=== PATIENT | female | born 1960 | race Caucasian/White ===

== ENCOUNTER 2016-09-17 12:45 | Inpatient (IN) | payer BC ==
[~2016-09-17] VITALS: Ht 157.5 cm; Wt 75.3 kg
[~2016-09-17 12:45] MED LIST: HYD10; SYN112
[2016-09-17] MEDS ORDERED: SODIUM CHLORIDE 0.9% 1000ML 1,000 ML IV STA ×2 (13:54→15:38)
[2016-09-17] MEDS ORDERED: ONDANSETRON INJ 2 MG/ML 2 ML VIAL IV STA (13:54)
[2016-09-17] MEDS: MoRPHine SULFATE 4 MG/ML 1 ML CARP\\VIAL IV PRN ×2 (14:04→18:01)
[2016-09-17 14:11] LABS: BASO % 0.2 %; BASO ABS # 0.02 K/uL (0-0.2); COMPLETE YES; EOS % 0.1 %; HEMATOCRIT 49.3 % (37-47); IG% 0.3 %; LYMPH % 7.7 %; LYMPH ABS # 0.89 K/uL (1.2-3.4); MEAN CELL VOLUME 93.5 fL (80-100); MEAN CORPUSCULAR HEMOGLOBIN 33.2 pg (25-34); MEAN CORPUSCULAR HGB CONC 35.5 g/dl (32-36); MEAN PLATELET VOLUME 11.4 fL (7.4-10.4); MONO % 6.8 %; NEUT % 84.9 %; PLATELET COUNT 215 K/uL (130-400); RED BLOOD COUNT 5.27 M/uL (4.2-5.4); WHITE BLOOD COUNT 11.62 K/uL (4.8-10.8)
[2016-09-17 14:23] LABS: BUN/CREATININE RATIO 20.9 (10-20); CALCIUM 8.9 mg/dl (8.5-10.1); CREATININE 1.3 mg/dl (0.60-1.20); POTASSIUM 3.1 mmol/L (3.5-5.1)
[2016-09-17] MEDS ORDERED: PRLSR20 PO (14:34)
[2016-09-17] MEDS ORDERED: HYDR20TA3 PO (14:34)
[2016-09-17] MEDS ORDERED: ERGO500037 PO (14:34)
[2016-09-17] MEDS ORDERED: HYDR25TA5 PO (14:34)
[2016-09-17] MEDS ORDERED: LEVO88TA PO (14:34)
[2016-09-17] MEDS ORDERED: HYDR20TA PO (14:34)
[2016-09-17] MEDS ORDERED: ISOS-11 PO (14:34)
[2016-09-17] MEDS ORDERED: ASPI81TA28 PO (14:34)
[2016-09-17] MEDS ORDERED: METO50TA16 PO (14:34)
[2016-09-17] MEDS ORDERED: GLIP5TAB11 PO (14:34)
[2016-09-17] MEDS ORDERED: HYDROCORTISONE SOD SUCCINATE 100 MG/2 ML VIAL IV STA (15:37)
--- NOTE | 2016-09-17 16:44 | EMERGENCY ROOM VISIT NOTE ---
History Report prepared by Isela: Kim Bliss Under the Supervision of: Rene FullerO. First contact with patient: 13:09 Chief Complaint: PAIN (GENERALIZED) Stated Complaint: PAIN ALL OVER BODY History of Present Illness The patient is a 56 year old female who presents to the Emergency Room with complaints of persistent nausea, vomiting and diarrhea since yesterday. She has had about 6-7 episodes of both vomiting and diarrhea. The patient has not been able to keep anything down and notes that water goes right through her. She also complains of generalized abdominal pain. She has not been on antibiotics recently. No recent travel outside of the country or known sick contacts. Source of History: patient Onset: yesterday Position: other (GI) Quality: other (n/v/d) Timing: other (persistent) Modifying Factors (Worsening): eating, drinking Associated Symptoms: + abdominal pain Review of Systems See HPI for pertinent positives & negatives. A total of 10 systems reviewed and were otherwise negative. Past Medical & Surgical Medical Problems: (1) Hypolipidemia (2) Type 2 diabetes mellitus Family History No pertinent family history stated. Social History Smoking Status: Current Every Day Smoker Marital Status: Occupation Status: employed Current/Historical Medications Scheduled Aspirin (Aspirin Ec), 81 MG PO DAILY Ergocalciferol (Vitamin D 09630 Unit), 50,000 UNIT PO MONTHLY Glipizide (Glucotrol), 5 MG PO UD Hydrochlorothiazide (Hydrochlorothiazide), 25 MG PO DAILY Hydrocortisone (Cortef), 20 MG PO QAM Hydrocortisone (Cortef), 10 MG PO QPM Isosorbide Mononitrate (Isosorbide Mononitrate ER), 60 MG PO DAILY Levothyroxine Sodium (Synthroid), 88 MCG PO DAILY Metoprolol Tartrate (Lopressor) (Lopressor), 50 MG PO BID Omeprazole (Prilosec), 20 MG PO DAILY Allergies Coded Allergies: Codeine (Verified Allergy, Unknown, 10/02/09) Physical Exam Vital Signs Date Time Temp Pulse Resp B/P Pulse Ox O2 Delivery O2 Flow Rate FiO2 09/17/16 16:38 90 20 151/93 96 Room Air 09/17/16 15:32 98 20 167/82 97 Room Air 09/17/16 14:05 84 22 178/76 96 Room Air 09/17/16 13:32 37.1 98 22 1/21/17 12:56 35.0 95 28 121/64 94 Room Air Physical Exam CONSTITUTIONAL/VITAL SIGNS: Reviewed / noted above. GENERAL: Non-toxic in appearance. INTEGUMENTARY: Warm, dry, and [place]. HEAD: Normocephalic. EYES: without scleral icterus or trauma. ENT/OROPHARYNX: clear and moist. LYMPHADENOPATHY/NECK: Is supple without lymphadenopathy or meningismus. RESPIRATORY: Lungs clear and equal. CARDIOVASCULAR: Regular rate and rhythm. GI/ABDOMEN: Soft and nontender. No organomegaly or pulsatile mass. No rebound or guarding. Normal bowel sounds. EXTREMITIES: Warm and well perfused. BACK: No CVA tenderness. NEUROLOGICAL: Intact without focal deficits. PSYCHIATRIC: normal affect. MUSCULOSKELETAL: Normally developed with good muscle tone. Medical Decision & Procedures Laboratory Results 09/17/16 13:25 Red Blood Count 5.27, Mean Corpuscular Volume 93.5, Mean Corpuscular Hemoglobin 33.2, Mean Corpuscular Hemoglobin Concent 35.5, Mean Platelet Volume 11.4, Neutrophils (%) (Auto) 84.9, Lymphocytes (%) (Auto) 7.7, Monocytes (%) (Auto) 6.8, Eosinophils (%) (Auto) 0.1, Basophils (%) (Auto) 0.2, Neutrophils # (Auto) 9.88, Lymphocytes # (Auto) 0.89, Monocytes # (Auto) 0.79, Eosinophils # (Auto) 0.01, Basophils # (Auto) 0.02 09/17/16 13:25 Test 09/17/16 13:25 09/17/16 13:54 09/17/16 17:10 White Blood Count 11.62 K/uL (4.8-10.8) Red Blood Count 5.27 M/uL (4.2-5.4) Hemoglobin 17.5 g/dL (12.0-16.0) Hematocrit 49.3 % (37-47) Mean Corpuscular Volume 93.5 fL (80-100) Mean Corpuscular Hemoglobin 33.2 pg (25-34) Mean Corpuscular Hemoglobin Concent 35.5 g/dl (32-36) Platelet Count 215 K/uL (130-400) Mean Platelet Volume 11.4 fL (7.4-10.4) Neutrophils (%) (Auto) 84.9 % Lymphocytes (%) (Auto) 7.7 % Monocytes (%) (Auto) 6.8 % Eosinophils (%) (Auto) 0.1 % Basophils (%) (Auto) 0.2 % Neutrophils # (Auto) 9.88 K/uL (1.4-6.5) Lymphocytes # (Auto) 0.89 K/uL (1.2-3.4) Monocytes # (Auto) 0.79 K/uL (0.11-0.59) Eosinophils # (Auto) 0.01 K/uL (0-0.5) Basophils # (Auto) 0.02 K/uL (0-0.2) RDW Standard Deviation 43.6 fL (36.4-46.3) RDW Coefficient of Variation 12.8 % (11.5-14.5) Immature Granulocyte % (Auto) 0.3 % Immature Granulocyte # (Auto) 0.03 K/uL (0.00-0.02) Anion Gap 14.0 mmol/L (3-11) Est Creatinine Clear Calc Drug Dose 46.1 ml/min Estimated GFR () 53.9 Estimated GFR (Non- 46.5 BUN/Creatinine Ratio 20.9 (10-20) Calcium Level 8.9 mg/dl (8.5-10.1) Total Bilirubin 1.6 mg/dl (0.2-1) Direct Bilirubin 0.4 mg/dl (0-0.2) Aspartate Amino Transf (AST/SGOT) 40 U/L (15-37) Alanine Aminotransferase (ALT/SGPT) 36 U/L (12-78) Alkaline Phosphatase 78 U/L (45-117) Total Protein 8.2 gm/dl (6.4-8.2) Albumin 4.1 gm/dl (3.4-5.0) Lipase 73 U/L (73-393) Creatine Kinase MB Ratio (0-3.0) Date/Time Source Procedure Growth Status 09/17/16 13:55 Stool C.difficile Toxin B Gene (PCR) - Final No C. difficile toxin B gene detected Complete Laboratory results as stated above per my review. Medications Administered Medications (Trade) Dose Ordered Sig/Kam Route Start Time Stop Time Status Last Admin Dose Admin Sodium Chloride (Nss 1000ml) 1,000 ml @ 999 mls/hr Q1H1M STAT IV 09/17/16 13:54 09/17/16 14:54 DC 09/17/16 14:04 999 MLS/HR Ondansetron HCl (Zofran Inj) 4 mg NOW STAT IV 09/17/16 13:54 09/17/16 13:55 DC 09/17/16 14:04 4 MG Morphine Sulfate (MoRPHine SULFATE INJ) 4 mg Q1H PRN IV 09/17/16 14:00 10/01/16 13:59 09/17/16 14:04 4 MG Hydrocortisone Sodium Succinate 100 mg 100 mg NOW STAT IV 09/17/16 15:37 09/17/16 15:38 DC 09/17/16 15:48 100 MG Sodium Chloride (Nss 1000ml) 1,000 ml @ 999 mls/hr Q1H1M STAT IV 09/17/16 15:38 09/17/16 16:38 DC 09/17/16 15:38 999 MLS/HR ED Course 1310: The patient was evaluated in room B4. A complete history and physical examination was performed. 1354: Ordered Zofran Inj 4 mg IV, NSS 1000 ml @ 999 mls/hr IV. 1400: Ordered Morphine Sulfate 4 mg IV. 1637: Ordered Solu-Cortef 100 mg IV, NSS 1000 ml @ 999 mls/hr IV. 1637: On reevaluation, the patient is still not feeling great. I discussed the results and findings with the patient. She verbalized agreement of the treatment plan. 1647: I spoke with Dr. Carrillo of the [facility] [place] [facility] Hospitalist Service. The patient will be evaluated for further management and care. Medical Decision Differential diagnosis: Etiologies such as gastroenteritis, food borne illness, infections, appendicitis , diverticulitis, inflammatory bowel disease, obstruction, GI bleed, biliary pathology, as well as others were entertained. This is a 56-year-old female who presents to the ED with a chief complaint of nausea, vomiting and diarrhea. The patient has had about 6-7 episodes of each since it started yesterday. She has some mild generalized abdominal pain. Her vital signs are normal. Abdominal exam did not reveal any focal tenderness. CBC is unremarkable. The BUN is 27 and creatinine is 1.3. Total bilirubin is 1.6. The patient was treated with IV fluids and IV Zofran as well as IV morphine for her discomfort. Because of the patient's chronic hydrocortisone use, she was given 100 mg IV hydrocortisone. She is given a second liter of normal saline IV. The patient feels not feeling well. She did have some dry heaves during her stay as well as some diarrhea that was watery. C. difficile was negative. BUN and creatinine are slightly elevated. The patient reports she has not been able to keep her medications down for the past 2 days. The patient states that she really does not feel much better. I spoke with the hospitalist, who will see the patient for further inpatient care. Consults Time Called: 1640 Consulting Physician: Dr. Carrillo of the [facility] [place] [facility] Hospitalist Service Returned Call: [phone] Carrillo of the [facility] [place] [facility] Hospitalist Service. The patient will be evaluated for further management and care. Impression Primary Impression: Vomiting and diarrhea Additional Impression: Panhypopituitarism Scribe Attestation The scribe's documentation has been prepared under my direction and personally reviewed by me in its entirety. I confirm that the note above accurately reflects all work, treatment, procedures, and medical decision making performed by me. Departure Information Dispostion Being Evaluated By Hospitalist Referrals RV. Melissa MD (PCP) Patient Instructions My [facility] Problem Qualifiers
--- NOTE | 2016-09-17 17:35 | DIAGNOSTIC IMAGING REPORT ---
CHEST ONE VIEW PORTABLE CLINICAL HISTORY: Cough. COMPARISON STUDY: Chest radiograph March 03, 2006 FINDINGS: This study is compromised by motion artifact. There is no pneumothorax or pleural effusion. No lobar consolidation is present. There is no evidence for pulmonary edema. Apparent hazy bibasilar opacities are likely artifactual. Cardiac size is normal. Mediastinal contours are normal. IMPRESSION: 1. Study compromised by motion artifact. 2. No acute findings identified. Electronically signed by: Darek Curry M.D. 09/17/2016 5:33 PM Dictated Date/Time: 09/17/2016 5:32 PM
[2016-09-17 17:47] LABS: URINE APPEARANCE CLEAR (CLEAR); URINE BILIRUBIN NEG (NEG); URINE COLOR YELLOW; URINE EPITHELIAL CELL AUTO >30 /lpf (0-5); URINE NITRITE NEG (NEG); URINE SPECIFIC GRAVITY 1.017 (1.000-1.030); UROBILINOGEN NEG (NEG)
[2016-09-17 17:49] LABS: CKMB/CK RATIO 0.6 (0-3.0); MAGNESIUM 2.1 mg/dl (1.8-2.4)
[2016-09-17 17:52] LABS: MANUAL MICROSCOPIC REQUIRED? NO; REVIEW REQ? YES
[2016-09-17 18:02] LABS: URINE MUCUS PRESENT (NONE PRSENT)
[2016-09-17 18:04] LABS: ZZUR CULT IF INDIC CLEAN CATCH YES
[2016-09-17] MEDS ORDERED: POTASSIUM CHLORIDE 10 MEQ / 100ML WTR IV ONE (18:41)
[2016-09-17] MEDS ORDERED: NSS+KCL 20 MEQ 1000ML ONE (18:42)
--- NOTE | 2016-09-17 19:39 | DIAGNOSTIC IMAGING REPORT ---
BILATERAL LOWER EXTREMITY ARTERIAL DOPPLER ULTRASOUND CLINICAL HISTORY: History of peripheral arterial disease with bilateral stents. Decreased left dorsalis pedis pulse. COMPARISON STUDY: No previous studies for comparison. TECHNIQUE: Grayscale and color and duplex Doppler sonography of the arterial systems of the lower extremities was performed. Ankle to brachial indices were obtained. FINDINGS: The right ankle to brachial index measured 0.72 when using posterior tibial artery and 0.66 when using the dorsalis pedis. The left ankle brachial index measured 0.75 when using posterior tibial artery and 0.67 using the dorsalis pedis. There was monophasic flow within the right common femoral artery which raises the possibility of inflow disease. There is moderate atherosclerotic plaque within each lower extremity. No elevated velocities were identified within the right lower extremity. There was monophasic flow throughout the right lower extremity. There was biphasic flow within the left common femoral and superficial femoral arteries with monophasic flow within the remainder of the left lower extremity. The vessels were patent. Waveforms are slightly dampened. There was a mildly elevated velocity within the proximal left superficial femoral artery of 185 cm/s. IMPRESSION: 1. Moderate atherosclerotic plaque within each lower extremity. 2. Diminished right ankle to brachial index of 0.72 and left ankle to brachial index of 0.75. 3. Mildly elevated velocity within the proximal left superficial femoral artery which raises the possibility of a stenosis. 4. Patent vessels within each lower extremity. However, waveforms within the distal vessels were monophasic and slightly dampened. Electronically signed by: Darek Curry M.D. 09/17/2016 7:37 PM Dictated Date/Time: 09/17/2016 7:30 PM
[2016-09-17] MEDS ORDERED: GLUCOSE 40% GEL 15 GM TUBE PO PRN (20:00)
[2016-09-17] MEDS ORDERED: MoRPHine SULFATE 2 MG/ML CARP IV PRN (20:00)
[2016-09-17] MEDS ORDERED: PROMETHAZINE HCL INJ 12.5 MG in SODIUM CHLORIDE 0.9% 50ML 50 ML IV PRN (20:00)
[2016-09-17] MEDS ORDERED: GLUCAGON FOR INJ 1 MG VIAL SQ PRN (20:00)
[2016-09-17] MEDS ORDERED: DEXTROSE 50% 50 ML SYR IV PRN (20:00)
[2016-09-17] MEDS ORDERED: NITROGLYCERIN 0.4 MG SL PER TAB CHARGE SL PRN (20:00)
[2016-09-17] MEDS ORDERED: METOPROLOL TARTRATE 1 MG/ML VIAL IV. PRN (20:00)
[2016-09-17] MEDS ORDERED: ONDANSETRON INJ 2 MG/ML 2 ML VIAL IV PRN (20:00)
[2016-09-17] MEDS ORDERED: DiphenhydrAMINE HCL 50 MG/ML VIAL IV PRN (20:00)
[2016-09-17] MEDS ORDERED: LORAZEPAM 2 MG/ML 1 ML VIAL IV PRN (20:00)
[2016-09-17] MEDS ORDERED: GLUCOSE 10 TABS/TUBE PO PRN (20:00)
[2016-09-17] MEDS ORDERED: MoRPHine SULFATE 4 MG/ML 1 ML CARP\\VIAL IV PRN (20:00)
--- NOTE | 2016-09-17 20:22 | DIAGNOSTIC IMAGING REPORT ---
CT OF THE ABDOMEN AND PELVIS WITHOUT CONTRAST CLINICAL HISTORY: Left lower quadrant pain, nausea, vomiting and diarrhea. COMPARISON STUDY: No previous studies for comparison. TECHNIQUE: Axial images of the abdomen and pelvis were obtained without IV contrast. Images were reviewed in the axial, sagittal, and coronal planes. FINDINGS: Evaluation of the abdomen and pelvis is suboptimal given the lack of IV and oral contrast. There is fatty infiltration of the liver. The gallbladder is mildly distended. There are suspected gallstones within the gallbladder. There is no pericholecystic infiltration. Unenhanced images of the spleen, adrenal glands, kidneys and pancreas are unremarkable. There is no hydronephrosis or hydroureter. The caliber and wall thickness of small and large bowel are normal on this unenhanced exam. The appendix is normal. There is no evidence for a bowel obstruction. There is no lymphadenopathy. There are bilateral common iliac artery stents. Patency cannot be assessed on this unenhanced study. Skeletal structures are unremarkable. There is no lymphadenopathy. IMPRESSION: 1. Possible cholelithiasis and mild gallbladder distention. No pericholecystic infiltration. 2. No bowel obstruction. 3. No definite acute process within the abdomen or pelvis although evaluation is compromised given the lack of IV and oral contrast. 4. Normal appendix. Electronically signed by: Darek Curry M.D. 09/17/2016 8:20 PM Dictated Date/Time: 09/17/2016 8:16 PM
[2016-09-17 20:30] LABS: CKMB/CK RATIO 0.6 (0-3.0)
[2016-09-17 22:25] VITALS: BP 142/69; PULSE 82; TEMP 36.8; O2SAT 95; Ht 157.5 cm; Wt 75.3 kg
[2016-09-17] MEDS: INSULIN ASPART 100 UNITS/ML 3 ML PEN SC SCH (23:00)
[2016-09-17] MEDS ORDERED: METOPROLOL TARTRATE 1 MG/ML VIAL IV PRN (23:00)
[2016-09-17] MEDS: NITROGLYCERIN OINT 2% 1GM PACKET EXT SCH (23:08)
[2016-09-17] MEDS: POTASSIUM CHLR 10 MEQ / WTR 10 MEQ in PREMIXED WATER 100 ML IV SCH (23:08)
--- NOTE | 2016-09-17 23:24 | History and Physical ---
History & Physical Date & Time of Service: Sep 17, 2016 at 23:03 Chief Complaint: Abnormal Ekg, Vomiting And Diarrhea Primary Care Physician: RV. Melissa MD History of Present Illness Source: patient, family The patient is a 56-year-old female who presents emergency department with complaint of nausea, vomiting and diarrhea over the past 2 days. She has a history of panhypopituitarism, and has not been able to keep any of her medications down. She complains of severe generalized myalgias, feels dehydrated, severely fatigued, left lower quadrant abdominal tightness. Past Medical/Surgical History Medical Problems: (1) Hypolipidemia Status: Chronic (2) Type 2 diabetes mellitus Status: Chronic Social History Smoking Status: Current Every Day Smoker Smokeless Tobacco Use: No Alcohol Use: none Drug Use: none Marital Status: Housing status: lives with family Occupational Status: employed Immunizations History of Influenza Vaccine: No History of Tetanus Vaccine?: No History of Pneumococcal: No History of Hepatitis B Vaccine: No Multi-Drug Resistant Organisms History of MDRO: No Allergies Coded Allergies: Codeine (Verified Allergy, Unknown, 10/02/09) Home Medications Scheduled Aspirin (Aspirin Ec), 81 MG PO DAILY Ergocalciferol (Vitamin D 08620 Unit), 50,000 UNIT PO MONTHLY Glipizide (Glucotrol), 5 MG PO UD Hydrochlorothiazide (Hydrochlorothiazide), 25 MG PO DAILY Hydrocortisone (Cortef), 20 MG PO QAM Hydrocortisone (Cortef), 10 MG PO QPM Isosorbide Mononitrate (Isosorbide Mononitrate ER), 60 MG PO DAILY Levothyroxine Sodium (Synthroid), 88 MCG PO DAILY Metoprolol Tartrate (Lopressor) (Lopressor), 50 MG PO BID Omeprazole (Prilosec), 20 MG PO DAILY Review of Systems The patient denies chest pain, palpitations, lower extremity swelling, vision change, hearing change, sore throat, fevers, chills, sweats, blood in urine or stool, dysuria, urinary frequency or urgency, rash, abnormal bruising or bleeding, imbalance, focal weakness, night sweats. The review of systems is otherwise negative other than for that already noted above, and at least 10 systems have been reviewed. Physical Exam Vital Signs Date Time Temp Pulse Resp B/P Pulse Ox O2 Delivery O2 Flow Rate FiO2 09/17/16 21:45 85 18 09/17/16 20:58 135/70 09/17/16 20:45 86 22 09/17/16 20:32 148/81 09/17/16 19:58 121/76 09/17/16 19:46 87 20 135/72 93 Room Air 09/17/16 19:45 86 29 93 09/17/16 19:44 135/72 09/17/16 17:45 96 37 09/17/16 16:45 100 97 09/17/16 16:38 90 20 151/93 96 Room Air 09/17/16 15:59 151/93 09/17/16 15:45 79 32 81 09/17/16 15:32 98 20 167/82 97 Room Air 09/17/16 15:31 167/82 09/17/16 14:45 85 24 96 09/17/16 14:05 84 22 178/76 96 Room Air 09/17/16 14:04 178/76 09/17/16 13:32 37.1 98 22 09/17/16 12:56 35.0 95 28 121/64 94 Room Air The patient is awake, alert and oriented 3, lying in bed, looks to be in pain with facial grimacing. HEENT--PERRL, mucous membranes and oropharynx dry. Neck--supple, no JVD or bruits, thyroid normal, trachea midline, no adenopathy. Heart--normal S1 and S2, no extra beats, no murmurs, rubs or gallops. Lungs--decreased breath sounds on the right, scattered wheezes on the left, no respiratory distress, no accessory muscle use. Abdomen--normal bowel sounds and soft, tender left lower quadrant, nondistended. Extremities--no cyanosis, clubbing or edema. Diminished DP pulse left greater than right. Dermatologic--skin appears dry, in particular in facial areas. Neurologic--cranial nerves II through XII grossly intact, motor exam is limited , and sensory examination is abnormal due to hypersensitivity causing pain with light touch. Rheumatologic--full range of motion but limited due to pain. Psychiatric--uncomfortable secondary to pain Diagnostics Laboratory Results Results Past 24 Hours Test 09/17/16 13:25 09/17/16 17:00 09/17/16 17:10 Range/Units White Blood Count 11.62 4.8-10.8 K/uL Red Blood Count 5.27 4.2-5.4 M/uL Hemoglobin 17.5 12.0-16.0 g/dL Hematocrit 49.3 37-47 % Mean Corpuscular Volume 93.5 80-100 fL Mean Corpuscular Hemoglobin 33.2 25-34 pg Mean Corpuscular Hemoglobin Concent 35.5 32-36 g/dl Platelet Count 215 130-400 K/uL Mean Platelet Volume 11.4 7.4-10.4 fL Neutrophils (%) (Auto) 84.9 % Lymphocytes (%) (Auto) 7.7 % Monocytes (%) (Auto) 6.8 % Eosinophils (%) (Auto) 0.1 % Basophils (%) (Auto) 0.2 % Neutrophils # (Auto) 9.88 1.4-6.5 K/uL Lymphocytes # (Auto) 0.89 1.2-3.4 K/uL Monocytes # (Auto) 0.79 0.11-0.59 K/uL Eosinophils # (Auto) 0.01 0-0.5 K/uL Basophils # (Auto) 0.02 0-0.2 K/uL RDW Standard Deviation 43.6 36.4-46.3 fL RDW Coefficient of Variation 12.8 11.5-14.5 % Immature Granulocyte % (Auto) 0.3 % Immature Granulocyte # (Auto) 0.03 0.00-0.02 K/uL Sodium Level 137 136-145 mmol/L Potassium Level 3.1 3.5-5.1 mmol/L Chloride Level 102 98-107 mmol/L Carbon Dioxide Level 21 21-32 mmol/L Anion Gap 14.0 3-11 mmol/L Blood Urea Nitrogen 27 7-18 mg/dl Creatinine 1.30 0.60-1.20 mg/dl Est Creatinine Clear Calc Drug Dose 46.1 ml/min Estimated GFR () 53.9 Estimated GFR (Non- 46.5 BUN/Creatinine Ratio 20.9 10-20 Random Glucose 89 70-99 mg/dl Osmolality 296 280-300 mOsm/kg Calcium Level 8.9 8.5-10.1 mg/dl Magnesium Level 2.1 1.8-2.4 mg/dl Total Bilirubin 1.6 0.2-1 mg/dl Direct Bilirubin 0.4 0-0.2 mg/dl Aspartate Amino Transf (AST/SGOT) 40 15-37 U/L Alanine Aminotransferase (ALT/SGPT) 36 12-78 U/L Alkaline Phosphatase 78 45-117 U/L Total Creatine Kinase 542 26-192 U/L Creatine Kinase MB 3.3 0.5-3.6 ng/ml Creatine Kinase MB Ratio 0.6 0-3.0 Troponin I < 0.015 0-0.045 ng/ml Total Protein 8.2 6.4-8.2 gm/dl Albumin 4.1 3.4-5.0 gm/dl Lipase 73 73-393 U/L Urine Color YELLOW Urine Appearance CLEAR CLEAR Urine pH 5.0 4.5-7.5 Urine Specific [place] 1.017 1.000-1.030 Urine Protein NEG NEG Urine Glucose (UA) NEG NEG Urine Ketones 3+ NEG Urine Occult Blood 2+ NEG Urine Nitrite NEG NEG Urine Bilirubin NEG NEG Urine Urobilinogen NEG NEG Urine Leukocyte Esterase SMALL NEG Urine WBC (Auto) 5-10 0-5 /hpf Urine RBC (Auto) 0-4 0-4 /hpf Urine Hyaline Casts (Auto) 10-30 0-5 /lpf Urine Epithelial Cells (Auto) >30 0-5 /lpf Urine Bacteria (Auto) 1+ NEG Urine Pathogenic Casts 0 /lpf Urine Mucus PRESENT NONE PRSENT Microbiology Results 09/17/16 C.difficile Toxin B Gene (PCR) - Final, Complete No C. difficile toxin B gene detected 09/17/16 Urine Culture, Received Pending Diagnostic Radiology Patient Name: JOAN BHAT Unit Number: [id number] Dictated: 09/17/161929 Transcribed: 09/17/161929 Printed Date/Time: [~ rep prt dt]/[~ rep prt tm] [~ rep ct labl] - [~ rep ct ivnm] [facility] [place] [address] Dictated: 09/17/161929 Transcribed: 09/17/161929 Printed Date/Time: [~ rep prt dt]/[~ rep prt tm] [~ rep ct labl] - [~ rep ct ivnm] BILATERAL LOWER EXTREMITY ARTERIAL DOPPLER ULTRASOUND CLINICAL HISTORY: History of peripheral arterial disease with bilateral stents. Decreased left dorsalis pedis pulse. COMPARISON STUDY: No previous studies for comparison. TECHNIQUE: Grayscale and color and duplex Doppler sonography of the arterial systems of the lower extremities was performed. Ankle to brachial indices were obtained. FINDINGS: The right ankle to brachial index measured 0.72 when using posterior tibial artery and 0.66 when using the dorsalis pedis. The left ankle brachial index measured 0.75 when using posterior tibial artery and 0.67 using the dorsalis pedis. There was monophasic flow within the right common femoral artery which raises the possibility of inflow disease. There is moderate atherosclerotic plaque within each lower extremity. No elevated velocities were identified within the right lower extremity. There was monophasic flow throughout the right lower extremity. There was biphasic flow within the left common femoral and superficial femoral arteries with monophasic flow within the remainder of the left lower extremity. The vessels were patent. Waveforms are slightly dampened. There was a mildly elevated velocity within the proximal left superficial femoral artery of 185 cm/s. IMPRESSION: 1. Moderate atherosclerotic plaque within each lower extremity. 2. Diminished right ankle to brachial index of 0.72 and left ankle to brachial index of 0.75. 3. Mildly elevated velocity within the proximal left superficial femoral artery which raises the possibility of a stenosis. 4. Patent vessels within each lower extremity. However, waveforms within the distal vessels were monophasic and slightly dampened. Electronically signed by: Darek Curry M.D. 09/17/2016 7:37 PM Dictated Date/Time: 09/17/2016 7:30 PM The status of this report is Signed. Draft = Not yet reviewed or approved by Radiologist. Signed = Reviewed and approved by Radiologist. <AttendingPhy></AttendingPhy> <FamilyPhy>RV. Melissa MD</ FamilyPhy> <PrimaryPhy>RV. Melissa MD</PrimaryPhy> <UnitNumber> [id number]</UnitNumber> <VisitNumber>[id number]</VisitNumber> <PatientName> JOAN BHAT Brenda</PatientName> <DateOfBirth>1960</DateOfBirth> < Location>[facility]</Location> <ServiceDate>01/21/17</ServiceDate> <MNE>ESINDI</MNE> <OrderingPhy>Sreedhar Carrillo M.D.</OrderingPhy> <OrderingPhyMNE>f rep ord dr alberto</OrderingPhyMNE> <DictatingPhyMNE>f rep dict dr alberto</DictatingPhyMNE> < CCListMNE>f rep ct mne</CCListMNE> <AdmittingPhyMNE>f pt admit dr alberto</ AdmittingPhyMNE> <AttendingPhyMNE>f pt attend dr alberto</AttendingPhyMNE> <ConsultingPhyMNE>f pt consult dr alberto</ConsultingPhyMNE> <FamilyPhyMNE>f pt fam dr alberto</FamilyPhyMNE> <OtherPhyMNE>f pt other dr alberto</OtherPhyMNE> < PrimaryPhyMNE>f pt prim care dr alberto</PrimaryPhyMNE> <ReferringPhyMNE>f pt referring dr alberto</ReferringPhyMNE> Patient Name: JOAN BHAT Unit Number: [id number] Dictated: 09/17/161731 Transcribed: 09/17/161731 JA Printed Date/Time: [~ rep prt dt]/[~ rep prt tm] [~ rep ct labl] - [~ rep ct ivnm] [facility] [place] [address] Dictated: 09/17/161731 Transcribed: 09/17/161731 Printed Date/Time: [~ rep prt dt]/[~ rep prt tm] [~ rep ct labl] - [~ rep ct ivnm] [~ rep ct add3]] CHEST ONE VIEW PORTABLE CLINICAL HISTORY: Cough. COMPARISON STUDY: Chest radiograph March 03, 2006 FINDINGS: This study is compromised by motion artifact. There is no pneumothorax or pleural effusion. No lobar consolidation is present. There is no evidence for pulmonary edema. Apparent hazy bibasilar opacities are likely artifactual. Cardiac size is normal. Mediastinal contours are normal. IMPRESSION: 1. Study compromised by motion artifact. 2. No acute findings identified. Electronically signed by: Darek Curry M.D. 09/17/2016 5:33 PM Dictated Date/Time: 09/17/2016 5:32 PM The status of this report is Signed. Draft = Not yet reviewed or approved by Radiologist. Signed = Reviewed and approved by Radiologist. <AttendingPhy></AttendingPhy> <FamilyPhy>RV. Melissa MD</ FamilyPhy> <PrimaryPhy>RV. Melissa MD</PrimaryPhy> <UnitNumber> [id number]</UnitNumber> <VisitNumber>[id number]</VisitNumber> <PatientName> JOAN BHAT</PatientName> <DateOfBirth>1960</DateOfBirth> < Location>[facility]</Location> <ServiceDate>09/17/16</ServiceDate> <MNE>ESINDI</MNE> <OrderingPhy>Sreedhar Carrillo M.D.</OrderingPhy> <OrderingPhyMNE>f rep ord dr alberto</OrderingPhyMNE> <DictatingPhyMNE>f rep dict dr alberto</DictatingPhyMNE> < CCListMNE>f rep ct mne</CCListMNE> <AdmittingPhyMNE>f pt admit dr alberto</ AdmittingPhyMNE> <AttendingPhyMNE>f pt attend dr alberto</AttendingPhyMNE> <ConsultingPhyMNE>f pt consult dr alberto</ConsultingPhyMNE> <FamilyPhyMNE>f pt fam dr alberto</FamilyPhyMNE> <OtherPhyMNE>f pt other dr alberto</OtherPhyMNE> < PrimaryPhyMNE>f pt prim care dr alberto</PrimaryPhyMNE> <ReferringPhyMNE>f pt referring dr alberto</ReferringPhyMNE> Patient Name: JOAN BHAT Unit Number: [id number] Dictated: 09/17/162015 Transcribed: 09/17/16 2016 JA Printed Date/Time: [~ rep prt dt]/[~ rep prt tm] [~ rep ct labl] - [~ rep ct ivnm] [facility] [place] [address] Dictated: 09/17/162015 Transcribed: 09/17/16 2016 JA Printed Date/Time: [~ rep prt dt]/[~ rep prt tm] [~ rep ct labl] - [~ rep ct ivnm] CT OF THE ABDOMEN AND PELVIS WITHOUT CONTRAST CLINICAL HISTORY: Left lower quadrant pain, nausea, vomiting and diarrhea. COMPARISON STUDY: No previous studies for comparison. TECHNIQUE: Axial images of the abdomen and pelvis were obtained without IV contrast. Images were reviewed in the axial, sagittal, and coronal planes. FINDINGS: Evaluation of the abdomen and pelvis is suboptimal given the lack of IV and oral contrast. There is fatty infiltration of the liver. The gallbladder is mildly distended. There are suspected gallstones within the gallbladder. There is no pericholecystic infiltration. Unenhanced images of the spleen, adrenal glands, kidneys and pancreas are unremarkable. There is no hydronephrosis or hydroureter. The caliber and wall thickness of small and large bowel are normal on this unenhanced exam. The appendix is normal. There is no evidence for a bowel obstruction. There is no lymphadenopathy. There are bilateral common iliac artery stents. Patency cannot be assessed on this unenhanced study. Skeletal structures are unremarkable. There is no lymphadenopathy. IMPRESSION: 1. Possible cholelithiasis and mild gallbladder distention. No pericholecystic infiltration. 2. No bowel obstruction. 3. No definite acute process within the abdomen or pelvis although evaluation is compromised given the lack of IV and oral contrast. 4. Normal appendix. Electronically signed by: Darek Curry M.D. 09/17/2016 8:20 PM Dictated Date/Time: 09/17/2016 8:16 PM The status of this report is Signed. Draft = Not yet reviewed or approved by Radiologist. Signed = Reviewed and approved by Radiologist. <AttendingPhy></AttendingPhy> <FamilyPhy>RV. Melissa MD</ FamilyPhy> <PrimaryPhy>RV. Melissa MD</PrimaryPhy> <UnitNumber> [id number]</UnitNumber> <VisitNumber>[id number]</VisitNumber> <PatientName> JAZMINBINJOAN</PatientName> <DateOfBirth>1960</DateOfBirth> < Location>[facility]</Location> <ServiceDate>09/17/16</ServiceDate> <MNE>ESINDI</MNE> <OrderingPhy>Sreedhar Carrillo M.D.</OrderingPhy> <OrderingPhyMNE>f rep ord dr alberto</OrderingPhyMNE> <DictatingPhyMNE>f rep dict dr alberto</DictatingPhyMNE> < CCListMNE>f rep ct regie</CCListMNE> <AdmittingPhyMNE>f pt admit dr alberto</ AdmittingPhyMNE> <AttendingPhyMNE>f pt attend dr alberto</AttendingPhyMNE> <ConsultingPhyMNE>f pt consult dr alberto</ConsultingPhyMNE> <FamilyPhyMNE>f pt fam dr alberto</FamilyPhyMNE> <OtherPhyMNE>f pt other dr alberto</OtherPhyMNE> < PrimaryPhyMNE>f pt prim care dr alberto</PrimaryPhyMNE> <ReferringPhyMNE>f pt referring dr alberto</ReferringPhyMNE> EKG EKG shows normal sinus rhythm, long QT, and ST depressions and T-wave inversions in leads V2 and V3, and III, with T-wave flattening in V4 through V6. Impression Assessment and Plan Coronary artery disease/history of 5 coronary artery stents, with the last in 2005/hypertension/ with changes of ischemia on EKG compared to EKG of 2006--the patient will be admitted to the telemetry unit, for serial cardiac enzymes, cardiac rhythm monitoring, and a 2-D echo cardial with Dopplers. We'll continue metoprolol tartrate 50 mg by mouth twice a day , hold Imdur ER 60 mg by mouth daily, start Nitropaste 1 inch to the anterior chest wall every 6 hours , hold HCTZ 25 mg by mouth daily, continue aspirin 81 mg by mouth daily. Panhypopituitarism--hold hydrocortisone 20 mg PO every morning and 10 mg PO every evening, and place on hydrocortisone 100 mg IV every 8 hours. Peripheral arterial disease with bilateral common iliac artery stents--ankle- brachial index diminished on the right side at 0.72 and on the left at 0.75, with a suggestion on the left of a proximal superficial femoral artery stenosis. She will need to get more definitive studies after her general medical condition improves, as she is not symptomatic at this time. Nausea, vomiting and diarrhea/abnormal liver enzymes--gallbladder was noted as being distended on CT. The patient will be kept nothing by mouth except meds, and will order a HIDA scan with gallbladder ejection fraction. Dehydration/hypokalemia/renal insufficiency--placed on normal saline with potassium chloride 20 mEq at 100 mils per hour, after receiving 4K riders at 10 mEq each. Level of Care Telemetry Advanced Directives Existing Advance Directive: No Existing Living Will: No Existing Power of Occupational Health Physiotherapist: No Resuscitation Status FULL RESUSCITATION VTE Prophylaxis VTE Risk Assessment Done? Y/N: Yes Risk Level: Moderate Given or contraindicated: SCD's
[2016-09-18] VITALS (9 sets, daily range): BP systolic 103–145; BP diastolic 65–78; PULSE 63–75; TEMP 36.5–37.1; O2SAT 93–97
[2016-09-18] MEDS: POTASSIUM CHLR 10 MEQ / WTR 10 MEQ in PREMIXED WATER 100 ML IV SCH ×3 (00:21→03:01)
[2016-09-18] MEDS: NSS + 20MEQ KCL 1000ML 1,000 ML IV SCH ×3 (03:52→19:37)
[2016-09-18 04:45] LABS: INR 1.1 (0.9-1.1); PROTHROMBIN TIME (PATIENT) 11.7 SECONDS (9.0-12.0)
[2016-09-18 05:09] LABS: ALKALINE PHOSPHATASE 50 U/L (45-117); ALT/SGPT 28 U/L (12-78); AST/SGOT 26 U/L (15-37); BLOOD UREA NITROGEN 16 mg/dl (7-18); BUN/CREATININE RATIO 21.7 (10-20); CARBON DIOXIDE 18 mmol/L (21-32); CHLORIDE 114 mmol/L (98-107); CKMB/CK RATIO 0.7 (0-3.0); GLUCOSE 100 mg/dl (70-99); MAGNESIUM 2.2 mg/dl (1.8-2.4); SODIUM 141 mmol/L (136-145)
[2016-09-18 05:10] LABS: CALCIUM 7.3 mg/dl (8.5-10.1); CREATININE 0.76 mg/dl (0.60-1.20); POTASSIUM 4.8 mmol/L (3.5-5.1)
[2016-09-18 05:24] LABS: BASO % 0.1 %; BASO ABS # 0.01 K/uL (0-0.2); COMPLETE YES; IG% 0.6 %; LYMPH % 8.7 %; LYMPH ABS # 0.69 K/uL (1.2-3.4); MEAN CELL VOLUME 94.1 fL (80-100); MEAN CORPUSCULAR HEMOGLOBIN 32.9 pg (25-34); MEAN PLATELET VOLUME 11.3 fL (7.4-10.4); MONO % 4.8 %; NEUT % 85.8 %; PLATELET COUNT 170 K/uL (130-400); RED BLOOD COUNT 4.25 M/uL (4.2-5.4); WHITE BLOOD COUNT 7.92 K/uL (4.8-10.8)
[2016-09-18] MEDS: NITROGLYCERIN OINT 2% 1GM PACKET EXT SCH ×4 (06:17→23:51)
[2016-09-18] MEDS: INSULIN ASPART 100 UNITS/ML 3 ML PEN SC SCH ×4 (07:00→20:39)
[2016-09-18] MEDS: LEVOTHYROXINE SODIUM INJ 44 MCG in SYRINGE 0 ML IV SCH (09:13)
[2016-09-18] MEDS: PANTOprazole INJ 40 MG in SYRINGE 0 ML IV SCH (10:47)
--- NOTE | 2016-09-18 12:28 | Hospitalist Progress Note ---
Hospitalist Progress Note Date of Service Sep 18, 2016. Subjective Pt evaluation today including: conversation w/ patient, physical exam, chart review, lab review, review of studies, review of inpatient medication list feeling better, no nausea, no vomiting. Objective Vital Signs Date Time Temp Pulse Resp B/P Pulse Ox O2 Delivery O2 Flow Rate FiO2 09/18/16 11:10 37.1 64 18 108/67 94 Room Air 09/18/16 08:00 96 Room Air 09/18/16 07:48 36.5 63 16 122/74 96 09/18/16 06:17 73 103/67 09/18/16 04:00 Room Air 09/18/16 04:00 36.6 71 18 104/65 97 Room Air 09/17/16 23:59 Room Air 09/17/16 22:25 36.8 82 18 142/69 95 Room Air 09/17/16 21:45 85 18 09/17/16 20:58 135/70 09/17/16 20:45 86 22 09/17/16 20:32 148/81 09/17/16 19:58 121/76 09/17/16 19:46 87 20 135/72 93 Room Air 09/17/16 19:45 86 29 93 09/17/16 19:44 135/72 09/17/16 17:45 96 37 09/17/16 16:45 100 97 09/17/16 16:38 90 20 151/93 96 Room Air 09/17/16 15:59 151/93 09/17/16 15:45 79 32 81 09/17/16 15:32 98 20 167/82 97 Room Air 09/17/16 15:31 167/82 09/17/16 14:45 85 24 96 09/17/16 14:05 84 22 178/76 96 Room Air 09/17/16 14:04 178/76 09/17/16 13:32 37.1 98 22 09/17/16 12:56 35.0 95 28 121/64 94 Room Air Physical Exam General Appearance: no apparent distress Eyes: normal inspection ENT: hearing grossly normal Neck: supple Respiratory/Chest: chest non-tender, lungs clear Cardiovascular: regular rate, rhythm, no edema Abdomen: normal bowel sounds, + tenderness Neurologic/Psychiatric: oriented x 3 Skin: normal color Laboratory Results Last 24 Hours Test 09/17/16 13:25 09/17/16 17:00 09/17/16 17:10 09/17/16 22:59 White Blood Count 11.62 K/uL Red Blood Count 5.27 M/uL Hemoglobin 17.5 g/dL Hematocrit 49.3 % Mean Corpuscular Volume 93.5 fL Mean Corpuscular Hemoglobin 33.2 pg Mean Corpuscular Hemoglobin Concent 35.5 g/dl Platelet Count 215 K/uL Mean Platelet Volume 11.4 fL Neutrophils (%) (Auto) 84.9 % Lymphocytes (%) (Auto) 7.7 % Monocytes (%) (Auto) 6.8 % Eosinophils (%) (Auto) 0.1 % Basophils (%) (Auto) 0.2 % Neutrophils # (Auto) 9.88 K/uL Lymphocytes # (Auto) 0.89 K/uL Monocytes # (Auto) 0.79 K/uL Eosinophils # (Auto) 0.01 K/uL Basophils # (Auto) 0.02 K/uL RDW Standard Deviation 43.6 fL RDW Coefficient of Variation 12.8 % Immature Granulocyte % (Auto) 0.3 % Immature Granulocyte # (Auto) 0.03 K/uL Sodium Level 137 mmol/L Potassium Level 3.1 mmol/L Chloride Level 102 mmol/L Carbon Dioxide Level 21 mmol/L Anion Gap 14.0 mmol/L Blood Urea Nitrogen 27 mg/dl Creatinine 1.30 mg/dl Est Creatinine Clear Calc Drug Dose 46.1 ml/min Estimated GFR () 53.9 Estimated GFR (Non- 46.5 BUN/Creatinine Ratio 20.9 Random Glucose 89 mg/dl Osmolality 296 mOsm/kg Calcium Level 8.9 mg/dl Magnesium Level 2.1 mg/dl Total Bilirubin 1.6 mg/dl Direct Bilirubin 0.4 mg/dl Aspartate Amino Transf (AST/SGOT) 40 U/L Alanine Aminotransferase (ALT/SGPT) 36 U/L Alkaline Phosphatase 78 U/L Total Creatine Kinase 542 U/L Creatine Kinase MB 3.3 ng/ml Creatine Kinase MB Ratio 0.6 Troponin I < 0.015 ng/ml Total Protein 8.2 gm/dl Albumin 4.1 gm/dl Lipase 73 U/L Urine Color YELLOW Urine Appearance CLEAR Urine pH 5.0 Urine Specific [place] 1.017 Urine Protein NEG Urine Glucose (UA) NEG Urine Ketones 3+ Urine Occult Blood 2+ Urine Nitrite NEG Urine Bilirubin NEG Urine Urobilinogen NEG Urine Leukocyte Esterase SMALL Urine WBC (Auto) 5-10 /hpf Urine RBC (Auto) 0-4 /hpf Urine Hyaline Casts (Auto) 10-30 /lpf Urine Epithelial Cells (Auto) >30 /lpf Urine Bacteria (Auto) 1+ Urine Pathogenic Casts /lpf Urine Mucus PRESENT Bedside Glucose 108 mg/dl Test 09/18/16 04:19 09/18/16 06:42 09/18/16 11:02 09/18/16 11:54 White Blood Count 7.92 K/uL Red Blood Count 4.25 M/uL Hemoglobin 14.0 g/dL Hematocrit 40.0 % Mean Corpuscular Volume 94.1 fL Mean Corpuscular Hemoglobin 32.9 pg Mean Corpuscular Hemoglobin Concent 35.0 g/dl Platelet Count 170 K/uL Mean Platelet Volume 11.3 fL Neutrophils (%) (Auto) 85.8 % Lymphocytes (%) (Auto) 8.7 % Monocytes (%) (Auto) 4.8 % Eosinophils (%) (Auto) 0.0 % Basophils (%) (Auto) 0.1 % Neutrophils # (Auto) 6.79 K/uL Lymphocytes # (Auto) 0.69 K/uL Monocytes # (Auto) 0.38 K/uL Eosinophils # (Auto) 0.00 K/uL Basophils # (Auto) 0.01 K/uL RDW Standard Deviation 44.0 fL RDW Coefficient of Variation 12.7 % Immature Granulocyte % (Auto) 0.6 % Immature Granulocyte # (Auto) 0.05 K/uL Prothrombin Time 11.7 SECONDS Prothromb Time International Ratio 1.1 Activated Partial Thromboplast Time 26.0 SECONDS Partial Thromboplastin Ratio 1.0 Sodium Level 141 mmol/L Potassium Level 4.8 mmol/L Chloride Level 114 mmol/L Carbon Dioxide Level 18 mmol/L Anion Gap 9.0 mmol/L Blood Urea Nitrogen 16 mg/dl Creatinine 0.76 mg/dl Est Creatinine Clear Calc Drug Dose 80.0 ml/min Estimated GFR () 103.1 Estimated GFR (Non- 88.9 BUN/Creatinine Ratio 21.7 Random Glucose 100 mg/dl Calcium Level 7.3 mg/dl Magnesium Level 2.2 mg/dl Total Bilirubin 0.5 mg/dl Direct Bilirubin 0.2 mg/dl Aspartate Amino Transf (AST/SGOT) 26 U/L Alanine Aminotransferase (ALT/SGPT) 28 U/L Alkaline Phosphatase 50 U/L Total Creatine Kinase 354 U/L Creatine Kinase MB 2.6 ng/ml Creatine Kinase MB Ratio 0.7 Troponin I < 0.015 ng/ml Total Protein 5.8 gm/dl Albumin 2.7 gm/dl Bedside Glucose 81 mg/dl 83 mg/dl Assessment and Plan patient is 56F year old F with PMH of CAD, HTN presented to ER due to nausea, vomiting, abdominal pain and diarrhea for 2 days, 1 Nause, vomiting and diarrhea: may related to gastroenteritis. gallbladder was noted as being distended on CT, possible cholelithiasis.f/u HIDA, consider GI consult. Advanced diet as tolerant. 2 CAD: CAD with 5 stents, troponin was negative. continue metoprolol 50mg bid, aspirin 81mg 3 Panhypopituitarism--patient is on hydrocortisone 20 mg PO every morning and 10 mg PO every evening, discuss with pharmacy will do ihydrocortisone 20 mg IV in the morning, 10mg IV in the evening during NPO. code full diet: advanced as tolerant DVT prophylaxis: heparin
[2016-09-18] MEDS: HEPARIN SOD 5000 UNIT/0.5 ML CARP SQ SCH ×2 (13:33→20:52)
--- NOTE | 2016-09-18 16:01 | CARDIOLOGY CONSULTATION ---
DATE OF CONSULTATION: 09/18/2016 CONSULTATION REQUESTED BY: Dr. Carrillo. REASON FOR CONSULTATION: Abnormal EKG. HISTORY OF PRESENT ILLNESS: Ms. Ortiz is a pleasant 56-year-old woman with a history of significant coronary artery disease status post multiple prior stents in the past, peripheral artery disease status post bilateral common iliac stenting, diabetes, hypertension, renal insufficiency and hypothyroidism who was admitted overnight in a setting of nausea, vomiting and diarrhea. Cardiology consulted today for abnormal EKG. The patient previously followed by cardiology at [facility]. 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 The patient states she had been in her usual state of health up until 2-1/2 days ago when acutely became nauseated and began throwing up. This was later associated with shaking chills, fevers and diarrhea. The patient stayed at home and continued to have symptoms until she presented to the Emergency Department last night. There she was initially afebrile and hemodynamically stable. She had an initial EKG which showed sinus rhythm with first-degree AV block, prolonged QT and T-wave inversions in V2 through V4. She also had some nonspecific changes in her anterolateral leads which were unchanged from prior EKGs. Her initial lab work was remarkable for some mild renal insufficiency, elevated white blood cell count and negative C. diff. She was admitted to telemetry. She was started on IV fluids and is positive 1.5 liters over since admission. She has had no events on telemetry. Denies any chest pain, palpitations, presyncope around her current presentation. At baseline, the patient states that she has been feeling well as of late. She denies any recent exertional chest pain, palpitations or shortness of breath. She does endorse some mild chest discomfort when she gets stressed out or anxious. Her last exercise stress test was reportedly done at [facility] [address] on 09/16/2014 and at that time there was no evidence of ischemia at 10 METs. She had preserved ejection fraction with an EF of 55-60%. The patient also denies any intermittent claudication recently. She states she can walk without any kind of limitations. Her most recent exercise ABIs were done in August 2014, at which time she had mild insufficiency on the right and left, 0.89 on the right and 0.94 on the left. PAST MEDICAL HISTORY: 1. Coronary artery disease status post bare-metal stents to distal circumflex 02/2006, status post angioplasty for in-stent restenosis of OM1 in July of 2006, status post Cypher drug-eluting stent to circ OM in-stent restenosis in October of 2006, status post Redmond drug-eluting stent to 80% in-stent restenosis in October of 2007. 2. Peripheral artery disease status post bilateral common ostial iliac stenting in March of 2006. 3. Diabetes. 4. Hypertension. 5. Chronic renal insufficiency. 6. GERD. 7. Hypothyroidism. 8. 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 SOCIAL HISTORY: Works at [employer], still smokes approximately 1 pack per day. Denies heavy alcohol or illicit drugs. FAMILY HISTORY: Mom had coronary artery disease in her 50s, dad had coronary artery disease in his 50s. HOME MEDICATIONS: Include: 1. Aspirin 81. 2. Vitamin D. 3. Glipizide 5. 4. Hydrochlorothiazide 25. 5. Hydrocortisone 20 in the a.m. and 10 in the p.m. 6. Isosorbide mononitrate 60. 7. Levothyroxine 88 mcg daily. 8. Metoprolol 50 mg p.o. b.i.d. 9. Omeprazole 20. REVIEW OF SYSTEMS: A 10-point review of systems was completed and otherwise negative unless stated in HPI. PHYSICAL EXAMINATION: VITAL SIGNS: Temperature 36.5, pulse 63, blood pressure 122/74, she is satting 96% on room air. GENERAL: The patient appears comfortable in no acute distress. She is alert and oriented x3. HEENT: Her sclerae are anicteric. Oropharynx is clear. Mucous membranes are moist. NECK: Supple with no lymphadenopathy. LUNGS: Clear to auscultation bilaterally. CARDIAC: She has distant heart sounds with a regular rate and rhythm with no appreciable murmurs, rubs or gallops. ABDOMEN: Soft, mildly tender in the right upper quadrant but no significant rebound or guarding. She has intact positive bowel sounds. EXTREMITIES: Warm. She has palpable 1+ PT pulses bilaterally, diminished DP pulses bilaterally. SKIN: Shows no rashes or lesions. NEUROLOGIC: Cranial nerves II-XII are grossly intact. Remainder of exam is nonfocal. PSYCHIATRIC: She is oriented x3. Mood and affect are appropriate. LABORATORY DATA: Sodium 141, potassium 4.8, BUN 16, creatinine of 0.8. Initial potassium 3.1. Initial creatinine was 1.3. INR 1.0. LFTs within normal limits. Albumin this morning is 2.7, hemoglobin 14. White blood cell count 7.9, down from 11.6 and platelets of 170. Troponins have been negative x3. CK elevated at 537. UA questionably positive, C. diff was negative. Urine culture pending. Lower extremity ultrasounds showed mild to moderate arterial insufficiency. JERI 0.72 on the right, 0.75 on the left. There were diminished monophasic waveforms, most notably in the right common femoral artery, suggestive of possible inflow disease. There was also increased velocity in the left common femoral artery with peak systolic velocity of 185. Overall, suggestive of diffuse mild disease. Chest x-ray was negative for any acute cardiopulmonary process. Abdominal CT showed cholelithiasis, but no acute intraabdominal process. IMPRESSION AND PLAN: 1. Viral illness. 2. Dehydration/acute kidney injury. 3. Abnormal EKG. 4. History of coronary artery disease status post multiple stents to circumflex system. 5. Peripheral artery disease without significant intermittent claudication. 6. Diabetes. 7. Hypertension. The patient here with viral illness and dehydration, symptoms improving, lab work improving after IV fluids overnight. The patient noted on presentation to have mildly abnormal EKG. Cardiac enzymes have been negative and no events on telemetry. Suspicion that this represents an acute coronary syndrome is low and would continue patient's home therapy. The patient denies significant exertional symptoms prior to current illness, but does endorse some mild chest discomfort with emotional stress. In the setting of EKG changes and this chest discomfort, it is reasonable to pursue stress test as an outpatient. Otherwise, in regards to patient's peripheral artery disease, the patient does have reduced ABIs from most recently recorded values. However, no evidence of critical limb ischemia and patient denies any claudication symptoms prior to her current illness. No indication for intervention at this time, can be followed as an outpatient. Again strongly recommended smoking cessation. We will continue to follow patient while in hospital. Please contact with any questions. Thank you for allowing us to participate in the care of this patient.
[2016-09-18] MEDS ORDERED: HYDROCORTISONE IV SCH (21:00)
[2016-09-19 04:04] VITALS: BP 151/85; PULSE 69; TEMP 36.8; O2SAT 94
[2016-09-19] MEDS: NSS + 20MEQ KCL 1000ML 1,000 ML IV SCH (06:11)
[2016-09-19] MEDS: HEPARIN SOD 5000 UNIT/0.5 ML CARP SQ SCH (06:13)
[2016-09-19] MEDS: NITROGLYCERIN OINT 2% 1GM PACKET EXT SCH ×2 (06:13→12:00)
[2016-09-19] MEDS: INSULIN ASPART 100 UNITS/ML 3 ML PEN SC SCH ×2 (07:00→12:25)
[2016-09-19 07:04] LABS: BASO % 0.2 %; BASO ABS # 0.01 K/uL (0-0.2); COMPLETE YES; EOS % 0.2 %; HEMATOCRIT 40.1 % (37-47); IG% 0.2 %; LYMPH % 35.5 %; LYMPH ABS # 1.91 K/uL (1.2-3.4); MEAN CELL VOLUME 96.9 fL (80-100); MEAN CORPUSCULAR HEMOGLOBIN 32.4 pg (25-34); MEAN CORPUSCULAR HGB CONC 33.4 g/dl (32-36); MEAN PLATELET VOLUME 11.5 fL (7.4-10.4); MONO % 8.7 %; NEUT % 55.2 %; PLATELET COUNT 171 K/uL (130-400); RED BLOOD COUNT 4.14 M/uL (4.2-5.4); WHITE BLOOD COUNT 5.38 K/uL (4.8-10.8)
[2016-09-19 07:17] LABS: PROTHROMBIN TIME (PATIENT) 10.7 SECONDS (9.0-12.0)
[2016-09-19 07:39] LABS: BUN/CREATININE RATIO 12.2 (10-20); CALCIUM 7.9 mg/dl (8.5-10.1); CREATININE 0.76 mg/dl (0.60-1.20); POTASSIUM 4.4 mmol/L (3.5-5.1)
[2016-09-19 07:46] VITALS: BP_SYST 161; BP_SYST 172; BP_DIAS 90; BP_DIAS 98; PULSE 68; TEMP 36.9; O2SAT 95
[2016-09-19] MEDS ORDERED: HYDROCORTISONE IV 20 MG in SYRINGE 0 ML IV SCH (09:00)
[2016-09-19] MEDS ORDERED: SINCALIDE INJ 1.5 MCG in SODIUM CHLORIDE 0.9% 100ML 100 ML IV SCH (10:15)
[2016-09-19] MEDS ORDERED: MoRPHine SULFATE 2 MG/ML CARP ONE (11:00)
[2016-09-19] MEDS: PANTOprazole INJ 40 MG in SYRINGE 0 ML IV SCH (11:55)
[2016-09-19] MEDS: LEVOTHYROXINE SODIUM INJ 44 MCG in SYRINGE 0 ML IV SCH (11:55)
--- NOTE | 2016-09-19 11:59 | DIAGNOSTIC IMAGING REPORT ---
NUCLEAR MEDICINE HEPATOBILIARY SCAN HISTORY: Abnormal LFTs. COMPARISON: Abdomen and pelvis CT 09/17/2016. TECHNIQUE: Immediately following the intravenous administration of 5.4 mCi Tc-99m Choletec, dynamic anterior abdominal imaging was performed. FINDINGS: Uniform hepatic tracer accumulation is shown. Prompt intrahepatic biliary excretion is seen. The common bile duct and small bowel are all visualized by 20 minutes. The gallbladder was not visualized during the first 60 minutes of imaging. Therefore, 2 mg of intravenous morphine was administered at the 60 minute time interval. Additional images demonstrated the gallbladder at the 70 minute nell. Ejection fraction was not performed since the gallbladder was not visualized during the first hour. IMPRESSION: Delayed visualization of the gallbladder as described above. This can be seen in the setting of chronic cholecystitis or normal delayed gallbladder filling. Electronically signed by: Omero Rosa M.D. 09/19/2016 11:57 AM Dictated Date/Time: 09/19/2016 11:54 AM
[2016-09-19 12:20] VITALS: BP 182/81; PULSE 60; TEMP 36.8; O2SAT 95
--- NOTE | 2016-09-19 14:14 | Discharge Instructions ---
Discharge Instructions Admission Reason for Admission: Nausea, vomiting, diarrhea. Discharge Discharge Diagnosis / Problem: Viral gastroenteritis, chronic cholecystitis. Discharge Goals Goal(s): Improve disease control Activity Recommendations Activity Limitations: resume your previous activity . Instructions / Follow-Up Instructions / Follow-Up Follow up with PCP in 5-7 days. Current Hospital Diet Patient's current hospital diet: Low Fat Diet, Diabetes Type 2 Diet Discharge Diet Recommended Diet: Diabetes Type 2 Diet, Low Fat Diet Pending Studies Studies pending at discharge: no Work Instructions Return To Work: 1 week Additional Instructions: Patient may return to work full duty (no restrictions) on Monday09-26-2016. She is not contagious nor a health risk to clients, family, or fellow employees. Medical Emergencies . Who to Call and When: Medical Emergencies: If at any time you feel your situation is an emergency, please call 911 immediately. . Non-Emergent Contact Non-Emergency issues call your: Primary Care Provider . . "Provider Documentation" section prepared by Adrian John. VTE Core Measure Inpt VTE Proph given/why not?: SCD's
[2016-09-19] MEDS ORDERED: NURSING VERBAL MED ORDER ONE (14:15)
[2016-09-19] MEDS ORDERED: HydrALAZINE HCL 20 MG/ML VIAL IV. ONE (14:15)
[2016-09-19 14:19] VITALS: BP 182/81; PULSE 60; TEMP 36.8; O2SAT 95
--- NOTE | 2016-09-19 14:30 | Discharge Summary ---
Discharge Summary Admission Date: Sep 17, 2016 at 21:09 Discharge Date: Sep 19, 2016 Discharge Disposition: Home Principal Diagnosis: Nausea, vomiting, diarrhea. Problems/Secondary Diagnoses: chronic cholecystitis, HTN, Type II DM, Hypopituitary. Immunizations: Have You Had Influenza Vaccine: No History of Tetanus Vaccine?: No History of Pneumococcal: No History of Hepatitis B Vaccine: No Procedures: None. Consultations: Cardiology, Dr. Obey Guajardo. Medication Reconciliation Continued Medications: Aspirin (Aspirin Ec) 81 Mg Tab 81 MG PO DAILY Ergocalciferol (Vitamin D 41896 Unit) 50,000 Unit Cap 72008 UNIT PO MONTHLY, CAP Glipizide (Glucotrol) 5 Mg Tab 5 MG PO UD, TAB Hydrochlorothiazide (Hydrochlorothiazide) 25 Mg Tab 25 MG PO DAILY Hydrocortisone (Cortef) 20 Mg Tab 20 MG PO QAM, TAB Hydrocortisone (Cortef) 20 Mg Tab 10 MG PO QPM, TAB Isosorbide Mononitrate (Isosorbide Mononitrate ER) 30 Mg Tabcr 60 MG PO DAILY Levothyroxine Sodium (Synthroid) 88 Mcg Tab 88 MCG PO DAILY, TAB Metoprolol Tartrate (Lopressor) (Lopressor) 50 Mg Tab 50 MG PO BID, TAB Omeprazole (Prilosec) 20 Mg Capcr 20 MG PO DAILY, CAP Discharge Exam A 10 system review was performed and all were negative. Positives were placed in the subjective section. GEN: Awake, alert, and oriented x 3. Not in acute distress HEENT: Tm's intact, no inflammation, EOMI, PERRLA, MMM Neck: Soft, supple Lungs: CTA b/l, no r/r/w Heart: REG, nrl S1S2 without murmurs, rubs or gallops Abdomen: Soft, NT, ND, + BS EXT: No C/C/E NEURO: CN's II-XII grossly intact, non-focal Skin: warm, dry, no rashes PSYCH: pleasant, cooperative, no signs of significant anxiety or depression. Hospital Course Patient was admitted to telemetry after having 2 days of nausea, vomiting, and diarrhea. She was mostly concerned that she was not able to adequately take her oral medications. She felt she was getting dehydrated and weak. There was some concern that she had an abnormal EKG and cardiology was consulted. She had 3 negative troponins. Her echocardiogram showed a normal EF at 55-60%. There was discussion about an outpatient exercise stress test, but at the time of discharge, the patient was not certain as to who she planned to follow with. She had seen cardiologists at [facility] in the past, but does not have a local manager cardiac. She plans to discuss this with her PCP. As part of her work up, she had a Hida scan that was consistent with chronic cholecystitis. The patient was tolerating a low fat/diabetic diet without symptoms and wished to be discharged to home. I advised her to seek surgical consultation as outpatient or discuss these findings with her PCP. As I asked her about post-prandial nausea, vomiting, right upper quadrant pain, she declined having these symptoms. Therefore I did not view the gallbladder finding an urgent priority. She had no further diarrhea, vomiting or nausea at the time of discharge. There were no changes to her usual home medications and no new medications were added. She is released to work full duty on 09-26-16. Total Time Spent: Greater than 30 minutes This includes examination of the patient, discharge planning, medication reconciliation, and communication with other providers. Discharge Instructions Please refer to the electronic Patient Visit Report (Discharge Instructions) for additional information. Follow-Up PCP in 5-7 days.
[2016-09-19 15:22] VITALS: BP 147/70; PULSE 87; TEMP 36.4; O2SAT 99
[2016-11-07] MEDS ORDERED: HYDR-5688 PO (10:05)
== END 2016-09-19 15:45 | disposition home or self-care (01) | DRG 866 ==
LOC: ENRESERVTM → ENRESERVDT → C.EDB 12:50 → C.2T 21:09
PROVIDERS: ADMIT Hospitalist; ATTEND Internal Medicine
DX: B34.9 Viral infection, unspecified (principal); E23.0 Hypopituitarism; N17.9 Acute kidney failure, unspecified; R19.7 Diarrhea, unspecified; R11.2 Nausea with vomiting, unspecified; E86.0 Dehydration; E87.6 Hypokalemia; R94.31 Abnormal electrocardiogram [ECG] [EKG]; K81.1 Chronic cholecystitis; E11.22 Type 2 diabetes mellitus with diabetic chronic kidney disease; I12.9 Hypertensive chronic kidney disease with stage 1 through stage 4 chronic kidney disease, or unspecified chronic kidney disease; N18.9 Chronic kidney disease, unspecified; K21.9 Gastro-esophageal reflux disease without esophagitis; E03.9 Hypothyroidism, unspecified; I25.10 Atherosclerotic heart disease of native coronary artery without angina pectoris; I73.9 Peripheral vascular disease, unspecified; F17.210 Nicotine dependence, cigarettes, uncomplicated; Z95.5 Presence of coronary angioplasty implant and graft; Z95.828 Presence of other vascular implants and grafts; Z79.52 Long term (current) use of systemic steroids; Z79.82 Long term (current) use of aspirin; Z79.84 Long term (current) use of oral hypoglycemic drugs; Z79.899 Other long term (current) drug therapy

== ENCOUNTER → 2016-10-06 | Outpatient (CLI) | payer BC ==
[~2016-10-06] MED LIST changes: +ASPI81TA28 PO; +ATOR10TA88 PO; +ERGO500037 PO; +GLIP5TAB11 PO; -HYD10; +HYDR-5688 PO; +HYDR20TA PO; +HYDR20TA3 PO; +HYDR25TA5 PO; +ISOS-11 PO; +LEVO88TA PO; +METO50TA16 PO; +PRLSR20 PO; -SYN112
[2016-10-06 13:49] LABS: URINE APPEARANCE CLEAR (CLEAR); URINE BILIRUBIN NEG (NEG); URINE COLOR YELLOW; URINE NITRITE POS (NEG); URINE SPECIFIC GRAVITY 1.013 (1.000-1.030); UROBILINOGEN NEG (NEG)
[2016-10-06 13:53] LABS: MANUAL MICROSCOPIC REQUIRED? NO; REVIEW REQ? NO
== END | disposition home or self-care (01) ==
LOC: C.LAB1850 11:52
PROVIDERS: ATTEND Internal Medicine
DX: R39.15 Urgency of urination (principal)

== ENCOUNTER → 2016-10-14 | Outpatient (CLI) | payer BC ==
[2016-10-14 10:02] LABS: URINE APPEARANCE CLEAR (CLEAR); URINE BILIRUBIN NEG (NEG); URINE COLOR YELLOW; URINE EPITHELIAL CELL AUTO >30 /lpf (0-5); URINE NITRITE NEG (NEG); URINE SPECIFIC GRAVITY 1.018 (1.000-1.030); UROBILINOGEN NEG (NEG); ZZUR CULT IF INDIC CLEAN CATCH YES
[2016-10-14 10:05] LABS: MANUAL MICROSCOPIC REQUIRED? NO; REVIEW REQ? NO
== END | disposition home or self-care (01) ==
LOC: C.LAB1850 07:21
PROVIDERS: ATTEND Internal Medicine
DX: R39.15 Urgency of urination (principal)

== ENCOUNTER → 2016-10-26 | Outpatient (CLI) | payer BC ==
[~2016-10-26] MED LIST changes: +PERFLUTREN LIPID MICROSPHERE (DEFINITY) IV ONE
--- NOTE | 2016-10-26 18:01 | EXERCISE STRESS ECHO ---
*NOTICE TO RECEIVING LIBERTARIAN AGENCY This information is strictly Confidential and protected under [place] law. [place] law prohibits you from making any further disclosure of this information unless further disclosure is expressly permitted by the written consent of the person to whom it pertains or is authorized by law. A general authorization for the release of medical or other information is not sufficient for this purpose. Hospital accepts no responsibility if the information is made available to any other person, INCLUDING THE PATIENT. Interpretation Summary * Name: JOAN BHAT Study Date: 10/26/2016 10:15 AM BP: 149/61 mmHg * Patient Location: [facility] HR: 68 * : 1960 (M/d/yyyy) Gender: Female Height: 62 in * Age: 56 yrs Ethnicity: CA Weight: 164 lb * Ordering Physician: Daniel Gilman * Referring Physician: Daniel Gilman * Performed By: Leesa Valdez RDCS * * Reason For Study: Chest pain, pre-op * BSA: 1.8 m2 * -- Conclusions -- * Left ventricular systolic function is normal. * Sub-maximal exercise echocardiogram test based on inability to acheive target heart rate. * Brantley treadmill score 4 (intermediate risk) * EKG abnormal at baseline and suggestive of ischemia with stress. * Echo images demonstrate no inducbile wall motion abnormalities and preserved LV function. * Normal BP response * No symptoms reported * CONCLUSION:Sub-maximal stress test without inducible ischmia and false positive EKG response. Procedure Details * ECHOEX, CPT #[id number] * ECHO DOPPLER, CPT #[id number] * ECHO COLOR FLOW, CPT #21903 * A contrast injection of Definity was performed to improve assessment of LV function. * Contrast was injected into an intravenous site in the right arm. * One vial of Definity ultrasound contrast was diluted in normal saline to a total volume of 10 ml. A total of '4' ml of solution was administered during imaging. * Lot # [id number] of Definity utilized for procedure. * Expiration date 1 OCT 15. * The attending nurse who injected the contrast agent was Petra Calhoun RN. Left Ventricular Findings with Stress * CONCLUSION:Sub-maximal stress test without inducible ischmia and false positive EKG response. Left Ventricle * The left ventricle is grossly normal size. * There is normal left ventricular wall thickness. * Ejection Fraction = >70 %. * Left ventricular systolic function is normal. * Mild septal hypokinesis in some views Right Ventricle * The right ventricle is grossly normal size. Atria * The left atrial size is normal. * Right atrial size is normal. Mitral Valve * The mitral valve is grossly normal. * There is trace mitral regurgitation. Aortic Valve * The aortic valve is tricuspid. The leaflet thickness if normal. There is no aortic stenosis, and no significant insufficiency. * Calcification noted on the left coronary cusp * No hemodynamically significant valvular aortic stenosis. * There is no significant aortic regurgitation. Great Vessels * The aortic root is normal size. * The aortic root and proximal ascending aorta are normal sized. Pericardium * There is no pericardial effusion. Stress Parameters * Sinus with diffuse T-wave inversions * Patient developed diffuse ST segment depression up to 1mm in severity whcih resolved rapidly in recovery * The stress portion of this study was personally supervised by the undersigned interpreting physician. * Rest heart rate was '68' BPM. * Rest blood pressure was '149/61' * Maximum heart rate achieved was 114 bpm. * Maximum heart rate was 68 % of maximum age-predicted heart rate. * Maximum blood pressure was '164/55' * Total exercise time was '9:14' * Maximum exercise MET level achieved was '10.40' METS * Maximum treadmill speed was '4.20' miles per hour. * Maximum treadmill elevation was '16.00'% grade. * Exercise was terminated due to 'patient fatigue' Left Ventricular Findings with Stress * Sub-maximal exercise echocardiogram test based on inability to acheive target heart rate. Brantley treadmill score 4 (intermediate risk) EKG abnormal at baseline and suggestive of ischemia with stress. Echo images demonstrate no inducbile wall motion abnormalities and preserved LV function. Normal BP response No symptoms reported Left Ventricular Diastolic Function * Indeterminate MMode 2D Measurements and Calculations IVSd 0.92 cm LVIDd 4.1 cm LVIDs 2.5 cm LVPWd 0.73 cm IVS/LVPW 1.3 FS 39.8 % EDV(Teich) 74.5 ml ESV(Teich) 21.7 ml EF(Teich) 70.8 % EDV(cubed) 69.2 ml ESV(cubed) 15.1 ml EF(cubed) 78.2 % LV mass(C)d 101.4 grams LV mass(C)dI 57.7 grams/m\S\2 SV(Teich) 52.8 ml SI(Teich) 30.0 ml/m\S\2 SV(cubed) 54.1 ml SI(cubed) 30.8 ml/m\S\2 Ao root diam 2.5 cm Ao root area 5.1 cm\S\2 LA dimension 2.9 cm asc Aorta Diam 2.4 cm LA/Ao 1.1 LVOT diam 2.0 cm LVOT area 3.0 cm\S\2 LVAd ap4 20.0 cm\S\2 LVLd ap4 6.2 cm EDV(MOD-sp4) 53.3 ml EDV(sp4-el) 54.9 ml LVAs ap4 10.0 cm\S\2 LVLs ap4 5.0 cm ESV(MOD-sp4) 17.5 ml ESV(sp4-el) 16.8 ml EF(MOD-sp4) 67.1 % EF(sp4-el) 69.4 % LVAd ap2 18.1 cm\S\2 LVLd ap2 5.9 cm EDV(MOD-sp2) 46.8 ml EDV(sp2-el) 47.3 ml LVAs ap2 8.5 cm\S\2 LVLs ap2 5.1 cm ESV(MOD-sp2) 11.9 ml ESV(sp2-el) 12.0 ml EF(MOD-sp2) 74.6 % EF(sp2-el) 74.6 % LVLd %diff -5.24 % EDV(MOD-bp) 51.5 ml LVLs %diff 0.82 % ESV(MOD-bp) 14.4 ml EF(MOD-bp) 72.0 % SV(MOD-sp4) 35.8 ml SI(MOD-sp4) 20.4 ml/m\S\2 SV(MOD-sp2) 34.9 ml SI(MOD-sp2) 19.9 ml/m\S\2 SV(MOD-bp) 37.1 ml SI(MOD-bp) 21.1 ml/m\S\2 SV(sp4-el) 38.1 ml SI(sp4-el) 21.7 ml/m\S\2 SV(sp2-el) 35.3 ml SI(sp2-el) 20.1 ml/m\S\2 Doppler Measurements and Calculations MV E max eric 69.1 cm/sec MV A max eric 76.0 cm/sec MV E/A 0.91 MV dec time 0.29 sec Ao V2 max 132.8 cm/sec Ao max PG 7.1 mmHg Ao max PG (full) 3.3 mmHg KEIRY(V,A) 2.2 cm\S\2 KEIRY(V,D) 2.2 cm\S\2 LV V1 max PG 3.8 mmHg LV V1 max 97.5 cm/sec PA V2 max 88.7 cm/sec PA max PG 3.1 mmHg PA acc slope 612.9 cm/sec\S\2 PA acc time 0.15 sec PA pr(Accel) 10.9 mmHg
== END | disposition home or self-care (01) ==
LOC: C.CPL 09:19
PROVIDERS: ATTEND Family Medicine
DX: I25.10 Atherosclerotic heart disease of native coronary artery without angina pectoris (principal); Z87.898 Personal history of other specified conditions

== ENCOUNTER → 2016-10-26 | Outpatient (CLI) | payer BC ==
[~2016-10-26] MED LIST changes: -PERFLUTREN LIPID MICROSPHERE (DEFINITY) IV ONE
[2016-10-26 09:51] LABS: URINE APPEARANCE CLOUDY (CLEAR); URINE COLOR DK YELLOW; URINE EPITHELIAL CELL AUTO >30 /lpf (0-5); URINE NITRITE NEG (NEG); URINE SPECIFIC GRAVITY 1.025 (1.000-1.030); UROBILINOGEN NEG (NEG); ZZUR CULT IF INDIC CLEAN CATCH YES
[2016-10-26 10:00] LABS: MANUAL MICROSCOPIC REQUIRED? NO; REVIEW REQ? NO
[2016-10-26 10:01] LABS: URINE BILIRUBIN NEG (NEG)
== END | disposition home or self-care (01) ==
LOC: C.LAB1850 08:49
PROVIDERS: ATTEND Internal Medicine
DX: R39.15 Urgency of urination (principal)

== ENCOUNTER → 2016-11-01 | Outpatient (CLI) | payer BC | END | disposition home or self-care (01) | LOC: C.LABSPEC 17:00 | PROVIDERS: ATTEND Urology | DX: R31.9 Hematuria, unspecified (principal) ==

== ENCOUNTER 2016-11-07 07:26 | Day surgery (SDC) | payer BC ==
[2016-10-05 10:33] VITALS: BMI 29.0
[~2016-11-07] VITALS: Ht 157.5 cm; Wt 71.8 kg
[~2016-11-07 07:26] MED LIST changes: +ACETAMINOPHEN 1000 MG/100 ML IV IV ONE; -ATOR10TA88 PO; +CEFAZOLIN 2000 MG/60 ML D5W 60 ML IV SCH; +HEPARIN SOD 5000 UNIT/0.5 ML CARP SQ SCH; -HYDR-5688 PO; +HYDROCORTISONE IV 100 MG in SYRINGE 0 ML IV SCH; +LACTATED RINGER'S 1000ML 1,000 ML IV SCH; +LACTATED RINGER'S 1000ML IV SCH
[2016-11-07] MEDS ORDERED: ROCURONIUM BROMIDE 10 MG/ML 5 ML VIAL ONE ×2 (07:58→10:53)
[2016-11-07] MEDS ORDERED: LIDOCAINE HCL 2% 2 ML VIAL (20MG/ML) ONE (07:58)
[2016-11-07] MEDS ORDERED: FENTANYL CITRATE INJ 50 MCG/1 ML 2 ML VIAL ONE (07:58)
[2016-11-07] MEDS ORDERED: PROPOFOL IV EMULSION 10 MG/ML 20 ML VIAL IV ONE ×2 (07:58→10:36)
[2016-11-07] MEDS ORDERED: MIDAZOLAM HCL 1 MG/ML 2ML VIAL ONE (07:58)
[2016-11-07] MEDS ORDERED: ONDANSETRON INJ 2 MG/ML 2 ML VIAL ONE (07:58)
[2016-11-07] MEDS ORDERED: DEXAMETHASONE SOD INJ 4 MG/ML VIAL ONE (07:58)
[2016-11-07] MEDS ORDERED: EpHEDrine SULFATE INJ 50 MG/ML AMP ONE (07:58)
[2016-11-07] MEDS ORDERED: SUCCINYLCHOLINE CHLORIDE 20 MG/ML 10 ML VIAL IV ONE (07:58)
[2016-11-07] MEDS ORDERED: GLYCOPYRROLATE INJ 0.2 MG/ML VIAL ONE ×2 (07:58→11:01)
[2016-11-07] MEDS ORDERED: NEOSTIGMINE METHYLSULFATE 5 MG/5 ML SYR ONE (07:58)
[2016-11-07] MEDS ORDERED: PHENYLEPHRINE HCL INJ 10 MG/ML VIAL ONE (07:58)
[2016-11-07 08:13] VITALS: BP 140/73; PULSE 58; TEMP 36.6; O2SAT 98; Ht 157.5 cm; Wt 71.8 kg
--- NOTE | 2016-11-07 10:04 | History and Physical ---
History & Physical Date Nov 07, 2016. Chief Complaint abdominal pain/nausea History of Present Illness The patient is a 56 year old female with complaints of right upper quadrant pain /nausea. w/u shows gallstones and abnormal hida. Past Medical/Surgical History Medical Problems: (1) Abnormal EKG (2) Hypolipidemia (3) Type 2 diabetes mellitus Additional History Endocrine Disorder: Yes Hypertension: Yes Heart Disease: Yes Allergies Coded Allergies: Codeine (Verified Allergy, Mild, DIZZY, 11/07/16) Home Medications Scheduled Aspirin (Aspirin Ec), 81 MG PO QAM Ergocalciferol (Vitamin D 49272 Unit), 50,000 UNIT PO MONTHLY Glipizide (Glucotrol), 5 MG PO QAM Hydrochlorothiazide (Hydrochlorothiazide), 25 MG PO QAM Hydrocortisone (Cortef), 20 MG PO QAM Hydrocortisone (Cortef), 10 MG PO QPM Isosorbide Mononitrate (Isosorbide Mononitrate ER), 60 MG PO QAM Levothyroxine Sodium (Synthroid), 88 MCG PO QAM Metoprolol Tartrate (Lopressor) (Lopressor), 50 MG PO BID Omeprazole (Prilosec), 20 MG PO QAM Physical Examination Skin: warm/dry Eyes: normal inspection Head: normocephalic Neck: supple, no adenopathy Respiratory/Chest: no respiratory distress Cardiovascular: no edema Abdomen / GI: normal bowel sounds, non tender Extremities: normal inspection Neurologic/Psych: alert, oriented x 3 Diagnosis symptomatic gallstones/biliary dyskinesia Plan of Treatment discussed risks : bleeding/infection/dvt/pe/mi/injury to an organ etc... answered questions. ok to proceed please see office H&P for more detailed history
[2016-11-07] MEDS ORDERED: HYDR-5688 PO (10:05)
[2016-11-07] MEDS ORDERED: BUPIVACAINE/EPINEPHRINE 0.5% MPF 1:200,000 30 ML VIAL ONE (10:13)
--- NOTE | 2016-11-07 10:30 | Discharge Instructions ---
Discharge Instructions Date of Service Nov 07, 2016. Admission Reason for Admission: Chronic Cholecystitis, Diabetes Discharge Discharge Diagnosis / Problem: chronic cholecystitis Discharge Goals Goal(s): Decrease discomfort Activity Recommendations Activity Limitations: as noted below Lifting Limitations: no more than 10 pounds Exercise/Sports Limitations: until after follow-up appointment May Resume Sexual Activity: after follow-up appointment Shower/Bathe: tomorrow . Instructions / Follow-Up Instructions / Follow-Up follow up with dr. nelson in 1-2 weeks. Current Hospital Diet Patient's current hospital diet: Discharge Diet Recommended Diet: Regular Diet Pending Studies Studies pending at discharge: no List of pending studies: pathology report Medical Emergencies . Who to Call and When: Medical Emergencies: If at any time you feel your situation is an emergency, please call 911 immediately. . Non-Emergent Contact Non-Emergency issues call your: Primary Care Provider, Surgeon Call Non-Emergent contact if: temperature is above 101, wound has increased drainage, wound has increased redness . "Provider Documentation" section prepared by Clyde Nelson. VTE Core Measure Inpt VTE Proph given/why not?: Unfractionated heparin SQ, SCD's
--- NOTE | 2016-11-07 10:31 | [facility] Operative Report ---
Operative Report Operative Date Nov 07, 2016. Pre-Operative Diagnosis chronic cholecystits Post-Operative Diagnosis same Procedure(s) Performed lap mariah Surgeon yan Findings normal anatomy other than chronic cholecystitis Complication(s) None Disposition Recovery Room / PACU I attest to the content of the Intraoperative Record and any orders documented therein. Any exceptions are noted below.
[2016-11-07] MEDS ORDERED: SODIUM CHLORIDE 0.9% 1000ML 1,000 ML IV SCH (11:26)
[2016-11-07] MEDS ORDERED: IBUPROFEN 600 MG TAB PO PRN (11:30)
[2016-11-07] MEDS ORDERED: KETOROLAC TROMETHAMINE 30 MG/ML VIAL IV. PRN (11:30)
[2016-11-07] MEDS ORDERED: HYDROCODONE/ACETAMOPHEN 5/325MG TAB PO PRN ×2 (11:30)
[2016-11-07] MEDS ORDERED: ONDANSETRON INJ 2 MG/ML 2 ML VIAL IV PRN (11:30)
--- NOTE | 2016-11-07 11:37 | Medical Student: [facility] ---
Immediate Operative Summary Operative Date Nov 07, 2016. Pre-Operative Diagnosis 1. chronic cholecystitis 2. biliary dyskinesia Post-Operative Diagnosis same as above Procedure(s) Performed laparoscopic cholecystectomy Surgeon Dr. Nelson [employer] Underwriter Surgeon(s) none Estimated Blood Loss 10cc Findings normal appearing gallbladder and rt. liver lobe Specimens gallbladder Anesthesia general Complication(s) None Disposition Recovery Room / PACU
[2016-11-07 12:10] VITALS: BP 131/66; PULSE 54; TEMP 36.4; O2SAT 96
[2016-11-07] MEDS ORDERED: KETOROLAC TROMETHAMINE 30 MG/ML VIAL ONE (12:33)
[2016-11-07 12:40] VITALS: BP 130/71; PULSE 66; O2SAT 99
--- NOTE | 2016-11-07 13:05 | Anesthesiology Progress Note ---
Anesthesia Post Op Note Date & Time Nov 07, 2016 at 13:05 Vital Signs Pain Intensity: 5 Vital Signs Past 12 Hours Date Time Temp Pulse Resp B/P Pulse Ox O2 Delivery O2 Flow Rate FiO2 11/07/16 12:40 66 20 130/71 99 Room Air 11/07/16 12:10 36.4 54 20 131/66 96 Nasal Cannula 2 11/07/16 12:05 52 18 150/68 98 Nasal Cannula 3 11/07/16 12:00 36.4 55 18 148/83 100 Nasal Cannula 3 11/07/16 11:50 55 18 145/83 100 Mask 10 11/07/16 11:40 60 20 149/78 100 Mask 10 11/07/16 11:30 68 22 143/78 99 Mask 10 11/07/16 11:27 36.2 86 22 154/85 98 Mask 10 11/07/16 08:13 36.6 58 18 140/73 98 Room Air Notes Mental Status: alert / awake / arousable, participated in evaluation Pt Amnestic to Procedure: Yes Nausea / Vomiting: adequately controlled Pain: adequately controlled Airway Patency, RR, SpO2: stable & adequate BP & HR: stable & adequate Hydration State: stable & adequate Anesthetic Complications: no major complications apparent
[2016-11-07 13:10] VITALS: BP 131/60; PULSE 66; O2SAT 94
--- NOTE | 2016-11-07 13:18 | OPERATIVE REPORT ---
DATE OF OPERATION: 11/07/2016 PREOPERATIVE DIAGNOSIS: Chronic cholecystitis. POSTOPERATIVE DIAGNOSIS: Same. PROCEDURE: Laparoscopic cholecystectomy. SURGEON: Dr. Nelson. ESTIMATED BLOOD LOSS: Approximately 25 mL. COMPLICATIONS: No immediate. ANESTHESIA: General. The patient tolerated the procedure well. OPERATIVE NOTE: After informed consent was obtained, the patient was taken to the operating suite, placed in supine position. After successful intubation, the abdomen was sterilely prepped and draped in usual fashion. A supraumbilical incision made with an 11 blade scalpel and carried down through the soft tissue using electrocautery. The anterior rectus fascia was opened using electrocautery and two #0 Vicryl stay sutures were placed. Blunt finger penetration was used to penetrate the peritoneum and a finger sweep was performed. A 12-mm Alisson trocar was placed and the abdomen was insufflated to 18 mmHg. Laparoscope was inserted and the abdomen examined 360 degrees. A subxiphoid 5-mm port and 2 right upper quadrant 5-mm ports were all placed under direct vision. The patient was placed in reverse Trendelenburg position slightly into the left. The gallbladder was identified, grasped, elevated superiorly and laterally. A [place] dissector was used to take down adhesions around the neck of the gallbladder. The cystic duct was identified, skeletonized, clipped twice proximally and once distally and transected. In similar fashion, cystic artery was skeletonized, clipped and divided as well. There was a small posterior branch that was clipped and cut as well. We then used electrocautery to remove the gallbladder from the gallbladder fossa. There was a small hole made in it, releasing a small amount of bile, which was immediately suctioned out. Once we removed the gallbladder, it was placed into an EndoCatch bag. We removed it from the camera port site. We thoroughly irrigated the right upper quadrant. Any small bleeding points in the gallbladder fossa were controlled using electrocautery. A final irrigation was performed. At the end of the procedure, there was adequate hemostasis and no evidence of a bile leak. We did do a quick look around the upper abdomen, which showed no other abnormality. We then removed all the trocars and desufflated the abdomen. The fascia of the camera port was closed using 0 Vicryl in a [id number] fashion. All the wounds were irrigated and closed using 4-0 Monocryl. Marcaine was injected around them for postoperative analgesia and skin glue used as a dressing. The patient was awakened, extubated, and transferred to recovery in stable condition. I attest to the content of the Intraoperative Record and any orders documented therein. Any exceptio ns are noted below.
[2016-11-07 14:10] VITALS: BP 149/74; PULSE 66; TEMP 36.3; O2SAT 94
== END 2016-11-07 14:10 | disposition home or self-care (01) ==
LOC: C.ACU 07:26
PROVIDERS: ATTEND Surgery
DX: K81.1 Chronic cholecystitis (principal); K82.8 Other specified diseases of gallbladder; R11.2 Nausea with vomiting, unspecified; E11.9 Type 2 diabetes mellitus without complications; I10 Essential (primary) hypertension

== ENCOUNTER → 2016-12-03 | Outpatient (CLI) | payer BC ==
[~2016-12-03] MED LIST changes: -ACETAMINOPHEN 1000 MG/100 ML IV IV ONE; +ATOR10TA82 PO; -CEFAZOLIN 2000 MG/60 ML D5W 60 ML IV SCH; -HEPARIN SOD 5000 UNIT/0.5 ML CARP SQ SCH; +HYDR-5688 PO; -HYDROCORTISONE IV 100 MG in SYRINGE 0 ML IV SCH; -LACTATED RINGER'S 1000ML 1,000 ML IV SCH; -LACTATED RINGER'S 1000ML IV SCH
[2016-12-03 08:52] LABS: BASO % 0.3 %; BASO ABS # 0.03 K/uL (0-0.2); COMPLETE YES; IG% 0.6 %; LYMPH % 27.7 %; LYMPH ABS # 3.01 K/uL (1.2-3.4); MEAN CELL VOLUME 97.6 fL (80-100); MEAN CORPUSCULAR HEMOGLOBIN 33.2 pg (25-34); MEAN PLATELET VOLUME 10.5 fL (7.4-10.4); MONO % 5.5 %; NEUT % 63.9 %; PLATELET COUNT 294 K/uL (130-400); RED BLOOD COUNT 4.61 M/uL (4.2-5.4); WHITE BLOOD COUNT 10.86 K/uL (4.8-10.8)
[2016-12-03 09:06] LABS: MANUAL MICROSCOPIC REQUIRED? NO; REVIEW REQ? NO; URINE APPEARANCE CLEAR (CLEAR); URINE BILIRUBIN NEG (NEG); URINE COLOR DK YELLOW; URINE EPITHELIAL CELL AUTO >30 /lpf (0-5); URINE NITRITE NEG (NEG); URINE SPECIFIC GRAVITY 1.021 (1.000-1.030); UROBILINOGEN NEG (NEG)
[2016-12-03 09:13] LABS: ALT/SGPT 21 U/L (12-78); BLOOD UREA NITROGEN 7 mg/dl (7-18); BUN/CREATININE RATIO 6.1 (10-20); CALCIUM 8.5 mg/dl (8.5-10.1); CARBON DIOXIDE 31 mmol/L (21-32); CHLORIDE 107 mmol/L (98-107); CHOLESTEROL 154 mg/dl (0-200); GLUCOSE 51 mg/dl (70-99); POTASSIUM 3.8 mmol/L (3.5-5.1); SODIUM 143 mmol/L (136-145); TRIGLYCERIDES 81 mg/dl (0-150); VERY LOW DENSITY LIPOPROT CALC 16 mg/dl
[2016-12-03 09:19] LABS: URINE PROTIEN/CREAT RATIO 0.1 (0-0.2); URINE TOTAL PROTEIN 16.2 mg/dl (0-11.9)
[2016-12-03 09:22] LABS: ALB/GLOB RATIO 0.9 (0.9-2); ALKALINE PHOSPHATASE 87 U/L (45-117); AST/SGOT 12 U/L (15-37); CHOLESTEROL/HDL RATIO 3.5; HDL CHOLESTEROL 44 mg/dl; LDL CHOLESTEROL CALCULATED 94 mg/dl; THYROID STIMULATING HORMONE 0.016 uIu/ml (0.300-4.500)
[2016-12-03 09:28] LABS: ESTIMATED AVERAGE GLUCOSE 126 mg/dl; HA1C FLAG Normal (Normal)
== END | disposition home or self-care (01) ==
LOC: C.LAB 08:07
PROVIDERS: ATTEND Internal Medicine Nephrology
DX: I12.9 Hypertensive chronic kidney disease with stage 1 through stage 4 chronic kidney disease, or unspecified chronic kidney disease (principal); N18.3 Chronic kidney disease, stage 3 (moderate); E03.8 Other specified hypothyroidism; E11.22 Type 2 diabetes mellitus with diabetic chronic kidney disease; Z72.0 Tobacco use; Z87.442 Personal history of urinary calculi

== ENCOUNTER → 2017-01-16 | Outpatient (CLI) | payer BC | END | disposition home or self-care (01) | LOC: C.MAMM 08:04 | PROVIDERS: ATTEND Internal Medicine Endocrinology, Diabetes & Metabolism | DX: E55.9 Vitamin D deficiency, unspecified (principal); E23.0 Hypopituitarism ==

== ENCOUNTER 2017-04-08 12:24 | Emergency (ER) | payer OTHER, BC ==
[~2017-04-08] VITALS: Ht 154.9 cm; Wt 75.4 kg
[~2017-04-08 12:24] MED LIST changes: -ATOR10TA82 PO
[2017-04-08 12:27] VITALS: TEMP 36.6; Ht 154.9 cm; Wt 75.4 kg
[2017-04-08] MEDS ORDERED: ATOR10TA88 PO (13:30)
[2017-04-08 13:39] VITALS: BP 135/72; PULSE 63; O2SAT 98
[2017-04-08 14:19] LABS: HEPATITIS B AB NEG
--- NOTE | 2017-04-08 17:03 | EMERGENCY ROOM VISIT NOTE ---
ED Visit Note First contact with patient: 12:39 Chief complaint: Needle stick left index finger HPI: This 56-year-old white female presents to the ED for evaluation of a needle stick in the left index finger. 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 He found a small piece of plastic and picked it up. It was actually a diabetic lancet with the needle exposed. She sustained a stick in the tip of her left index finger. She states there was a alcohol type burn at the time. The wound has already been cleansed. Bleeding is controlled. They deny numbness, tingling, or loss of motion. Patient is also a diabetic and is familiar with the sensation of pricking her finger. Identity of the academic physician of the lancet is not known. Right-hand dominant. She believes her tetanus is up- to-date. Pain is 1/10. She was sent here by her manager pipeline. She states she does not want any treatment. She is willing to have blood work obtained. Supplemental sheet was reviewed and signed. Past medical history: Significant for diabetes, hypothyroidism, elevated cholesterol, hypertension, GERD Previous surgeries: Benign Current Medications: Reviewed and filed in patient's chart Allergies: Codeine Family History: Noncontributory Social History: Patient is employed. No tobacco use, no EtOH use. ROS: HEENT: No dizziness, visual problems, hearing loss, or tinnitus. There is no difficulty swallowing and no oral lesions are present. PULMONARY: No cough, shortness of breath, sputum production or hemoptysis. CARDIOVASCULAR: No chest pain, palpitations, shortness of breath or peripheral edema. GASTROINTESTINAL: No diarrhea, constipation, nausea, vomiting, or abdominal pain. GENITOURINARY: No dysuria, frequency, urgency or nocturia. NEUROLOGIC: No weakness, muscle tenderness, epilepsy or history of neurological problems. MUSCULOSKELETAL: No history of joint tenderness/swelling. No history of arthritis or arthralgias. SKIN: No rashes or lesions. PSYCHIATRIC: No history of depression or mental illness. ENDOCRINE: No history of abnormal hair growth. Positive history of diabetes and hypothyroidism Physical Exam: Vitals: Afebrile. Reviewed and filed in patient's chart Skin: Warm and dry with good turgor. No rashes. No ecchymosis or erythema. The patient is not diaphoretic. No abrasions. There is a solitary puncture nell present at the tip of the left index finger. Bleeding is controlled. No edema. Musculoskeletal: Patient has full active range of motion of the left index finger. Normal strength. Neurologic: Gross sensation is intact across the left index finger. Capillary refill is equal to the other fingers. Impression: Needle stick left index finger tip Plan: Option of HIV testing and hepatitis B testing was discussed with the patient. They elected to proceed. I did perform pretest counseling as well as explanation of the purpose of the test, use of the test, limitations of the test , and meaning of the results. Patient was given information on prevention of exposure and transmission as well as hospital confidentiality. Patient elected to avoid antivirals at this time. They will follow-up with worker's comp/employee health at [facility]. Wound care instructions were provided. Problem List Medical Problems: (1) Hypolipidemia Status: Chronic (2) Type 2 diabetes mellitus Status: Chronic Current/Historical Medications Scheduled Aspirin (Aspirin Ec), 81 MG PO QAM Atorvastatin (Lipitor), Unknown Dose PO DAILY Ergocalciferol (Vitamin D 56019 Unit), 50,000 UNIT PO EVERY 10 DAYS Glipizide (Glucotrol), 5 MG PO QAM Hydrochlorothiazide (Hydrochlorothiazide), 25 MG PO QAM Hydrocortisone (Cortef), 20 MG PO QAM Hydrocortisone (Cortef), 10 MG PO AFTERNOON Isosorbide Mononitrate (Isosorbide Mononitrate ER), 60 MG PO QAM Levothyroxine Sodium (Synthroid), 88 MCG PO QAM Metoprolol Tartrate (Lopressor) (Lopressor), 50 MG PO BID Omeprazole (Prilosec), 20 MG PO QAM Allergies Coded Allergies: Codeine (Verified Allergy, Mild, DIZZY, 04/08/17) Vital Signs Date Time Temp Pulse Resp B/P (MAP) Pulse Ox O2 Delivery O2 Flow Rate FiO2 04/08/17 13:39 63 18 135/72 98 04/08/17 12:27 36.6 71 18 119/70 97 Room Air Laboratory Results Test 04/08/17 13:19 Hepatitis B Surface Antibody NEG Hepatitis C Antibody NEG (NEG) HIV (1&2) Ab and P24 Ag, 4th Gener NEG (NEG) Departure Information Impression Primary Impression: Needlestick injury of finger of left hand Dispostion Home / Self-Care Condition GOOD Forms WORK / SCHOOL INSTRUCTIONS, HOME CARE DOCUMENTATION FORM, TYLENOL USE, IMPORTANT VISIT INFORMATION Patient Instructions My [facility] Additional Instructions Keep the finger clean with soap and water and cover with antibiotic ointment and a Band-Aid Follow-up with worker's comp for your results Tylenol as needed for any discomfort Return to the ED for any acute changes
== END 2017-04-08 13:39 | disposition home or self-care (01) ==
LOC: C.EDB 12:24 → C.EDD 13:39
DX: S60.945A Unspecified superficial injury of left ring finger, initial encounter (principal); W46.0XXA Contact with hypodermic needle, initial encounter; E78.6 Lipoprotein deficiency; E11.9 Type 2 diabetes mellitus without complications; Z79.82 Long term (current) use of aspirin

== ENCOUNTER → 2017-05-24 | Outpatient (CLI) | payer BC ==
[~2017-05-24] MED LIST changes: +ATOR10TA88 PO; -HYDR-5688 PO
--- NOTE | 2017-05-24 13:39 | DIAGNOSTIC IMAGING REPORT ---
CHEST 2 VIEWS ROUTINE HISTORY: 56 years-old Female J06.9 Upper respiratory infection, [id number] productive cough with acute upper respiratory infection. Acute shortness of breath. COMPARISON: Chest radiograph 09/17/2016 TECHNIQUE: Frontal and lateral views of the chest FINDINGS: Cardiac silhouette is within normal limits. Coronary arterial stent graft is noted projecting over the left heart border. No pneumothorax, pleural effusion, focal airspace consolidation or overt pulmonary edema. The bones appear grossly intact. Cholecystectomy clips are noted. IMPRESSION: No acute cardiopulmonary process. The above report was generated using voice recognition software. It may contain grammatical, syntax or spelling errors. Electronically signed by: Amrik Colin M.D. 05/24/2017 1:37 PM Dictated Date/Time: 05/24/2017 1:36 PM
[2017-05-24 14:39] LABS: HEMATOCRIT 44.2 % (37-47); MEAN CELL VOLUME 95.1 fL (80-100); MEAN CORPUSCULAR HEMOGLOBIN 32.7 pg (25-34); MEAN CORPUSCULAR HGB CONC 34.4 g/dl (32-36); PLATELET COUNT 325 K/uL (130-400); RED BLOOD COUNT 4.65 M/uL (4.2-5.4)
[2017-05-24 14:56] LABS: ALT/SGPT 16 U/L (12-78); BLOOD UREA NITROGEN 8 mg/dl (7-18); BUN/CREATININE RATIO 8.2 (10-20); CALCIUM 9.2 mg/dl (8.5-10.1); CARBON DIOXIDE 27 mmol/L (21-32); CHLORIDE 101 mmol/L (98-107); CREATININE 0.95 mg/dl (0.60-1.20); GLUCOSE 89 mg/dl (70-99); POTASSIUM 3.6 mmol/L (3.5-5.1); SODIUM 137 mmol/L (136-145)
[2017-05-24 14:59] LABS: ALB/GLOB RATIO 0.9 (0.9-2); ALKALINE PHOSPHATASE 85 U/L (45-117); AST/SGOT 15 U/L (15-37)
[2017-05-24 15:09] LABS: URINE APPEARANCE CLEAR (CLEAR); URINE BILIRUBIN NEG (NEG); URINE COLOR YELLOW; URINE EPITHELIAL CELL AUTO >30 /lpf (0-5); URINE NITRITE NEG (NEG); URINE PH 8.5 (4.5-7.5); URINE SPECIFIC GRAVITY 1.012 (1.000-1.030); UROBILINOGEN POS (NEG)
[2017-05-24 15:12] LABS: HEPATITIS B AB NEG
[2017-05-24 15:16] LABS: MANUAL MICROSCOPIC REQUIRED? NO; REVIEW REQ? NO
[2017-05-24 15:41] LABS: ESTIMATED AVERAGE GLUCOSE 123 mg/dl; HA1C FLAG Normal (Normal)
== END | disposition home or self-care (01) ==
LOC: C.RAD1850 13:03
PROVIDERS: ATTEND Internal Medicine Nephrology
DX: J06.9 Acute upper respiratory infection, unspecified (principal); I12.9 Hypertensive chronic kidney disease with stage 1 through stage 4 chronic kidney disease, or unspecified chronic kidney disease; N18.3 Chronic kidney disease, stage 3 (moderate); E55.9 Vitamin D deficiency, unspecified; R31.9 Hematuria, unspecified; Z11.59 Encounter for screening for other viral diseases; E11.22 Type 2 diabetes mellitus with diabetic chronic kidney disease

== ENCOUNTER → 2017-11-04 | Outpatient (CLI) | payer OTHER ==
[~2017-11-04] MED LIST changes: +ATOR10TA82 PO; -ATOR10TA88 PO
[2017-11-04 08:19] LABS: BASO % 0.4 %; BASO ABS # 0.04 K/uL (0-0.2); EOS % 1.1 %; EOS ABS # 0.12 K/uL (0-0.5); HEMATOCRIT 47.9 % (37-47); HEMOGLOBIN 16.4 g/dL (12.0-16.0); IG# 0.04 K/uL (0.00-0.02); LYMPH % 28.9 %; LYMPH ABS # 3.06 K/uL (1.2-3.4); MEAN CORPUSCULAR HEMOGLOBIN 32.5 pg (25-34); MEAN CORPUSCULAR HGB CONC 34.2 g/dl (32-36); MONO % 5.1 %; MONO ABS # 0.54 K/uL (0.11-0.59); NEUT % 64.1 %; PLATELET COUNT 239 K/uL (130-400); RED CELL DISTRIBUTION WIDTH CV 12.9 % (11.5-14.5); RED CELL DISTRIBUTION WIDTH SD 44.7 fL (36.4-46.3)
[2017-11-04 08:41] LABS: ALBUMIN 3.5 gm/dl (3.4-5.0); BLOOD UREA NITROGEN 23 mg/dl (7-18); CALCIUM 8.9 mg/dl (8.5-10.1); CARBON DIOXIDE 28 mmol/L (21-32); CHOLESTEROL 187 mg/dl (0-200); CREATININE 0.94 mg/dl (0.60-1.20); GLUCOSE 73 mg/dl (70-99); POTASSIUM 3.5 mmol/L (3.5-5.1); SODIUM 140 mmol/L (136-145)
[2017-11-04 08:51] LABS: LDL CHOLESTEROL CALCULATED 125 mg/dl; PHOSPHORUS 3.5 mg/dl (2.5-4.9)
[2017-11-04 09:45] LABS: T3 FREE 3.08 pg/ml (2.30-4.20)
[2017-11-04 09:46] LABS: HEMOGLOBIN A1C 5.7 % (4.5-5.6)
== END | disposition home or self-care (01) ==
LOC: C.LAB 07:28
PROVIDERS: ATTEND Internal Medicine Nephrology
DX: E11.22 Type 2 diabetes mellitus with diabetic chronic kidney disease (principal); I12.9 Hypertensive chronic kidney disease with stage 1 through stage 4 chronic kidney disease, or unspecified chronic kidney disease; N18.3 Chronic kidney disease, stage 3 (moderate); R31.9 Hematuria, unspecified; E55.9 Vitamin D deficiency, unspecified; E03.8 Other specified hypothyroidism; D58.2 Other hemoglobinopathies

== ENCOUNTER 2018-04-14 07:57 | Emergency (ER) | payer OTHER ==
[2018-04-14 08:04] VITALS: TEMP 36.9
--- NOTE | 2018-04-14 08:47 | DIAGNOSTIC IMAGING REPORT ---
ADDENDUM After further review and discussion with physician's assistant broker Marcos Duque there is a nondisplaced radial styloid fracture, which is intra-articular. Electronically signed by: Jerod Chávez M.D. 04/14/2018 9:15 AM Dictated Date/Time: 04/14/2018 9:14 AM ORIGINAL REPORT R WRIST W/NAVICULAR MIN 3 VIEWS CLINICAL HISTORY: 57 years-old Female presenting with R wrist pain. TECHNIQUE: Frontal, bilateral oblique, lateral, and scaphoid views of the right wrist were obtained. COMPARISON: None. FINDINGS: The scaphoid is radiographically normal. No acute fracture or malalignment. No advanced degenerative change. No radiographic soft tissue abnormality. IMPRESSION: No acute osseous injury. Electronically signed by: Jerod Chávez M.D. 04/14/2018 8:45 AM Dictated Date/Time: 04/14/2018 8:44 AM
--- NOTE | 2018-04-14 08:48 | DIAGNOSTIC IMAGING REPORT ---
R ANKLE MIN 3 VIEWS ROUTINE CLINICAL HISTORY: 57 years-old Female presenting with RT ANKLE PAIN. TECHNIQUE: Frontal, mortise, and lateral views of the right ankle were obtained. COMPARISON: None. FINDINGS: Displaced fracture fragment along the lateral aspect of the lateral malleolus. This is below the level of the syndesmosis and may not communicate with the ankle joint. Extensive soft tissue swelling was prominently over the lateral malleolus. Ankle mortise remains intact. No medial or posterior malleolus fracture. Ankle joint effusion suspected. Mild degenerative changes at the ankle mortise. IMPRESSION: Suspected extra-articular fracture of the lateral malleolus. Electronically signed by: Jerod Chávez M.D. 04/14/2018 8:47 AM Dictated Date/Time: 04/14/2018 8:45 AM
[2018-04-14 09:21] VITALS: BP 126/67; PULSE 55; O2SAT 97
[2018-04-14] MEDS ORDERED: HYDR-5688 PO (09:25)
--- NOTE | 2018-04-14 16:56 | EMERGENCY ROOM VISIT NOTE ---
History First contact with patient: 08:02 Chief Complaint: ANKLE PAIN Stated Complaint: PAIN IN R ANKLE & R WRIST - FELL History of Present Illness The patient is a 57 year old white female who presents to the Emergency Room with complaints of right wrist and right ankle pain. Patient slipped on some steps yesterday and fell, landing on her right side. She thinks she heard a snap. She did not come to the ER until today. She has been unable to ambulate at home. Her accompanies her today. Pain in the wrist is over the radial border. Pain in the ankle is over the lateral malleolus. She denies any knee pain or elbow pain. No prior history of fracture in either site. There was no loss of consciousness. She denies striking her head. No other treatment. No numbness or tingling. She states she is supposed to go to a today. Review of Systems REVIEW OF SYSTEM: HEENT: No dizziness, visual problems, hearing loss, or tinnitus. There is no difficulty swallowing and no oral lesions are present. LYMPH: No adenopathy. PULMONARY: No cough, shortness of breath, sputum production or hemoptysis. CARDIOVASCULAR: No chest pain, palpitations, shortness of breath or peripheral edema. GASTROINTESTINAL: No diarrhea, constipation, nausea, vomiting, or abdominal pain. GENITOURINARY: No dysuria, frequency, urgency or nocturia. NEUROLOGIC: No weakness, muscle tenderness, epilepsy or history of neurological problems. MUSCULOSKELETAL: No history of joint tenderness/swelling. Positive history of arthritis and arthralgias. SKIN: No rashes or lesions. PSYCHIATRIC: No history of depression or mental illness. ENDOCRINE: No history of thyroid disorders, or abnormal hair growth. Positive history of diabetes. Past Medical/Surgical History Medical Problems: (1) Abnormal EKG (2) Hypolipidemia (3) Type 2 diabetes mellitus Family History Noncontributory. Social History Smoking Status: Current Every Day Smoker Smokeless Tobacco Use: No Alcohol Use: none Drug Use: none Marital Status: Housing Status: lives with family Occupation Status: employed Current/Historical Medications Scheduled Aspirin (Aspirin Ec), 81 MG PO QAM Atorvastatin (Lipitor), Unknown Dose PO DAILY Ergocalciferol (Vitamin D 09887 Unit), 50,000 UNIT PO EVERY 10 DAYS Glipizide (Glucotrol), 5 MG PO QAM Hydrochlorothiazide (Hydrochlorothiazide), 25 MG PO QAM Hydrocortisone (Cortef), 20 MG PO QAM Hydrocortisone (Cortef), 10 MG PO AFTERNOON Isosorbide Mononitrate (Isosorbide Mononitrate ER), 60 MG PO QAM Levothyroxine Sodium (Synthroid), 88 MCG PO QAM Metoprolol Tartrate (Lopressor) (Lopressor), 50 MG PO BID Omeprazole (Prilosec), 20 MG PO QAM Scheduled PRN Hydrocodone/Acetaminophen 5MG/325MG (Emden 5MG/325MG), 1-2 TABLET PO Q6 PRN for Pain Physical Exam Vital Signs Date Time Temp Pulse Resp B/P (MAP) Pulse Ox O2 Delivery O2 Flow Rate FiO2 04/14/18 09:21 55 18 126/67 97 Room Air 04/14/18 08:04 36.9 73 18 135/88 96 Room Air Physical Exam General: Well-developed, well-nourished, middle-aged white female, in obvious discomfort. No acute distress. Sitting in a wheelchair. Alert and oriented. Skin: Warm and dry with good turgor. No rashes or lesions. Mild ecchymosis present over the right lateral malleolus. No discoloration at the wrist. No erythema. Visible edema at the right wrist and lateral right ankle. The patient is not diaphoretic. No abrasions. Musculoskeletal: Right arm evaluation reveals full motion of the shoulder and elbow. She has limited flexion and extension at the wrist secondary to radial pain. She has focal discomfort with palpation over the distal radius. No pain with palpation over the distal ulna. No pain with palpation over the metacarpals or digits. Motor function of the fingers is intact and unremarkable. Right ankle evaluation reveals edema laterally as stated. She has focal discomfort with palpation over the medial and lateral malleoli no pain with palpation over the midfoot or forefoot. Intact motor function of the toes. Limited range of motion of the ankle secondary to lateral pain. Achilles tendon is palpated through its entirety and found to be intact and without defect. Normal [place] test. Drawer and tilt testing were not attempted. No pain with palpation over the proximal tibia or fibula, or the knee. Full flexion and extension of the knee. Neurologic: Gross sensation is intact across the right wrist and hand as well as right ankle and foot, by soft touch. Peripheral pulses are 2+. Medical Decision & Procedures ER Provider Diagnostic Interpretation: Radiographic imaging obtained today of the right wrist and right ankle shows a radial styloid fracture with intra-articular extension. Nondisplaced. Ankle films show an extra-articular fracture of the lateral malleolus. Mild arthritic changes. Films were reviewed by me and read by radiology. ED Course Patient and her were educated regarding today's findings. Conservative care measures were discussed. Radiographic imaging was obtained. She was placed in a Ortho-Glass short arm splint as well as a high cam boot. Weight- bear as tolerated. Prescription was provided for a platform walker. She will be unable to work. Note was provided. Follow-up with her orthopedist at [facility] for reevaluation this week. Ice and elevate frequently to reduce pain and swelling. Tylenol and Motrin every 6 hours as needed for mild discomfort. Prescription was provided for Emden 5 mg to be used every 6 hours for more severe pain. Driving precautions were given. Keep the splint dry. Return to the ED for any acute worsening of symptoms. Medical Decision Possibility of fracture, strain, sprain, and tendon rupture were considered. [place] Drug Monitoring Program Search Results: patient reviewed within database Medication Reconcilliation Current Medication List: was personally reviewed by me Blood Pressure Screening Patient's blood pressure: Normal blood pressure Impression Primary Impression: Distal radius fracture, right Additional Impression: Fracture of distal end of right fibula Departure Information Dispostion Home / Self-Care Condition GOOD Prescriptions Hydrocodone/Acetaminophen 5MG/325MG (Emden 5MG/325MG) Tab 1-2 TABLET PO Q6 Y for Pain, #15 TAB For Initial Treatment Prov: Marcos Duque,P.A. 04/14/18 Referrals Cheng Constantino MD Forms HOME CARE DOCUMENTATION FORM, SPECIAL NARCOTICS INSTRUCTIONS, MOTRIN USE, TYLENOL USE, IMPORTANT VISIT INFORMATION Patient Instructions My [employer] Additional Instructions Keep the splint on at all times and keep it dry Ice and elevate your wrist and ankle frequently to reduce pain and swelling Call [facility] on Monday for follow-up this week Tylenol and Motrin every 6 hours as needed for mild pain Substitute Emden 1-2 tablets every 6 hours as needed for severe pain No driving Use a walker or wheelchair for ambulation Return to the ER for any acute changes Problem Qualifiers Primary Impression: Distal radius fracture, right Encounter type: initial encounter Fracture type: closed Fracture morphology : other intra-articular Qualified Codes: S52.571A - Other intraarticular fracture of lower end of right radius, initial encounter for closed fracture Additional Impression: Fracture of distal end of right fibula Encounter type: initial encounter Fracture type: closed Fracture morphology : other fracture Qualified Codes: S82.831A - Other fracture of upper and lower end of right fibula, initial encounter for closed fracture
== END 2018-04-14 09:48 | disposition home or self-care (01) ==
LOC: C.EDB 07:59
DX: S52.514A Nondisplaced fracture of right radial styloid process, initial encounter for closed fracture (principal); S82.61XA Displaced fracture of lateral malleolus of right fibula, initial encounter for closed fracture; W10.9XXA Fall (on) (from) unspecified stairs and steps, initial encounter; E11.9 Type 2 diabetes mellitus without complications; F17.200 Nicotine dependence, unspecified, uncomplicated; Z79.82 Long term (current) use of aspirin; Z79.899 Other long term (current) drug therapy

== ENCOUNTER 2019-11-04 00:53 | Inpatient (IN) ==
[~2019-11-04 00:53] MED LIST changes: -ASPI81TA28 PO; -ATOR10TA82 PO; -ERGO500037 PO; -GLIP5TAB11 PO; -HYDR20TA PO; -HYDR20TA3 PO; -HYDR25TA5 PO; -ISOS-11 PO; -LEVO88TA PO; -METO50TA16 PO; -PRLSR20 PO; +RAPID SEQUENCE INDUCTION BAG ONE
[2019-11-04] MEDS ORDERED: PROPOFOL IV EMULSION 10 MG/ML 100 ML VIAL IV ONE (01:01)
[2019-11-04] MEDS ORDERED: PROPOFOL IV EMULSION 10 MG/ML 20 ML VIAL IV ONE (01:01)
[2019-11-04] MEDS ORDERED: propofoL 1,000 MG/100 ML VIAL IV ONE (01:01)
[2019-11-04] MEDS ORDERED: ALBUT/IPRATROP 3MG/0.5MG NEB 3 ML VIAL NEB ONE (01:03)
[2019-11-04] MEDS ORDERED: MIDAZOLAM HCL 5 MG/ML 1 ML VIAL IV STA (01:08)
[2019-11-04] MEDS ORDERED: fentaNYL citrate 100 MCG/2 ML VIAL IV STA (01:08)
[2019-11-04 01:25] LABS: Basophils # (auto) 0.04 K/uL (0-0.2); Basophils % (auto) 0.4 %; Eosinophils # (auto) 0.06 K/uL (0-0.5); Eosinophils % (auto) 0.6 %; Hematocrit (blood only) 47.6 % (37-47); Hemoglobin 16.5 g/dL (12.0-16.0); Immature Granulocytes # (auto) 0.15 K/uL (0.00-0.02); Immature Granulocytes % (auto) 1.6 %; Lymphocytes # (auto) 2.26 K/uL (1.2-3.4); Lymphocytes % (auto) 23.8 %; Mean Corpuscular Hemoglobin 31.9 pg (25-34); Mean Corpuscular Hgb Conc 34.7 g/dL (32-36); Mean Corpuscular Volume 92.1 fL (80-100); Mean Platelet Volume 11.1 fL (7.4-10.4); Monocytes # (auto) 0.49 K/uL (0.11-0.59); Monocytes % (auto) 5.2 %; Neutrophils # (auto) 6.49 K/uL (1.4-6.5); Neutrophils % (auto) 68.4 %; Platelet Count 156 K/uL (130-400); RDW Coefficient of Variation 12.2 % (11.5-14.5); RDW Standard Deviation 41.3 fL (36.4-46.3); Red Blood Count 5.17 M/uL (4.2-5.4); White Blood Count 9.49 K/uL (4.8-10.8)
[2019-11-04 01:33] LABS: Base Excess VBG -8.2 mEq/L; Oxygen Saturation VBG 88.6 %; pH VBG 7.28 (7.36-7.41)
[2019-11-04 01:36] LABS: INR 1.1 (0.9-1.1); Partial Thromboplastin Time 29.1 Seconds (21.0-31.0); Prothrombin Time 11.5 Seconds (9.0-12.0)
[2019-11-04 01:54] LABS: Alanine Aminotransferase 40 U/L (12-78); Albumin Level 3.2 gm/dl (3.4-5.0); Alkaline Phosphatase 85 U/L (45-117); Bilirubin,Total 0.9 mg/dl (0.2-1); Blood Urea Nitrogen 16 mg/dl (7-18); Calcium 8.3 mg/dl (8.5-10.1); Carbon Dioxide 17 mmol/L (21-32); Chloride 96 mmol/L (98-107); Est GFR (African American) 59.9; Est GFR (Non-African American) 51.7; Glucose 169 mg/dl (70-99); Lipase 185 U/L (73-393); Sodium 130 mmol/L (136-145); Total Protein 7.4 gm/dl (6.4-8.2)
--- NOTE | 2019-11-04 01:58 | Emergency Department Note ---
ED Visit Note Endotracheal intubation was performed under direct supervision by Dr. Law. Procedure: Endotracheal Intubation Indication: Cardiac arrest The patient was being bagged by respiratory with BVM. Suction, airway equipment, RSI drugs, respiratory equipment, and appropriate personnel were prepared prior to the initiation of the procedure. A time out was taken. Induction was performed per Dr. Law. After observing the clinical benefit of the medications, the airway was easily visualized utilizing a glide scope. A 7.5 size ETT tube was placed atraumatically to 24 cm using standard technique. The cuff inflated without signs of malfunction. There were bilateral breath sounds, positive colormetric change, no gastric sounds, a good capnography waveform, and post procedure pulse oximetry was 100%. Post intubation sedation and paralysis was administered per Dr. Law. There were no complications.
[2019-11-04 02:06] LABS: Troponin I 0.295 ng/ml (0-0.045)
[2019-11-04] MEDS ORDERED: NITROGLYCERIN/D5W 100MCG/ML 20ML SYR ONE (02:16)
[2019-11-04] MEDS ORDERED: fentaNYL citrate 100 MCG/2 ML VIAL ONE (02:16)
[2019-11-04] MEDS ORDERED: HEPARIN (PORCINE) 1000 UNIT/ML 10 ML (CATH LAB USE ONLY) ONE (02:16)
[2019-11-04] MEDS ORDERED: NiCARDipine HCL INJ 2.5 MG/ML 10 ML AMP ONE (02:16)
[2019-11-04] MEDS ORDERED: MIDAZOLAM HCL 1 MG/ML 2ML VIAL ONE (02:16)
[2019-11-04 02:36] LABS: Influenza B virus by PCR Neg for Influ B (Neg)
--- NOTE | 2019-11-04 02:39 | History & Physical Report ---
Date of Service November 04, 2019 Assessment & Plan (1) Cardiac arrest: Ms. Ortiz is a 59 year old woman with a past medical history of Coronary Artery disease status post five stents and angioplasty with a history of MN in 2005 who presents today with cardiac arrest after a brief febrile illness at home. Cardiac Arrest Patient had witnessed cardiac arrest and collapse in front of after several days of flu like illness fevers Bystander CPR for approximately 20 minutes before BLS EMT's arrived Delivered two shocks with AED and obtained ROSC Patient brought in by ambulance with GCS 3 not breathing for herself, patient intubated and ventilated ECG initially showing no ST changes, then with evidence of acute inferior ischemia with some lateral ST elevations as well Taken to labeling strategist where she is currently, ICU Dr. 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 She has had flu like illness for past several days with cough, fever, chills she got up from bed with earlier this evening collapsed and hit her head on bedside dresser. immediately started to do CPR, neighbors helped as well, within 20 minutes EMT arrived she was found to have shockable rhythm and received two shocks in field and ROSC was achieved. ACLS first responders arrived and she was not breathing so they ventilated her via bag mask and brought her to emergency department. At [facility] [place] emergency department she was found to have a GCS of 3 and normal appearing ECG, plan was to initiate a code arctic, ECG then developed ST elevations in inferior leads and some in lateral leads and patient was taken to the labeling strategist where she is currently. After catheterization patient will be transferred to ICU for further evaluation and management. Allergies Allergy/AdvReac Type Severity Reaction Status Date / Time fenofibrate Allergy Unknown Verified 11/04/19 01:34 Home Medications Home Medications Medication Instructions Recorded Confirmed Type aspirin 81 mg tablet 81 mg PO DAILY tab 03/26/19 11/04/19 History blood sugar diagnostic #10 ea 03/26/19 08/16/19 History hydrocortisone 5 mg tablet 5 mg PO BID tab 03/26/19 11/04/19 History lancets 33 gauge #100 ea 03/26/19 08/16/19 History omeprazole 20 mg capsule,delayed 20 mg PO DAILY #90 cap 03/26/19 11/04/19 History release hydrocortisone 10 mg tablet 10 mg PO QAM tab 05/15/19 11/04/19 History glipizide 5 mg tablet 5 mg PO DAILY #90 tab 05/17/19 11/04/19 Rx hydrochlorothiazide 25 mg tablet 25 mg PO DAILY #90 tab 05/17/19 11/04/19 Rx isosorbide mononitrate 30 mg 60 mg PO DAILY #180 tab 05/17/19 11/04/19 Rx tablet,extended release 24 hr atorvastatin 40 mg tablet 40 mg PO QPM #90 tab 06/05/19 11/04/19 Rx ergocalciferol (vitamin D2) 1,250 50,000 units PO .COMPLEX #10 cap 06/18/19 11/04/19 Rx mcg (50,000 unit) capsule [place] Thyroid 90 mg tablet 90 mg PO DAILY #90 tab NS 07/29/19 11/04/19 Rx Accu-Chek Fastclix Lancet Drum #102 ea NS 08/19/19 Rx Accu-Chek Guide #100 ea NS 08/19/19 Rx metoprolol tartrate 50 mg tablet 50 mg PO BID #180 tab 09/03/19 11/04/19 Rx Past Med/Surg History Medical History Myocardial infarction Surgical History H/O heart artery stent S/P cardiac cath S/P cholecystectomy S/P tooth extraction S/P tubal ligation Family History Mother Cardiac disorder Congestive heart failure Father Kidney disease Diabetes Social History Preferred Language: Indian Beliefs That Will Affect Care: None marital status: Current Living Situation: Spouse Feels Safe at Home: Yes Smoking Status: Current every day smoker Tobacco Type: cigarettes ; Second Hand Exposure: Yes ; Hx Alcohol Use: No Hx Substance Use: No Review of Systems Review of Systems: Unobtainable due to reduced consciousness Physical Exam Physical Exam: 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 Results & Data Vital Signs (Past 12 Hours) Vital Signs Temp Pulse Pulse Resp BP Pulse Ox 11/04/19 02:20 89 93 11/04/19 02:15 98 H 98 11/04/19 02:11 91 H 152/81 H 100 11/04/19 02:10 88 100 11/04/19 02:04 98 H 147/102 H 100 11/04/19 02:00 89 98 11/04/19 01:53 90 18 100 11/04/19 01:50 88 118/105 H 11/04/19 01:46 34.4 C L 11/04/19 01:40 92 H 120/75 99 11/04/19 01:37 89 11/04/19 01:20 90 108/76 99 11/04/19 01:11 89 115/78 97 11/04/19 01:10 34.4 C L 92 H 98 11/04/19 01:01 94 H 99 11/04/19 01:00 97 H 18 136/95 98 11/04/19 00:59 94 H 98 11/04/19 00:57 90 133/87 98 11/04/19 00:56 86 18 99 Supervising Physician Co-Signing Physician Notes Patient seen and examined, chart reviewed, case discussed with Dr. Feldman and I agree with his assessment and plan as documented above. Resident Activity Tracking Resident Involvement: Resident Care Provided Care Provided: Adult Hospital Medicine
[2019-11-04 02:40] LABS: Aspartate Aminotransferase 74 U/L (15-37); Bilirubin Direct 0.2 mg/dl (0-0.2); Magnesium 2.3 mg/dl (1.8-2.4); Potassium 3.2 mmol/L (3.5-5.1)
[2019-11-04] MEDS ORDERED: POTASSIUM CHLORIDE 10 MEQ / 100ML WTR IV ONE (02:46)
--- NOTE | 2019-11-04 03:35 | Pre Anesthesia Assessment ---
Date of Service November 04, 2019 Pre Sedation Assessment Vital Signs Temp Pulse Pulse Resp BP Pulse Ox 11/04/19 02:28 34.7 C L 11/04/19 02:20 89 93 11/04/19 02:15 98 H 98 11/04/19 02:11 91 H 152/81 H 100 11/04/19 02:10 88 100 11/04/19 02:04 98 H 147/102 H 100 11/04/19 02:00 89 98 11/04/19 01:53 90 18 100 11/04/19 01:50 88 118/105 H 11/04/19 01:46 34.4 C L 11/04/19 01:40 92 H 120/75 99 11/04/19 01:37 89 11/04/19 01:20 90 108/76 99 11/04/19 01:11 89 115/78 97 11/04/19 01:10 34.4 C L 92 H 98 11/04/19 01:01 94 H 99 11/04/19 01:00 97 H 18 136/95 98 11/04/19 00:59 94 H 98 11/04/19 00:57 90 133/87 98 11/04/19 00:56 86 18 99 Cardiovascular RRR, no murmur, no edema Respiratory Additional Comments: Intubated and sedated. On ventilator Pre-Sedation Airway Assessment Smoking Status: Unknown if ever smoked Notes The planned sedation has been discussed with the patient. Informed Consent was obtained. I have identified the patient, determined the appropriateness of sedation and have assessed the patient immediately prior to the procedure. All medicine(s) and interventions are by my order.
--- NOTE | 2019-11-04 03:39 | Cardiac Catheterization ---
Cardiac Cath Procedure Full Procedure Date November 04, 2019 Pre-Procedure Diagnosis Pre-Procedure Diagnosis: STEMI and Arrhythmia (cardiac arrest s/p CPR and defib with ROSC.) AUC Score AUC Score: 09 Post-Procedure Diagnosis Post-Procedure Diagnosis: Mild CAD (patent prior stent. Diffuse mild non- occlusive CAD and small distal vessels.) Procedure(s) Performed Procedure(s) Performed: Coronary Angiography, Left Heart Cath, LV Angiography, Ultrasound Guided Vascular Access and Procedure (Cooling catheter insertion for therapeutic hypothermia (venous).) Internet Marketing Director Victor Manuel Bland MD Estimated Blood Loss Estimated Blood Loss: <15 ml Medication(s) Medication(s): Fentanyl, Lidocaine 1% and Versed Medication(s): On propofol Summary of Findings Left Main: large, no disease LAD: medium, transapical. Proximal mild luminal irregularities. Mid diffuse mild, distal diffuse mild disease. Small caliber and subtotal near apex. D1- and D2 small caliber with diffuse mild disease. LCx: medium to large caliber, nondominant. Proximal AV groove mild diffuse < 30%. Becomes PLB distally. Long stent with ISRS <20%. after stent multiple small branches with diffuse disease. Ramus: medium caliber with diffuse mild disease. RCA: large caliber and dominant. Diffuse mild disease and tapers distally to PDA and PLB. PDA and PLB diffuse mild disease and small caliber vessels. No acute thrombotic culprit lesion. Relatively small caliber vessels with diffuse mild disease. No appropriate targets for PCI Cooling infusion catheter: distal tip within IVC below right atrium. Hemodynamics Rest Ao:: 174/79 mm Hg, mean 116 mm Hg Final Ao: 174/64 mm Hg, mean 75 mm Hg LV: EF 55% apical hypokinesis Recommendations Recommendations: Cardiac Therapy w/o CABG/PCI and Management Recommendatons (therapeutic hypothermia for cardiac arrest) Specimens Specimens: None Radiation Exposure (mGy) 612 Contrast (mls) 60 ml Procedural Complication(s) None Disposition ICU I attest to the content of the Intraoperative Record and any orders documented therein. Any exceptions are noted below. [facility] Data: Investigation Clerk Cardiac Status Clinical evaluation leading to the procedure s/p cardiac arrest. Inferior ST elevations on ED EKG CAD Presenation: STEMI (inferior ST elevations s/p cardiac arrest) Diagnostic Physicians Name: Victor Manuel Bland MD Status: Emergency Closure Device Percutaneous Entry Location: Femoral Closure Device: None-Manual Hold Recommendations: Cardiac Therapy w/o CABG/PCI and Management Recommendatons (therapeutic hypothermia for cardiac arrest) PCI Indication: Rescue PCI for STEMI First Noted: Subsequent EKG Reason For Delay in PCI:: Cardiac Arrest &/or
[2019-11-04] MEDS ORDERED: ARTIFICIAL TEARS OP OINT 3.5 GM TUBE OP PRN (04:12)
[2019-11-04] MEDS ORDERED: STAT IV Infusion **Titration per Protocol STA (04:12)
[2019-11-04] MEDS ORDERED: MEPERIDINE HCL 25 MG/ML CARP/VIAL IV PRN (04:12)
[2019-11-04] MEDS ORDERED: HYDROmorphone INJ 1 MG/ML SYRINGE IV PRN (04:12)
[2019-11-04] MEDS ORDERED: ICU PROTOCOL FOR HYPERGLYCEMIA PRN ×3 (04:23→09:40)
--- NOTE | 2019-11-04 04:33 | Critical Care Consultation ---
Date of Consultation November 04, 2019 Assessment & Plan (1) Admitted to intensive care unit: Reason Critically Ill: 59-year-old female presenting after cardiac arrest with return of spontaneous circulation in the field with defibrillation x2 status post PTCI without need for intervention requiring hemodynamic monitoring with goal TTM in the postarrest patient. NEURO - * CAM ICU: Unable to assess secondary to level of sedation. * CT head unremarkable. * A.m. EEG ordered. * Neuro checks per protocol. * Sedation with propofol and fentanyl. CARDIAC/VASCULAR - * Cardiac arrest with ROSC status post defibrillation x2 in the field: * Presumed V. tach/V. fib arrest as indication of shock with AED. AED unavailable for interrogation. * Patient noted to have ST segment elevations in the inferior leads in the emergency department. Underwent PTCI without JEAN. * Loaded with heparin in the catheterization lab. * No need for intervention at this time. * Continue with home ASCVD medications. * A.m. echocardiogram ordered. * Serial EKGs. * Therapeutic hypothermia in place at this time. * Cooling catheter placed in the RIGHT femoral vein by interventional cardiology. * Monitor on telemetry. RESPIRATORY - * Respiratory failure secondary to cardiac arrest: * Requiring endotracheal intubation for airway protection. * Minimize settings. * No infiltrative changes noted on chest x-ray. * Serial ABGs. GI/NUTRITION - * N.p.o. except oral medications. * Prophylaxis: Famotidine RENAL/LYTES - * No significant electrolyte derangements. * Continue to trend. Replace appropriately. * IVF: Normosol at 100 mL/h. - * Hernadez in place - Strict I&Os. ENDO - * DM 2 * BSGs per unit protocol. ISS --> gtt per unit policy. * Hypothyroidism and adrenal insufficiency secondary to Adrián syndrome * Currently on hydrocortisone daily. * Will check random cortisol prior to stress dosing, however would not be pro ne to do so as patient is not presenting as an adrenal crisis at this time. We will continue with her p.o. doses of hydrocortisone at this time. HEME - * Stable H&H. ID - * Influenza A positive * 5-day course of Tamiflu despite patient being outside the 48-hour treatment window. Would do so in the setting of acuity of illness. * Do not feel antibiotics are necessary at this time. * Elevated lactate likely stress-induced in the setting of arrest. Will trend. LINES/IV ACCESS - * PIVs x2 * ET tube * RIGHT femoral cooling catheter * RIGHT femoral arterial sheath * Hernadez catheter DVT PROPHYLAXIS - * Heparin * SCDs I have personally spent 80 minutes of critical care time in the direct management of this patient. This is a life/limb threatening event. This includes time spent evaluating patient, direct bedside care, chart review, placing orders, interpretation of diagnostic studies, discussion with consultants, patient, and family members, as well as other required patient management activities. This time is exclusive of all separately billable procedures, and teaching time and separate from and in addition to any other critical care service time. Thank you for allowing us to participate in the care of this patient. Please refer to my attending physician's documentation for any further recommendations. (2) Cardiac arrest: (3) ST elevation (STEMI) myocardial infarction: (4) Diabetes type 2, controlled: (5) CAD (coronary artery disease): (6) Diabetic nephropathy associated with type 2 diabetes mellitus: (7) Dyslipidemia: (8) Hypertension: (9) Pituitary hypothyroidism: (10) Secondary adrenal insufficiency: (11) Adrián syndrome: (12) Respiratory failure: (13) Influenza: History of Present Illness Attending Physician: Victor Manuel Bland MD History of Present Illness Patient is a 59-year-old male with a significant past medical history of cor onary artery disease status post stenting x7, hypertension, hyperlipidemia, diabetes, hypothyroidism adrenal insufficiency secondary to Adrián syndrome, and peripheral arterial disease. Patient was a [employer] called in the emergency department. Per patient's , she had not been feeling well since . She has had complaints of body aches and subjective fevers. She had mainly been complaining of pain in her bilateral legs. Her reports that he is sick with similar symptoms. He feels as though they have the "flu". He states that she has not complained of any chest pain, short of breath, been coughing, had nausea or vomiting, or prior episodes of syncope. He states that after they had laid down for bed, he was woken by her falling into the bedside dresser. He attempted to awaken her, but was unsuccessful doing so. He contacted 911 and proceeded with CPR. He reports that he performed CPR until his neighbor, an EMT, took over compressions. Upon EMS arrival with BLS surface, an AED was attached. The patient received cardioversion x2 with return of spontaneous circulation. Patient was subsequently brought to the emergency department where he was established. Initial EKG demonstrated normal sinus rhythm with slight lateral ST depression. During assessment to place cooling catheter, the patient was noted to have ST segment elevations on the monitor. Repeat EKG demonstrated acute EKG changes consistent with ST segment elevations in the inferior leads. Heart alert was called and the patient was taken emergently to the catheterization suite where she underwent PTCI without need for intervention. Cooling catheter was placed and arterial sheath was left in place. Patient was subsequently brought to the ICU for further evaluation and TTM management. Allergies Allergy/AdvReac Type Severity Reaction Status Date / Time fenofibrate Allergy Unknown Verified 11/04/19 01:34 Home Medications Home Medications Medication Instructions Recorded Confirmed Type aspirin 81 mg tablet 81 mg PO DAILY tab 03/26/19 11/04/19 History blood sugar diagnostic #10 ea 03/26/19 08/16/19 History hydrocortisone 5 mg tablet 5 mg PO BID tab 03/26/19 11/04/19 History lancets 33 gauge #100 ea 03/26/19 08/16/19 History omeprazole 20 mg capsule,delayed 20 mg PO DAILY #90 cap 03/26/19 11/04/19 History release hydrocortisone 10 mg tablet 10 mg PO QAM tab 05/15/19 11/04/19 History glipizide 5 mg tablet 5 mg PO DAILY #90 tab 05/17/19 11/04/19 Rx hydrochlorothiazide 25 mg tablet 25 mg PO DAILY #90 tab 05/17/19 11/04/19 Rx isosorbide mononitrate 30 mg 60 mg PO DAILY #180 tab 05/17/19 11/04/19 Rx tablet,extended release 24 hr atorvastatin 40 mg tablet 40 mg PO QPM #90 tab 06/05/19 11/04/19 Rx ergocalciferol (vitamin D2) 1,250 50,000 units PO .COMPLEX #10 cap 06/18/19 11/04/19 Rx mcg (50,000 unit) capsule [place] Thyroid 90 mg tablet 90 mg PO DAILY #90 tab NS 07/29/19 11/04/19 Rx Accu-Chek Fastclix Lancet Drum #102 ea NS 08/19/19 Rx Accu-Chek Guide #100 ea NS 08/19/19 Rx metoprolol tartrate 50 mg tablet 50 mg PO BID #180 tab 09/03/19 11/04/19 Rx Patient History Medical History Myocardial infarction Surgical History H/O heart artery stent S/P cardiac cath S/P cholecystectomy S/P tooth extraction S/P tubal ligation Family History Mother Cardiac disorder Congestive heart failure Father Kidney disease Diabetes Social History Preferred Language: Hebrew Beliefs That Will Affect Care: None marital status: Current Living Situation: Spouse Feels Safe at Home: Yes Smoking Status: Current every day smoker Tobacco Type: cigarettes ; Second Hand Exposure: Yes ; Hx Alcohol Use: No Hx Substance Use: No Review of Systems Review of Systems: Unobtainable due to endotracheal tube and Unobtainable due to reduced consciousness Physical Exam Physical Exam: VITAL SIGNS - Vital signs and nursing notes were reviewed. GENERAL - 59-year-old female appearing her stated age who is in no acute distress. Intubated and sedated. SKIN - Without rashes. HEAD - NC/AT. EYES - PERRL. EARS - No deformities of external structures noted on gross examination bilaterally. NOSE - Midline and without cyanosis. No epistaxis or purulent drainage noted. MOUTH/OROPHARYNX - Without perioral cyanosis. ET Tube in place. NECK - Supple to palpation. No lymphadenopathy noted. No nuchal rigidity. LUNGS - Chest wall symmetric without accessory muscle use, intercostals retractions, or central cyanosis. Normal vesicular breath sounds CTA B/L. No wheezes, rales, or rhonchi appreciated. CARDIAC - RRR with S1/S2. No murmur, rubs, or gallops appreciated. ABDOMEN - Abdominal contour flat without pulsations or visible masses. BS nor moactive all four quadrants. No tenderness, palpable masses, hepatosplenomegaly, or ascites noted. EXTREMITIES - No clubbing or peripheral cyanosis. No pretibial edema present. +3/5 radial and dorsalis pedis pulses palpated throughout. NEUROLOGIC/PSYCH - No focal neurological deficits. Unable to fully asses secondary to current state of sedation with intubation. Results & Data ([facility]) Vital Signs (Past 12 Hours) Vital Signs Temp Pulse Pulse Resp BP Pulse Ox 11/04/19 03:45 85 25 H 100 11/04/19 02:28 34.7 C L 11/04/19 02:20 89 93 11/04/19 02:15 98 H 98 11/04/19 02:11 91 H 152/81 H 100 11/04/19 02:10 88 100 11/04/19 02:04 98 H 147/102 H 100 11/04/19 02:00 89 98 11/04/19 01:53 90 18 100 11/04/19 01:50 88 118/105 H 11/04/19 01:46 34.4 C L 11/04/19 01:40 92 H 120/75 99 11/04/19 01:37 89 11/04/19 01:20 90 108/76 99 11/04/19 01:11 89 115/78 97 11/04/19 01:10 34.4 C L 92 H 98 11/04/19 01:01 94 H 99 11/04/19 01:00 97 H 18 136/95 98 11/04/19 00:59 94 H 98 11/04/19 00:57 90 133/87 98 11/04/19 00:56 86 18 99 Coding Level of Care Code Critical Care 1st 30-74 mins Diagnoses Admitted to intensive care unit Z78.[address] elevation (STEMI) myocardial infarction I21.19 Involved coronary artery: other inferior wall coronary artery Diabetes type 2, controlled E11.9 CAD (coronary artery disease) I25.10 Diabetic nephropathy associated with type 2 diabetes mellitus E11.21 Dyslipidemia E78.5 Hypertension I10 Pituitary hypothyroidism E03.8 Secondary adrenal insufficiency E27.49 Adrián syndrome E23.0 Respiratory failure J96.90 Influenza J11.1 Time Spent (min) 80 (1) ST elevation (STEMI) myocardial infarction Involved coronary artery: other inferior wall coronary artery Qualified Code(s): I21.19 - ST elevation (STEMI) myocardial infarction involving other coronary artery of inferior wall
[2019-11-04 04:48] LABS: Basophils # (auto) 0.03 K/uL (0-0.2); Basophils % (auto) 0.2 %; Eosinophils # (auto) 0.02 K/uL (0-0.5); Eosinophils % (auto) 0.1 %; Hematocrit (blood only) 45.5 % (37-47); Hemoglobin 15.9 g/dL (12.0-16.0); Immature Granulocytes # (auto) 0.06 K/uL (0.00-0.02); Immature Granulocytes % (auto) 0.4 %; Lymphocytes # (auto) 2.06 K/uL (1.2-3.4); Lymphocytes % (auto) 13.5 %; Mean Corpuscular Hemoglobin 32.3 pg (25-34); Mean Corpuscular Volume 92.5 fL (80-100); Mean Platelet Volume 11.1 fL (7.4-10.4); Monocytes # (auto) 0.89 K/uL (0.11-0.59); Monocytes % (auto) 5.8 %; Neutrophils # (auto) 12.18 K/uL (1.4-6.5); Platelet Count 162 K/uL (130-400); RDW Coefficient of Variation 12.3 % (11.5-14.5); RDW Standard Deviation 41.5 fL (36.4-46.3); Red Blood Count 4.92 M/uL (4.2-5.4); White Blood Count 15.24 K/uL (4.8-10.8)
[2019-11-04] MEDS: fentaNYL DRIP 1,250 MCG/250 ML BAG IV SCH ×2 (04:53→23:04)
[2019-11-04] MEDS: propofoL 1,000 MG/100 ML VIAL IV SCH ×3 (04:53→17:04)
[2019-11-04] MEDS: NORMOSOL-R 1,000 ML IV SCH ×2 (04:53→14:36)
[2019-11-04 04:55] LABS: Mean Corpuscular Hgb Conc 34.9 g/dL (32-36)
[2019-11-04 05:05] LABS: BUN Creatinine Ratio 18.8 (10-20); Blood Urea Nitrogen 19 mg/dl (7-18); Calcium 7.8 mg/dl (8.5-10.1); Carbon Dioxide 19 mmol/L (21-32); Chloride 98 mmol/L (98-107); Creatinine Clr Calc Pharmacy 53.1 ml/min; Est GFR (African American) 71.6; Est GFR (Non-African American) 61.7; Glucose 215 mg/dl (70-99); Magnesium 2.2 mg/dl (1.8-2.4); Sodium 130 mmol/L (136-145)
[2019-11-04 05:08] LABS: Appearance Urine Clear (Clear); Bacteria Urine Automated Negative (Negative); Bilirubin Urine Negative (Negative); Blood Urine 1+ (Negative); Color Urine Dark Yellow; Epithelial Cell Urine Auto >30 /lpf (0-5); Glucose Urine UA Negative (Negative); Ketones Urine 1+ (Negative); Leukocyte Esterase Urine Negative (Negative); Nitrite Urine Negative (Negative); Protein Urine 1+ (Negative); Urobilinogen Urine Negative (Negative)
[2019-11-04 05:08] LABS: INR 1.1 (0.9-1.1); Partial Thromboplastin Time 26.8 Seconds (21.0-31.0); Prothrombin Time 11.5 Seconds (9.0-12.0)
[2019-11-04 05:18] LABS: Creatine Kinase MB 15.1 ng/ml (0.5-3.6); Phosphorus 3.5 mg/dl (2.5-4.9)
[2019-11-04 05:27] LABS: Specific Gravity Urine > 1.030 (1.000-1.030)
[2019-11-04 05:37] LABS: Granular Casts Urine 20-30 /lpf (0)
--- NOTE | 2019-11-04 05:45 | CT Scan Report ---
CT head/brain wo con CT DOSE: 912.99 mGy.cm HISTORY: Trauma. Mental status change. cardiac arrest, head injury TECHNIQUE: Multiaxial CT images of the head were performed without the use of intravenous contrast. A dose lowering technique was utilized adhering to the principles of ALARA. Comparison: None. Findings: The paranasal sinuses and mastoid air cells are clear. The calvarium and skull base are int act. The ventricles and sulci are within normal limits. There is no mass, hematoma, midline shift, or acute infarct. Impression: No acute intracranial abnormality. ACT 112: Negative or not required by law. The above report was generated using voice recognition software. It may contain grammatical, syntax or spelling errors. Electronically signed by: Toribio Barnhart M.D. 11/04/2019 5:44 AM
[2019-11-04] MEDS ORDERED: CALCIUM GLUCONATE 10% 1,000 MG in SODIUM CHLORIDE 0.9% 50 ML IV STA ×2 (05:46→14:27)
[2019-11-04] MEDS: FAMOTIDINE 20 MG in SYRINGE 3 ML IV SCH ×2 (05:55→17:05)
[2019-11-04] MEDS: HYDROCORTISONE SOD 50 MG in SYRINGE 0 ML IV SCH ×4 (05:57→21:13)
[2019-11-04 06:24] LABS: iSTAT Art Bld Gas pCO2 Correct 35 mmHg (35-46); iSTAT Art Bld Gas pH Corrected 7.314 (7.35-7.45); iSTAT Arterial Blood Gas HCO3 19 meg/L (19-24); iSTAT Arterial Blood Gas pCO2 43 mmHg (35-46); iSTAT Arterial Blood Gas pH 7.25 (7.35-7.45); iSTAT Arterial Blood Gas pO2 101 mmHg (80-95); iSTAT Arterial Blood Gas pO2 C 75; iSTAT Carbon Dioxide 20 mmol/L (24-31); iSTAT FiO2 30 %; iSTAT Hematocrit 45 % (37-47); iSTAT Hemoglobin 15.3 g/dl (12.0-16.0); iSTAT Potassium 2.5 mmol/L (3.3-5.0); iSTAT Site Art Line; iSTAT Sodium 132 mmol/L (135-144)
--- NOTE | 2019-11-04 06:26 | Emergency Department Note ---
Entered by Rachana Estrada acting as a scribe for Dion Law MD ED Provider Note Name: JOAN BHAT Age: 59 Arrives Via: Ambulance Informant: EMS, CC: Cardiac Arrest/CPR HPI: [id number] arrives for evaluation of cardiac arrest/CPR. Patient's states that she has not been feeling well for the past several days and sick with a URI with cough, SOB, fever, and body aches. The also currently has influenza. He explains that the patient got into bed tonight and got up to go to the bathroom when she collapsed to the floor striking her head off a dresser. Her immediately began CPR and their neighbor showed up shortly afterwards who continued CPR until EMS arrived. EMS shocked the patient twice and she regained a pulse but never regained consciousness. Of note, she has not had any cardiac interventions since 2007 and denies that she had any recent new medications/medication changes. 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 Past medical records reveal that she had an KS in 2005 and was stented twice following this. Later that year in 2006 and in 2007 she received further heart artery stents. HPI is limited and per EMS as the patient is unconscious. ROS: Unable to obtain due to patient being intubated and unconscious. ROS is limited as the patient is conscious. Past Medical History:KS, CAD, HTN, DM2, GERD, PAD, Raynaud's disease, Pituitary hypothyroidism, Past Surgical History:Cardiac cathwith stents Family History:CHF, Cardiac Disorder (mother), Kidney Disease (father) Social History:Current everyday smoker, no drug or ETOH use Home Medications:See Below Allergies:Fenofibrate Vitals: * BP: 152/81 * Pulse: 89 * Resp: 18 * Temp: 34.7 C * O2 Sat: 93 on Mechanical Vent * FiO2 Ratio: 45 Physical Exam: GENERAL: Unresponsive, GCS 3. HEAD: Contusion over forehead/nose EYES: No scleral icterus, mildly reactive mid pupils. ENT: Mucous membranes moist, no nasal congestion. NECK: Trachea is midline, no masses, no swelling. RESPIRATORY: Equal chest rise with ventilation, diffuse crackles and wheezing CARDIOVASCULAR: regular rate/rhythm, no murmur appreciated GASTROINTESTINAL: Abdomen soft. Non-Distended. Bowel sounds appreciated. No masses appreciated. EXTREMITIES: Pulses all four, no movement, not mottled NEUROLOGIC: Unresponsive, GCS 3. SKIN: No rash, no jaundice. ED Course: Prior Medical Record, Triage/Nursing Notes, Medications, Allergies reviewed by Me Vital Signs: reviewed and remarkable for HTN Labs:Reviewed and remarkable for +flu a, + trop Interventions: saline lock, succinylcholine IV, etomidate IV, duoneb, propofol gtt Imaging:X ray results are stated below per my interpretation: Chest: 1 view: ET Tube midline, no pneumothorax, no infiltrate, no effusion, normal cardiac border. EKG #1:Per My Interpretation: Indication Cardiac Arrest: NSR 92 bpm, qtc 479. No Ectopy. No Ischemia. Compared to EKG 09/19/16, no significant changes. EKG #2: Per My Interpretation: Indication Monitor Change: NSR 91 bpm, qtc 509. No Ectopy. Acute ST elevations primarily inferior leads though also somewhat elevated ant/lateral without significant other depressions. 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 The monitor shows a rate of 90 with a normal sinus rhythm and developed large ST elevations on monitor. Reassessments/Times: 0055: Past medical records reviewed. The patient was evaluated in room B01. A complete history and physical exam was performed. 0106: Paged data center operator. 0112: Discussed the patient's case with Dr. Bland and he requests that she be medically managed prior to label paster. 0151: After futher discussion with Dr Bland now that EKG has changed he requests Well Drill Operator Activation 0241: The patient has been admitted and transferred to the Well Drill Operator. Blood pressure:Elevated - Further management by ICU physician Disposition:Admitted as Inpatient, Transferred to Well Drill Operator Prescriptions:None. Differentials:Etiologies such as metabolic, infection, hypo/hyperglycemia, electrolyte abnormalities, cardiac sources, intracerebral event, toxicologic, neurologic, as well as others were entertained. Medical Decision Makin yr old female with KS, CAD, HTN, DM2, GERD, PAD, Raynaud's disease, Pituitary hypothyroidism, and previous stenting x 7 in [id number] and continues to smoke arrives after cardiac arrest and ROSC with electrocardioversion x 2. She has been ill with flu like illness for several days ( notes this after he arrives, though pt already intubated). She was intubated on arrival due to GCS 3 post code and cooling protocol initiated. She was intubated by Dee Chicas PA-C under my direct supervision with first attempt pass successful and normal vitals throughout. Initially EKG OK and patient cooling continued and she was sent to CT for eval of head/neck due to hitting face on dressor during cardiac arrest earlier. CT head/cspine negative. CXR OK. Labs with + trop and Monitor concerning thus repeat EKG done. Repeat EKG with developing diffuse ST elevations. Reviewed with Interventional Cards who advises activate label paster at this time. She was vitals stable and taken to label paster. Suspect this is respiratory arrest as stress from viral illness leading to cardiac arrest. Unclear what the shockable rhythm was for EMS. EKG does look something like Myopericarditis picture but with recent arrest, shockable rhythm, EKG changes, elevated trop clearly cath seems best option forward. Seems unlikely PE after discussion with and other findings would not lead me to think this is Dissection at this time. Was not given asa/plavix/brilinta due to current intubation. Due to her lung exam and husbands statements she was placed in flu precautions prior to Flu A being positive. Tamiflu not given due to critical status, being intubated and need to go to label paster. Very much appreciate the help from the ICU staff throughout with management and getting better access. Impression: Cardiopulmonary arrest, inferior STEMI, flu like symptoms Critical Care Time: I have personally spent 90 minutes of critical care time in the direct management of this patient. Post cardiac arrest who developed STEMI while in department and transferred to chemistry laboratory technician, involvement of Cath Team, ICU Team and hospitalists. This was a life/limb threatening event. This 90 minutes is in excess of all separately billable procedures. Impression & Plan Cardiopulmonary arrest, ST elevation (STEMI) myocardial infarction, Flu-like symptoms Past Med/Surg History Medical History Myocardial infarction Surgical History H/O heart artery stent S/P cardiac cath S/P cholecystectomy S/P tooth extraction S/P tubal ligation Family History Mother Cardiac disorder Congestive heart failure Father Kidney disease Diabetes Social History Preferred Language: Citizen Of [place] Beliefs That Will Affect Care: None marital status: Current Living Situation: Spouse Feels Safe at Home: Yes Smoking Status: Current every day smoker Tobacco Type: cigarettes ; Second Hand Exposure: Yes ; Hx Alcohol Use: No Hx Substance Use: No Results & Data Vital Signs Vital Signs - 24 hr 11/04/19 00:56 11/04/19 00:57 11/04/19 00:59 Temperature Temperature Source Rectal Temperature - Monitor Source 1 Pulse Rate 86 90 94 H Pulse Rate [Right Finger] Pulse Rate from SpO2 Sensor 90 94 H Respiratory Rate 18 Respiratory Effort / Characteristics Respiratory Depth Blood Pressure 133/87 Blood Pressure Mean 107 Pulse Oximetry 99 98 98 Oxygen Delivery Method Fraction of Inspired Oxygen 45 Sepsis Recent Fever Within 48 Hours Sepsis Action Taken by Nursing Arterial BP Systolic Arterial BP Diastolic Arterial BP Mean Arterial Pulse Rate End-Tidal CO2 20 11/04/19 01:00 11/04/19 01:01 11/04/19 01:10 Temperature 34.4 C L Temperature Source Rectal Temperature - Monitor Source 1 Pulse Rate 97 H 94 H 92 H Pulse Rate [Right Finger] Pulse Rate from SpO2 Sensor 97 H 94 H 91 H Respiratory Rate 18 Respiratory Effort / Characteristics Respiratory Depth Normal Blood Pressure 136/95 Blood Pressure Mean 111 Pulse Oximetry 98 99 98 Oxygen Delivery Method Mechanical Vent Fraction of Inspired Oxygen Sepsis Recent Fever Within 48 Hours No Sepsis Action Taken by Nursing No Action Required Arterial BP Systolic Arterial BP Diastolic Arterial BP Mean Arterial Pulse Rate End-Tidal CO2 19 11/04/19 01:11 11/04/19 01:20 11/04/19 01:37 Temperature Temperature Source Rectal Temperature - Monitor Source 1 Pulse Rate 89 90 89 Pulse Rate [Right Finger] Pulse Rate from SpO2 Sensor 89 90 Respiratory Rate Respiratory Effort / Characteristics Respiratory Depth Blood Pressure 115/78 108/76 Blood Pressure Mean 90 92 Pulse Oximetry 97 99 Oxygen Delivery Method Fraction of Inspired Oxygen Sepsis Recent Fever Within 48 Hours Sepsis Action Taken by Nursing Arterial BP Systolic Arterial BP Diastolic Arterial BP Mean Arterial Pulse Rate End-Tidal CO2 22 24 11/04/19 01:40 11/04/19 01:46 11/04/19 01:50 Temperature 34.4 C L Temperature Source Core Rectal Temperature - Monitor Source 1 34.6 C L Pulse Rate 92 H 88 Pulse Rate [Right Finger] Pulse Rate from SpO2 Sensor Respiratory Rate Respiratory Effort / Characteristics Respiratory Depth Blood Pressure 120/75 118/105 H Blood Pressure Mean 94 111 Pulse Oximetry 99 Oxygen Delivery Method Mechanical Vent Fraction of Inspired Oxygen 45 Sepsis Recent Fever Within 48 Hours Sepsis Action Taken by Nursing Arterial BP Systolic 59 Arterial BP Diastolic 59 Arterial BP Mean 59 Arterial Pulse Rate 0 L End-Tidal CO2 25 23 11/04/19 01:53 11/04/19 02:00 11/04/19 02:04 Temperature Temperature Source Rectal Temperature - Monitor Source 1 34.7 C L 34.7 C L Pulse Rate 89 98 H Pulse Rate [Right Finger] 90 Pulse Rate from SpO2 Sensor 87 98 H Respiratory Rate 18 Respiratory Effort / Characteristics Spontaneous Respiratory Depth Blood Pressure 147/102 H Blood Pressure Mean 117 Pulse Oximetry 100 98 100 Oxygen Delivery Method Mechanical Vent Fraction of Inspired Oxygen 45 Sepsis Recent Fever Within 48 Hours Sepsis Action Taken by Nursing Arterial BP Systolic Arterial BP Diastolic Arterial BP Mean Arterial Pulse Rate End-Tidal CO2 25 22 11/04/19 02:10 11/04/19 02:11 11/04/19 02:13 Temperature Temperature Source Rectal Temperature - Monitor Source 1 34.7 C L 34.7 C L Pulse Rate 88 91 H Pulse Rate [Right Finger] Pulse Rate from SpO2 Sensor 88 92 H Respiratory Rate Respiratory Effort / Characteristics Respiratory Depth Blood Pressure 152/81 H Blood Pressure Mean 92 Pulse Oximetry 100 100 Oxygen Delivery Method Mechanical Vent Fraction of Inspired Oxygen Sepsis Recent Fever Within 48 Hours Sepsis Action Taken by Nursing Arterial BP Systolic Arterial BP Diastolic Arterial BP Mean Arterial Pulse Rate End-Tidal CO2 24 25 11/04/19 02:15 11/04/19 02:20 11/04/19 02:28 Temperature 34.7 C L Temperature Source Core Rectal Temperature - Monitor Source 1 34.7 C L 34.7 C L Pulse Rate 98 H 89 Pulse Rate [Right Finger] Pulse Rate from SpO2 Sensor 100 H 90 Respiratory Rate Respiratory Effort / Characteristics Respiratory Depth Blood Pressure Blood Pressure Mean Pulse Oximetry 98 93 Oxygen Delivery Method Mechanical Vent Mechanical Vent Fraction of Inspired Oxygen 45 Sepsis Recent Fever Within 48 Hours Sepsis Action Taken by Nursing Arterial BP Systolic Arterial BP Diastolic Arterial BP Mean Arterial Pulse Rate End-Tidal CO2 22 26 Laboratory Data Result diagrams: 11/04/19 04:36 11/04/19 04:36 Lab Results 11/04/19 11/04/19 11/04/19 Range/Units 01:12 01:12 01:12 WBC 9.49 (4.8-10.8) K/uL RBC 5.17 (4.2-5.4) M/uL Hgb 16.5 H (12.0-16.0) g/dL Hct 47.6 H (37-47) % MCV 92.1 (80-100) fL MCH 31.9 (25-34) pg MCHC 34.7 (32-36) g/dL RDW Std Deviation 41.3 (36.4-46.3) fL RDW Coeff of [place] 12.2 (11.5-14.5) % Plt Count 156 (130-400) K/uL MPV 11.1 H (7.4-10.4) fL Immature Gran % (Auto) 1.6 % Neut % (Auto) 68.4 % Lymph % (Auto) 23.8 % [place] % (Auto) 5.2 % Eos % (Auto) 0.6 % Baso % (Auto) 0.4 % Immature Gran # (Auto) 0.15 H (0.00-0.02) K/uL Neut # (Auto) 6.49 (1.4-6.5) K/uL Lymph # (Auto) 2.26 (1.2-3.4) K/uL [place] # (Auto) 0.49 (0.11-0.59) K/uL Eos # (Auto) 0.06 (0-0.5) K/uL Baso # (Auto) 0.04 (0-0.2) K/uL PT 11.5 (9.0-12.0) Seconds INR 1.1 (0.9-1.1) APTT 29.1 (21.0-31.0) Seconds PTT Ratio 1.0 VBG pH (7.36-7.41) VBG pCO2 (38-50) mmHg VBG pO2 mmHg VBG HCO3 mmol/L VBG O2 Saturation % VBG Base Excess mEq/L Barometric Pressure mm/Hg Sodium 130 L (136-145) mmol/L Potassium 3.2 L (3.5-5.1) mmol/L Chloride 96 L (98-107) mmol/L Carbon Dioxide 17 L (21-32) mmol/L Anion Gap 17.0 H (3-11) BUN 16 (7-18) mg/dl Creatinine 1.17 (0.6-1.2) mg/dl Est Cr Clr Drug Dosing Not Reportable Est GFR ( Amer) 59.9 Est GFR (Non-Af Amer) 51.7 BUN/Creatinine Ratio 14.0 (10-20) Glucose 169 H (70-99) mg/dl Lactate (0.4-2.0) mmol/L Calcium 8.3 L (8.5-10.1) mg/dl Magnesium 2.3 (1.8-2.4) mg/dl Total Bilirubin 0.9 (0.2-1) mg/dl Direct Bilirubin 0.2 (0-0.2) mg/dl AST 74 H (15-37) U/L ALT 40 (12-78) U/L Alkaline Phosphatase 85 (45-117) U/L Troponin I 0.295 H* (0-0.045) ng/ml Total Protein 7.4 (6.4-8.2) gm/dl Albumin 3.2 L (3.4-5.0) gm/dl Lipase 185 (73-393) U/L Influenza Type A (PCR) (Neg) Influenza Type B (PCR) (Neg) 11/04/19 11/04/19 11/04/19 Range/Units 01:12 01:48 01:55 WBC (4.8-10.8) K/uL RBC (4.2-5.4) M/uL Hgb (12.0-16.0) g/dL Hct (37-47) % MCV (80-100) fL MCH (25-34) pg MCHC (32-36) g/dL RDW Std Deviation (36.4-46.3) fL RDW Coeff of Clayton (11.5-14.5) % Plt Count (130-400) K/uL MPV (7.4-10.4) fL Immature Gran % (Auto) % Neut % (Auto) % Lymph % (Auto) % [place] % (Auto) % Eos % (Auto) % Baso % (Auto) % Immature Gran # (Auto) (0.00-0.02) K/uL Neut # (Auto) (1.4-6.5) K/uL Lymph # (Auto) (1.2-3.4) K/uL [place] # (Auto) (0.11-0.59) K/uL Eos # (Auto) (0-0.5) K/uL Baso # (Auto) (0-0.2) K/uL PT (9.0-12.0) Seconds INR (0.9-1.1) APTT (21.0-31.0) Seconds PTT Ratio VBG pH 7.28 L (7.36-7.41) VBG pCO2 38 (38-50) mmHg VBG pO2 59 mmHg VBG HCO3 18 mmol/L VBG O2 Saturation 88.6 % VBG Base Excess -8.2 mEq/L Barometric Pressure 739.8 mm/Hg Sodium (136-145) mmol/L Potassium (3.5-5.1) mmol/L Chloride (98-107) mmol/L Carbon Dioxide (21-32) mmol/L Anion Gap (3-11) BUN (7-18) mg/dl Creatinine (0.6-1.2) mg/dl Est Cr Clr Drug Dosing Est GFR ( Amer) Est GFR (Non-Af Amer) BUN/Creatinine Ratio (10-20) Glucose (70-99) mg/dl Lactate 4.7 H* (0.4-2.0) mmol/L Calcium (8.5-10.1) mg/dl Magnesium (1.8-2.4) mg/dl Total Bilirubin (0.2-1) mg/dl Direct Bilirubin (0-0.2) mg/dl AST (15-37) U/L ALT (12-78) U/L Alkaline Phosphatase (45-117) U/L Troponin I (0-0.045) ng/ml Total Protein (6.4-8.2) gm/dl Albumin (3.4-5.0) gm/dl Lipase (73-393) U/L Influenza Type A (PCR) Pos for Influ A A* (Neg) Influenza Type B (PCR) Neg for Influ B (Neg) Administered Medications Propofol (Diprivan) 1,000 mg in 100 mls @ 2.094 mls/hr IV .Q24H [facility]; Protocol Stop: 11/07/19 04:14 Last Admin: 11/04/19 04:53 Dose: 20 mcg/kg/min, 8.4 mls/hr Documented by: [id number] Cosigned by: [id number] Fentanyl Citrate (Fentanyl Drip) 1,250 mcg in 250 mls @ 5 mls/hr IV .Q24H [facility]; Protocol Stop: 11/18/19 04:14 Last Admin: 11/04/19 04:53 Dose: 25 mcg/hr, 5 mls/hr Documented by: [id number] Cosigned by: [id number] Parenteral Electrolytes (Normosol-R) 1,000 mls @ 100 mls/hr IV .Q10H [facility] Stop: 12/04/19 04:29 Last Admin: 11/04/19 04:53 Dose: 100 mls/hr Documented by: [id number] Famotidine 20 mg/ Syringe 5 mls @ 2.5 mls/min IV Q12H [facility] Stop: 12/04/19 05:59 Last Admin: 11/04/19 05:55 Dose: 2.5 mls/min Documented by: [id number] Hydrocortisone Sodium (Succinate 50 mg/ Syringe) 1 mls @ 4 mls/min IV Q6H [facility] Stop: 12/04/19 04:33 Last Admin: 11/04/19 05:57 Dose: Not Given Documented by: [id number] Discontinued Medications Albuterol (Duoneb) 12 ml NEB ONE ONE Stop: 11/04/19 01:04 Last Admin: 11/04/19 01:53 Dose: 12 ml Documented by: [id number] Fentanyl Citrate (Fentanyl Citrate) 50 mcg IV NOW [facility] Stop: 11/04/19 01:09 Last Admin: 11/04/19 01:15 Dose: 50 mcg Documented by: [id number] Fentanyl Citrate (Fentanyl Citrate) Confirm Administered Dose 100 mcg .ROUTE .STK-MED ONE Stop: 11/04/19 02:17 Last Admin: 11/04/19 04:49 Dose: Not Given Documented by: [id number] Heparin Sodium (Porcine) (Heparin Iv Bolus (Well Drill Operator Use Only)) Confirm Administered Dose 10,000 units .ROUTE .STK-MED ONE Stop: 11/04/19 02:17 Last Admin: 11/04/19 04:49 Dose: Not Given Documented by: [id number] Heparin Sodium/Sodium Chloride (Heparin/Nss 1000 Unit/500ml Flush Bag) Confirm Administered Dose 3,000 units IV .STK-MED ONE Stop: 11/04/19 02:17 Last Admin: 11/04/19 04:49 Dose: Not Given Documented by: [id number] Propofol (Diprivan) 1,000 mg in 100 mls @ 2.094 mls/hr IV .Q24H ONE; Protocol Stop: 11/04/19 01:02 Last Admin: 11/04/19 04:51 Dose: Not Given Documented by: [id number] Calcium Gluconate 1,000 mg/ (Sodium Chloride) 60 mls @ 240 mls/hr IV NOW STA Stop: 11/04/19 06:00 Last Admin: 11/04/19 05:54 Dose: 240 mls/hr Documented by: [id number] Midazolam HCl (Versed) 5 mg IV NOW STA Stop: 11/04/19 01:09 Last Admin: 11/04/19 01:16 Dose: 5 mg Documented by: [id number] Midazolam HCl (Versed) Confirm Administered Dose 2 mg .ROUTE .STK-MED ONE Stop: 11/04/19 02:17 Last Admin: 11/04/19 04:50 Dose: Not Given Documented by: [id number] Miscellaneous () Confirm Administered Dose 1 ea .ROUTE .STK-MED ONE Stop: 11/04/19 00:47 Last Admin: 11/04/19 02:14 Dose: 1 ea Documented by: [id number] Nicardipine HCl (Cardene) Confirm Administered Dose 25 mg .ROUTE .STK-MED ONE Stop: 11/04/19 02:17 Last Admin: 11/04/19 04:49 Dose: Not Given Documented by: [id number] Nitroglycerin/Dextrose (Nitroglycerin/D5w 100 Mcg/Ml 20ml Syringe) Confirm Administered Dose 2,000 mcg .ROUTE .STK-MED ONE Stop: 11/04/19 02:17 Last Admin: 11/04/19 04:49 Dose: Not Given Documented by: [id number] Potassium Chloride (K Oziel / Wtr) Confirm Administered Dose 10 meq IV .STK-MED ONE Stop: 11/04/19 02:47 Last Admin: 11/04/19 04:50 Dose: Not Given Documented by: [id number] Propofol (Diprivan) Confirm Administered Dose 200 mg IV .STK-MED ONE Stop: 11/04/19 01:02 Last Admin: 11/04/19 01:45 Dose: Not Given Documented by: [id number] Propofol (Diprivan) Confirm Administered Dose 1,000 mg IV .STK-MED ONE Stop: 11/04/19 01:02 Last Admin: 11/04/19 01:05 Dose: 1,000 mg Documented by: [id number] Cosigned by: [id number] Discharge Plan Visit Data *Final* Discharge Date/Time: 11/04/19 02:29 Chief Complaint: Cardiac Arrest/CPR Stated Complaint: POST CARDIAC ARREST ED Provider: Dion Law Discharge Problem: Cardiopulmonary arrest, ST elevation (STEMI) myocardial infarction, Flu-like symptoms Patient Disposition: Admitted As Inpatient Discharge Instructions Interventions: ED Discharge Assessment Last Done: 11/04/19 02:28 Discharge Problem: ST elevation (STEMI) myocardial infarction Qualifiers: Involved coronary artery: other inferior wall coronary artery Qualified Code(s): I21.19 - ST elevation (STEMI) myocardial infarction involving other coronary artery of inferior wall The scribe's documentation has been prepared under my direction and personally reviewed by me in its entirety. I confirm that the note above accurately reflects all work, treatment, procedures, and medical decision making performed by me.
--- NOTE | 2019-11-04 06:29 | XRay Report ---
XR chest 1V portable CLINICAL HISTORY: post intubation tube position COMPARISON STUDY: 09/17/2016 FINDINGS: Endotracheal tube in position 3 cm above the alonso. The lungs are considered clear. Diaphr agms are smooth. Cardiac arterial stent is in position IMPRESSION: Endotracheal tube 3 cm above the alonso. The lungs are clear. A cardiac stent is in posi tion. ACT 112: Negative or not required by law. The above report was generated using voice recognition software. It may contain grammatical, syntax or spelling errors. Electronically signed by: Toribio Barnhart M.D. 11/04/2019 6:28 AM
--- NOTE | 2019-11-04 06:32 | CT Scan Report ---
CT OF THE CERVICAL SPINE CLINICAL HISTORY: Neck pain status post trauma COMPARISON STUDY: No previous studies for comparison. CT DOSE: TECHNIQUE: CT scan of the cervical spine was performed from the skull base to the thoracic inlet. Mary Ellen ges are reviewed in the axial, sagittal, and coronal planes. IV contrast was not administered for thi s examination. A dose lowering technique was utilized adhering to the principles of ALARA. FINDINGS: The visualized portions of the lung apices reveal no evidence of pneumothorax. The prevertebral soft tissues are normal. No acute fractures or subluxations are visualized. Mild lo wer cervical endplate deformities are likely old. There are multilevel degenerative changes The patient is intubated. IMPRESSION: No evidence of acute fracture or traumatic subluxation. ACT 112: Negative or not required by law. Electronically signed by: Prakash Haider M.D. 11/04/2019 6:31 AM
[2019-11-04 06:44] LABS: Potassium 2.7 mmol/L (3.5-5.1)
[2019-11-04] MEDS: POTASSIUM CHLORIDE / WTR 20 MEQ/100 ML PLCT IV SCH ×4 (06:57→13:12)
--- NOTE | 2019-11-04 07:00 | XRay Report ---
XR chest 1V portable CLINICAL HISTORY: f/u dyspnea COMPARISON STUDY: 11/04/2019 FINDINGS: Endotracheal tube 2.5 cm above the alonso. Lungs remain clear. Cardiac stent is again noted . There is a nasogastric tube within the stomach. IMPRESSION: 1. Nasogastric tube within the stomach. 2. Endotracheal tube 2.5 cm above the alonso. 3. Lungs remain clear. ACT 112: Negative or not required by law. The above report was generated using voice recognition software. It may contain grammatical, syntax or spelling errors. Electronically signed by: Toribio Barnhart M.D. 11/04/2019 6:59 AM
[2019-11-04] MEDS: ALBUT/IPRATROP 3MG/0.5MG NEB 3 ML VIAL INH SCH ×3 (07:28→19:23)
[2019-11-04] MEDS ORDERED: POTASSIUM CHLORIDE 20 MEQ/15 ML UDC PO STA (07:51)
[2019-11-04] MEDS ORDERED: SUCCINYLCHOLINE CHLORIDE 20 MG/ML 10 ML VIAL IV ONE (08:40)
[2019-11-04] MEDS ORDERED: ETOMIDATE 2 MG/ML 20 ML VIAL IV ONE (08:40)
[2019-11-04] MEDS ORDERED: MIDAZOLAM HCL 5 MG/ML VIAL IV ONE (08:40)
[2019-11-04] MEDS ORDERED: ISOSORBIDE MONO EXTENDED REL 60 MG TABCR PO SCH (09:00)
[2019-11-04] MEDS ORDERED: OSELTAMIVIR PHOSPHATE SUSP 30 MG/5 ML UDP PO SCH (09:00)
[2019-11-04] MEDS ORDERED: METOPROLOL TARTRATE 50 MG TAB PO SCH ×2 (09:00)
[2019-11-04] MEDS ORDERED: HYDROCORTISONE 10 MG TAB PO SCH ×4 (09:00)
[2019-11-04] MEDS ORDERED: hydroCHLOROthiazide 25 MG TAB PO SCH (09:00)
[2019-11-04] MEDS ORDERED: OSELTAMIVIR PHOSPHATE 75 MG CAP PO SCH ×2 (09:00→21:00)
[2019-11-04] MEDS ORDERED: ASPIRIN 81 MG ECTAB PO SCH (09:00)
[2019-11-04 09:58] LABS: INR 1.1 (0.9-1.1); Prothrombin Time 11.4 Seconds (9.0-12.0)
--- NOTE | 2019-11-04 10:20 | Hospitalist Progress Note ---
Date of Service November 04, 2019 Assessment & Plan (1) Cardiac arrest: Ms. Ortiz is a 59 yo F admitted 11/03 after suffering a cardiac arrest at home with ROSC after AED shock x2. Cardiac Arrest - witnessed cardiac arrest at home by spouse - bystander CPR ~ 20 minutes; BLS EMS arrived and ROSC after AED shock x 2 ( AED unavailable for interrogation, rhythm presumably V-fib or pulseless V-tach) - GCS score of 3 on arrival, patient was intubated and placed on ventilator for airway protection - Patient was taken to the lab tech upon arrival, which showed no evidence of acute thrombosis or occlusive disease, PCI not employed; loaded with heparin - currently in ICU on hypothermia protocol; patient reached core temp at 5am; rewarming will start 5am on 11/04 - etiology thought to be ischemia; EKG on admission with out ST segment changes, subsequent EKG showing acute inferior ischemia and lateral ST elevations - troponin on arrival 0.29, up to 1.20; continue to trend - TTE ordered, read pending Respiratory Failure - secondary to cardiac arrest - currently on ventilator: SBT following hypothermia protocol completion Diminished Consciousness - GCS score of 3 on admission - likely secondary to reduced cerebral perfusion in setting of cardiac arrest - patient currently sedated on mechanical vent - Head CT normal on admission - EEG today Influenza A - positive testing on admission - currently on day 1 of 5 of tamiflu - CXR on admission showing no infiltrate - WBC elevated to 15; continue to trend 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 sepsis (influenza infection) Hypothyroidism - continue home dose [place] Thyroid DMII - A1C <6 (per H&P note) - home regimen is glipizide; holding home orals while in hospital - pharmacy managing insulin HTN - BP currently at goal at 124/65 - continue metoprolol 12.5 bid - holding home HCTZ HLD - continue atorvastatin 40mg daily - continue daily baby ASA GERD - currently on famotidine for stress ulcer ppx Code Status: Full code DVT ppx: 5,000 units, SQ, BID FEN/GI: NPO on Hypothermia protocol Dispo: ICU (2) Diabetes type 2, controlled: (3) Acid reflux disease: (4) CAD (coronary artery disease): (5) Diabetic nephropathy associated with type 2 diabetes mellitus: (6) Dyslipidemia: (7) Elevated hemoglobin: (8) Hypertension: (9) PAD (peripheral artery disease): (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 Marrero and agree with the findings and care plan. Subjective Patient in ICU. Mechanically Ventilated and Sedated. No family present at bedside. Review of Systems Review of Systems: Unobtainable due to endotracheal tube Physical Exam Constitutional: WD/WN, vitals as above + mechanically ventilated ENMT: external ear and nose normal, oropharynx normal + abrasion on nasal bridge Neck: normal visual inspection and trachea midline Respiratory: normal respiratory effort Auscultation: + rhonchi (diffuse) Cardiovascular: RRR, no murmur, no edema Heart Sounds: normal S1 and normal S2 Gastrointestinal (Abdomen): normal bowel sounds, soft, nontender, no hepatosplenomegaly Skin: no rashes, warm and dry Genitourinary: + Hernadez catheter in place draining yellow urine without visible blood clots Results & Data ([facility]) Vital Signs (Past 12 Hours) Vital Signs Temp Temp Temp Pulse Pulse Resp BP 11/04/19 09:00 32.1 C L 32.5 C L 62 20 11/04/19 08:00 32.1 C L 32.5 C L 62 18 11/04/19 07:15 60 18 11/04/19 07:00 32.1 C L 32.5 C L 60 18 11/04/19 06:00 32.1 C L 32.5 C L 64 19 11/04/19 05:58 67 18 11/04/19 05:30 64 11/04/19 05:00 32.5 C L 32.3 C L 64 24 11/04/19 04:30 64 11/04/19 04:00 32.3 C L 32.4 C L 73 24 11/04/19 03:47 34.2 C L 82 22 11/04/19 03:45 85 25 H 11/04/19 02:28 34.7 C L 11/04/19 02:20 89 11/04/19 02:15 98 H 11/04/19 02:11 91 H 152/81 H 11/04/19 02:10 88 11/04/19 02:04 98 H 147/102 H 11/04/19 02:00 89 11/04/19 01:53 90 18 11/04/19 01:50 88 118/105 H 11/04/19 01:46 34.4 C L 11/04/19 01:40 92 H 120/75 11/04/19 01:37 89 11/04/19 01:20 90 108/76 11/04/19 01:11 89 115/78 11/04/19 01:10 34.4 C L 92 H 11/04/19 01:01 94 H 11/04/19 01:00 97 H 18 136/95 11/04/19 00:59 94 H 11/04/19 00:57 90 133/87 11/04/19 00:56 86 18 BP BP BP Pulse Ox 11/04/19 09:00 124/65 124/64 98 11/04/19 08:00 114/73 124/61 99 11/04/19 07:15 100 11/04/19 07:00 116/64 124/60 99 11/04/19 06:00 127/74 161/77 H 99 11/04/19 05:58 99 11/04/19 05:30 11/04/19 05:00 182/96 H 162/79 H 99 11/04/19 04:30 11/04/19 04:00 197/91 H 96 11/04/19 03:47 170/110 H 100 11/04/19 03:45 100 11/04/19 02:28 11/04/19 02:20 93 11/04/19 02:15 98 11/04/19 02:11 100 11/04/19 02:10 100 11/04/19 02:04 100 11/04/19 02:00 98 11/04/19 01:53 100 11/04/19 01:50 11/04/19 01:46 11/04/19 01:40 99 11/04/19 01:37 11/04/19 01:20 99 11/04/19 01:11 97 11/04/19 01:10 98 11/04/19 01:01 99 11/04/19 01:00 98 11/04/19 00:59 98 11/04/19 00:57 98 11/04/19 00:56 99 Resident Activity Tracking Resident Involvement: Resident Care Provided Care Provided: Adult [facility] Medicine
[2019-11-04 10:30] LABS: Albumin Globulin Ratio 0.8 (0.9-2); Albumin Level 2.8 gm/dl (3.4-5.0); BUN Creatinine Ratio 25.7 (10-20); Est GFR (African American) 113.1; Est GFR (Non-African American) 97.6; Globulin 3.5 gm/dl (2.5-4.0); Phosphorus 3.1 mg/dl (2.5-4.9); Potassium 3.4 mmol/L (3.5-5.1); Total Protein 6.3 gm/dl (6.4-8.2)
[2019-11-04] MEDS: HEPARIN SOD 5,000 UNIT/0.5 ML VIAL SQ SCH ×2 (10:41→21:11)
[2019-11-04] MEDS: ASPIRIN 81 MG CHEW PO SCH (10:41)
[2019-11-04 10:43] LABS: iSTAT Arterial Blood Gas pCO2 46 mmHg (35-46); iSTAT Arterial Blood Gas pH 7.29 (7.35-7.45); iSTAT Hematocrit 48 % (37-47); iSTAT Hemoglobin 16.3 g/dl (12.0-16.0); iSTAT Potassium 3.1 mmol/L (3.3-5.0); iSTAT Sodium 131 mmol/L (135-144)
[2019-11-04 10:44] LABS: iSTAT Arterial Blood Gas HCO3 22 meg/L (19-24); iSTAT Arterial Blood Gas pO2 248 mmHg (80-95); iSTAT Carbon Dioxide 24 mmol/L (24-31); iSTAT Sample Type Arterial
[2019-11-04] MEDS: METOPROLOL TARTRATE 25 MG TAB PO SCH ×2 (10:53→21:12)
--- NOTE | 2019-11-04 10:55 | Cardiology Consultation ---
Date of Consultation November 04, 2019 Assessment & Plan (1) Cardiac arrest: He presented with a witnessed cardiac arrest which is consistent with sudden cardiac , whether is a primary arrhythmia or an arrhythmia related to an ischemic event is not clear. She did not have an occluded vessel but that does not mean it was not an ischemic event, she does have some wall motion abnormalities on her echo including an apical dyskinetic region which is new but that could be related to the event itself (such as a Takatsubo process) or an apical infarction with reperfusion before the catheterization. Over time we may be able to differentiate this to a certain extent, it may be important to determine whether she needs an ICD or treatment for coronary disease. Our future therapy will depend a lot on how she recovers mentally. (2) CAD (coronary artery disease): She has known and longstanding coronary artery disease but no culprit vessel found on admission here. She will need ongoing risk factor modification. History of Present Illness Reason for Consultation: Cardiac arrest Attending Physician: Katharine Martinez MD History of Present Illness This is a 59-year-old woman who follows with Dr. Guajardo in our office and has a history of coronary artery disease including multiple prior interventions and stenting. Her most recent stent I believe was in the circumflex system in 2007. She also has peripheral arterial disease and has had iliac stenting. She has diabetes mellitus, dyslipidemia, a long smoking history and hypertension. She presents now with a witnessed cardiac arrest where she collapsed in front of her and had several days of a flulike illness. CPR was initiated and apparently it was about 20 minutes before EMT arrived and delivered 2 shocks with an AED. She brought in by ambulance intubated, there is suggestion of inferior ischemia therefore she was taken emergently to the [facility] on November 04, 2019. She was found to have mild coronary artery disease and diffuse nonocclusive disease in small distal vessels, no culprit lesion identified. She did have a stress echo done on October 26, 2016 where she had normal left ventricular systolic function. At the time my evaluation she was sedated and cooled, intubated and not responsive. History is therefore from the chart. Allergies Allergy/AdvReac Type Severity Reaction Status Date / Time fenofibrate Allergy Unknown Verified 11/04/19 01:34 Home Medications Home Medications Medication Instructions Recorded Confirmed Type aspirin 81 mg tablet 81 mg PO DAILY tab 03/26/19 11/04/19 History blood sugar diagnostic #10 ea 03/26/19 08/16/19 History hydrocortisone 5 mg tablet 5 mg PO BID tab 03/26/19 11/04/19 History lancets 33 gauge #100 ea 03/26/19 08/16/19 History omeprazole 20 mg capsule,delayed 20 mg PO DAILY #90 cap 03/26/19 11/04/19 History release hydrocortisone 10 mg tablet 10 mg PO QAM tab 05/15/19 11/04/19 History glipizide 5 mg tablet 5 mg PO DAILY #90 tab 05/17/19 11/04/19 Rx hydrochlorothiazide 25 mg tablet 25 mg PO DAILY #90 tab 05/17/19 11/04/19 Rx isosorbide mononitrate 30 mg 60 mg PO DAILY #180 tab 05/17/19 11/04/19 Rx tablet,extended release 24 hr atorvastatin 40 mg tablet 40 mg PO QPM #90 tab 06/05/19 11/04/19 Rx ergocalciferol (vitamin D2) 1,250 50,000 units PO .COMPLEX #10 cap 06/18/19 11/04/19 Rx mcg (50,000 unit) capsule [place] Thyroid 90 mg tablet 90 mg PO DAILY #90 tab NS 07/29/19 11/04/19 Rx Accu-Chek Fastclix Lancet Drum #102 ea NS 08/19/19 Rx Accu-Chek Guide #100 ea NS 08/19/19 Rx metoprolol tartrate 50 mg tablet 50 mg PO BID #180 tab 09/03/19 11/04/19 Rx Patient History Medical History (Updated 11/05/19 @ 09:02 by Stef Mcgee MD) Hypotension (arterial) Myocardial infarction Surgical History H/O heart artery stent S/P cardiac cath S/P cholecystectomy S/P tooth extraction S/P tubal ligation Family History Mother Cardiac disorder Congestive heart failure Father Kidney disease Diabetes Social History Preferred Language: Setsw[place] Beliefs That Will Affect Care: None marital status: Current Living Situation: Spouse Feels Safe at Home: Yes Smoking Status: Current every day smoker Tobacco Type: cigarettes ; Second Hand Exposure: Yes ; Hx Alcohol Use: No Hx Substance Use: No Review of Systems Review of Systems: Unobtainable due to cognitive status and Unobtainable due to endotracheal tube Physical Exam Physical Exam: Constitutional: She is intubated and unresponsive. HEENT: Very little testing possible Neck: No jugular venous distention, carotid pulses are normal and equal bilaterally without bruits. Pulmonary: Clear to auscultation bilaterally. Cardiac: Regular rhythm with no murmur, gallop or rub. Abdomen: Soft, nontender with normal bowel sounds. Extremities: No edema. Distal pulses intact. Neurologic: Very little testing possible. Skin: No rash, ecchymoses or petechiae. Results & Data ([facility]) Vital Signs (Past 12 Hours) Vital Signs Temp Temp Temp Pulse Pulse Resp BP 11/04/19 09:00 32.1 C L 32.5 C L 62 20 11/04/19 08:00 32.1 C L 32.5 C L 62 18 11/04/19 07:15 60 18 11/04/19 07:00 32.1 C L 32.5 C L 60 18 11/04/19 06:00 32.1 C L 32.5 C L 64 19 11/04/19 05:58 67 18 11/04/19 05:30 64 11/04/19 05:00 32.5 C L 32.3 C L 64 24 11/04/19 04:30 64 11/04/19 04:00 32.3 C L 32.4 C L 73 24 11/04/19 03:47 34.2 C L 82 22 11/04/19 03:45 85 25 H 11/04/19 02:28 34.7 C L 11/04/19 02:20 89 11/04/19 02:15 98 H 11/04/19 02:11 91 H 152/81 H 11/04/19 02:10 88 11/04/19 02:04 98 H 147/102 H 11/04/19 02:00 89 11/04/19 01:53 90 18 11/04/19 01:50 88 118/105 H 11/04/19 01:46 34.4 C L 11/04/19 01:40 92 H 120/75 03/09/20 01:37 89 11/04/19 01:20 90 108/76 11/04/19 01:11 89 115/78 11/04/19 01:10 34.4 C L 92 H 11/04/19 01:01 94 H 11/04/19 01:00 97 H 18 136/95 11/04/19 00:59 94 H 11/04/19 00:57 90 133/87 11/04/19 00:56 86 18 BP BP BP Pulse Ox 11/04/19 09:00 124/65 124/64 98 11/04/19 08:00 114/73 124/61 99 11/04/19 07:15 100 11/04/19 07:00 116/64 124/60 99 11/04/19 06:00 127/74 161/77 H 99 11/04/19 05:58 99 11/04/19 05:30 11/04/19 05:00 182/96 H 162/79 H 99 11/04/19 04:30 11/04/19 04:00 197/91 H 96 11/04/19 03:47 170/110 H 100 11/04/19 03:45 100 11/04/19 02:28 11/04/19 02:20 93 11/04/19 02:15 98 11/04/19 02:11 100 11/04/19 02:10 100 11/04/19 02:04 100 11/04/19 02:00 98 11/04/19 01:53 100 11/04/19 01:50 11/04/19 01:46 11/04/19 01:40 99 11/04/19 01:37 11/04/19 01:20 99 11/04/19 01:11 97 11/04/19 01:10 98 11/04/19 01:01 99 11/04/19 01:00 98 11/04/19 00:59 98 11/04/19 00:57 98 11/04/19 00:56 99 Diagnostic Findings Review of electrocardiograms: Her initial electrocardiogram on arrival shows some diffuse ST-T abnormalities but no ST elevation, shortly thereafter she developed inferior and anterior ST elevation Postarrest echocardiogram: Overall preserved left ventricular function, apical dyskinesis suggestive of a localized Takatsubo process or apical infarction Telemetry: Sinus rhythm, no significant arrhythmia since admission PG Care Time/CCT Total # of Minutes Spent Total Time Spent with Patient: Total time spent is greater than 50% in coordination of care (as documented) at patient's floor/unit and/or counseling patient: Coding Level of Care Code 05076 Initial Inpt Care Lvl 3 Diagnoses Cardiac arrest I46.9 CAD (coronary artery disease) I25.10
--- NOTE | 2019-11-04 11:13 | XCELERA ---
[id number] [id number]
[2019-11-04] MEDS: ARMOUR THYROID 30 MG TAB PO SCH (12:06)
[2019-11-04] MEDS: INSULIN ASPART 100 UNITS/ML 3 ML PEN SC SCH ×2 (13:03→18:15)
[2019-11-04 13:41] LABS: BUN Creatinine Ratio 25.5 (10-20); Calcium 7.8 mg/dl (8.5-10.1); Creatinine Clr Calc Pharmacy 78.8 ml/min; Est GFR (African American) 112.5; Est GFR (Non-African American) 97.1; Magnesium 2.2 mg/dl (1.8-2.4); Potassium 5.7 mmol/L (3.5-5.1)
[2019-11-04 13:47] LABS: Phosphorus 3.1 mg/dl (2.5-4.9); Troponin I 1.35 ng/ml (0-0.045)
[2019-11-04] MEDS ORDERED: Nursing to Pharmacy Communication ONE (14:22)
[2019-11-04] MEDS ORDERED: INSULIN HUMAN REGULAR PER UNIT 10 UNITS in SYRINGE 9.9 ML IV STA (14:28)
[2019-11-04] MEDS ORDERED: DEXTROSE 50% 50 ML SYRINGE IV ONE ×2 (14:30→20:55)
[2019-11-04] MEDS ORDERED: LABETALOL HCL IV 5 MG/ML 20ML IV ONE (14:38)
--- NOTE | 2019-11-04 15:19 | Electrocardiogram Report ---
Test Reason : Blood Pressure : / mmHG Vent. Rate : 092 BPM Atrial Rate : 092 BPM P-R Int : 204 ms QRS Dur : 084 ms QT Int : 388 ms P-R-T Axes : 075 034 076 degrees QTc Int : 479 ms Normal sinus rhythm Nonspecific ST and T wave abnormality Abnormal ECG When compared with ECG of 19-SEP-2016 06:38, Premature ventricular complexes are no longer Present Vent. rate has increased BY [address] now depressed in Anterior leads QT has lengthened Confirmed by Js Tatum ([id number]) on 11/04/2019 3:19:14 PM Referred By: REFERRED SELF Confirmed By:Js Tatum
--- NOTE | 2019-11-04 15:20 | Electrocardiogram Report ---
Test Reason : Blood Pressure : / mmHG Vent. Rate : 091 BPM Atrial Rate : 091 BPM P-R Int : 200 ms QRS Dur : 086 ms QT Int : 414 ms P-R-T Axes : 064 060 080 degrees QTc Int : 509 ms Age and gender specific ECG analysis Normal sinus rhythm ST elevation consider inferior injury or acute infarct Prolonged QT ACUTE MT / STEMI Abnormal ECG When compared with ECG of 04-NOV-2019 00:58, (unconfirmed) ST elevation now present in Inferior leads ST elevation has replaced ST depression in Anterior leads T wave amplitude has increased in Anterior leads Confirmed by Js Tatum ([id number]) on 11/04/2019 3:19:56 PM Referred By: REFERRED SELF Confirmed By:Js Tatum
--- NOTE | 2019-11-04 15:21 | Electrocardiogram Report ---
Test Reason : Blood Pressure : / mmHG Vent. Rate : 081 BPM Atrial Rate : 081 BPM P-R Int : 218 ms QRS Dur : 090 ms QT Int : 370 ms P-R-T Axes : 074 067 082 degrees QTc Int : 429 ms Age and gender specific ECG analysis Sinus rhythm with 1st degree A-V block ST elevation consider inferior injury or acute infarct ACUTE OR / STEMI Abnormal ECG When compared with ECG of 04-NOV-2019 01:43, (unconfirmed) No significant change Confirmed by Js Tatum ([id number]) on 11/04/2019 3:21:25 PM Referred By: REFERRED SELF Confirmed By:Js Tatum
--- NOTE | 2019-11-04 15:26 | Electroencephalogram ---
EEG Procedure Note Date of Service November 04, 2019 Start / End Times Start Time: 9:46am End Time: 10:06am Referring Physician hospitalist/ICU team History 59 yo woman post cardiac arrest Home Medication List Home Medications Medication Instructions Recorded Confirmed Type aspirin 81 mg tablet 81 mg PO DAILY tab 03/26/19 11/04/19 History blood sugar diagnostic #10 ea 03/26/19 08/16/19 History hydrocortisone 5 mg tablet 5 mg PO BID tab 03/26/19 11/04/19 History lancets 33 gauge #100 ea 03/26/19 08/16/19 History omeprazole 20 mg capsule,delayed 20 mg PO DAILY #90 cap 03/26/19 11/04/19 History release hydrocortisone 10 mg tablet 10 mg PO QAM tab 05/15/19 11/04/19 History glipizide 5 mg tablet 5 mg PO DAILY #90 tab 05/17/19 11/04/19 Rx hydrochlorothiazide 25 mg tablet 25 mg PO DAILY #90 tab 05/17/19 11/04/19 Rx isosorbide mononitrate 30 mg 60 mg PO DAILY #180 tab 05/17/19 11/04/19 Rx tablet,extended release 24 hr atorvastatin 40 mg tablet 40 mg PO QPM #90 tab 06/05/19 11/04/19 Rx ergocalciferol (vitamin D2) 1,250 50,000 units PO .COMPLEX #10 cap 06/18/19 11/04/19 Rx mcg (50,000 unit) capsule [place] Thyroid 90 mg tablet 90 mg PO DAILY #90 tab NS 07/29/19 11/04/19 Rx Accu-Chek Fastclix Lancet Drum #102 ea 08/19/19 Rx Accu-Chek Guide #100 ea 08/19/19 Rx metoprolol tartrate 50 mg tablet 50 mg PO BID #180 tab 09/03/19 11/04/19 Rx Inpatient Medication List Albuterol (Duoneb) 3 ml INH Q6R RADHA Stop: 12/04/19 06:59 Last Admin: 11/04/19 07:28 Dose: 3 ml Documented by: [id number] Aspirin (Aspirin Chew) 81 mg PO DAILY RADHA Stop: 12/05/19 08:59 Last Admin: 11/04/19 10:41 Dose: 81 mg Documented by: [id number] Heparin Sodium (Porcine) (Heparin Sodium (Porcine)) 5,000 units SQ Q12 [facility] Stop: 12/04/19 08:59 Last Admin: 11/04/19 10:41 Dose: 5,000 units Documented by: [id number] Cosigned by: [id number] Propofol (Diprivan) 1,000 mg in 100 mls @ 10.47 mls/hr IV .[id number] [facility]; Protocol Stop: 11/07/19 04:14 Last Titration: 11/04/19 15:02 Dose: 25 mcg/kg/min, 10.5 mls/hr Documented by: [id number] Titration: 11/04/19 14:36 Dose: 30 mcg/kg/min, 12.6 mls/hr Documented by: [id number] Admin: 11/04/19 08:28 Dose: 35 mcg/kg/min, 14.7 mls/hr Documented by: [id number] Cosigned by: [id number] Titration: 11/04/19 08:28 Dose: 35 mcg/kg/min, 14.7 mls/hr Documented by: [id number] Cosigned by: [id number] Titration: 11/04/19 06:55 Dose: 35 mcg/kg/min, 14.7 mls/hr Documented by: [id number] Cosigned by: [id number] Titration: 11/04/19 05:15 Dose: 30 mcg/kg/min, 12.6 mls/hr Documented by: [id number] Titration: 11/04/19 05:00 Dose: 25 mcg/kg/min, 10.5 mls/hr Documented by: [id number] Admin: 11/04/19 04:53 Dose: 20 mcg/kg/min, 8.4 mls/hr Documented by: [id number] Cosigned by: [id number] Fentanyl Citrate (Fentanyl Drip) 1,250 mcg in 250 mls @ 15 mls/hr IV .[id number] S ; Protocol Stop: 11/18/19 04:14 Last Titration: 11/04/19 06:55 Dose: 75 mcg/hr, 15 mls/hr Documented by: [id number] Cosigned by: [id number] Titration: 11/04/19 06:27 Dose: 50 mcg/hr, 10 mls/hr Documented by: [id number] Admin: 11/04/19 04:53 Dose: 25 mcg/hr, 5 mls/hr Documented by: [id number] Cosigned by: [id number] Parenteral Electrolytes (Normosol-R) 1,000 mls @ 100 mls/hr IV .Q10H RADHA Stop: 12/04/19 04:29 Last Admin: 11/04/19 14:36 Dose: 100 mls/hr Documented by: [id number] Infusion: 11/04/19 14:36 Dose: 100 mls/hr Documented by: [id number] Admin: 11/04/19 04:53 Dose: 100 mls/hr Documented by: [id number] Famotidine 20 mg/ Syringe 5 mls @ 2.5 mls/min IV Q12H RADHA Stop: 12/04/19 05:59 Last Admin: 11/04/19 05:55 Dose: 2.5 mls/min Documented by: [id number] Hydrocortisone Sodium (Succinate 50 mg/ Syringe) 1 mls @ 0.038 mls/min IV Q6H RADHA Stop: 12/04/19 04:33 Last Admin: 11/04/19 10:40 Dose: 0.038 mls/min Documented by: [id number] Admin: 11/04/19 05:57 Dose: Not Given Documented by: [id number] Insulin Aspart (Novolog Flexpen) 0 units SC Q6 [facility]HA Stop: 12/04/19 11:59 Last Admin: 11/04/19 13:03 Dose: Not Given Documented by: [id number] Cosigned by: [id number] Metoprolol Tartrate (Lopressor) 12.5 mg PO BID RADHA Stop: 12/04/19 08:59 Last Admin: 11/04/19 10:53 Dose: Not Given Documented by: [id number] Thyroid ([place] Thyroid) 90 mg PO DAILY RAD[facility] Stop: 12/04/19 08:59 Last Admin: 11/04/19 12:06 Dose: 90 mg Documented by: [id number] Discontinued Medications Albuterol (Duoneb) 12 ml NEB ONE ONE Stop: 11/04/19 01:04 Last Admin: 11/04/19 01:53 Dose: 12 ml Documented by: [id number] Aspirin (Ecotrin Ectab) 81 mg PO DAILY RADHA Stop: 12/04/19 08:59 Last Admin: 11/04/19 09:47 Dose: Not Given Documented by: [id number] Dextrose (Dextrose 50%) 50 ml IV NOW ONE Stop: 11/04/19 14:31 Last Admin: 11/04/19 14:43 Dose: 50 ml Documented by: [id number] Fentanyl Citrate (Fentanyl Citrate) 50 mcg IV NOW STA Stop: 11/04/19 01:09 Last Admin: 11/04/19 01:15 Dose: 50 mcg Documented by: [id number] Fentanyl Citrate (Fentanyl Citrate) Confirm Administered Dose 100 mcg .ROUTE .STK-MED ONE Stop: 11/04/19 02:17 Last Admin: 11/04/19 04:49 Dose: Not Given Documented by: [id number] Heparin Sodium (Porcine) (Heparin Iv Bolus (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 [employer]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 Use Only)) Confirm Administered Dose 10,000 units .ROUTE .STK-MED ONE Stop: 11/04/19 02:17 Last Admin: 11/04/19 04:49 Dose: Not Given Documented by: [id number] Heparin Sodium/Sodium Chloride (Heparin/Nss 1000 Unit/500ml Flush Bag) Confirm Administered Dose 3,000 units IV .STK-MED ONE Stop: 11/04/19 02:17 Last Admin: 11/04/19 04:49 Dose: Not Given Documented by: [id number] Propofol (Diprivan) 1,000 mg in 100 mls @ 2.094 mls/hr IV .Q24H ONE; Protocol Stop: 11/04/19 01:02 Last Admin: 11/04/19 04:51 Dose: Not Given Documented by: [id number] Calcium Gluconate 1,000 mg/ (Sodium Chloride) 60 mls @ 240 mls/hr IV NOW STA Stop: 11/04/19 06:00 Last Infusion: 11/04/19 06:27 Dose: 0 mls/hr Documented by: [id number] Admin: 11/04/19 05:54 Dose: 240 mls/hr Documented by: [id number] Potassium Chloride (K Oziel / Wtr) 20 meq in 100 mls @ 50 mls/hr IV Q2H RADHA Stop: 11/04/19 14:32 Last Infusion: 11/04/19 14:32 Dose: 0 mls/hr Documented by: [id number] Infusion: 11/04/19 13:51 Dose: 0 mls/hr Documented by: [id number] Admin: 11/04/19 13:12 Dose: 50 mls/hr Documented by: [id number] Infusion: 11/04/19 12:41 Dose: 50 mls/hr Documented by: [id number] Admin: 11/04/19 10:41 Dose: 50 mls/hr Documented by: [id number] Infusion: 11/04/19 10:29 Dose: 50 mls/hr Documented by: [id number] Admin: 11/04/19 08:29 Dose: 50 mls/hr Documented by: [id number] Infusion: 11/04/19 08:29 Dose: 50 mls/hr Documented by: [id number] Admin: 11/04/19 06:57 Dose: 50 mls/hr Documented by: [id number] Calcium Gluconate 1,000 mg/ (Sodium Chloride) 60 mls @ 240 mls/hr IV NOW STA Stop: 11/04/19 14:41 Last Infusion: 11/04/19 15:03 Dose: 0 mls/hr Documented by: [id number] Admin: 11/04/19 14:36 Dose: 240 mls/hr Documented by: [id number] Insulin Human Regular 10 units (/ Syringe) 10 mls @ 30 mls/min IV NOW STA Stop: 11/04/19 14:29 Last Admin: 11/04/19 14:43 Dose: 30 mls/min Documented by: [id number] Cosigned by: [id number] Midazolam HCl (Versed) 5 mg IV NOW STA Stop: 11/04/19 01:09 Last Admin: 11/04/19 01:16 Dose: 5 mg Documented by: [id number] Midazolam HCl (Versed) Confirm Administered Dose 2 mg .ROUTE .STK-MED ONE Stop: 11/04/19 02:17 Last Admin: 11/04/19 04:50 Dose: Not Given Documented by: [id number] Miscellaneous () Confirm Administered Dose 1 ea .ROUTE .STK-MED ONE Stop: 11/04/19 00:47 Last Admin: 11/04/19 02:14 Dose: 1 ea Documented by: [id number] Nicardipine HCl (Cardene) Confirm Administered Dose 25 mg .ROUTE .STK-MED ONE Stop: 11/04/19 02:17 Last Admin: 11/04/19 04:49 Dose: Not Given Documented by: [id number] Nitroglycerin/Dextrose (Nitroglycerin/D5w 100 Mcg/Ml 20ml Syringe) Confirm Administered Dose 2,000 mcg .ROUTE .STK-MED ONE Stop: 11/04/19 02:17 Last Admin: 11/04/19 04:49 Dose: Not Given Documented by: [id number] Oseltamivir Phosphate (Tamiflu) 30 mg PO BID RADHA; Protocol Stop: 11/09/19 08:59 Last Admin: 11/04/19 10:41 Dose: 30 mg Documented by: [id number] Potassium Chloride (K [place]iel / Wtr) Confirm Administered Dose 10 meq IV .STK-MED ONE Stop: 11/04/19 02:47 Last Admin: 11/04/19 04:50 Dose: Not Given Documented by: [id number] Potassium Chloride (Amarilis Ciel Elix) 40 meq PO NOW STA Stop: 11/04/19 07:52 Last Admin: 11/04/19 08:28 Dose: 40 meq Documented by: [id number] Propofol (Diprivan) Confirm Administered Dose 200 mg IV .STK-MED ONE Stop: 11/04/19 01:02 Last Admin: 11/04/19 01:45 Dose: Not Given Documented by: [id number] Propofol (Diprivan) Confirm Administered Dose 1,000 mg IV .STK-MED ONE Stop: 11/04/19 01:02 Last Admin: 11/04/19 01:05 Dose: 1,000 mg Documented by: [id number] Cosigned by: [id number] Description This is a 21 electrode EEG with a single channel dedicated to limited EKG. The electrodes were placed in accordance with the International 10-20 system. History: 59 yo woman post cardiac arrest in the setting of URI Rx: propofol, fentanyl, versed (last dose about 4 hours prior to EEG) Start/Stop: 9:46am/10:06am Attending reading: Jenny Khan EEG Description: EEG background: Background was low voltage with predominantly delta/theta slowing observed which occasionally reached 9-10 Hz alpha toward the later half of the recording. No well formed posterior dominant rhythm was observed. The EEG is continuous. There is variability present, within the constraints of the testing, no reactivity noted. Activation and reactivity: Photic stimulation performed without any abnormalities noted. No photic driving observed. Hyperventilation was not performed as patient was intubated. Sleep: No sleep was recorded during this EEG. Epileptiform discharges: No epileptiform discharges were observed. Rhythmic and periodic patterns: None Seizures: None Impression: This was an abnormal EEG given the presence of diffuse generalized slowing which could be a medication side effect, toxic-metabolic encephalopathy or related to a global cerebral injury. No seizures or epileptiform discharges were seen. Would recommend repeating EEG once patient is off of sedation. [facility] EEG Procedure Codes Indication for Procedure (1) Cardiac arrest: (2) Adrián syndrome: (3) Respiratory failure: Neurology Neurology: [id number] EEG include record awake & sleepy
--- NOTE | 2019-11-04 15:29 | Electrocardiogram Report ---
Test Reason : Blood Pressure : / mmHG Vent. Rate : 061 BPM Atrial Rate : 061 BPM P-R Int : 218 ms QRS Dur : 092 ms QT Int : 526 ms P-R-T Axes : 073 061 067 degrees QTc Int : 529 ms Sinus rhythm with 1st degree A-V block T wave abnormality, consider lateral ischemia Prolonged QT Abnormal ECG When compared with ECG of 04-NOV-2019 04:04, (unconfirmed) ST no longer elevated in Inferior leads Non-specific change in ST segment in Lateral leads QT has lengthened Confirmed by Js Tatum ([id number]) on 11/04/2019 3:29:37 PM Referred By: REFERRED SELF Confirmed By:Js Tatum
[2019-11-04 16:55] LABS: BUN Creatinine Ratio 23.8 (10-20); Blood Urea Nitrogen 16 mg/dl (7-18); Calcium 8.5 mg/dl (8.5-10.1); Carbon Dioxide 20 mmol/L (21-32); Chloride 105 mmol/L (98-107); Creatinine Clr Calc Pharmacy 78.8 ml/min; Est GFR (African American) 112.5; Est GFR (Non-African American) 97.1; Glucose 193 mg/dl (70-99); Magnesium 2.3 mg/dl (1.8-2.4); Sodium 132 mmol/L (136-145)
[2019-11-04 17:06] LABS: Phosphorus 2.5 mg/dl (2.5-4.9); Potassium 4.8 mmol/L (3.5-5.1); Thyroid Stimulating Hormone < 0.005 uIu/ml (0.300-4.500)
[2019-11-04 17:25] LABS: T4 Free Thyroxine 0.88 ng/dl (0.8-1.6)
[2019-11-04 20:16] LABS: iSTAT Art Bld Gas pCO2 Correct 41 mmHg (35-46); iSTAT Art Bld Gas pH Corrected 7.294 (7.35-7.45); iSTAT Arterial Blood Gas HCO3 21 meg/L (19-24); iSTAT Arterial Blood Gas pCO2 51 mmHg (35-46); iSTAT Arterial Blood Gas pH 7.23 (7.35-7.45); iSTAT Arterial Blood Gas pO2 92 mmHg (80-95); iSTAT Arterial Blood Gas pO2 C 67; iSTAT Carbon Dioxide 23 mmol/L (24-31); iSTAT FiO2 30 %; iSTAT Hematocrit 43 % (37-47); iSTAT Hemoglobin 14.6 g/dl (12.0-16.0); iSTAT Potassium 5.5 mmol/L (3.3-5.0); iSTAT Site Art Line; iSTAT Sodium 133 mmol/L (135-144)
[2019-11-04 20:54] LABS: BUN Creatinine Ratio 24.1 (10-20); Calcium 8.4 mg/dl (8.5-10.1); Creatinine Clr Calc Pharmacy 78.8 ml/min; Est GFR (African American) 112.5; Est GFR (Non-African American) 97.1; Potassium 5.4 mmol/L (3.5-5.1)
[2019-11-04 21:00] LABS: Magnesium 2.4 mg/dl (1.8-2.4); Troponin I 1.9 ng/ml (0-0.045)
[2019-11-04] MEDS ORDERED: INSULIN HUMAN REGULAR PER UNIT 10 UNITS in SYRINGE 9.9 ML IV ONE (21:00)
[2019-11-04] MEDS: ATORVASTATIN 40 MG TAB PO SCH (21:12)
[2019-11-04] MEDS ORDERED: CALCIUM GLUCONATE 10% 1,000 MG in SODIUM CHLORIDE 0.9% 50 ML IV ONE (21:15)
[2019-11-04] MEDS: OSELTAMIVIR PHOSPHATE SUSP 75 MG/12.5 ML UDP PO SCH (21:16)
[2019-11-05] MEDS: INSULIN ASPART 100 UNITS/ML 3 ML PEN SC SCH ×4 (00:27→18:09)
[2019-11-05] MEDS: NORMOSOL-R 1,000 ML IV SCH (00:28)
[2019-11-05 00:40] LABS: BUN Creatinine Ratio 21.6 (10-20); Calcium 8.7 mg/dl (8.5-10.1); Creatinine Clr Calc Pharmacy 82.5 ml/min; Est GFR (African American) 114.2; Est GFR (Non-African American) 98.6; Magnesium 2.2 mg/dl (1.8-2.4); Phosphorus 2.8 mg/dl (2.5-4.9); Potassium 4.6 mmol/L (3.5-5.1)
[2019-11-05] MEDS: ALBUT/IPRATROP 3MG/0.5MG NEB 3 ML VIAL INH SCH ×4 (01:05→19:18)
[2019-11-05] MEDS: propofoL 1,000 MG/100 ML VIAL IV SCH ×2 (02:03→20:06)
[2019-11-05] MEDS ORDERED: STAT IV Infusion **Titration per Protocol STA (04:10)
[2019-11-05] MEDS ORDERED: NOREPINEPHRINE BIT INJ 8 MG in DEXTROSE 5% 500 ML IV SCH (04:15)
[2019-11-05 04:24] LABS: Hematocrit (blood only) 44.8 % (37-47); Hemoglobin 15.3 g/dL (12.0-16.0); Immature Granulocytes # (auto) 0.01 K/uL (0.00-0.02); Immature Granulocytes % (auto) 0.1 %; Lymphocytes # (auto) 0.58 K/uL (1.2-3.4); Mean Corpuscular Hemoglobin 31.5 pg (25-34); Mean Corpuscular Hgb Conc 34.2 g/dL (32-36); Mean Corpuscular Volume 92.4 fL (80-100); Mean Platelet Volume 11.6 fL (7.4-10.4); Monocytes # (auto) 0.24 K/uL (0.11-0.59); Monocytes % (auto) 2.9 %; Neutrophils # (auto) 7.41 K/uL (1.4-6.5); Platelet Count 106 K/uL (130-400); RDW Coefficient of Variation 12.3 % (11.5-14.5); RDW Standard Deviation 41.4 fL (36.4-46.3); Red Blood Count 4.85 M/uL (4.2-5.4); White Blood Count 8.24 K/uL (4.8-10.8)
[2019-11-05] MEDS: HYDROCORTISONE SOD 50 MG in SYRINGE 0 ML IV SCH ×4 (04:25→21:31)
[2019-11-05 04:32] LABS: Allen Test Pos (Pos); Base Excess ABG -7.9 mEq/L (-9-1.8); HCO3 ABG 19 mmol/L (19-24); Oxygen Saturation ABG 94.5 % (90-95); PCO2 ABG 42 mmHg (35-46); PO2 ABG 74 mmHg (80-95); pH ABG 7.27 (7.35-7.45)
[2019-11-05 04:50] LABS: BUN Creatinine Ratio 22.4 (10-20); Calcium 8.7 mg/dl (8.5-10.1); Creatinine Clr Calc Pharmacy 85.1 ml/min; Est GFR (African American) 115.4; Est GFR (Non-African American) 99.6; Magnesium 2.3 mg/dl (1.8-2.4); Potassium 5.4 mmol/L (3.5-5.1); Troponin I 2.74 ng/ml (0-0.045)
[2019-11-05] MEDS ORDERED: CALCIUM GLUCONATE 10% 1,000 MG in SODIUM CHLORIDE 0.9% 50 ML IV STA (05:50)
[2019-11-05] MEDS ORDERED: DEXTROSE 50% 50 ML SYRINGE IV ONE (05:50)
[2019-11-05] MEDS ORDERED: INSULIN HUMAN REGULAR PER UNIT 10 UNITS in SYRINGE 9.9 ML IV ONE (06:00)
[2019-11-05] MEDS: FAMOTIDINE 20 MG in SYRINGE 3 ML IV SCH ×2 (06:03→18:09)
--- NOTE | 2019-11-05 07:10 | XRay Report ---
SINGLE VIEW CHEST CLINICAL HISTORY: Respiratory failure. FINDINGS: 2 AP, portable, upright chest radiographs are compared to study dated 11/04/2019. The examina tion is degraded by portable technique and patient rotation. Endotracheal and enteric tubes are unc hanged in position. The cardiomediastinal silhouette is unremarkable. A coronary artery stent is note d. Airspace opacities are noted at the left lung base. No large pleural effusion is identified. No pn eumothorax is seen. The skeletal structures are osteopenic. The bony thorax is grossly intact. IMPRESSION: 1. Stable lines and tubes. 2. Airspace opacities are noted at the left lung base. This could represent atelectasis versus infect ious/inflammatory pneumonitis. Clinical correlation will be required. ACT 112: Negative or not required by law. Electronically signed by: Tommie Olson M.D. 11/05/2019 7:09 AM
[2019-11-05] MEDS: ARMOUR THYROID 30 MG TAB PO SCH (08:38)
[2019-11-05] MEDS: HEPARIN SOD 5,000 UNIT/0.5 ML VIAL SQ SCH ×2 (08:39→21:30)
[2019-11-05] MEDS: METOPROLOL TARTRATE 25 MG TAB PO SCH ×2 (08:40→21:30)
[2019-11-05] MEDS: OSELTAMIVIR PHOSPHATE SUSP 75 MG/12.5 ML UDP PO SCH ×2 (08:50→21:30)
[2019-11-05] MEDS: ASPIRIN 81 MG CHEW PO SCH (08:52)
--- NOTE | 2019-11-05 09:07 | Critical Care Progress Note ---
Date of Service November 05, 2019 Assessment & Plan (1) Admitted to intensive care unit: Continue to wean sedation per protocol. We are at the rewarming stage of hypothermia protocol for her cardiac arrest. Continue to monitor electrolytes and rhythm abnormalities closely. Continuing Tamiflu for influenza. No obvious other sites of infection, thus no need for antibiotics at this time. Continue hydrocortisone 50 mg every 6 given her history of Adrián syndrome. 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 Holding antihypertensive medications in light of the relative hypotension related to the sedation. We will hopefully plan to extubate in the next 24 hours. Continue aspirin. Heparin twice daily for DVT prophylaxis. We will start tube feeds and stop IV fluids. Start bowel regimen given that she is on fentanyl. CRITICAL CARE TIME - I have personally spent 30 minutes of critical care time in the direct management of this patient. This is a life/limb threatening event. This includes time spent evaluating patient, direct bedside care, chart review, placing orders, interpretation of diagnostic studies, discussion with consultants, patient, and family members, as well as other required patient management activities. This time is exclusive of all separately billable procedures, and teaching time and separate from and in addition to any other critical care service time. (2) Cardiopulmonary arrest: (3) ST elevation (STEMI) myocardial infarction: (4) Flu-like symptoms: (5) Diabetes type 2, controlled: (6) Hypotension (arterial): Subjective Patient continues to be intubated and sedated. Requiring low-dose of norepinephrine. Sedated with propofol and fentanyl. Unable to give any review of systems given her medical condition. No overnight issues per nursing. Good urine output overnight. Physical Exam Physical Exam: VITAL SIGNS - Vital signs and nursing notes were reviewed. GENERAL - 59-year-old female appearing her stated age who is in no acute distress. Intubated and sedated. SKIN - Without rashes. HEAD - NC/AT. EYES - PERRL. EARS - No deformities of external structures noted on gross examination b ilaterally. NOSE - Midline and without cyanosis. No epistaxis or purulent drainage noted. MOUTH/OROPHARYNX - Without perioral cyanosis. ET Tube in place. NECK - Supple to palpation. No lymphadenopathy noted. No nuchal rigidity. LUNGS - Chest wall symmetric without accessory muscle use, intercostals retractions, or central cyanosis. Normal vesicular breath sounds CTA B/L. No wheezes, rales, or rhonchi appreciated. CARDIAC - RRR with S1/S2. No murmur, rubs, or gallops appreciated. ABDOMEN - Abdominal contour flat without pulsations or visible masses. BS normoactive all four quadrants. No tenderness, palpable masses, hepatosplenomegaly, or ascites noted. EXTREMITIES - No clubbing or peripheral cyanosis. No pretibial edema present. +3/5 radial and dorsalis pedis pulses palpated throughout. NEUROLOGIC/PSYCH - No focal neurological deficits. Unable to fully asses secondary to current state of sedation with intubation. Results & Data ([facility]) Vital Signs (Past 12 Hours) Vital Signs Temp Temp Pulse Resp BP BP Pulse Ox 11/05/19 07:48 47 L 11/05/19 07:36 45 L 20 100 11/05/19 06:00 90.5 F L 90.5 F L 42 L 20 115/68 125/83 100 11/05/19 05:45 42 L 20 100 11/05/19 05:08 89.8 F L 90.0 F L 39 L 20 130/62 136/66 100 11/05/19 04:00 89.6 F L 90.0 F L 38 L 20 88/49 L 100 11/05/19 03:35 40 L 20 97 11/05/19 03:00 89.8 F L 90.0 F L 39 L 20 90/49 L 100 11/05/19 02:00 89.8 F L 90.0 F L 39 L 20 92/49 L 100 11/05/19 01:21 89.8 F L 90.0 F L 39 L 20 95/50 L 100 11/05/19 00:00 89.8 F L 89.8 F L 40 L 20 98/51 L 100 11/04/19 23:40 41 L 20 100 11/04/19 23:00 89.8 F L 89.8 F L 43 L 20 94/54 L 105/51 L 100 11/04/19 22:00 89.8 F L 89.8 F L 41 L 20 90/51 L 102/48 L 100 I personally reviewed her labs, chest imaging and prior notes Coding Level of Care Code Critical Care 1st 30-74 mins Diagnoses Admitted to intensive care unit Z78.[address] elevation (STEMI) myocardial infarction I21.19 Involved coronary artery: other inferior wall coronary artery Flu-like symptoms R68.89 Diabetes type 2, controlled E11.9 Hypotension (arterial) I95.9 Time Spent (min) 30 (1) ST elevation (STEMI) myocardial infarction Involved coronary artery: other inferior wall coronary artery Qualified Code(s): I21.19 - ST elevation (STEMI) myocardial infarction involving other coronary artery of inferior wall
[2019-11-05] MEDS ORDERED: IMPACT LIQD 1.0 CAL 1,000 ML BAG OG PRN (09:15)
--- NOTE | 2019-11-05 09:47 | Cardiology Progress Note ---
Date of Service November 05, 2019 Assessment & Plan (1) Cardiac arrest: She presented with a witnessed cardiac arrest which is consistent with sudden cardiac , whether it was a primary arrhythmia or an arrhythmia related to an ischemic event is not clear. She did not have a clearly newly occluded vessel but that does not mean it was not an ischemic event, she does have some wall motion abnormalities on her echo including an apical dyskinetic region which is new but that could be related to the event itself (such as a Takatsubo process) or an apical infarction with reperfusion before the catheterization. Over time we may be able to differentiate this to a certain extent, it may be important to determine whether she needs an ICD or treatment for coronary disease. Our future therapy will depend a lot on how she recovers mentally. (2) CAD (coronary artery disease): She has known and longstanding coronary artery disease but no culprit vessel found on admission here. She will need ongoing risk factor modification. (3) Coma of unknown cause: She remains unresponsive, at this point I do not think we can say for sure what the cause is. It may be profound anoxic encephalopathy from her CPR or it could be due to cooling and sedation. Will probably know later today whether there is early recovery of neurologic function, if not he may take some time to know what sort of mental recovery she has. This will be important to determine our subsequent treatment. Admission and Anticipated Discharge Date Admission Date: November 04, 2019 Subjective She remains intubated and essentially unresponsive, she is being warmed now from the cooling protocol Physical Exam Physical Exam: Constitutional: She is intubated and unresponsive. HEENT: Very little testing possible Neck: No jugular venous distention, carotid pulses are normal and equal bilaterally without bruits. Pulmonary: Clear to auscultation bilaterally. Cardiac: Regular rhythm with no murmur, gallop or rub. Abdomen: Soft, nontender with normal bowel sounds. Extremities: No edema. Distal pulses intact. Neurologic: Very little testing possible. Skin: No rash, ecchymoses or petechiae. Results & Data ([facility]) Vital Signs (Past 12 Hours) Vital Signs Temp Temp Pulse Resp BP BP Pulse Ox 11/05/19 07:48 47 L 11/05/19 07:36 45 L 20 100 11/05/19 06:00 32.5 C L 32.5 C L 42 L 20 115/68 125/83 100 11/05/19 05:45 42 L 20 100 11/05/19 05:08 32.1 C L 32.2 C L 39 L 20 130/62 136/66 100 11/05/19 04:00 32 C L 32.2 C L 38 L 20 88/49 L 100 11/05/19 03:35 40 L 20 97 11/05/19 03:00 32.1 C L 32.2 C L 39 L 20 90/49 L 100 11/05/19 02:00 32.1 C L 32.2 C L 39 L 20 92/49 L 100 11/05/19 01:21 32.1 C L 32.2 C L 39 L 20 95/50 L 100 11/05/19 00:00 32.1 C L 32.1 C L 40 L 20 98/51 L 100 11/04/19 23:40 41 L 20 100 11/04/19 23:00 32.1 C L 32.1 C L 43 L 20 94/54 L 105/51 L 100 11/04/19 22:00 32.1 C L 32.1 C L 41 L 20 90/51 L 102/48 L 100 Laboratory Results Cardiac Enzymes 11/04/19 11/04/19 11/04/19 Range/Units 09:24 12:54 20:18 AST 65 H (15-37) U/L Troponin I 1.350 H* 1.900 H* (0-0.045) ng/ml 11/05/19 Range/Units 04:12 AST (15-37) U/L Troponin I 2.740 H* (0-0.045) ng/ml Coagulation 11/04/19 Range/Units 09:24 PT 11.4 (9.0-12.0) Seconds CBC 11/05/19 Range/Units 04:12 WBC 8.24 (4.8-10.8) K/uL RBC 4.85 (4.2-5.4) M/uL Hgb 15.3 (12.0-16.0) g/dL Hct 44.8 (37-47) % Plt Count 106 L (130-400) K/uL Neut # (Auto) 7.41 H (1.4-6.5) K/uL Lymph # (Auto) 0.58 L (1.2-3.4) K/uL [place] # (Auto) 0.24 (0.11-0.59) K/uL Eos # (Auto) 0.00 (0-0.5) K/uL Baso # (Auto) 0.00 (0-0.2) K/uL Comprehensive Metabolic Panel 11/04/19 11/04/19 11/04/19 Range/Units 09:24 12:54 13:56 Sodium 132 L 131 L (136-145) mmol/L Potassium 3.4 L D 5.7 H D 5.9 H (3.5-5.1) mmol/L Chloride 100 103 (98-107) mmol/L Carbon Dioxide 20 L 21 (21-32) mmol/L BUN 17 17 (7-18) mg/dl Creatinine 0.67 D 0.68 (0.6-1.2) mg/dl Glucose 185 H 119 H (70-99) mg/dl Calcium 8.0 L 7.8 L (8.5-10.1) mg/dl AST 65 H (15-37) U/L ALT 35 (12-78) U/L Alkaline Phosphatase 76 (45-117) U/L Total Protein 6.3 L (6.4-8.2) gm/dl Albumin 2.8 L (3.4-5.0) gm/dl 11/04/19 11/04/19 11/05/19 Range/Units 16:26 20:18 00:12 Sodium 132 L 134 L 136 (136-145) mmol/L Potassium 4.8 D 5.4 H 4.6 (3.5-5.1) mmol/L Chloride 105 106 108 H (98-107) mmol/L Carbon Dioxide 20 L 20 L 21 (21-32) mmol/L BUN 16 16 14 (7-18) mg/dl Creatinine 0.68 0.68 0.65 (0.6-1.2) mg/dl Glucose 193 H 117 H 173 H (70-99) mg/dl Calcium 8.5 8.4 L 8.7 (8.5-10.1) mg/dl AST (15-37) U/L ALT (12-78) U/L Alkaline Phosphatase (45-117) U/L Total Protein (6.4-8.2) gm/dl Albumin (3.4-5.0) gm/dl 11/05/19 Range/Units 04:12 Sodium 137 (136-145) mmol/L Potassium 5.4 H D (3.5-5.1) mmol/L Chloride 109 H (98-107) mmol/L Carbon Dioxide 21 (21-32) mmol/L BUN 14 (7-18) mg/dl Creatinine 0.63 (0.6-1.2) mg/dl Glucose 110 H (70-99) mg/dl Calcium 8.7 (8.5-10.1) mg/dl AST (15-37) U/L ALT (12-78) U/L Alkaline Phosphatase (45-117) U/L Total Protein (6.4-8.2) gm/dl Albumin (3.4-5.0) gm/dl Intake and Output 11/04/19 11/05/19 11/05/19 22:59 06:59 14:59 Intake Total 316.49 / 2829.930 1096.328 / 2829.930 199.813 / 199.813 Output Total 970 / 1840 505 / 1840 Balance -653.51 / 989.930 591.328 / 989.930 199.813 / 199.813 Intake: IV 316.49 / 2829.930 1096.328 / 2829.930 199.813 / 199.813 Calcium Gluconate 10% 1,000 mg 120 / 120 60 / 60 In Nss 50 ml @ 240 mls/hr IV NOW STA Rx#:[id number] Levophed Inj 8 mg In D5w 500 ml 9.774 / 9.774 10.453 / 10.453 @ 0.02 MCG/KG/MIN 4.854 mls/hr IV .Q24H RADHA Rx#:[id number] Normosol-R 1,000 ml @ 100 mls/ 986.667 / 1958.334 hr IV .Q10H RADHA Rx#:[id number] fentaNYL DRIP 1,250 mcg In 250 169.5 / 210.167 40.667 / 210.167 84 / 84 ml @ 50 MCG/HR 10 mls/hr IV . Q24H RADHA Rx#:[id number] DIPRIVAN 1,000 mg In 100 ml @ 26.99 / 199.155 59.22 / 199.155 45.36 / 45.36 20 MCG/KG/MIN 8.376 mls/hr IV . [id number] RADHA Rx#:[id number] Output: Urine 670 / 1390 355 / 1390 Gastric Drainage 300 / 450 150 / 450 Oral 300 / 450 150 / 450 Other: Weight 67.1 kg Diagnostic Findings Telemetry: Sinus bradycardia with first-degree AV block, no significant arrhythmia Electrocardiograms reviewed, these show metabolic changes consistent with hypothermia including sinus bradycardia with first-degree AV block and QT prolongation. PG Care Time/CCT Total # of Minutes Spent Total Time Spent with Patient: Total time spent is greater than 50% in coordination of care (as documented) at patient's floor/unit and/or counseling patient: Coding Level of Care Code 62783 Subseq Hosp Care Lvl 3 Diagnoses Cardiac arrest I46.9 CAD (coronary artery disease) I25.10 Coma of unknown cause R40.20
[2019-11-05] MEDS: SENNA 8.8 MG/5 ML UDP PO SCH (10:20)
[2019-11-05 12:13] LABS: BUN Creatinine Ratio 13.9 (10-20); Calcium 8.7 mg/dl (8.5-10.1); Creatinine Clr Calc Pharmacy 60.9 ml/min; Est GFR (African American) 76.1; Est GFR (Non-African American) 65.7
--- NOTE | 2019-11-05 12:29 | Hospitalist Progress Note ---
Date of Service November 05, 2019 Assessment & Plan (1) Cardiac arrest: Ms. Ortiz is a 59 yo F admitted 11/04/19 after suffering a cardiac arrest at home with ROSC after AED shock x2. Cardiac Arrest - witnessed cardiac arrest at home by spouse - bystander CPR ~ 20 minutes; BLS EMS arrived and ROSC after AED shock x 2 (AED unavailable for interrogation, rhythm presumably V-fib or pulseless V-tach) - GCS score of 3 on arrival, patient was intubated and placed on ventilator for airway protection - Patient was taken to the senior cytogenetics laboratory director upon arrival, which showed no evidence of acute thrombosis or occlusive disease, PCI not employed; loaded with heparin - currently in ICU, completed hypothermia protocol; currently being rewarmed, plan for SBT today - etiology thought to be ischemia vs arrhythmia; EKG on admission with out ST segment changes, subsequent EKG showing acute inferior ischemia and lateral ST elevations - troponin on arrival 0.29, up to 2.7, continue to trend - no arrhythmias while on monitor - TTE ordered, showing low L ventricular systolic function with apical dyskinesis, EF 50-55% - cardiology following Respiratory Failure - thought to be secondary to cardiac arrest vs. cause of cardiac arrest - currently on ventilator: SBT following hypothermia protocol completion - SBT today Diminished Consciousness - GCS score of 3 on admission - likely secondary to reduced cerebral perfusion in setting of cardiac arrest - patient currently sedated on mechanical vent - Head CT normal on admission - EEG showing brain wave slowing, although will need to be repeated after sedation is weaned Influenza A - positive testing on admission - currently on day 2 of 5 of tamiflu - CXR on admission showing no infiltrate; repeat study today showing opacity in left base; continue to monitor and clinically correlate - WBC elevated to 15; normalized today 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 sepsis (influenza infection) Hypothyroidism - continue home dose [place] Thyroid DMII - A1C <6 (per H&P note) - home regimen is glipizide; holding home orals while in hospital - pharmacy managing insulin HTN - BP currently at goal at 125/83 - continue metoprolol 12.5 bid - holding home HCTZ HLD - continue atorvastatin 40mg daily - continue daily baby ASA GERD - currently on famotidine for stress ulcer ppx Code Status: Full code DVT ppx: 5,000 units, SQ, BID FEN/GI: NPO on Hypothermia protocol Dispo: ICU (2) Diabetes type 2, controlled: (3) Acid reflux disease: (4) CAD (coronary artery disease): (5) Diabetic nephropathy associated with type 2 diabetes mellitus: (6) Dyslipidemia: (7) Elevated hemoglobin: (8) Hypertension: (9) PAD (peripheral artery disease): (10) Pituitary hypothyroidism: (11) Raynaud's disease: (12) Secondary adrenal insufficiency: (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 Marrero and agree with the findings and care plan. Subjective Patient in ICU on rewarming protocol. Sedated on ventilator. No family present in room. Review of Systems Review of Systems: Unobtainable due to endotracheal tube Physical Exam Constitutional: WD/WN, vitals as above + mechanically ventilated ENMT: external ear and nose normal, oropharynx normal Neck: normal visual inspection and trachea midline Respiratory: normal respiratory effort Auscultation: + rhonchi (diffuse) Cardiovascular: RRR, no murmur, no edema Heart Sounds: normal S1 and normal S2 Gastrointestinal (Abdomen): normal bowel sounds, soft, nontender, no hepatosplenomegaly Skin: no rashes, warm and dry Genitourinary: +werner catheter in place draining pale yellow colored urine without visible blood clots Results & Data ([facility]) Vital Signs (Past 12 Hours) Vital Signs Temp Temp Pulse Resp BP BP Pulse Ox 11/05/19 07:48 47 L 11/05/19 07:36 45 L 20 100 11/05/19 06:00 32.5 C L 32.5 C L 42 L 20 115/68 125/83 100 11/05/19 05:45 42 L 20 100 11/05/19 05:08 32.1 C L 32.2 C L 39 L 20 130/62 136/66 100 11/05/19 04:00 32 C L 32.2 C L 38 L 20 88/49 L 100 11/05/19 03:35 40 L 20 97 11/05/19 03:00 32.1 C L 32.2 C L 39 L 20 90/49 L 100 11/05/19 02:00 32.1 C L 32.2 C L 39 L 20 92/49 L 100 11/05/19 01:21 32.1 C L 32.2 C L 39 L 20 95/50 L 100 Resident Activity Tracking Resident Involvement: Resident Care Provided Care Provided: Adult [facility]
--- NOTE | 2019-11-05 14:28 | Electrocardiogram Report ---
Test Reason : Blood Pressure : / mmHG Vent. Rate : 049 BPM Atrial Rate : 049 BPM P-R Int : 210 ms QRS Dur : 090 ms QT Int : 608 ms P-R-T Axes : 077 064 071 degrees QTc Int : 549 ms Age and gender specific ECG analysis Sinus bradycardia with 1st degree A-V block Low voltage QRS ST elevation consider inferolateral injury or acute infarct Prolonged QT ACUTE [place] / STEMI Abnormal ECG When compared with ECG of 04-NOV-2019 07:01, (unconfirmed) ST elevation now present in Inferior leads ST elevation now present in Lateral leads Confirmed by Js Tatum ([id number]) on 11/05/2019 2:27:46 PM Referred By: REFERRED SELF Confirmed By:Js Tatum
--- NOTE | 2019-11-05 14:47 | Electrocardiogram Report ---
Test Reason : Blood Pressure : / mmHG Vent. Rate : 045 BPM Atrial Rate : 045 BPM P-R Int : 258 ms QRS Dur : 088 ms QT Int : 634 ms P-R-T Axes : 067 059 069 degrees QTc Int : 548 ms Sinus bradycardia with 1st degree A-V block Low voltage QRS Nonspecific ST abnormality Prolonged QT Abnormal ECG When compared with ECG of 04-NOV-2019 12:06, (unconfirmed) ST less elevated in Inferior leads ST no longer elevated in Lateral leads Confirmed by Js Tatum ([id number]) on 11/05/2019 2:47:30 PM Referred By: REFERRED SELF Confirmed By:Js Tatum
--- NOTE | 2019-11-05 14:50 | Electrocardiogram Report ---
Test Reason : Blood Pressure : / mmHG Vent. Rate : 042 BPM Atrial Rate : 042 BPM P-R Int : 280 ms QRS Dur : 090 ms QT Int : 680 ms P-R-T Axes : 079 058 074 degrees QTc Int : 567 ms Age and gender specific ECG analysis Marked sinus bradycardia with 1st degree A-V block Low voltage QRS Inferolateral injury pattern Prolonged QT Abnormal ECG When compared with ECG of 04-NOV-2019 15:51, (unconfirmed) No significant change Confirmed by Js Tatum ([id number]) on 11/05/2019 2:50:13 PM Referred By: REFERRED SELF Confirmed By:Js Tatum
--- NOTE | 2019-11-05 14:58 | Electrocardiogram Report ---
Test Reason : Blood Pressure : / mmHG Vent. Rate : 040 BPM Atrial Rate : 040 BPM P-R Int : 408 ms QRS Dur : 088 ms QT Int : 710 ms P-R-T Axes : 074 050 064 degrees QTc Int : 578 ms Marked sinus bradycardia with 1st degree A-V block Low voltage QRS Cannot rule out Anterior infarct (cited on or before 04-NOV-2019) Prolonged QT Abnormal ECG When compared with ECG of 04-NOV-2019 20:04, (unconfirmed) No significant change Confirmed by Js Tatum ([id number]) on 11/05/2019 2:57:34 PM Referred By: REFERRED SELF Confirmed By:Js Tatum
--- NOTE | 2019-11-05 15:24 | Electrocardiogram Report ---
Test Reason : Blood Pressure : / mmHG Vent. Rate : 046 BPM Atrial Rate : 046 BPM P-R Int : 390 ms QRS Dur : 078 ms QT Int : 618 ms P-R-T Axes : 072 024 018 degrees QTc Int : 540 ms Poor data quality, interpretation may be adversely affected Sinus bradycardia with 1st degree A-V block Low voltage QRS Nonspecific T wave abnormality Prolonged QT Abnormal ECG When compared with ECG of 05-NOV-2019 00:21, (unconfirmed) Minimal criteria for Anterior infarct are no longer Present Nonspecific T wave abnormality, worse in Anterior leads Confirmed by Js Tatum ([id number]) on 11/05/2019 3:23:24 PM Referred By: REFERRED SELF Confirmed By:Js Tatum
[2019-11-05] MEDS ORDERED: SODIUM CHLORIDE 0.9% 1000ML 1,000 ML IV SCH (15:45)
[2019-11-05] MEDS: ACETAMINOPHEN 500 MG TAB PO PRN (16:17)
[2019-11-05] MEDS: fentaNYL DRIP 1,250 MCG/250 ML BAG IV SCH (20:06)
[2019-11-05] MEDS: cefTRIAXone SODIUM 1,000 MG in DEXTROSE 5% 50 ML IV SCH (20:20)
[2019-11-05] MEDS ORDERED: SODIUM CHLORIDE 0.9% 1000ML 250 ML IV ONE ×2 (20:40→22:21)
[2019-11-05] MEDS: ATORVASTATIN 40 MG TAB PO SCH (21:30)
[2019-11-06] MEDS: INSULIN ASPART 100 UNITS/ML 3 ML PEN SC SCH ×5 (00:27→22:48)
[2019-11-06] MEDS: ALBUT/IPRATROP 3MG/0.5MG NEB 3 ML VIAL INH SCH ×4 (00:55→19:23)
[2019-11-06] MEDS: HYDROCORTISONE SOD 50 MG in SYRINGE 0 ML IV SCH (03:53)
[2019-11-06 04:58] LABS: Albumin Level 2.6 gm/dl (3.4-5.0); BUN Creatinine Ratio 12.6 (10-20); Bilirubin Direct 0.1 mg/dl (0-0.2); Creatinine Clr Calc Pharmacy 65.7 ml/min; Est GFR (African American) 83.4; Est GFR (Non-African American) 71.9; Magnesium 1.7 mg/dl (1.8-2.4); Potassium 4.1 mmol/L (3.5-5.1)
[2019-11-06 05:05] LABS: Hematocrit (blood only) 38.1 % (37-47); Hemoglobin 12.8 g/dL (12.0-16.0); Mean Corpuscular Hemoglobin 30.7 pg (25-34); Mean Corpuscular Hgb Conc 33.6 g/dL (32-36); Mean Corpuscular Volume 91.4 fL (80-100); Mean Platelet Volume 12.2 fL (7.4-10.4); Platelet Count 124 K/uL (130-400); RDW Coefficient of Variation 12.7 % (11.5-14.5); RDW Standard Deviation 42.3 fL (36.4-46.3); Red Blood Count 4.17 M/uL (4.2-5.4); White Blood Count 23.67 K/uL (4.8-10.8)
[2019-11-06 05:07] LABS: Basophils # (auto) 0.02 K/uL (0-0.2); Basophils % (auto) 0.1 %; Bilirubin,Total 0.3 mg/dl (0.2-1); Echinocytes 1+; Immature Granulocytes # (auto) 0.11 K/uL (0.00-0.02); Immature Granulocytes % (auto) 0.5 %; Lymphocytes # (auto) 0.96 K/uL (1.2-3.4); Lymphocytes % (auto) 4.1 %; Monocytes # (auto) 0.62 K/uL (0.11-0.59); Monocytes % (auto) 2.6 %; Neutrophils # (auto) 21.96 K/uL (1.4-6.5); Neutrophils % (auto) 92.7 %; Phosphorus 2.5 mg/dl (2.5-4.9); Platelet Estimate Decreased (Normal); Total Protein 5.7 gm/dl (6.4-8.2); Toxic Vacuolation 1+; Troponin I 7.54 ng/ml (0-0.045)
[2019-11-06] MEDS ORDERED: MAGNESIUM SULFATE / D5W 1 GM/100 ML BAG IV ONE (05:09)
[2019-11-06] MEDS: FAMOTIDINE 20 MG in SYRINGE 3 ML IV SCH (05:48)
--- NOTE | 2019-11-06 07:18 | XRay Report ---
SINGLE VIEW CHEST CLINICAL HISTORY: Respiratory failure. FINDINGS: An AP, portable, upright chest radiograph is compared to study dated 11/05/2019. The examina tion is degraded by portable technique and patient rotation. Endotracheal and enteric tubes have been removed. The cardiomediastinal silhouette is unremarkable. A coronary artery stent is noted. There i s improved aeration at the lung bases. No airspace consolidation or large pleural effusion is identif ied. No pneumothorax is seen. The bony thorax is grossly intact. IMPRESSION: 1. Endotracheal and enteric tubes have been removed. 2. There is improved aeration at the lung bases. No airspace consolidation or pleural effusion is fiona ntified. ACT 112: Negative or not required by law. Electronically signed by: Tommie Olson M.D. 11/06/2019 7:17 AM
[2019-11-06] MEDS ORDERED: HEPARIN SODIUM/DEXTROSE 25,000 UNITS/500 ML BAG IV SCH ×2 (07:45→08:00)
[2019-11-06] MEDS ORDERED: Heparin IV Standard *NO* Bolus IV SCH (07:52)
[2019-11-06 08:14] LABS: INR 1.1 (0.9-1.1); Partial Thromboplastin Ratio 1.1; Partial Thromboplastin Time 30.2 Seconds (21.0-31.0); Prothrombin Time 11.1 Seconds (9.0-12.0)
--- NOTE | 2019-11-06 08:29 | Critical Care Progress Note ---
Date of Service November 06, 2019 Assessment & Plan (1) Admitted to intensive care unit: Patient successfully extubated yesterday. She is doing well on room air. Her troponin and white count are trending upwards. We are starting a heparin drip. She does have intermittent chest pain. EKGs reviewed with T wave inversions diffusely which are unchanged from yesterday. We will touch base with cardiology. If the plan is for no further intervention, then we will do a bedside swallow and likely start her on a diet. We have started ceftriaxone given the presence of gram-negative rods in her urine. She does have some mild urinary symptoms as well and the elevated white count. We have ordered for a lactate as well to evaluate for any ischemia. Overall, she does appear very stable. We will switch her back to her home dose of hydrocortisone and thyroid supplementation. Discontinue norepinephrine, propofol and fentanyl drips. Restart metoprolol. Continue aspirin. Continue Tamiflu for 5 days. (2) Cardiopulmonary arrest: (3) ST elevation (STEMI) myocardial infarction: (4) Flu-like symptoms: (5) Diabetes type 2, controlled: (6) Hypotension (arterial): Subjective Patient seen and evaluated. She is more awake and alert today. She notes that she wants to urinate. Bladder scan showed minimal urine. Hernadez removed overnight. She did receive 2 L fluid boluses overnight for decreased urine output. She is afebrile today. Saturating 97% on room air. Hemodynamically stable. Notes that she has chest pain intermittently that is sharp. No nausea. Physical Exam Physical Exam: VITAL SIGNS - Vital signs and nursing notes were reviewed. GENERAL -no apparent distress. Laying in bed. SKIN - Without rashes. HEAD - NC/AT. EYES - PERRL. EARS - No deformities of external structures noted on gross examination bilaterally. NOSE - Midline and without cyanosis. No epistaxis or purulent drainage noted. MOUTH/OROPHARYNX -no lesions NECK - Supple to palpation. No lymphadenopathy noted. No nuchal rigidity. LUNGS -clear to auscultation bilaterally CARDIAC - RRR with S1/S2. No murmur, rubs, or gallops appreciated. ABDOMEN - Abdominal contour flat without pulsations or visible masses. BS normoactive all four quadrants. No tenderness, palpable masses, hepatosplenomegaly, or ascites noted. EXTREMITIES - No clubbing or peripheral cyanosis. No pretibial edema present. +3/5 radial and dorsalis pedis pulses palpated throughout. NEUROLOGIC/PSYCH - No focal neurological deficits. Results & Data ([facility]) Vital Signs (Past 12 Hours) Vital Signs Temp Pulse Pulse Resp BP Pulse Ox 11/06/19 07:09 81 18 97 11/06/19 06:59 75 32 H 123/75 96 11/06/19 05:59 72 26 H 122/72 95 11/06/19 05:01 79 31 H 111/69 95 11/06/19 04:01 97.3 F L 79 28 H 119/60 94 11/06/19 03:00 79 23 119/65 96 11/06/19 02:00 85 23 132/68 95 11/06/19 01:00 70 26 H 141/80 H 100 11/06/19 00:59 73 22 96 11/06/19 00:43 98.2 F 11/06/19 00:00 74 22 123/83 96 11/05/19 23:00 74 23 157/82 H 97 11/05/19 22:00 83 26 H 169/71 H 97 11/05/19 21:00 85 24 176/104 H 98 Coding Level of Care Code 60208 Subseq Hosp Care Lvl 3 Diagnoses Admitted to intensive care unit Z78.[address] elevation (STEMI) myocardial infarction I21.19 Involved coronary artery: other inferior wall coronary artery Flu-like symptoms R68.89 Diabetes type 2, controlled E11.9 Hypotension (arterial) I95.9 (1) ST elevation (STEMI) myocardial infarction Involved coronary artery: other inferior wall coronary artery Qualified Code(s): I21.19 - ST elevation (STEMI) myocardial infarction involving other coronary artery of inferior wall
[2019-11-06] MEDS: ARMOUR THYROID 30 MG TAB PO SCH (09:07)
[2019-11-06] MEDS: HYDROCORTISONE 10 MG TAB PO SCH ×3 (09:09→20:43)
[2019-11-06] MEDS: ASPIRIN 81 MG CHEW PO SCH (09:09)
[2019-11-06] MEDS: ACETAMINOPHEN 500 MG TAB PO PRN ×2 (09:11→17:55)
[2019-11-06] MEDS: METOPROLOL TARTRATE 50 MG TAB PO SCH ×2 (09:13→20:45)
[2019-11-06] MEDS: OSELTAMIVIR PHOSPHATE SUSP 75 MG/12.5 ML UDP PO SCH (09:15)
--- NOTE | 2019-11-06 09:17 | Cardiology Progress Note ---
Date of Service November 06, 2019 Assessment & Plan (1) Cardiac arrest: She presented with a witnessed cardiac arrest which is consistent with sudden cardiac , whether it was a primary arrhythmia or an arrhythmia related to an ischemic event is not clear. She did not have a clearly newly occluded vessel but that does not mean it was not an ischemic event, she did have some wall motion abnormalities on her echo including an apical dyskinetic region which is new but that could be related to the event itself (such as a Takatsubo process) or an apical infarction with reperfusion before the catheterization. Over time we may be able to differentiate this to a certain extent, it may be important to determine whether she needs an ICD or treatment for coronary disease. Our future therapy will depend a lot on how she recovers mentally, she is showing signs of progression along those lines. (2) CAD (coronary artery disease): She has known and longstanding coronary artery disease but no culprit vessel found on admission catheterization here. She will need ongoing risk factor modification. Her troponin has now increased, I suspect that is a delayed reaction related to her cooling and then warming. Her electrocardiogram shows diffuse T wave inversion and QT prolongation which could be due to her anoxic encephalopathy or diffuse myocardial injury from her event, she does not have ST elevation so I do not suspect an acute vessel occlusion. I would not consider reevaluation. (3) Coma of unknown cause: She was unresponsive but now with warming she is responsive, mentally she is not quite back to baseline but she is conversational I am hopeful that she will have significant improvement as it is still early after her event. Admission and Anticipated Discharge Date Admission Date: November 04, 2019 Subjective She is awake, she responds slowly but does respond to questions. She is oriented to location, she thought it was year 1999 but she did know that Mila was president. Hopefully she will regain further intellectual function but she is coming along surprisingly well. She tells me that she hurts all over, she is complaining of chest discomfort but cannot describe it. Physical Exam Physical Exam: Constitutional: Awake, cooperative and in no distress. HEENT: Unremarkable Neck: No jugular venous distention, carotid pulses are normal and equal bilaterally without bruits. Pulmonary: Clear to auscultation bilaterally. Cardiac: Regular rhythm with no murmur, gallop or rub. Abdomen: Soft, nontender with normal bowel sounds. Extremities: No edema. Distal pulses intact. Neurologic: No focal findings. Gait not tested. Oriented times about 2 as noted in HPI Skin: No rash, ecchymoses or petechiae. Results & Data ([facility]) Vital Signs (Past 12 Hours) Vital Signs Temp Pulse Pulse Resp BP Pulse Ox 11/06/19 07:09 81 18 97 11/06/19 06:59 75 32 H 123/75 96 11/06/19 05:59 72 26 H 122/72 95 11/06/19 05:01 79 31 H 111/69 95 11/06/19 04:01 36.3 C L 79 28 H 119/60 94 11/06/19 03:00 79 23 119/65 96 11/06/19 02:00 85 23 132/68 95 11/06/19 01:00 70 26 H 141/80 H 100 11/06/19 00:59 73 22 96 11/06/19 00:43 36.8 C 11/06/19 00:00 74 22 123/83 96 11/05/19 23:00 74 23 157/82 H 97 11/05/19 22:00 83 26 H 169/71 H 97 PG Care Time/CCT Total # of Minutes Spent Total Time Spent with Patient: Total time spent is greater than 50% in coordination of care (as documented) at patient's floor/unit and/or counseling patient: Coding Level of Care Code 89424 Subseq Hosp Care Lvl 2 Diagnoses Cardiac arrest I46.9 CAD (coronary artery disease) I25.10 Coma of unknown cause R40.20
[2019-11-06] MEDS ORDERED: FUROSEMIDE 40 MG in SYRINGE 0 ML IV ONE (10:00)
[2019-11-06] MEDS: SENNA 8.8 MG/5 ML UDP PO SCH (10:08)
[2019-11-06] MEDS: SENNA 8.6 MG TAB PO SCH (10:28)
[2019-11-06 10:41] LABS: Amphetamines+Metham, Urine Neg (Neg); Barbiturates, Urine Neg (Neg); Benzodiazepine, Urine Pos (Neg); Cocaine, Urine Neg (Neg); MDMA (Ecstacy), Urine Neg (Neg); Methadone, Urine Neg (Neg); Opiate, Urine Neg (Neg); Phencyclidine, Urine Neg (Neg)
--- NOTE | 2019-11-06 11:51 | XRay Report ---
XR facial bones min 3V routine CLINICAL HISTORY: Fall and hit face 2-3 days ago facial pain COMPARISON STUDY: No previous studies for comparison. FINDINGS: The study is somewhat limited from a positioning standpoint. The examination was performed portably in the ICU. No facial fractures are visualized in the provided images. IMPRESSION: No fractures identified on this somewhat limited conventional radiographic study.. ACT 112: Negative or not required by law. Electronically signed by: Prakash Haider M.D. 11/06/2019 11:50 AM
--- NOTE | 2019-11-06 13:27 | Hospitalist Progress Note ---
Date of Service November 06, 2019 Assessment & Plan (1) Cardiac arrest: Ms. Ortiz is a 59 yo F admitted 11/04/19 after suffering a cardiac arrest at home with ROSC after AED shock x2. In the past 24 hours patient has completed re-warming protocol, extubated and weaned off pressors. Cardiac Arrest - witnessed cardiac arrest at home by spouse - bystander CPR ~ 20 minutes; BLS EMS arrived and ROSC after AED shock x 2 (AED unavailable for interrogation, rhythm presumably V-fib or pulseless V-tach) - GCS score of 3 on arrival, patient was intubated and placed on ventilator for airway protection - Patient was taken to the carpenter/labor upon arrival, which showed no evidence of acute thrombosis or occlusive disease, PCI not employed; loaded with heparin - currently on heparin drip - etiology thought to be ischemia vs arrhythmia; EKG on admission with out ST segment changes, subsequent EKG showing acute inferior ischemia and lateral ST elevations - troponin on arrival 0.29, up to 7.5; continue to trend. up-trending Trop possibly from influenza myocarditis. follow. - no arrhythmias while on monitor - TTE ordered, showing low L ventricular systolic function with apical dyskinesis, EF 50-55% - cardiology following Elevated Troponin - troponin on arrival 0.29, up to 7.5; continue to trend - initially thought to be secondary to ischemia, however cath showed no evidence of acute thrombosis or occlusive disease, PCI not employed - patient tested positive for influenza A on admission, persistent rise in trop possibly secondary to viral myocarditis - continue heparin drip Cardiomyopathy - TTE ordered, showing low L ventricular systolic function with apical dyskinesis, EF 50-55% - without comparison study, it is unknown as to whether patient suffered an arrhythmia due to underlying cardiomyopathy vs. myocardial stunning in response to CPR - will repeat ECHO to assess ventricular function prior to discharge Respiratory Failure - thought to be secondary to cardiac arrest vs. cause of cardiac arrest - patient has been successfully extubated, satting 96% on room air Diminished Consciousness - GCS score of 3 on admission - likely secondary to reduced cerebral perfusion in setting of cardiac arrest - Head CT normal on admission - EEG showing brain wave slowing, although obtained while under sedation; repeat study pending Influenza A - positive testing on admission - currently on day 3 of 5 of tamiflu - CXR on admission showing no infiltrate; repeat study today showing opacity in left base; continue to monitor and clinically correlate - WBC elevated to 15; normalized to 8 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 sepsis (influenza infection) Hypothyroidism - continue home dose [place] Thyroid DMII - A1C <6 (per H&P note) - home regimen is glipizide; holding home orals while in hospital - pharmacy managing insulin HTN - BP currently at goal at 124/64 - continue metoprolol 12.5 bid - holding home HCTZ HLD - continue atorvastatin 40mg daily - continue daily baby ASA GERD - currently on famotidine for stress ulcer ppx Code Status: Full code DVT ppx: 5,000 units, SQ, BID FEN/GI: Full liquid, heart healthy, DM diet Dispo: ICU (2) Diabetes type 2, controlled: (3) Acid reflux disease: (4) CAD (coronary artery disease): (5) Diabetic nephropathy associated with type 2 diabetes mellitus: (6) Dyslipidemia: (7) Elevated hemoglobin: (8) Hypertension: (9) PAD (peripheral artery disease): (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 Marrero and agree with the findings and care plan. Subjective Patient in ICU, no family present at beside. Reports she "aches all over." Review of Systems Constitutional: + body aches and + weakness Physical Exam Constitutional: WD/WN, vitals as above Eyes: + anicteric sclerae ENMT: external ear and nose normal, oropharynx normal Neck: normal visual inspection and trachea midline Respiratory: normal respiratory effort Auscultation: + rhonchi (diffuse) Cardiovascular: RRR, no murmur, no edema Heart Sounds: normal S1 and normal S2 Gastrointestinal (Abdomen): normal bowel sounds, soft, nontender, no hepatosplenomegaly Skin: no rashes, warm and dry Neurologic: CN's II-XI intact bilaterally, moves all extremities and + confused; no focal motor deficits Motor/Sensory: no pronator drift Psychiatric: Orientation: alert, oriented to person and oriented to place Results & Data ([facility]) Vital Signs (Past 12 Hours) Vital Signs Temp Pulse Pulse Resp BP Pulse Ox 11/06/19 07:09 81 18 97 11/06/19 07:00 84 11/06/19 06:59 75 32 H 123/75 96 11/06/19 05:59 72 26 H 122/72 95 11/06/19 05:01 79 31 H 111/69 95 11/06/19 04:01 36.3 C L 79 28 H 119/60 94 11/06/19 03:00 79 23 119/65 96 11/06/19 02:00 85 23 132/68 95 Resident Activity Tracking Resident Involvement: Resident Care Provided Care Provided: Adult Hospital Medicine
[2019-11-06 15:22] LABS: Partial Thromboplastin Ratio 2.7
[2019-11-06 15:30] LABS: Partial Thromboplastin Time 76.5 Seconds (21.0-31.0)
--- NOTE | 2019-11-06 16:00 | Electrocardiogram Report ---
Test Reason : Blood Pressure : / mmHG Vent. Rate : 087 BPM Atrial Rate : 088 BPM P-R Int : 192 ms QRS Dur : 064 ms QT Int : 422 ms P-R-T Axes : 068 035 054 degrees QTc Int : 507 ms Poor data quality, interpretation may be adversely affected Sinus rhythm Low voltage QRS T wave abnormality, consider anterior ischemia Abnormal ECG When compared with ECG of 05-NOV-2019 07:09, Non-specific change in ST segment in Anterolateral leads Nonspecific T wave abnormality, worse in Lateral leads Confirmed by Js Tatum ([id number]) on 11/06/2019 3:59:59 PM Referred By: REFERRED SELF Confirmed By:Js Tatum
--- NOTE | 2019-11-06 16:02 | Electrocardiogram Report ---
Test Reason : Blood Pressure : / mmHG Vent. Rate : 067 BPM Atrial Rate : 067 BPM P-R Int : 248 ms QRS Dur : 076 ms QT Int : 476 ms P-R-T Axes : 075 037 069 degrees QTc Int : 502 ms Sinus rhythm with 1st degree A-V block with Fusion complexes Low voltage QRS Nonspecific T wave abnormality Prolonged QT Abnormal ECG When compared with ECG of 05-NOV-2019 10:59, (unconfirmed) No significant change Confirmed by Js Tatum ([id number]) on 11/06/2019 4:01:55 PM Referred By: REFERRED SELF Confirmed By:Js Tatum
--- NOTE | 2019-11-06 16:36 | Electrocardiogram Report ---
Test Reason : Blood Pressure : / mmHG Vent. Rate : 087 BPM Atrial Rate : 087 BPM P-R Int : 206 ms QRS Dur : 076 ms QT Int : 448 ms P-R-T Axes : 066 040 -66 degrees QTc Int : 539 ms Normal sinus rhythm Low voltage QRS T wave abnormality, consider inferior ischemia T wave abnormality, consider anterolateral ischemia Prolonged QT Abnormal ECG When compared with ECG of 05-NOV-2019 15:01, (unconfirmed) Fusion complexes are no longer Present CT interval has decreased T wave inversion now evident in Inferior leads T wave inversion now evident in Lateral leads Confirmed by Js Tatum ([id number]) on 11/06/2019 4:36:04 PM Referred By: REFERRED SELF Confirmed By:Js Tatum
[2019-11-06] MEDS: cefTRIAXone SODIUM 1,000 MG in DEXTROSE 5% 50 ML IV SCH (20:28)
[2019-11-06] MEDS: OSELTAMIVIR PHOSPHATE 75 MG CAP PO SCH (20:43)
[2019-11-06] MEDS: FAMOTIDINE 20 MG TAB PO SCH (20:44)
[2019-11-06] MEDS: ATORVASTATIN 40 MG TAB PO SCH (20:45)
[2019-11-06] MEDS ORDERED: Nursing to Pharmacy Communication ONE (21:57)
[2019-11-07] MEDS: ACETAMINOPHEN 500 MG TAB PO PRN (00:39)
[2019-11-07] MEDS: ALBUT/IPRATROP 3MG/0.5MG NEB 3 ML VIAL INH SCH ×4 (00:46→19:15)
[2019-11-07] MEDS ORDERED: OXYCODONE HCL IR 5 MG TAB (IMMEDIATE RELEASE) PO STA (01:54)
--- NOTE | 2019-11-07 07:11 | XRay Report ---
XR chest 1V portable CLINICAL HISTORY: Respiratory failure. Follow-up examination. COMPARISON STUDY: 11/06/2019 FINDINGS: The cardiac and mediastinal contours remain stable. There is no failure. There is no focal pulmonary consolidation. There are no significant pleural effusions. A tubular density projected over the left heart border, likely represents either a coronary artery calcification or coronary artery s tent[ IMPRESSION: No active disease in the chest. ACT 112: Negative or not required by law. Electronically signed by: Prakash Haider M.D. 11/07/2019 7:10 AM
[2019-11-07] MEDS: INSULIN ASPART 100 UNITS/ML 3 ML PEN SC SCH ×4 (08:16→21:07)
[2019-11-07] MEDS: FAMOTIDINE 20 MG TAB PO SCH ×2 (08:25→20:54)
[2019-11-07] MEDS: HYDROCORTISONE 10 MG TAB PO SCH ×3 (08:25→20:56)
[2019-11-07] MEDS: METOPROLOL TARTRATE 50 MG TAB PO SCH ×2 (08:25→20:54)
[2019-11-07] MEDS: OSELTAMIVIR PHOSPHATE 75 MG CAP PO SCH ×2 (08:25→20:55)
[2019-11-07] MEDS: ARMOUR THYROID 30 MG TAB PO SCH (08:26)
[2019-11-07] MEDS: SENNA 8.6 MG TAB PO SCH (08:26)
[2019-11-07] MEDS: ASPIRIN 81 MG CHEW PO SCH (08:28)
--- NOTE | 2019-11-07 09:49 | Hospitalist Progress Note ---
Date of Service November 07, 2019 Assessment & Plan (1) Cardiac arrest: Ms. Ortiz is a 59 yo F admitted 11/04/19 after suffering a cardiac arrest at home with ROSC after AED shock x2. Cardiac Arrest - witnessed cardiac arrest at home by spouse - bystander CPR ~ 20 minutes; BLS EMS arrived and ROSC after AED shock x 2 (AED unavailable for interrogation, rhythm presumably V-fib or pulseless V-tach) - GCS score of 3 on arrival, patient was intubated and placed on ventilator for airway protection - Patient was taken to the lab rn upon arrival, which showed no evidence of acute thrombosis or occlusive disease, PCI not employed; loaded with heparin, drip has been d/c - no arrhythmias while on monitor - TTE ordered, showing low L ventricular systolic function with apical dyskinesis, EF 50-55% - etiology unclear at this time. Elevated Troponin - troponin on arrival 0.29, peaked at 7.5; has downtrended - initially thought to be secondary to ischemia, however cath showed no evidence of acute thrombosis or occlusive disease, PCI not employed - heparin drip d/c Chest Wall Pain - New chest pain likely secondary to chest wall trauma from recent CPR - EKGs x2 stable - trops trending down - Tylenol/oxycodone for pain control Cardiomyopathy - TTE ordered, showing low L ventricular systolic function with apical dyskinesis, EF 50-55% - without comparison study, it is unknown as to whether patient suffered an arrhythmia due to underlying cardiomyopathy vs. myocardial stunning in response to CPR - will repeat ECHO to assess ventricular function prior to discharge Acute Respiratory Failure - thought to be secondary to cardiac arrest vs. cause of cardiac arrest - patient has been successfully extubated, satting 96% on room air Diminished Consciousness - resolved - GCS score of 3 on admission - likely secondary to reduced cerebral perfusion in setting of cardiac arrest - Head CT normal on admission - EEG showing brain wave slowing, although obtained while under sedation - patient AAO x3 on exam today Influenza A - positive testing on admission - currently on day 4 of 5 of tamiflu - CXR on admission showing no infiltrate; repeat study today showing no focal consolidation; continue to monitor and clinically correlate - WBC elevated to 23 from 8; patient is on stress dose steroids - patient afebrile, not tachycardic or tachypneic 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 sepsis (influenza infection) Hypothyroidism - continue home dose Vadito Thyroid DMII - A1C <6 (per H&P note) - home regimen is glipizide; holding home orals while in hospital - pharmacy managing insulin HTN - BP currently at goal at 104/82 - continue metoprolol 12.5 bid - holding home HCTZ HLD - continue atorvastatin 40mg daily - continue daily baby ASA GERD - currently on famotidine for stress ulcer ppx Code Status: Full code DVT ppx: 5,000 units, SQ, BID FEN/GI: Full liquid, heart healthy, DM diet Dispo: PCU ; PT/OT ordered (2) Diabetes type 2, controlled: (3) Acid reflux disease: (4) CAD (coronary artery disease): (5) Diabetic nephropathy associated with type 2 diabetes mellitus: (6) Dyslipidemia: (7) Elevated hemoglobin: (8) Hypertension: (9) PAD (peripheral artery disease): (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 Marrero and agree with the findings and care plan. Subjective Patient reports continued chest pain. Two EKGs were obtained overnight, both of which were stable. Not yet ambulating. Currently on full liquid diet Review of Systems Constitutional: + body aches and + weakness Physical Exam Constitutional: WD/WN, vitals as above Eyes: + anicteric sclerae ENMT: external ear and nose normal, oropharynx normal Neck: normal visual inspection and trachea midline Respiratory: normal respiratory effort Auscultation: + rhonchi (diffuse) Cardiovascular: RRR, no murmur, no edema Heart Sounds: normal S1 and normal S2 + chest pain reproducible on exam Gastrointestinal (Abdomen): normal bowel sounds, soft, nontender, no hepatosplenomegaly Skin: no rashes, warm and dry Neurologic: CN's II-XI intact bilaterally, moves all extremities and + confused; no focal motor deficits Motor/Sensory: no pronator drift Psychiatric: Orientation: alert, oriented to person and oriented to place Results & Data ([facility]) Vital Signs (Past 12 Hours) Vital Signs Temp Pulse Pulse Resp BP Pulse Ox 11/07/19 08:23 36.7 C 67 23 137/68 100 11/07/19 07:36 59 L 18 99 11/07/19 04:00 70 18 125/64 100 11/07/19 00:47 67 22 97 11/06/19 23:46 36.5 C 66 20 131/67 96 Resident Activity Tracking Resident Involvement: Resident Care Provided Care Provided: Adult Hospital Medicine
[2019-11-07] MEDS ORDERED: KETOROLAC TROMETHAMINE 15 MG/ML VIAL IV PRN (10:33)
[2019-11-07] MEDS ORDERED: PHARMACY GLYCEMIC MGMT CONSULT PRN (10:46)
--- NOTE | 2019-11-07 11:27 | Pharmacy Report ---
Glycemic Control Consultation - Date of Service November 07, 2019 - Scope Scope: Glycemic Pharmacist consulted for glycemic control and to write orders per [facility] inpatient glycemic control protocol. - Objective Weight: 67.6 kg Accuchecks BSG (last 24hrs): 11/06/19 11/06/19 11/06/19 11:45 19:03 22:45 POC Glucose 167 H 110 H 94 11/07/19 07:28 POC Glucose 89 - Recent Pertinent Medications Outpatient Anti-diabetic Regimen: * Glipizide 5 mg daily * A1c = 5.5% 08/30/2019 The patient is currently receiving: * Correctional Insulin: Novolog Correction per scale ACHS Goal Range: Low 110 mg/dL - High 180 mg/dL Correction Factor: 35 mg/dL/unit * Prandial insulin: Per carb ratio of 1 unit per 12 grams CHO consumed Risk Factors for Insulin Resistance: * Steroids: Hydrocortisone 15 mg QAM, 5 MG PM * Infection: Ceftriaxone, Tamiflu * Diet: T2DM * - Assessment & Plan Assessment & Plan: ASSESSMENT: * 59 yo female admitted to hospital following cardiac arrest. Patient is flu positive on tamiflu, urine culture growing gram negative bacilli currently being treated with ceftriaxone * Patient transferred out of SICU on 11/05 * BSGs ranged from 94-167 yesterday with 0 units of insulin * Diet ordered, fasting this AM 89, will continue novolog but loosen carb parameter, holding basal * Will re-eval need for carb ratio as patient's diet improves PLAN FOR INPATIENT GLYCEMIC CONTROL: * Holding outpatient oral diabetes medications * Bolus insulin * NovoLog per scale ACHS or Q6hrs while NPO * Goal Range: Low 110 mg/dL - High 140 mg/dL * Correction Factor: 35 mg/dL/unit * Nutritional / Prandial insulin per carb ratio of 1 unit per 15 grams CHO consumed * Please note that the plan above was derived based on current level of insulin resistance and hospital stress. These recommendations are appropriate for inpatient admission only. Plan of care upon discharge will need to be reassessed to avoid potential outpatient hypo/hyperglycemia. Thank you.
--- NOTE | 2019-11-07 11:52 | XRay Report ---
XR ribs BI min 3V HISTORY: 59 years-old Female post cpr, chest pain, eval broken ribs acute atypical chest pain. Repor nathan broken ribs with recent CPR COMPARISON: Chest radiograph of same day at 6:54 AM TECHNIQUE: 2 views of the bilateral ribs for a total 4 images. FINDINGS: Unchanged appearance of the cardiac silhouette with coronary artery stent grafts. No pneumothorax, pl eural effusion, airspace consolidation or overt pulmonary identified. Cholecystectomy clips of the ab dominal right upper quadrant. Likely acute nondisplaced fractures involve the lateral aspects of the right eighth and ninth ribs. N o acute left-sided rib fracture identified. IMPRESSION: 1. Likely acute nondisplaced fractures of the lateral aspects of the right eighth and ninth ribs. 2. No acute left-sided rib fracture identified. ACT 112: Negative or not required by law. The above report was generated using voice recognition software. It may contain grammatical, syntax o r spelling errors. Electronically signed by: Amrik Colin M.D. 11/07/2019 11:51 AM
[2019-11-07] MEDS: ENOXAPARIN INJ 40 MG/0.4 ML SYR SQ SCH (12:25)
--- NOTE | 2019-11-07 15:00 | Cardiology Progress Note ---
Date of Service November 07, 2019 Assessment & Plan (1) Cardiac arrest: She presented with a witnessed cardiac arrest which is consistent with sudden cardiac , whether it was a primary arrhythmia or an arrhythmia related to an ischemic event is not clear. She did not have a clearly newly occluded vessel but that does not mean it was not an ischemic event, she did have some wall motion abnormalities on her echo including an apical dyskinetic region which is new but that could be related to the event itself (such as a Takatsubo process) or an apical infarction with reperfusion before the catheterization. Over time we may be able to differentiate this to a certain extent, it may be important to determine whether she needs an ICD or treatment for coronary disease. I am going to repeat the echocardiogram tomorrow to see if there is or change in her left ventricular function. Our future therapy will depend a lot on how she recovers mentally, she is showing signs of progression along those lines. (2) CAD (coronary artery disease): She has known and longstanding coronary artery disease but no culprit vessel found on admission catheterization here. She will need ongoing risk factor modification. Her troponin had increased after cooling and rewarming, I suspect that is a delayed reaction related to her cooling and then warming. Her electrocardiogram still shows diffuse T wave inversion and QT prolongation which could be due to her anoxic encephalopathy or diffuse myocardial injury from her event, she does not have ST elevation so I do not suspect an acute vessel occlusion. I would not consider reevaluation. (3) Coma of unknown cause: She was unresponsive but now with warming she is responsive, mentally she is not quite back to baseline but she is conversational I am hopeful that she will have significant improvement as it is still early after her event. She continues to improve which is a very good sign. Admission and Anticipated Discharge Date Admission Date: November 04, 2019 Subjective She remains conversational, she seems improved compared to yesterday but does not respond normally. Overall however she is clearly improved. She is having some chest discomfort but not ischemic pain. Physical Exam Physical Exam: Constitutional: Awake, cooperative and in no distress. HEENT: Unremarkable Neck: No jugular venous distention, carotid pulses are normal and equal bilaterally without bruits. Pulmonary: Clear to auscultation bilaterally. Cardiac: Regular rhythm with no murmur, gallop or rub. Abdomen: Soft, nontender with normal bowel sounds. Extremities: No edema. Distal pulses intact. Neurologic: No focal findings. Gait not tested. Skin: No rash, ecchymoses or petechiae. Results & Data ([facility]) Vital Signs (Past 12 Hours) Vital Signs Temp Temp Temp Pulse Pulse Pulse Resp 11/07/19 13:15 55 L 18 11/07/19 11:53 36.7 C 58 L 20 11/07/19 10:00 34.5 C L 34.6 C L 48 L 20 11/07/19 08:23 36.7 C 67 23 11/07/19 07:36 59 L 18 11/07/19 04:00 70 18 BP BP BP Pulse Ox 11/07/19 13:15 98 11/07/19 11:53 167/81 H 100 11/07/19 10:00 85/55 L 104/52 L 99 11/07/19 08:23 137/68 100 11/07/19 07:36 99 11/07/19 04:00 125/64 100 Laboratory Results Cardiac Enzymes 11/06/19 11/06/19 Range/Units 14:49 21:38 Troponin I 5.930 H* 6.210 H* (0-0.045) ng/ml Coagulation 11/06/19 Range/Units 14:49 APTT 76.5 H* (21.0-31.0) Seconds Intake and Output 11/06/19 11/07/19 11/07/19 22:59 06:59 14:59 Intake Total 246.55 / 596.55 250 / 596.55 Output Total 400 / 1241 150 / 1241 230 / 230 Balance -153.45 / -644.45 100 / -644.45 -230 / -230 Intake: IV 246.55 / 346.55 HEPARIN SODIUM/DEXTROSE 25,000 186.55 / 186.55 units In 500 ml @ 1,050 UNITS/ HR 21 mls/hr IV .[id number] [facility] Rx #:[id number] Rocephin 1,000 mg In D5w 50 ml 60 / 60 @ 100 mls/hr IV Q24H [facility] Rx#: [id number] Oral 0 / 250 250 / 250 Output: Urine 400 / 1240 150 / 1240 230 / 230 Other: Other Intake Source NPO sips Weight 67.6 kg 67.6 kg Patient Weight 11/08/19 06:59 Weight 67.6 kg Diagnostic Findings Her electrocardiogram from earlier this morning shows sinus rhythm at 71 bpm with diffuse T wave inversion and QT prolongation. PG Care Time/CCT Total # of Minutes Spent Total Time Spent with Patient: Total time spent is greater than 50% in coordination of care (as documented) at patient's floor/unit and/or counseling patient: Coding Level of Care Code 70944 Subseq Hosp Care Lvl 2 Diagnoses Cardiac arrest I46.9 CAD (coronary artery disease) I25.10 Coma of unknown cause R40.20
--- NOTE | 2019-11-07 16:07 | Electrocardiogram Report ---
Test Reason : Blood Pressure : / mmHG Vent. Rate : 075 BPM Atrial Rate : 075 BPM P-R Int : 210 ms QRS Dur : 076 ms QT Int : 518 ms P-R-T Axes : 060 040 -82 degrees QTc Int : 578 ms Sinus rhythm with 1st degree A-V block Low voltage QRS T wave abnormality, consider inferior ischemia T wave abnormality, consider anterolateral ischemia Prolonged QT Abnormal ECG When compared with ECG of 06-NOV-2019 07:53, No significant change was found Confirmed by Ramiro Khan ([id number]) on 11/07/2019 4:07:28 PM Referred By: REFERRED SELF Confirmed By:Ramiro Khan
--- NOTE | 2019-11-07 16:58 | Electrocardiogram Report ---
Test Reason : Blood Pressure : / mmHG Vent. Rate : 071 BPM Atrial Rate : 071 BPM P-R Int : 206 ms QRS Dur : 076 ms QT Int : 504 ms P-R-T Axes : 061 035 253 degrees QTc Int : 547 ms Normal sinus rhythm T wave abnormality, consider inferior ischemia T wave abnormality, consider anterolateral ischemia Prolonged QT Abnormal ECG When compared with ECG of 06-NOV-2019 18:00, (unconfirmed) No significant change was found Confirmed by Js Tatum ([id number]) on 11/07/2019 4:57:52 PM Referred By: REFERRED SELF Confirmed By:Js Tatum
[2019-11-07] MEDS: cefTRIAXone SODIUM 1,000 MG in DEXTROSE 5% 50 ML IV SCH (20:53)
[2019-11-07] MEDS: ATORVASTATIN 40 MG TAB PO SCH (20:55)
[2019-11-08] MEDS: ALBUT/IPRATROP 3MG/0.5MG NEB 3 ML VIAL INH SCH ×2 (00:51→07:19)
[2019-11-08 01:59] LABS: 7-Aminoclonaz, Confirm NEGATIVE ng/mL (<25); Hydro-Alp Ur, GC/MS NEGATIVE ng/mL (<25); Hydroxyethylflurazepam, Conf NEGATIVE ng/mL (<50); Hydroxymidazolam Ur, GC/MS 2001 ng/mL (<50); Hydroxytriazolam NEGATIVE ng/mL (<50); Lorazepam, Ur GC/MS NEGATIVE ng/mL (<50); Nordiazepam, Confirm NEGATIVE ng/mL (<50); Oxazepam Ur, GC/MS NEGATIVE ng/mL (<50); Temazepam, Confirm NEGATIVE ng/mL (<50)
--- NOTE | 2019-11-08 07:08 | XRay Report ---
XR chest 1V portable HISTORY: 59 years-old Female f/u follow-up study in a patient with recent respiratory failure and sh ortness of breath COMPARISON: Chest radiograph 11/07/2019 TECHNIQUE: Portable AP view of the chest FINDINGS: Cardiac silhouette is upper limits of normal in size. Coronary artery stent. No pneumothorax, large p leural effusion or overt pulmonary edema. Minimal left lung base densities suggest atelectasis. Degen erative changes of the shoulders and spine. IMPRESSION: No acute process. ACT 112: Negative or not required by law. The above report was generated using voice recognition software. It may contain grammatical, syntax o r spelling errors. Electronically signed by: Amrik Colin M.D. 11/08/2019 7:06 AM
[2019-11-08] MEDS ORDERED: ALBUT/IPRATROP 3MG/0.5MG NEB 3 ML VIAL NEB PRN (08:37)
[2019-11-08] MEDS: INSULIN ASPART 100 UNITS/ML 3 ML PEN SC SCH ×3 (09:04→17:41)
[2019-11-08] MEDS: OSELTAMIVIR PHOSPHATE 75 MG CAP PO SCH ×2 (09:05→22:44)
[2019-11-08] MEDS: SENNA 8.6 MG TAB PO SCH (09:05)
[2019-11-08] MEDS: FAMOTIDINE 20 MG TAB PO SCH ×2 (09:05→22:44)
[2019-11-08] MEDS: ASPIRIN 81 MG CHEW PO SCH (09:05)
[2019-11-08] MEDS: ARMOUR THYROID 30 MG TAB PO SCH (09:05)
[2019-11-08] MEDS: METOPROLOL TARTRATE 50 MG TAB PO SCH ×2 (09:06→22:49)
[2019-11-08] MEDS: HYDROCORTISONE 10 MG TAB PO SCH ×3 (10:03→22:46)
[2019-11-08] MEDS: ACETAMINOPHEN 500 MG TAB PO SCH ×3 (10:35→22:43)
--- NOTE | 2019-11-08 11:31 | XCELERA ---
[id number] \\[email or web address]\[email or web address]\[id number]
[2019-11-08] MEDS: ENOXAPARIN INJ 40 MG/0.4 ML SYR SQ SCH (12:00)
--- NOTE | 2019-11-08 12:56 | Pharmacy Report ---
Pharmacy Glycemic Sign Off Nt - Date of Service November 08, 2019 - Assessment & Plan ASSESSMENT: * Pharmacy was consulted by Dr Marrero on 11/07/2019 for glycemic control and to write orders per [facility] inpatient glycemic control protocol * Patient has not required any insulin throughout hospital stay with BSGs at goal * BSGs ranging 78- 101 mg/dl * Regimen has only required minor adjustments over the past 48hrs to achieve this level of control * Do not anticipate further changes in patient status that would quickly deteriorate glycemic control * Please see recommendations for outpatient antidiabetic regimen below. PLAN FOR INPATIENT GLYCEMIC CONTROL: No changes needed to current regimen. * Continue NovoLog per scale ACHS/Q6hrs while NPO * Goal range = 110- 140 mg/dl * CF = 35 mg/dl/unit * CR = currently not needed, would recommend restarting BSGs trend up above goal range * A1c added to discharge instructions to be communicated to PCP. * Pharmacy is signing off of glycemic consult and will no longer be making adjustments to inpatient regimen. Please feel free to re-consult if needed. Thank you. DISCHARGE RECOMMENDATIONS: * A1c 5.5 % on 08/30/2019, at goal, patient can likely resume outpatient regimen if not experiencing frequent hypoglycemic episodes.
[2019-11-08] MEDS: DICLOFENAC SOD 1% GEL 100 GM TUBE EXT SCH ×2 (13:06→22:47)
--- NOTE | 2019-11-08 13:24 | Cardiology Progress Note ---
Date of Service November 08, 2019 Assessment & Plan (1) Cardiac arrest: She presented with a witnessed cardiac arrest which is consistent with sudden cardiac , whether it was a primary arrhythmia or an arrhythmia related to an ischemic event is not clear. She did not have a clearly newly occluded vessel but that does not mean it was not an ischemic event, she did have some wall motion abnormalities on her echo including an apical dyskinetic region which was new but that could be related to the event itself (such as a Takatsubo process) or an apical infarction with reperfusion before the catheterization. That abnormality has improved and nearly resolved at this time with normalization of her left ventricular function. This may make it more likely that it was a primary cardiac arrest rather than the result of an ischemic event. . I would lean toward an ICD for secondary prevention, although we will need to evaluate her functional status going forward. If she is well enough to go home over the weekend I would suggest consideration to a LifeVest, although I do not know how well that would be tolerated. (2) CAD (coronary artery disease): She has known and longstanding coronary artery disease but no culprit vessel found on admission catheterization here. She will need ongoing risk factor modification. Her troponin had increased after cooling and rewarming, I suspect that is a delayed reaction related to her cooling and then warming. Her electrocardiogram still shows diffuse T wave inversion and QT prolongation which could be due to her anoxic encephalopathy, her left ventricular function normalizing would argue against this being ischemia as a cause of her T wave abnormalities. (3) Coma of unknown cause: She was unresponsive but following rewarming from the cooling protocol she is responsive, mentally she is not quite back to baseline but she is conversational I am hopeful that she will have significant improvement as it is still early after her event. She continues to improve which is a very good sign. Admission and Anticipated Discharge Date Admission Date: November 04, 2019 Subjective She is having difficulty with diarrhea, no evident cardiovascular complaints Physical Exam Physical Exam: Constitutional: Awake, cooperative and in no distress. HEENT: Unremarkable Neck: No jugular venous distention, carotid pulses are normal and equal bilaterally without bruits. Pulmonary: Clear to auscultation bilaterally. Cardiac: Regular rhythm with no murmur, gallop or rub. Abdomen: Soft, nontender with normal bowel sounds. Extremities: No edema. Distal pulses intact. Neurologic: No focal findings. Gait not tested. Skin: No rash, ecchymoses or petechiae. Results & Data ([facility]) Vital Signs (Past 12 Hours) Vital Signs Temp Pulse Pulse Pulse Resp BP BP 11/08/19 11:47 72 11/08/19 08:00 55 L 11/08/19 07:49 36.8 C 56 L 18 162/75 H 11/08/19 07:21 52 L 16 11/08/19 05:13 36.9 C 56 L 19 162/77 H 11/08/19 01:53 52 L Pulse Ox 11/08/19 11:47 11/08/19 08:00 11/08/19 07:49 95 11/08/19 07:21 97 11/08/19 05:13 99 11/08/19 01:53 Laboratory Results Intake and Output 11/07/19 11/08/19 11/08/19 22:59 06:59 14:59 Intake Total 180 / 280 100 / 280 Output Total 300 / 530 Balance -120 / -250 100 / -250 Intake: IV 60 / 60 Rocephin 1,000 mg In D5w 50 ml 60 / 60 @ 100 mls/hr IV Q24H [facility] Rx#: [id number] Oral 120 / 220 100 / 220 Output: Urine 300 / 530 Other: Other Intake Source SIPS sips Weight 65.9 kg Diagnostic Findings Telemetry: Sinus rhythm and sinus bradycardia, no significant arrhythmia Echocardiogram: Done as a limited study today, improvement in left ventricular function, essentially normal with improvement in her apical wall motion abnormality. PG Care Time/CCT Total # of Minutes Spent Total Time Spent with Patient: Total time spent is greater than 50% in coordination of care (as documented) at patient's floor/unit and/or counseling patient: Coding Level of Care Code 37695 Subseq Hosp Care Lvl 2 Diagnoses Cardiac arrest I46.9 CAD (coronary artery disease) I25.10 Coma of unknown cause R40.20
--- NOTE | 2019-11-08 15:23 | Hospitalist Progress Note ---
Date of Service November 08, 2019 Assessment & Plan (1) Cardiac arrest: Ms. Ortiz is a 59 yo F admitted 11/04/19 after suffering a cardiac arrest at home with ROSC after AED shock x2. Cardiac Arrest - witnessed cardiac arrest at home by spouse - bystander CPR ~ 20 minutes; BLS EMS arrived and ROSC after AED shock x 2 (AED unavailable for interrogation, rhythm presumably V-fib or pulseless V-tach) - GCS score of 3 on arrival, patient was intubated and placed on ventilator for airway protection - Patient was taken to the medical lab tech instructor upon arrival, which showed no evidence of acute thrombosis or occlusive disease, PCI not employed; loaded with heparin, drip has been d/c - no arrhythmias while on monitor - TTE ordered on admission, showing low L ventricular systolic function with apical dyskinesis, EF 50-55%; repeat study 11/07 showing recovered LV systolic function with significant improvement in apical wall motion abnormality, EF 60- 65%. - etiology of arrest unclear at this time. - to have life vest arranged on discharge Elevated Troponin - troponin on arrival 0.29, peaked at 7.5; has downtrended - initially thought to be secondary to ischemia, however cath showed no evidence of acute thrombosis or occlusive disease, PCI not employed - heparin drip d/c Chest Wall Pain - New chest pain likely secondary to chest wall trauma from recent CPR - EKGs x2 stable - trops trending down - scheduled tylenol and diclofenac gel for pain Cardiomyopathy - TTE ordered, showing low L ventricular systolic function with apical dyskinesis, EF 50-55% - repeat study 11/07 showing recovered LV systolic function with significant improvement in apical wall motion abnormality, EF 60-65%. - without pre-admission comparison study, it is unknown as to whether patient suffered an arrhythmia due to underlying cardiomyopathy vs. myocardial stunning in response to CPR Acute Respiratory Failure - thought to be secondary to cardiac arrest vs. cause of cardiac arrest - patient has been successfully extubated, satting 96% on room air Diminished Consciousness - GCS score of 3 on admission - likely secondary to reduced cerebral perfusion in setting of cardiac arrest - Head CT normal on admission - EEG showing brain wave slowing, although obtained while under sedation - waxing and waning quality suggestive of delirium; encourage frequent reorientation Influenza A - positive testing on admission - currently on day 5 of 5 of tamiflu - CXR on admission showing no infiltrate; repeat study today showing no focal consolidation; continue to monitor and clinically correlate - WBC elevated to 23 from 8; patient is on stress dose steroids - patient afebrile, not tachycardic or tachypneic 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 - continue routine hydrocortisone dosing Hypothyroidism - continue home dose [place] Thyroid DMII - A1C <6 (per H&P note) - home regimen is glipizide; holding home orals while in hospital - pharmacy managing insulin HTN - BP currently at goal at 135/62 - continue metoprolol 12.5 bid - holding home HCTZ HLD - continue atorvastatin 40mg daily - continue daily baby ASA GERD - currently on famotidine for stress ulcer ppx Code Status: Full code DVT ppx: 5,000 units, SQ, BID FEN/GI: Full liquid, heart healthy, DM diet Dispo: Med/Surg; PTOT recommending acute rehab; desires to take her home tomorrow, 11/08 with home health (2) Diabetes type 2, controlled: (3) Acid reflux disease: (4) CAD (coronary artery disease): (5) Diabetic nephropathy associated with type 2 diabetes mellitus: (6) Dyslipidemia: (7) Elevated hemoglobin: (8) Hypertension: (9) PAD (peripheral artery disease): (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 Marrero and agree with the findings and care plan. Subjective Patient reports being confused. No acute events overnight. Using in room toilet. Eating some. present at bedside. Review of Systems Constitutional: + body aches and + weakness Cardiovascular: Additional Comments: Chest wall pain Physical Exam Constitutional: WD/WN, vitals as above Eyes: + anicteric sclerae ENMT: external ear and nose normal, oropharynx normal Neck: normal visual inspection and trachea midline Respiratory: normal respiratory effort Auscultation: + rhonchi (diffuse) Cardiovascular: RRR, no murmur, no edema Heart Sounds: normal S1 and normal S2 Gastrointestinal (Abdomen): normal bowel sounds, soft, nontender, no hepatosplenomegaly Skin: no rashes, warm and dry Neurologic: CN's II-XI intact bilaterally, moves all extremities and + confused; no focal motor deficits Motor/Sensory: no pronator drift Psychiatric: Orientation: alert and oriented to person Results & Data ([facility]) Vital Signs (Past 12 Hours) Vital Signs Temp Pulse Pulse Resp BP BP Pulse Ox 11/08/19 15:10 36.5 C 50 L 16 135/62 98 11/08/19 11:47 72 11/08/19 08:00 55 L 11/08/19 07:49 36.8 C 56 L 18 162/75 H 95 11/08/19 07:21 52 L 16 97 11/08/19 05:13 36.9 C 56 L 19 162/77 H 99 Resident Activity Tracking Resident Involvement: Resident Care Provided Care Provided: Adult Hospital Medicine
[2019-11-08] MEDS: ATORVASTATIN 40 MG TAB PO SCH (22:45)
[2019-11-09] MEDS: INSULIN ASPART 100 UNITS/ML 3 ML PEN SC SCH ×5 (00:43→20:32)
[2019-11-09] MEDS: ACETAMINOPHEN 500 MG TAB PO SCH ×3 (06:20→21:39)
--- NOTE | 2019-11-09 07:49 | XRay Report ---
XR chest 1V portable CLINICAL HISTORY: f/u dyspnea COMPARISON STUDY: 11/08/2019 FINDINGS: The bones soft tissues and hemidiaphragms are normal. The cardiomediastinal silhouette is n ormal. The lungs are clear. The pulmonary vasculature is normal. IMPRESSION: Negative chest. No change from the prior study. ACT 112: Negative or not required by law. The above report was generated using voice recognition software. It may contain grammatical, syntax or spelling errors. Electronically signed by: Toribio Barnhart M.D. 11/09/2019 7:47 AM
[2019-11-09] MEDS: FAMOTIDINE 20 MG TAB PO SCH ×2 (09:25→21:39)
[2019-11-09] MEDS: OSELTAMIVIR PHOSPHATE 75 MG CAP PO SCH (09:25)
[2019-11-09] MEDS: HYDROCORTISONE 10 MG TAB PO SCH ×3 (09:26→21:37)
[2019-11-09] MEDS: ARMOUR THYROID 30 MG TAB PO SCH (09:26)
[2019-11-09] MEDS: ASPIRIN 81 MG CHEW PO SCH (09:26)
[2019-11-09] MEDS: SENNA 8.6 MG TAB PO SCH (09:27)
[2019-11-09] MEDS: METOPROLOL TARTRATE 50 MG TAB PO SCH ×2 (09:28→21:39)
[2019-11-09] MEDS: DICLOFENAC SOD 1% GEL 100 GM TUBE EXT SCH ×3 (09:28→21:39)
[2019-11-09] MEDS: ENOXAPARIN INJ 40 MG/0.4 ML SYR SQ SCH (12:50)
--- NOTE | 2019-11-09 13:11 | Hospitalist Progress Note ---
Date of Service November 09, 2019 Assessment & Plan (1) Cardiac arrest: Ms. Ortiz is a 59 yo F admitted 11/04/19 after suffering a cardiac arrest at home with ROSC after AED shock x2. Cardiac Arrest: - witnessed cardiac arrest at home by spouse; with then CPR ~ 20 minutes; BLS EMS arrived and ROSC after AED shock x 2 - Patient was taken to the lab technologist upon arrival, which showed no evidence of acute thrombosis or occlusive disease, PCI not employed - no arrhythmias while on monitor - TTE 11/03: demonstrated low L ventricular systolic function with apical dyskinesis, EF 50-55%; repeat echio 11/07: demonstrated improved apical LV function, EF 60-65% - Cardiology consulted: recommended re-evaluation of ICD placement after determination of improved functional status, until then recommended LifeVest defibrillator Elevated Troponin: - troponin on arrival 0.29, peaked at 7.5; has downtrended Chest Wall Pain secondary to rib fracture: - New chest pain likely 2/2 chest wall trauma from recent CPR - EKGs x2 stable - scheduled tylenol and diclofenac gel for pain Cardiomyopathy - TTE ordered, showing low L ventricular systolic function with apical dyskinesis, EF 50-55% - repeat study 11/07 showing recovered LV systolic function with significant improvement in apical wall motion abnormality, EF 60-65%. - without pre-admission comparison study, it is unknown as to whether patient suffered an arrhythmia due to underlying cardiomyopathy vs. myocardial stunning in response to CPR Acute Respiratory Failure - ?2/2 cardiac arrest vs. 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 - continue routine hydrocortisone dosing Hypothyroidism - continue home regimen DMII - A1c <6 - holding home orals while in hospital - glycemic control consulted HTN - BP currently at goal at 135/62 - continue metoprolol 12.5 bid - holding home HCTZ HLD - continue home atorvastatin GERD - currently on famotidine for stress ulcer ppx Diet: heart healthy, DM diet DVT ppx: 5,000 units SQ, BID Code Status: Full code Admission and Anticipated Discharge Date Admission Date: November 04, 2019 Supervising Physician Co-Signing Physician Notes Resident Physician Supervision Note: I independently interviewed and examined the patient and verified the michael history and physical, reviewed labs and image studies, discussed the case with the resident Dr. Barragan and agree with the findings and care plan. Subjective Patient feels considerably better, than previous days; has not had continued chest pain or discomfort over night. In discussions, with her he feels like her memory of recent events since coming out of the ICU have considerably improved and she is not having as much difficulty with remembering recent conversations. He has noticed that she is closer to her normal self than she had been even yesterday. Review of Systems Review of Systems: All systems reviewed & are unremarkable except as noted in Subjective Physical Exam Constitutional: WD/WN, vitals as above Eyes: PERRL, conjunctivae normal, anicteric sclerae Respiratory: normal respiratory effort, lungs clear to auscultation Cardiovascular: Rate/Rhythm: regular rhythm and + bradycardic Heart Sounds: no gallop, no murmur and no cardiac rub Vessels: no JVD Extremities: no pedal edema Gastrointestinal (Abdomen): normal bowel sounds, soft, nontender, no hepatosplenomegaly Psychiatric: Orientation: alert, oriented x 3 and cooperative Eye Contact: good eye contact Results & Data ([facility]) Vital Signs (Past 12 Hours) Vital Signs Temp Pulse Pulse Resp BP Pulse Ox 11/09/19 08:00 36.6 C 60 49 L 18 147/76 H 97 Laboratory Results 11/09/19 11/09/19 11/08/19 Range/Units 11:31 07:53 20:31 POC Glucose 93 82 99 (70-99) mg/dl 11/08/19 Range/Units 16:48 POC Glucose 88 (70-99) mg/dl Medications Administered Current Inpatient Medications Acetaminophen (Tylenol) 500 mg PO Q8 [facility] Stop: 12/08/19 09:59 Last Admin: 11/09/19 06:20 Dose: Not Given Documented by: Albuterol (Duoneb) 3 ml NEB Q4R PRN PRN Reason: Wheezing Stop: 12/08/19 10:59 Aspirin (Aspirin Chew) 81 mg PO DAILY RADHA Stop: 12/05/19 08:59 Last Admin: 11/09/19 09:26 Dose: 81 mg Documented by: Atorvastatin Calcium (Lipitor) 40 mg PO QPM [facility] Stop: 12/04/19 20:59 Last Admin: 11/08/19 22:45 Dose: 40 mg Documented by: Diclofenac Sodium (Voltaren 1% Top) 2 gm EXT TID RADHA Stop: 12/08/19 13:59 Last Admin: 11/09/19 09:28 Dose: Not Given Documented by: Enoxaparin Sodium (Lovenox) 40 mg SQ Q24H [facility] Stop: 12/07/19 10:44 Last Admin: 11/08/19 12:00 Dose: 40 mg Documented by: Famotidine (Pepcid) 20 mg PO BID [facility] Stop: 12/06/19 20:59 Last Admin: 11/09/19 09:25 Dose: 20 mg Documented by: Hydrochlorothiazide (Hctz) 25 mg PO DAILY [facility] Stop: 12/04/19 08:59 Hydrocortisone (Cortef) 5 mg PO BID [facility] Stop: 12/06/19 08:59 Last Admin: 11/09/19 09:26 Dose: 5 mg Documented by: Hydrocortisone (Cortef) 10 mg PO QAM [facility] Stop: 12/06/19 08:59 Last Admin: 11/09/19 09:26 Dose: 10 mg Documented by: Insulin Aspart (Novolog Flexpen) 0 units SC ACHS [facility] Stop: 12/06/19 21:59 Last Admin: 11/09/19 12:24 Dose: Not Given Documented by: Isosorbide Mononitrate (Imdur Extended Rel) 60 mg PO DAILY [facility] Stop: 12/04/19 08:59 Ketorolac Tromethamine (Toradol) 15 mg IV Q6H PRN PRN Reason: Pain Stop: 11/12/19 10:32 Last Admin: 11/07/19 11:10 Dose: 15 mg Documented by: Metoprolol Tartrate (Lopressor) 50 mg PO BID [facility] Stop: 12/06/19 08:59 Last Admin: 11/09/19 09:28 Dose: Not Given Documented by: Multi-Ingredient Cream (Lacri-Lube) 1 appln OP Q2H PRN PRN Reason: eye protection Stop: 12/04/19 04:11 Oseltamivir Phosphate (Tamiflu) 75 mg PO BID [facility] Stop: 11/09/19 20:59 Last Admin: 11/09/19 09:25 Dose: 75 mg Documented by: Sennosides (Senokot) 8.6 mg PO QAM [facility] Stop: 12/06/19 10:59 Last Admin: 11/09/19 09:27 Dose: 8.6 mg Documented by: Thyroid ([place] Thyroid) 90 mg PO DAILY [facility] Stop: 12/04/19 08:59 Last Admin: 11/09/19 09:26 Dose: 90 mg Documented by: Resident Activity Tracking Resident Involvement: Resident Care Provided Care Provided: Adult Hospital Medicine
--- NOTE | 2019-11-09 15:29 | Cardiology Progress Note ---
Date of Service November 09, 2019 Assessment & Plan (1) Cardiac arrest: Plan as previously outlined by Dr. Tatum. Form completed for [employer], will use standard initial settings. Follow-up with Dr. Tatum to evaluate for potential ICD. (2) CAD (coronary artery disease): Continue risk factor modification. (3) Coma of unknown cause: Neurologic function rapidly improving, however would recommend full margot ropsychological evaluation to ascertain whether any subtle deficits from her cardiac arrest remained (such as persistent short-term memory loss). Admission and Anticipated Discharge Date Admission Date: November 04, 2019 Subjective Uneventful night. Patient very anxious to return home. She denies any chest pain or dyspnea. She still has difficulties with short-term memory, but her states that she is markedly improving each day. No focal neurologic symptoms. Physical Exam Physical Exam: No distress. Skin: no ecchymoses or generalized lesions. HEENT: Eschar of healing abrasion upper nasal bridge, otherwise unremarkable. Neck: no JVD or carotid bruits. Lungs clear. Cardiac: regular rhythm and no murmur or gallop. Abdomen benign. Extremities: no edema, pulses brisk. Neurologic: Answers simple questions appropriately, still suspect some short- term memory loss, grossly nonfocal. Results & Data ([facility]) Vital Signs (Past 12 Hours) Vital Signs Temp Pulse Pulse Resp BP Pulse Ox 11/09/19 08:00 97.9 F 60 49 L 18 147/76 H 97 Diagnostic Findings Follow-up echocardiogram 11/08/2019 showed normalization of LV systolic function and near resolution of the previously noted apical wall motion abnormality. PG Care Time/CCT Total # of Minutes Spent Total Time Spent with Patient: Total time spent is greater than 50% in coordination of care (as documented) at patient's floor/unit and/or counseling patient: Coding Level of Care Code 85028 Subseq Hosp Care Lvl 3 Diagnoses Cardiac arrest I46.9 CAD (coronary artery disease) I25.10 Coma of unknown cause R40.20
[2019-11-09] MEDS: ATORVASTATIN 40 MG TAB PO SCH (21:38)
[2019-11-10] MEDS: ACETAMINOPHEN 500 MG TAB PO SCH ×2 (05:47→14:25)
--- NOTE | 2019-11-10 07:30 | XRay Report ---
XR chest 1V portable CLINICAL HISTORY: Shortness of breath. Follow-up examination. COMPARISON STUDY: 11/09/2019 FINDINGS: The cardiac and mediastinal contours are normal. There is no evidence of focal pulmonary co nsolidation. There is no evidence of failure. No pleural effusions are visualized.[A tubular density projects over the left cardiac shadow, possibly representing a coronary artery stent IMPRESSION: No active disease in the chest. ACT 112: Negative or not required by law. Electronically signed by: Prakash Haider M.D. 11/10/2019 7:28 AM
[2019-11-10] MEDS: INSULIN ASPART 100 UNITS/ML 3 ML PEN SC SCH ×2 (09:11→12:59)
[2019-11-10] MEDS: HYDROCORTISONE 10 MG TAB PO SCH ×2 (09:13→09:15)
[2019-11-10] MEDS: FAMOTIDINE 20 MG TAB PO SCH (09:13)
[2019-11-10] MEDS: ARMOUR THYROID 30 MG TAB PO SCH (09:15)
[2019-11-10] MEDS: DICLOFENAC SOD 1% GEL 100 GM TUBE EXT SCH ×2 (09:16→14:25)
[2019-11-10] MEDS: METOPROLOL TARTRATE 50 MG TAB PO SCH (09:16)
[2019-11-10] MEDS: ASPIRIN 81 MG CHEW PO SCH (09:23)
[2019-11-10] MEDS: SENNA 8.6 MG TAB PO SCH (09:24)
[2019-11-10] MEDS ORDERED: lisinopriL 5 MG TAB PO ONE (12:00)
[2019-11-10] MEDS: ENOXAPARIN INJ 40 MG/0.4 ML SYR SQ SCH (12:52)
--- NOTE | 2019-11-10 13:16 | Discharge Summary ---
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 She has had flu like illness for past several days with cough, fever, chills she got up from bed with earlier this evening collapsed and hit her head on bedside dresser. immediately started to do CPR, neighbors helped as well, within 20 minutes EMT arrived she was found to have shockable rhythm and received two shocks in field and ROSC was achieved. ACLS first responders arrived and she was not breathing so they ventilated her via bag mask and brought her to emergency department. At [facility] emergency department she was found to have a GCS of 3 and normal appearing ECG, plan was to initiate a code arctic, ECG then developed ST elevations in inferior leads and some in lateral leads and patient was taken to the catheterization laboratory technician where she is currently. After catheterization patient will be transferred to ICU for further evaluation and management. Principal Diagnosis Cardiac Arrest Discharge Exam Constitutional WD/WN, vitals as above Eyes PERRL, conjunctivae normal, anicteric sclerae Respiratory normal respiratory effort, lungs clear to auscultation Cardiovascular Rate/Rhythm: regular rhythm and + bradycardic Heart Sounds: no gallop, no murmur and no cardiac rub Vessels: no JVD Extremities: no pedal edema Gastrointestinal (Abdomen) normal bowel sounds, soft, nontender, no hepatosplenomegaly Psychiatric Orientation: alert, oriented x 3 and cooperative Eye Contact: good eye contact Discharge Data Allergies Allergy/AdvReac Type Severity Reaction Status Date / Time fenofibrate Allergy Unknown Verified 11/04/19 01:34 Consultations 11/04/19 03:30 ED Decision to Admit Stat 11/04/19 04:23 Consult Cardiology Routine 11/04/19 04:34 Consult Case Management - Discharge Planning Routine Consult Panel Maker Routine Consult Panel Maker Routine Procedures Performed Operation Date: 11/04/19 02:20 Actual Procedures p Cath, Left with Cors and Vent - Victor Manuel Bland MD s Cineradiography w/Routine Exam - Victor Manuel Bland MD s Central Venous Placement - Victor Manuel Bland MD s Ultrasound Vascular Access - Victor Manuel Bland MD Ordered Studies 11/04/19 01:01 CT cervical spine wo con Urgent CT head/brain wo con Urgent 11/04/19 02:18 CL Cath Imgs for PACS use only Stat Hospital Course (1) Cardiac arrest: Ms. Ortiz is a 59 yo F admitted 11/04/19 after suffering a cardiac arrest at home with ROSC after AED shock x2. Cardiac Arrest: - witnessed cardiac arrest at home by spouse; with then CPR ~ 20 minutes; BLS EMS arrived and ROSC after AED shock x 2 - Patient was taken to the catheterization laboratory technician upon arrival, which showed no evidence of acute thrombosis or occlusive disease, PCI not employed; no arrhythmias while on monitor throughout stay - TTE 11/03: demonstrated low L ventricular systolic function with apical dyskinesis, EF 50-55%; repeat echio 11/07: demonstrated improved apical LV function, EF 60-65% - Cardiology consulted: recommended re-evaluation of ICD placement after determination of improved functional status, until then recommended LifeVest defibrillator; in addition to recommended Neuropsych evaluation as period of time down pre-disposes patient to future memory/cognitive difficulties Chest Wall Pain: - New chest pain likely 2/2 chest wall trauma/rib fracture from recent CPR - EKGs x2 stable - scheduled tylenol and diclofenac gel for pain Cardiomyopathy: - TTE ordered, showing low L ventricular systolic function with apical dyskinesis, EF 50-55% - repeat study 11/07 showing recovered LV systolic function with significant improvement in apical wall motion abnormality, EF 60-65%. - without pre-admission comparison study, it is unknown as to whether patient suffered an arrhythmia due to underlying cardiomyopathy vs. myocardial stunning in response to CPR Acute Respiratory Failure: - ?2/2 cardiac arrest vs. 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 - continue routine hydrocortisone dosing Hypothyroidism: - continue home regimen DMII: - A1c <6 - resume home oral regimen HTN: - numerous elevated BPs while in-patient - continue lisinopril 5mg daily - hold metoprolol 12.5 bid, secondary to bradycardia - holding home HCTZ HLD: - continue home atorvastatin Total Time Total Time Spent Total Time Spent (In Minutes): 30 Discharge Plan Discharge Items Patient Disposition: Home - Self-Care Reason For Visit: CARDIAC ARREST Discharge Diagnosis: Cardiac Arrest Activity: Per Instructions section Non-emergency contact: Primary Care Provider and Food Service Aide Call non-emergency contact if: you have any medication questions and your symptoms worsen Follow-up/Referrals: PCP,NO [Physician] - Diet: Regular Addtl Attending Provider Instructions: You were admitted following having a flu-like illness for several days with cough, fever, and chills; subsequently, when you got up from bed the night you were brought to the hospital you collapsed and hit your head on the bedside dresser. Your heart was stopped for about 20 minutes with your , and your neighbor doing CPR, before the emergency medical services reached your and were able to restart your heart. For this you were admitted to the hospital, for evaluation of the cause of your heart to stop. For this you had a heart catheterization that did not demonstrate a new blockage in the vessels of your heart; an initial echo demonstrated that your heart was not moving well, but this improved after a couple days and this demonstrated that the motion of your heart was returning back to normal. As you are now being discharged, you are being fit for a LifeVest that will continue to monitor your heart and if needed return your heart back to its normal rhythm. You should continue to wear this, until you are seen by the catalytic converter operator helper to further have discussions on long-term protection of your heart from having another sudden stop. Pending Studies at Discharge: No Stand-Alone Forms: My [employer], Smoking Cessation Medications and DC Order Prescriptions: New lisinopril 5 mg tablet 5 mg PO DAILY 30 Days Qty: 30 RF: 0 Continued ergocalciferol (vitamin D2) 50,000 unit capsule 50,000 units PO .COMPLEX Qty: 10 RF: 3 thyroid (pork) [[place] Thyroid] 90 mg tablet 90 mg PO DAILY Qty: 90 RF: 1 (DME) lancets [Accu-Chek Fastclix Lancet Drum] misc See Rx Instructions .ROUTE .MEDSUPPLY Qty: 102 RF: 3 (DME) Accu-Chek Guide strip See Rx Instructions .ROUTE .MEDSUPPLY Qty: 100 RF: 3 glipizide 5 mg tablet 5 mg PO DAILY Qty: 90 RF: 3 isosorbide mononitrate 30 mg tablet extended release 24 hr 60 mg PO DAILY Qty: 180 RF: 3 aspirin 81 mg tablet 81 mg PO DAILY RF: 0 hydrocortisone 5 mg tablet 5 mg PO BID RF: 0 omeprazole 20 mg capsule,delayed release(DR/EC) 20 mg PO DAILY Qty: 90 RF: 0 (DME) lancets [OneTouch Delica Lancets] 33 gauge misc See Dose Instructions .ROUTE .MEDSUPPLY Qty: 100 RF: 0 (DME) OneTouch Ultra Blue Test Strip strip See Dose Instructions .ROUTE .MEDSUPPLY Qty: 10 RF: 0 hydrocortisone 10 mg tablet 10 mg PO QAM RF: 0 atorvastatin 40 mg tablet 40 mg PO QPM Qty: 90 RF: 3 Discontinued metoprolol tartrate 50 mg tablet 50 mg PO BID Qty: 180 RF: 1 hydrochlorothiazide 25 mg tablet 25 mg PO DAILY Qty: 90 RF: 3 Discharge Orders: Discharge Order (Routine); Ordered 11/10/19 Ordered By: Ovi Barragan Admission Data Admit Date/Time: 11/04/19 04:33 Attending Provider: Katharine Martinez Admit Provider: Rupesh Feldman Primary Care Provider: Adam Mcmahon V. Other Providers: Gerson Byrd ; Rosa,[facility] ; Yun Moon Kip M. ; Ramiro Khan ; Christopher Luque ; Victor Manuel Bland ; Js Tatum ; Reginald Coronel Jr ; Patricio Grijalva ; Varsha Ivan ; Claire Stovall ; Je Guajardo ; Je Martel ; Anderson Valenzuela ; Jose Miguel Spann ; Shira Hood ; Natasha Leos ; Davian Cortes Other Interventions: Discharge Summary Assessment (RN) Last Done: 11/10/19 14:44 DC Date/Time DO NOT enter until pt leaves facility: 11/10/19 15:25 Supervising Physician Co-Signing Physician Notes Resident Physician Supervision Note: I independently interviewed and examined the patient and verified the michael history and physical, reviewed labs and image studies, discussed the case with the resident Dr. Barragan and agree with the findings and care plan. Resident Activity Tracking Resident Involvement: Resident Care Provided Care Provided: Adult Hospital Medicine
== END 2019-11-10 15:25 | disposition home health service (06) | DRG 286 ==
LOC: ED 00:53 → CC 02:29 → 1E 02:41 → SUATTDRO 02:41 → 2E 11-06 16:22 → 2N 11-08 12:34

== ENCOUNTER 2019-12-05 08:34 | Observation (INO) ==
[2019-12-05] MEDS ORDERED: CEFAZOLIN 250 MG/ML 1 GM VIAL ONE (10:00)
[2019-12-05] MEDS ORDERED: fentaNYL citrate 100 MCG/2 ML VIAL ONE (10:00)
[2019-12-05] MEDS ORDERED: MIDAZOLAM HCL 5 MG/ML 1 ML VIAL ONE (10:00)
[2019-12-05] MEDS ORDERED: LIDOCAINE HCL 1% 20 ML VIAL ONE (10:07)
[2019-12-05] MEDS ORDERED: BACITRACIN OINT 0.9 GM PKT ONE (10:07)
[2019-12-05] MEDS ORDERED: BACITRACIN INJ 50,000 UNIT VIAL ONE (10:07)
--- NOTE | 2019-12-05 10:37 | History & Physical Bridge Note ---
Date of Service December 05, 2019 History & Physical Bridge Note I have examined the patient, reviewed the History & Physical and in the interval since the performance of the History & Physical I have noted the following changes of clinical significance: no changes noted. I reviewed the indications, procedure, risks and alternatives of ICD implantation with her and she understands and agrees to proceed. Consent obtained. I also reviewed conscious sedation with her and she agrees. Consent obtained.
--- NOTE | 2019-12-05 10:38 | Pre Anesthesia Assessment ---
Date of Service December 05, 2019 Pre Sedation Assessment Vital Signs Temp Pulse Resp BP Pulse Ox 12/05/19 08:40 36.6 C 58 L 18 178/80 H 98 Cardiovascular RRR, no murmur, no edema Respiratory normal respiratory effort, lungs clear to auscultation Pre-Sedation Airway Assessment Smoking Status: Current every day smoker Hx Sleep Apnea: No Hx Difficult Intubation: No Short, Thick Neck: No Thyromental Distance: > or= 3.5 Finger Breadths Oral Cavity: + WNL Mallampati Class: II ASA: ASA2 NPO Status Date of Last Intake of Fluids: 12/04/19 Date of Last Intake of Solid Food: 12/04/19 Procedure Planning Contraindications for Sedation: none Current Medications Reviewed: Yes Notes The planned sedation has been discussed with the patient. Informed Consent was obtained. I have identified the patient, determined the appropriateness of sedation and have assessed the patient immediately prior to the procedure. All medicine(s) and interventions are by my order.
--- NOTE | 2019-12-05 12:05 | Electrophysiology Report ---
Date of Service December 05, 2019 Electrophysiology Procedure Electrophysiology Procedure Report Preoperative diagnosis: Resuscitated sudden cardiac Postoperative diagnosis: Same Procedure: Single-chamber ICD implantation Surgeon: Js Tatum MD Estimated blood loss: 20 cc Complications: None Disposition: Cardiology recovery Procedure details: After obtaining informed consent for the procedure, the patient was brought to the laboratory and prepped and draped in the standard sterile manner. The left prepectoral region was anesthetized with 1% lidocaine local anesthetic and left axillary venipuncture was performed by percutaneous technique and a guidewire placed through the left subclavian vein into the superior vena cava. The area was further infiltrated with 1% lidocaine local anesthetic and a 7 cm incision was made parallel to the left clavicle and 2 cm below it and carried down to the anterior pectoralis fascia. An ICD pocket was formed by blunt dissection anterior to the pectoralis fascia and a bacitracin- soaked sponge (50,000 units in 50 cc normal saline solution) was placed in the pocket. A 10.5 [place] Medtronic lead introducer was placed over the guidewire into the left subclavian vein, the dilator and guidewire were removed and a bipolar dual coil active fixation steroid tipped ventricular ICD lead was advanced through the introducer into the superior vena cava. A guidewire was placed through the introducer and the introducer was stripped from the lead and guidewire. Using a curved stylette the ventricular lead was advanced through the right ventricular outflow tract into the pulmonary artery and then using a straight stylette was positioned in the right ventricular apex. The screw was extended fixing the lead in position. Pacing and sensing thresholds were evaluated in bipolar configuration and are recorded on the implant data sheet. Once the lead was in position it was attached to the anterior pectoralis fascia using 2 sutures of 2-0 silk around the lead collar. The bacitracin-soaked sponge was removed from the pocket, hemostasis was obtained, the ICD was attached to the lead and placed in the pocket with the lead coiled beneath it. The incision was closed with a running double subcutaneous closure of 3-0 Vicryl absorbable suture, followed by running subcuticular skin closure of 4-0 Vicryl absorbable suture. Bacitracin ointment was placed on the incision and a pressure dressing applied. [facility] Electrophysiology codes ICD Procedure 1: ICD: 24363 Insert single or dual ICD system PG Moderate Sedation Codes Moderate Sedation Codes Procedure 1: Sedation/Anesthesia: 74935 Mod Sedation by the same physician;Init15 Min Child Age 5 & Up Procedure 2: Sedation/Anesthesia: 62745 Mod Sedation by the same physician; Ea [id number] Minutes
--- NOTE | 2019-12-05 12:53 | Post Anesthesia Assessment ---
Date of Service December 05, 2019 Post Sedation Assessment Vital Signs Temp Pulse Resp BP Pulse Ox 12/05/19 12:40 36.4 C L 58 L 20 142/77 H 96 12/05/19 12:19 36.6 C 54 L 18 162/82 H 98 12/05/19 12:05 36.6 C 58 L 18 178/80 H 98 12/05/19 08:40 36.6 C 58 L 18 178/80 H 98 Recovery Score Activity: Moves 4 extremities Respiration: Deep Breath/Cough Circulation: +/-20% PreAnes Value Consciousness: Fully Awake Oxygen Saturation: > 92% On Room Air Post Anesthesia Score: 10 Discharge Sedation Level of Care: Fast Track Phase II Post Sedation Plan On clinical assessment, the patient appears to have tolerated the sedation without complications. Patient is recovering as anticipated. Patient will continue to be monitored by nursing and may be discharged when sedation discharge criteria are met per below protocol. Upon Completions of procedure up to 15 minutes continue every 5 minute vital signs and the P.A.R. score; then discharge to a Phase I or Fast Track to Phase II per the following guidelines: * Discharge Patient to appropriate Phase II area if PAR is 8 or greater or return to pre- procedure baseline. The post - procedure orders will be as directed. * If PAR score is less than 8 or not return to pre-procedure baseline then patient will follow Phase I monitoring till PAR is reached for Phase II. The Phase I may be done in procedure room or may call to secure a Phase I area. * If naloxone or flumazenil are used for reversal, hold in Phase I for continued monitoring from when last reversal dose was given for a minimum of 60 minutes or longer pending the nurse and/or physician discretion of patient condition before discharge to Phase II. Please call the Sedation Physician to re-evaluate and complete post-note for discharge to Phase II area. Do NOT discharge from procedure sedation or Phase 1 until post- sedation evaluation note is complete by procedure /sedation MD Sedation Discharge Instructions to be given to the patient at discharge to home.
[2019-12-05] MEDS: HYDROCORTISONE 10 MG TAB PO SCH (20:48)
[2019-12-05] MEDS: ACETAMINOPHEN 325 MG TAB PO PRN (20:55)
[2019-12-05] MEDS ORDERED: ATORVASTATIN 40 MG TAB PO SCH (21:00)
[2019-12-05] MEDS: KETOROLAC TROMETHAMINE 10 MG TABLET PO PRN (21:59)
[2019-12-06] MEDS: ACETAMINOPHEN 325 MG TAB PO PRN (04:06)
[2019-12-06] MEDS ORDERED: LEVOTHYROXINE SODIUM 88 MCG TABLET PO SCH (06:30)
--- NOTE | 2019-12-06 07:55 | XRay Report ---
XR chest 2V PA/lateral CLINICAL HISTORY: Pacemaker placement. Evaluate for pneumothorax. COMPARISON STUDY: 11/10/2019 FINDINGS: The cardiac and mediastinal contours are normal. There is a left subclavian pacer/defibrill ator. There is no failure. There is no focal pulmonary consolidation. There is no pneumothorax. No pl eural effusions are visualized. Incidental note is made of a coronary artery stent.[ IMPRESSION: 1. No evidence of pneumothorax status post placement of a left subclavian pacer/defibrillator 2. No active disease in the chest ACT 112: Negative or not required by law. Electronically signed by: Prakash Haider M.D. 12/06/2019 7:53 AM
[2019-12-06] MEDS ORDERED: ERGOCALCIFEROL 50,000 UNITS CAP PO SCH (09:00)
[2019-12-06] MEDS ORDERED: HYDROCORTISONE 10 MG TAB PO SCH (09:00)
[2019-12-06] MEDS ORDERED: ISOSORBIDE MONO EXTENDED REL 60 MG TABCR PO SCH (09:00)
[2019-12-06] MEDS ORDERED: PANTOprazole 40 MG TAB PO SCH (09:00)
[2019-12-06] MEDS ORDERED: ASPIRIN 81 MG ECTAB PO SCH (09:00)
[2019-12-06] MEDS ORDERED: lisinopriL 5 MG TAB PO SCH (09:00)
[2019-12-06] MEDS: HYDROCORTISONE 10 MG TAB PO SCH (09:02)
[2019-12-06] MEDS: KETOROLAC TROMETHAMINE 10 MG TABLET PO PRN (09:06)
--- NOTE | 2019-12-06 09:31 | Cardiology Progress Note ---
Date of Service December 06, 2019 Assessment & Plan (1) Status post implantation of automatic cardioverter/defibrillator (AICD): She is doing well postop day #1, the site looks good, the ICD is working well and the chest x-ray looks good. She is stable for discharge. Admission and Anticipated Discharge Date Admission Date: December 05, 2019 Subjective She is feeling well today, she has no significant incisional discomfort, no chest discomfort no shortness of breath. Physical Exam Physical Exam: The incision is clean and dry, there is no swelling at the site, no erythema and minimal ecchymosis as expected. No drainage on the dressing. Results & Data ([facility]) Vital Signs (Past 12 Hours) Vital Signs Temp Pulse Resp BP Pulse Ox 12/06/19 08:27 36.5 C 56 L 18 153/83 H 94 12/06/19 05:06 162/79 H 12/06/19 04:10 176/80 H 12/06/19 03:49 36.7 C 50 L 16 185/85 H 96 12/06/19 01:25 15 155/81 H 95 12/05/19 23:25 164/93 H 12/05/19 23:13 36.3 C L 60 16 177/78 H 95 Laboratory Results Intake and Output 12/05/19 12/06/19 12/06/19 22:59 06:59 14:59 Intake Total 200 / 450 Balance 200 / 450 Intake: Oral 200 / 450 Other: # Unmeasured Voids 2 Weight 64.1 kg Diagnostic Findings Postop electrocardiogram: Sinus bradycardia, appropriate ICD inhibition Telemetry: Sinus rhythm, appropriate ICD inhibition Chest x-ray: Good lead position, no pneumothorax ICD evaluation: Excellent pacing and sensing characteristics PG Care Time/CCT Total # of Minutes Spent Total Time Spent with Patient: Total time spent is greater than 50% in coordination of care (as documented) at patient's floor/unit and/or counseling patient: Coding Level of Care Code 41041 Post Operative Follow-Up Diagnoses Status post implantation of automatic cardioverter/defibrillator (AICD) Z95.810 CPT Codes Implantable Defib Single Lead Programming - 13925 ([id number])
--- NOTE | 2019-12-06 15:25 | Electrocardiogram Report ---
Test Reason : Blood Pressure : / mmHG Vent. Rate : 056 BPM Atrial Rate : 056 BPM P-R Int : 216 ms QRS Dur : 076 ms QT Int : 418 ms P-R-T Axes : 062 002 -20 degrees QTc Int : 403 ms Poor data quality, interpretation may be adversely affected Sinus bradycardia with 1st degree A-V block Low voltage QRS Abnormal ECG When compared with ECG of 07-NOV-2019 02:05, T wave inversion less evident in Inferior leads QT has shortened Confirmed by Js Tatum ([id number]) on 12/06/2019 3:24:55 PM Referred By: Js Tatum Confirmed By:Js Tatum
--- NOTE | 2019-12-10 07:56 | Discharge Summary ---
Date of Service December 06, 2019 Admission HPI Per Admitting Provider This is a 59-year-old woman who follows with Dr. Guajardo in our office and has a history of coronary artery disease including multiple prior interventions and stenting. Her most recent stent I believe was in the circumflex system in 2007. She also has peripheral arterial disease and has had iliac stenting. She has diabetes mellitus, dyslipidemia, a long smoking history and hypertension. She presented with a with a witnessed cardiac arrest where she collapsed in front of her and had several days of a flulike illness. CPR was initiated and apparently it was about 20 minutes before EMT arrived and delive red 2 shocks with an AED. She brought in by ambulance intubated, there is suggestion of inferior ischemia therefore she was [facility] emergently [facility]. She was found to have mild coronary artery disease and diffuse nonocclusive disease in small distal vessels, no culprit lesion identified. She did have a stress echo done on October 26, 2016 where she had normal left ventricular systolic function. Her initial echocardiogram done following her cardiac arrest on November 04, 2019 showed low normal overall left ventricular function but with an area of apical dyskinesis possibly consistent with Takatsubo cardiomyopathy. A repeat echocardiogram done November 08, 2019 showed normal left ventricular function with ejection fraction of 60 to 65% and significant improvement in her apical wall motion abnormality. This appeared most consistent with a primary cardiac event rather than an acute ischemic event and she was discharged with a LifeVest on November 10, 2019. She had significantly improved her mental status prior to discharge and that has continued. She arrives in the office still having difficulty with her memory and not recalling several weeks of the events surrounding her cardiac arrest but overall doing better and becoming more active. She is wearing the LifeVest and she notes that she gets a sensation she calls a "zap" in her back, which is probably a vibration due to poor electrode contact. She has not had LifeVest shocks. She has had no lightheadedness or dizziness, no presyncope or syncope. She does not have exertional chest discomfort or exertional shortness of breath. Admission Exam Per Admitting Provider Constitutional: Awake, cooperative and in no distress. HEENT: Unremarkable Neck: No jugular venous distention, carotid pulses are normal and equal bilaterally without bruits. Pulmonary: Clear to auscultation bilaterally. Cardiac: Regular rhythm with no murmur, gallop or rub. Abdomen: Soft, nontender with normal bowel sounds. Extremities: No edema. Distal pulses intact. Neurologic: No focal findings. Gait not tested. Skin: No rash, ecchymoses or petechiae. Principal Diagnosis Resuscitated sudden cardiac Discharge Exam [facility] Mallampati Class: II Respiratory normal respiratory effort, lungs clear to auscultation Cardiovascular RRR, no murmur, no edema Discharge Data Allergies Allergy/AdvReac Type Severity Reaction Status Date / Time fenofibrate Allergy Unknown Verified 11/04/19 01:34 [id number]-Cob-Tgs Reductase Allergy Verified 12/05/19 08:46 Inhibitor Procedures Performed Operation Date: 12/05/19 10:00 Actual Procedures p ICD Insertion Single or Dual - Js Tatum MD Ordered Studies 12/05/19 06:39 CL Cath Imgs for PACS use only Routine Hospital Course (1) Status post implantation of automatic cardioverter/defibrillator (AICD): She is doing well postop day #1, the site looks good, the ICD is working well and the chest x-ray looks good. She is stable for discharge. Total Time Total Time Spent Total Time Spent (In Minutes): 20 Total Time Includes: Examination of the Patient, Discharge Planning and Medication Reconciliation Discharge Plan Discharge Items Patient Disposition: Home - Self-Care Reason For Visit: Cardiac Arrest and Coronary Artery Disease Discharge Diagnosis: Post ICD implantation Activity: Per Instructions section Bathing: Keep incision dry Non-emergency contact: Primary Care Provider Call non-emergency contact if: you have any medication questions Follow-up/Referrals: Js Tatum MD [Physician] - 12/09/19 10:30 am Adam Mcmahon MD [Primary Care Provider] - Diet: Heart Healthy Addtl Attending Provider Instructions: ACTIVITY RECOMMENDATIONS: * Do not raise affected arm over head for 2 weeks. SPECIAL CARE INSTRUCTIONS: * If bleeding occurs, apply direct pressure to area for 5 minutes. * Call your doctor if you have severe pain, fever, drainage or bleeding at site. * Keep dressing on and dry for 48 hours then remove. * Keep any scheduled doctor's appointment. * Implant Card - hand held device with website information given. SKIN IRRITATION: * You may experience some redness and/or swelling in the area where radiation was administered. If any skin irritation occurs, please contact your family physician. FOLLOW UP VISIT: Keep any scheduled doctor appointments. Pending Studies at Discharge: No Stand-Alone Forms: My [facility], Smoking Cessation Medications and DC Order Prescriptions: Continued ergocalciferol (vitamin D2) 50,000 unit capsule 50,000 units PO .COMPLEX Qty: 10 RF: 3 (DME) lancets [Accu-Chek Fastclix Lancet Drum] misc See Rx Instructions .ROUTE .MEDSUPPLY Qty: 102 RF: 3 (DME) Accu-Chek Guide strip See Rx Instructions .ROUTE .MEDSUPPLY Qty: 100 RF: 3 omeprazole 20 mg capsule,delayed release(DR/EC) 20 mg PO DAILY Qty: 90 RF: 3 isosorbide mononitrate 30 mg tablet extended release 24 hr 60 mg PO DAILY Qty: 180 RF: 3 aspirin 81 mg tablet 81 mg PO DAILY RF: 0 hydrocortisone 5 mg tablet 5 mg PO BID RF: 0 (DME) lancets [OneTouch Delica Lancets] 33 gauge misc See Dose Instructions .ROUTE .MEDSUPPLY Qty: 100 RF: 0 (DME) OneTouch Ultra Blue Test Strip strip See Dose Instructions .ROUTE .MEDSUPPLY Qty: 10 RF: 0 hydrocortisone 10 mg tablet 10 mg PO QAM RF: 0 atorvastatin 40 mg tablet 40 mg PO QPM Qty: 90 RF: 3 lisinopril 5 mg tablet 5 mg PO DAILY 30 Days Qty: 90 RF: 3 levothyroxine 88 mcg tablet 88 mcg PO DAILY Qty: 90 RF: 3 Discharge Orders: Discharge Order (Routine); Ordered 12/06/19 Ordered By: Js Tatum Admission Data Admit Date/Time: 12/05/19 11:26 Attending Provider: Js Tatum Admit Provider: Js Tatum Primary Care Provider: Adam Mcmahon V. Other Interventions: Discharge Summary Assessment (RN) Last Done: 12/06/19 10:48 DC Date/Time DO NOT enter until pt leaves facility: 12/06/19 11:25 Coding Level of Care Code 29510 OBS Care - Discharge Diagnoses Status post implantation of automatic cardioverter/defibrillator (AICD) Z95.810
== END 2019-12-06 11:25 | disposition home or self-care (01) ==
LOC: 2S 08:34 → EP 08:34
PROC: EPB.ICD (2019-12-05 10:00)

== ENCOUNTER 2021-12-05 10:21 | Observation (INO) ==
[2021-12-05] MEDS ORDERED: SODIUM CHLORIDE 0.9% 1000ML 1,000 ML IV STA (10:56)
[2021-12-05] MEDS ORDERED: MoRPHine SULFATE 4 MG/ML 1 ML CARP\\VIAL IV STA (10:56)
[2021-12-05] MEDS ORDERED: ONDANSETRON INJ 2 MG/ML 2 ML VIAL IV STA (10:56)
--- NOTE | 2021-12-05 11:49 | XRay Report ---
SINGLE VIEW CHEST CLINICAL HISTORY: Sepsis. FINDINGS: An AP, portable, upright chest radiograph is compared to study dated 12/06/2019. A single le ad cardiac AICD is unchanged in position and largely obscures the left mid chest. A coronary artery s tent is noted. The cardiomediastinal silhouette is unremarkable. The lungs and pleural spaces are krysten ar. No pneumothorax is seen. The skeletal structures are osteopenic. The bony thorax is grossly intac t. IMPRESSION: No active disease in the chest. ACT 112: Negative or not required by law. Electronically signed by: Tommie Olson M.D. 12/05/2021 11:48 AM
[2021-12-05 11:52] LABS: Appearance Urine Clear (Clear); Bacteria Urine Automated Negative (Negative); Bilirubin Urine Negative (Negative); Blood Urine 3+ (Negative); Color Urine Yellow; Epithelial Cell Urine Auto >30 /lpf (0-5); Glucose Urine UA Negative (Negative); Ketones Urine Negative (Negative); Leukocyte Esterase Urine 1+ (Negative); Nitrite Urine Negative (Negative); Protein Urine Trace (Negative); Specific Gravity Urine 1.031 (1.000-1.030); Urobilinogen Urine Negative (Negative)
[2021-12-05 11:58] LABS: Basophils # (auto) 0.01 K/uL (0-0.2); Basophils % (auto) 0.1 %; Eosinophils # (auto) 0.01 K/uL (0-0.5); Eosinophils % (auto) 0.1 %; Hematocrit (blood only) 43.9 % (37-47); Hemoglobin 15.6 g/dL (12.0-16.0); Immature Granulocytes # (auto) 0.03 K/uL (0.00-0.02); Immature Granulocytes % (auto) 0.3 %; Lymphocytes # (auto) 0.56 K/uL (1.2-3.4); Lymphocytes % (auto) 5.9 %; Mean Corpuscular Hemoglobin 33.2 pg (25-34); Mean Corpuscular Hgb Conc 35.5 g/dL (32-36); Mean Corpuscular Volume 93.4 fL (80-100); Mean Platelet Volume 11.7 fL (7.4-10.4); Monocytes % (auto) 3.2 %; Neutrophils # (auto) 8.58 K/uL (1.4-6.5); Neutrophils % (auto) 90.4 %; Platelet Count 196 K/uL (130-400); RDW Coefficient of Variation 12.7 % (11.5-14.5); White Blood Count 9.49 K/uL (4.8-10.8)
[2021-12-05 12:02] LABS: INR 1.1 (0.9-1.1); Partial Thromboplastin Ratio 1.1; Partial Thromboplastin Time 29.8 Seconds (21.0-31.0)
[2021-12-05 12:03] LABS: Alanine Aminotransferase 71 U/L (7-52); Albumin Globulin Ratio 1.1 (0.9-2); Albumin Level 4.3 gm/dl (3.4-5.0); Alkaline Phosphatase 94 U/L (34-104); Anion Gap 12 (3-11); Aspartate Aminotransferase 106 U/L (13-39); BUN Creatinine Ratio 18.3 (10-20); Bilirubin,Total 1.1 mg/dl (0.2-1.0); Blood Urea Nitrogen 34 mg/dl (6-23); Calcium 9.1 mg/dl (8.5-10.1); Carbon Dioxide 24 mmol/L (21-32); Chloride 98 mmol/L (98-107); Creatinine Clr Calc Pharmacy 29.7 ml/min; Est GFR (African American) 33.7 ml/min; Est GFR (Non-African American) 29.1 ml/min; Globulin 3.9 gm/dl (2.5-4.0); Glucose 89 mg/dl (70-99(Fasting)); Lipase 22 U/L (11-82); Magnesium 2.4 mg/dl (1.7-2.4); Potassium 3.5 mmol/L (3.5-5.1); Sodium 134 mmol/L (136-145); Total Protein 8.2 gm/dl (6.0-8.3)
[2021-12-05 12:22] LABS: Troponin I < 0.03 ng/ml (0-0.04)
--- NOTE | 2021-12-05 12:52 | CT Scan Report ---
CT SCAN OF THE ABDOMEN AND PELVIS WITHOUT IV CONTRAST CLINICAL HISTORY: Generalized abdominal pain. COMPARISON STUDY: Abdominal CT dated 09/17/2016. TECHNIQUE: CT scan of the abdomen and pelvis is performed from the lung bases to the proximal femora. Images are reviewed in the axial, sagittal, and coronal planes. IV contrast was not administered for this examination due to poor renal function. Note that the examination is suboptimal without oral an d IV contrast. A dose lowering technique was utilized adhering to the principles of ALARA. CT DOSE: 354.15 mGy.cm FINDINGS: Lung bases: The heart is top normal in size and without pericardial effusion. The pacemaker lead is n oted. A left coronary artery stent is in place. The lung bases are clear. There is a small hiatal her hayes. Liver: The unenhanced liver is enlarged, measuring over 18 cm in length. The liver demonstrates diffu sely diminished attenuation consistent with hepatic steatosis. There is no intrahepatic biliary ducta l dilatation. Gallbladder: Surgically absent noting clips in the gallbladder fossa. Spleen: Normal in size and attenuation. Pancreas: Unremarkable. Adrenal glands: Unremarkable. Kidneys: The unenhanced kidneys are normal in size and without hydronephrosis. There are no renal demetri culi identified. There is no evidence of contour deforming renal mass lesion. Urothelial thickening i s noted in involving the left ureter and the left renal pelvis. There is associated left-sided perine phric and periureteric stranding infiltration. Abdominal vasculature: The abdominal aorta is normal in course and caliber noting advanced atheroscle rotic calcification. There are bilateral iliac artery stents.. Bowel: There is no bowel obstruction. The appendix is well-visualized and normal. Peritoneum: There is no intraperitoneal free air or abdominal ascites. Lymphadenopathy: None. Pelvic viscera: The bladder, uterus, and adnexa are normal as visualized. Skeletal structures: The skeletal structures are osteopenic. There is a chronic superior endplate com pression deformity of L4. Mild lumbosacral spondylosis is observed. No lytic or blastic lesions are s een. There are healed bilateral rib fractures. IMPRESSION: 1. There is urothelial thickening of the left renal pelvis and ureter with surrounding perinephric an d periureteric infiltration. This could represent the sequelae of a recently passed kidney stone or c ould also be seen with urinary tract infection/pyelonephritis. Correlate with clinical findings and u rinalysis. 2. No renal calculi are identified and there is no hydronephrosis. 3. Hepatomegaly and hepatic steatosis. 4. Additional findings as above. ACT 112: Negative or not required by law. Electronically signed by: Tommie Olson M.D. 12/05/2021 12:50 PM
[2021-12-05] MEDS ORDERED: PIPERACILLIN/TAZOBACTAM 4.5 GM in DEXTROSE 5% 100 ML IV STA (13:18)
[2021-12-05] MEDS ORDERED: PIPERACILL/TAZOBAC CONSULT ACTIVE PRN ×2 (13:18→17:45)
--- NOTE | 2021-12-05 14:34 | History & Physical Report ---
Date of Service December 05, 2021 Assessment & Plan (1) Acute pyelonephritis: Plan: Presents with left CVA tenderness, sweats and chills at home, in the setting of recent UTI diagnosed as an outpatient. Has ongoing urinary symptoms. With procalcitonin 65, lactate negative UA here is somewhat contaminated but she is also been on Bactrim x2 days so culture may end up being negative No leukocytosis or fever here so far, no tachycardia. Blood pressures are stable to low normal Suspect she may have bacteremia given significantly elevated procalcitonin With acute kidney injury as well as elevated LFTs-multisystem organ dysfunction -Admit to medical floor with telemetry -Continue IV Zosyn -Follow blood cultures -Follow urine culture -Asked HIM to obtain urine culture results from [facility] urgent care in [place] -Give stress dose steroids with IV hydrocortisone -Tylenol as needed for fevers or pain -IV Dilaudid as needed for pain -Follow CBC, BMP, LFTs, procalcitonin in the morning (2) CATA (acute kidney injury): Plan: Creatinine elevated on arrival at 1.86, BUN elevated at 34. Baseline creatinine 1.1 She has been having sweats and chills at home and poor p.o. intake Urinalysis without casts, does have WBCs and RBCs, and trace protein but seems consistent with infection only Suspect prerenal etiology in the setting of poor p.o. intake and continuing to take diuretics and lisinopril Also was taking Bactrim which can cause acute kidney injury CT abdomen/pelvis without evidence of obstruction in the tract Received 1 L of normal saline bolus in the ER -Continue LR at 80 mL's per hour x2 L -Follow BMP in the morning -Hold home HCTZ/triamterene and lisinopril -Discontinued Bactrim (3) Elevated LFTs: Plan: Total bilirubin mildly elevated, AST elevated at 106, ALT elevated at 71, coags and platelets are normal She does have hepatomegaly and fatty liver on CT abdomen/pelvis This may be consistent with sepsis induced liver injury but not shock liver as synthetic function of liver is normal She is status post cholecystectomy -Follow LFTs and if worsen, consider right upper quadrant ultrasound -Follow CBC, LFTs, INR in the morning -Hold statin (4) Secondary adrenal insufficiency: Plan: 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 hydrocortisone -Start hydrocortisone 50 mg IV every 8 hours -Follow blood pressures, BMP (5) Hypertension: Plan: Blood pressure is low normal Holding home lisinopril and HCTZ/triamterene as above -Giving stress dose steroids -Okay to give Toprol-XL 25 mg daily with hold parameters (6) Status post implantation of automatic cardioverter/defibrillator (AICD): Plan: Placed for history of cardiac arrest in [address] Campbell of cardiology (7) Diabetes type 2, controlled: Plan: Has a history of such but resolved in the last 2 years, most recent hemoglobin A1c 6 months ago was normal at 5.7% No need for Accu-Cheks or insulin unless glucose rising on daily labs due to stress to steroids (8) Acid reflux disease: Plan: No acute issues Continue PPI (9) CAD (coronary artery disease): Plan: With a history of 5 stents in the heart in the past Holding atorvastatin for elevated LFTs as above -Continue aspirin, metoprolol with hold parameters, and isosorbide No acute issues ECG is abnormal but stable from previous, troponin here is negative (10) Dyslipidemia: Plan: Holding statin for elevated LFTs as above (11) PAD (peripheral artery disease): Plan: With a history of iliac stent Continue aspirin, holding statin (12) Pituitary hypothyroidism: Plan: Continue home levothyroxine 88 mcg daily Check free T3 and free T4 in the morning With central hypothyroidism, 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 She does have ICD in place and is okay with keeping that turned on but does not want CPR or intubation History of Present Illness Chief Complaint: Low back pain, chills Primary Care Provider: Adam Mcmahon MD This patient is a 61-year-old female with a history of CAD with multiple PCI's, Takotsubo cardiomyopathy, cardiac arrest now s/p ICD, hypertension, PAD status post iliac stenting, peripheral edema, resolved HFrEF, DM2, current smoker, hypopituitarism and adrenal insufficiency on chronic steroids, who presents to the ER with worsening lower back pain in the setting of UTI along with chills and a general sensation of feeling terrible. She started with a low back pain 5 days ago and was seen at urgent care 2 days ago and diagnosed with a UTI based on urinalysis. She was prescribed Bactrim and is taking it for the last 2 days but continues to feel terrible all over along with chills and sweats. She presented to the ER where she was noted to have normal vital signs and was afebrile, did not have a leukocytosis, but did have an acute kidney injury with a creatinine of 1.86, elevated LFTs, and evidence of left-sided pyelonephritis on CT abdomen/pelvis. Her procalcitonin was significantly elevated at 65. Her urinalysis showed possible infection versus contamination with epithelial cells. Her Covid test was negative. Chest x-ray was negative. She will be admitted for acute pyelonephritis and concern for early sepsis, with acute kidney injury and elevated LFTs as well as suspected bacteremia given significantly elevated procalcitonin. In the ER, she was given IV morphine, IV Zosyn, 1 L of normal saline, and Zofran. Allergies Allergy/AdvReac Type Severity Reaction Status Date / Time fenofibrate Allergy Unknown Verified 12/05/21 13:41 Qdjqonh-IOT-FpA Reductase Allergy Verified 12/05/21 13:41 Inhibitor [Vzjwdkm-Tax-Pme Reductase Inhibitor] Home Medications Medication Instructions Recorded Confirmed Type blood sugar diagnostic (OneTouch #10 ea 03/26/19 05/17/21 History Ultra Blue Test Strip) lancets 33 gauge (OneTouch Delica #100 ea 03/26/19 05/17/21 History Lancets) Accu-Chek Fastclix Lancet Drum #102 ea NS 08/19/19 05/17/21 Rx (lancets) Accu-Chek Guide test strips (blood #100 ea NS 08/19/19 05/17/21 Rx sugar diagnostic) hydrocortisone 10 mg tablet 10 mg PO QAM #90 tab 10/18/21 12/05/21 Rx hydrocortisone 5 mg tablet 5 mg PO BID #180 tab 10/18/21 12/05/21 Rx aspirin 81 mg tablet 81 mg PO DAILY 12/05/21 12/05/21 History atorvastatin 40 mg tablet 40 mg PO HS 12/05/21 12/05/21 History isosorbide mononitrate 30 mg 60 mg PO QAM 12/05/21 12/05/21 History tablet,extended release 24 hr levothyroxine 88 mcg tablet 88 mcg PO DAILYBB 12/05/21 12/05/21 History lisinopril 5 mg tablet 5 mg PO QAM 12/05/21 12/05/21 History metoprolol succinate 25 mg 25 mg PO QAM 12/05/21 12/05/21 History tablet,extended release 24 hr omeprazole 20 mg capsule,delayed 20 mg PO Q2D 12/05/21 12/05/21 History release sulfamethoxazole 800 1 tab PO BID 12/05/21 12/05/21 History mg-trimethoprim 160 mg tablet (Bactrim DS) triamterene 37.5 1 cap PO Q2D 12/05/21 12/05/21 History mg-hydrochlorothiazide 25 mg capsule Past Med/Surg History Medical History Acid reflux disease CAD (coronary artery disease) Cardiac arrest (10/2019) Coma of unknown cause Diabetes type 2, controlled Dyslipidemia Fatty liver Growth hormone deficiency Hx-sudden cardiac arrest 10/2019 Hypertension Hypervolemia Hypotension (arterial) Influenza (10/2019) Myocardial infarction PAD (peripheral artery disease) Pituitary hypothyroidism Raynaud's disease Respiratory failure Secondary adrenal insufficiency Adrián syndrome Takotsubo cardiomyopathy Tobacco use Vitamin D deficiency Surgical History H/O heart artery stent S/P cardiac cath S/P cholecystectomy S/P tooth extraction S/P tubal ligation Status post implantation of automatic cardioverter/defibrillator (AICD) (10/2019) Family History Mother Cardiac disorder Congestive heart failure Myocardial infarction Ovarian cancer Father Kidney disease Diabetes Myocardial infarction Grandfather (Paternal) No problems noted. 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 [employer] How many Children do You have: 1 How many Children do You have Comment: 1 boy Other Information That Helps Us Care for You: No Feels Safe at Home: Yes Safety Concerns: Feels Safe At This Time Childhood Exposure to Second-Hand Smoke: Yes during the past year weight has: remained stable Dental Care, Regularly: No Physical Activity Frequency: Daily Seatbelt Use: always Sunscreen Use: No Assistive Devices: Glasses Review of Systems Review of Systems: All systems reviewed & are unremarkable except as noted in HPI & below Denies headache or lightheadedness, no chest pains currently, no shortness of breath No abdominal pain No diarrhea or constipation Still having urinary symptoms such as frequency and urgency No gross hematuria Physical Exam Constitutional: WD/WN, vitals as above Eyes: PERRL, conjunctivae normal, anicteric sclerae ENMT: external ear and nose normal, oropharynx normal Neck: trachea midline, no thyromegaly Respiratory: normal respiratory effort, lungs clear to auscultation Cardiovascular: RRR, no murmur, no edema Chest (Breasts): Chest: normal inspection of chest Gastrointestinal (Abdomen): Inspection/Auscultation: abdomen normal to inspection and normal bowel sounds; abdomen not distended Percussion/Palpation: + abdomen tender (Exquisite positive left CVA tenderness) and abdomen soft; no guarding Musculoskeletal: Extremities: extremities normal to inspection; no cyanosis and no clubbing Skin: no rashes, warm and dry Neurologic: moves all extremities and awake; no focal motor deficits Psychiatric: A+Ox3, euthymic affect Lymphatic: no lymphedema Results & Data Results & Data ([facility]) Vital Signs (Past 12 Hours) Vital Signs Temp Pulse Resp BP Pulse Ox 12/05/21 10:25 36.3 C L 71 16 125/71 96 Laboratory Results 12/05/21 12/05/21 12/05/21 Range/Units 14:34 11:26 11:26 WBC (4.8-10.8) K/uL RBC (4.2-5.4) M/uL Hgb (12.0-16.0) g/dL Hct (37-47) % MCV (80-100) fL MCH (25-34) pg MCHC (32-36) g/dL RDW Std Deviation (36.4-46.3) fL RDW Coeff of [place] (11.5-14.5) % Plt Count (130-400) K/uL MPV (7.4-10.4) fL Immature Gran % (Auto) % Neut % (Auto) % Lymph % (Auto) % [place] % (Auto) % Eos % (Auto) % Baso % (Auto) % Neut # (Auto) (1.4-6.5) K/uL Lymph # (Auto) (1.2-3.4) K/uL [place] # (Auto) (0.11-0.59) K/uL Eos # (Auto) (0-0.5) K/uL Baso # (Auto) (0-0.2) K/uL Immature Gran # (Auto) (0.00-0.02) K/uL PT (9.0-12.0) Seconds INR (0.9-1.1) APTT (21.0-31.0) Seconds PTT Ratio Sodium (136-145) mmol/L Potassium (3.5-5.1) mmol/L Chloride (98-107) mmol/L Carbon Dioxide (21-32) mmol/L Anion Gap (3-11) BUN (6-23) mg/dl Creatinine (0.6-1.2) mg/dl Est Cr Clr Drug Dosing ml/min Est GFR ( Amer) ml/min Est GFR (Non-Af Amer) ml/min BUN/Creatinine Ratio (10-20) Glucose (70-99(Fasting)) mg/dl Lactate (0.4-2.0) mmol/L Calcium (8.5-10.1) mg/dl Magnesium (1.7-2.4) mg/dl Total Bilirubin (0.2-1.0) mg/dl AST (13-39) U/L ALT (7-52) U/L Alkaline Phosphatase (34-104) U/L Troponin I (0-0.04) ng/ml Total Protein (6.0-8.3) gm/dl Albumin (3.4-5.0) gm/dl Globulin (2.5-4.0) gm/dl Albumin/Globulin Ratio (0.9-2) Lipase (11-82) U/L Procalcitonin 65.21 H (0-0.5) ng/ml Urine Color Yellow Urine Appearance Clear (Clear) Urine pH 5.0 (4.5-7.5) Ur Specific [place] 1.031 H (1.000-1.030) Urine Protein Trace H (Negative) Urine Glucose (UA) Negative (Negative) Urine Ketones Negative (Negative) Urine Blood 3+ H (Negative) Urine Nitrite Negative (Negative) Urine Bilirubin Negative (Negative) Urine Urobilinogen Negative (Negative) Ur Leukocyte Esterase 1+ H (Negative) Urine WBC (Auto) 10-30 H (0-5) /hpf Urine RBC (Auto) 10-30 H (0-4) /hpf U Hyaline Cast (Auto) 1-5 (0-5) /lpf U Epithel Cells (Auto) >30 H (0-5) /lpf Urine Bacteria (Auto) Negative (Negative) SARS-CoV-2, RNA, NAAT NEGATIVE (NEGATIVE) 12/05/21 12/05/21 12/05/21 Range/Units 11:26 11:26 11:26 WBC (4.8-10.8) K/uL RBC (4.2-5.4) M/uL Hgb (12.0-16.0) g/dL Hct (37-47) % MCV (80-100) fL MCH (25-34) pg MCHC (32-36) g/dL RDW Std Deviation (36.4-46.3) fL RDW Coeff of [place] (11.5-14.5) % Plt Count (130-400) K/uL MPV (7.4-10.4) fL Immature Gran % (Auto) % Neut % (Auto) % Lymph % (Auto) % [place] % (Auto) % Eos % (Auto) % Baso % (Auto) % Neut # (Auto) (1.4-6.5) K/uL Lymph # (Auto) (1.2-3.4) K/uL [place] # (Auto) (0.11-0.59) K/uL Eos # (Auto) (0-0.5) K/uL Baso # (Auto) (0-0.2) K/uL Immature Gran # (Auto) (0.00-0.02) K/uL PT 12.0 (9.0-12.0) Seconds INR 1.1 (0.9-1.1) APTT 29.8 (21.0-31.0) Seconds PTT Ratio 1.1 Sodium 134 L (136-145) mmol/L Potassium 3.5 (3.5-5.1) mmol/L Chloride 98 (98-107) mmol/L Carbon Dioxide 24 (21-32) mmol/L Anion Gap 12 H (3-11) BUN 34 H (6-23) mg/dl Creatinine 1.86 H (0.6-1.2) mg/dl Est Cr Clr Drug Dosing 29.7 ml/min Est GFR ( Amer) 33.7 ml/min Est GFR (Non-Af Amer) 29.1 ml/min BUN/Creatinine Ratio 18.3 (10-20) Glucose 89 (70-99(Fasting)) mg/dl Lactate 1.6 (0.4-2.0) mmol/L Calcium 9.1 (8.5-10.1) mg/dl Magnesium 2.4 (1.7-2.4) mg/dl Total Bilirubin 1.1 H (0.2-1.0) mg/dl AST 106 H (13-39) U/L ALT 71 H (7-52) U/L Alkaline Phosphatase 94 (34-104) U/L Troponin I < 0.03 (0-0.04) ng/ml Total Protein 8.2 (6.0-8.3) gm/dl Albumin 4.3 (3.4-5.0) gm/dl Globulin 3.9 (2.5-4.0) gm/dl Albumin/Globulin Ratio 1.1 (0.9-2) Lipase 22 (11-82) U/L Procalcitonin (0-0.5) ng/ml Urine Color Urine Appearance (Clear) Urine pH (4.5-7.5) Ur Specific [place] (1.000-1.030) Urine Protein (Negative) Urine Glucose (UA) (Negative) Urine Ketones (Negative) Urine Blood (Negative) Urine Nitrite (Negative) Urine Bilirubin (Negative) Urine Urobilinogen (Negative) Ur Leukocyte Esterase (Negative) Urine WBC (Auto) (0-5) /hpf Urine RBC (Auto) (0-4) /hpf U Hyaline Cast (Auto) (0-5) /lpf U Epithel Cells (Auto) (0-5) /lpf Urine Bacteria (Auto) (Negative) SARS-CoV-2, RNA, NAAT (NEGATIVE) 12/05/21 Range/Units 11:26 WBC 9.49 (4.8-10.8) K/uL RBC 4.70 (4.2-5.4) M/uL Hgb 15.6 (12.0-16.0) g/dL Hct 43.9 (37-47) % MCV 93.4 (80-100) fL MCH 33.2 (25-34) pg MCHC 35.5 (32-36) g/dL RDW Std Deviation 44.0 (36.4-46.3) fL RDW Coeff of [place] 12.7 (11.5-14.5) % Plt Count 196 (130-400) K/uL MPV 11.7 H (7.4-10.4) fL Immature Gran % (Auto) 0.3 % Neut % (Auto) 90.4 % Lymph % (Auto) 5.9 % [place] % (Auto) 3.2 % Eos % (Auto) 0.1 % Baso % (Auto) 0.1 % Neut # (Auto) 8.58 H (1.4-6.5) K/uL Lymph # (Auto) 0.56 L (1.2-3.4) K/uL [place] # (Auto) 0.30 (0.11-0.59) K/uL Eos # (Auto) 0.01 (0-0.5) K/uL Baso # (Auto) 0.01 (0-0.2) K/uL Immature Gran # (Auto) 0.03 H (0.00-0.02) K/uL PT (9.0-12.0) Seconds INR (0.9-1.1) APTT (21.0-31.0) Seconds PTT Ratio Sodium (136-145) mmol/L Potassium (3.5-5.1) mmol/L Chloride (98-107) mmol/L Carbon Dioxide (21-32) mmol/L Anion Gap (3-11) BUN (6-23) mg/dl Creatinine (0.6-1.2) mg/dl Est Cr Clr Drug Dosing ml/min Est GFR ( Amer) ml/min Est GFR (Non-Af Amer) ml/min BUN/Creatinine Ratio (10-20) Glucose (70-99(Fasting)) mg/dl Lactate (0.4-2.0) mmol/L Calcium (8.5-10.1) mg/dl Magnesium (1.7-2.4) mg/dl Total Bilirubin (0.2-1.0) mg/dl AST (13-39) U/L ALT (7-52) U/L Alkaline Phosphatase (34-104) U/L Troponin I (0-0.04) ng/ml Total Protein (6.0-8.3) gm/dl Albumin (3.4-5.0) gm/dl Globulin (2.5-4.0) gm/dl Albumin/Globulin Ratio (0.9-2) Lipase (11-82) U/L Procalcitonin (0-0.5) ng/ml Urine Color Urine Appearance (Clear) Urine pH (4.5-7.5) Ur Specific [place] (1.000-1.030) Urine Protein (Negative) Urine Glucose (UA) (Negative) Urine Ketones (Negative) Urine Blood (Negative) Urine Nitrite (Negative) Urine Bilirubin (Negative) Urine Urobilinogen (Negative) Ur Leukocyte Esterase (Negative) Urine WBC (Auto) (0-5) /hpf Urine RBC (Auto) (0-4) /hpf U Hyaline Cast (Auto) (0-5) /lpf U Epithel Cells (Auto) (0-5) /lpf Urine Bacteria (Auto) (Negative) SARS-CoV-2, RNA, NAAT (NEGATIVE) Diagnostic Findings Abdomen/Pelvis CT 12/05/21 10:56 CT SCAN OF THE ABDOMEN AND PELVIS WITHOUT IV CONTRAST CLINICAL HISTORY: Generalized abdominal pain. COMPARISON STUDY: Abdominal CT dated 09/17/2016. TECHNIQUE: CT scan of the abdomen and pelvis is performed from the lung bases to the proximal femora. Images are reviewed in the axial, sagittal, and coronal planes. IV contrast was not administered for this examination due to poor renal function. Note that the examination is suboptimal without oral and IV contrast. A dose lowering technique was utilized adhering to the principles of ALARA. CT DOSE: 354.15 mGy.cm FINDINGS: Lung bases: The heart is top normal in size and without pericardial effusion. The pacemaker lead is noted. A left coronary artery stent is in place. The lung bases are clear. There is a small hiatal hernia. Liver: The unenhanced liver is enlarged, measuring over 18 cm in length. The liver demonstrates diffusely diminished attenuation consistent with hepatic steatosis. There is no intrahepatic biliary ductal dilatation. Gallbladder: Surgically absent noting clips in the gallbladder fossa. Spleen: Normal in size and attenuation. Pancreas: Unremarkable. Adrenal glands: Unremarkable. Kidneys: The unenhanced kidneys are normal in size and without hydronephrosis. There are no renal calculi identified. There is no evidence of contour deforming renal mass lesion. Urothelial thickening is noted in involving the left ureter and the left renal pelvis. There is associated left-sided perinephric and periureteric stranding infiltration. Abdominal vasculature: The abdominal aorta is normal in course and caliber noting advanced atherosclerotic calcification. There are bilateral iliac artery stents.. Bowel: There is no bowel obstruction. The appendix is well-visualized and normal. Peritoneum: There is no intraperitoneal free air or abdominal ascites. Lymphadenopathy: None. Pelvic viscera: The bladder, uterus, and adnexa are normal as visualized. Skeletal structures: The skeletal structures are osteopenic. There is a chronic superior endplate compression deformity of L4. Mild lumbosacral spondylosis is observed. No lytic or blastic lesions are seen. There are healed bilateral rib fractures. IMPRESSION: 1. There is urothelial thickening of the left renal pelvis and ureter with surrounding perinephric and periureteric infiltration. This could represent the sequelae of a recently passed kidney stone or could also be seen with urinary tract infection/pyelonephritis. Correlate with clinical findings and urinalysis. 2. No renal calculi are identified and there is no hydronephrosis. 3. Hepatomegaly and hepatic steatosis. 4. Additional findings as above. ACT 112: Negative or not required by law. Electronically signed by: Tommie Olson M.D. 12/05/2021 12:50 PM Chest X-Ray 12/05/21 10:56 SINGLE VIEW CHEST CLINICAL HISTORY: Sepsis. FINDINGS: An AP, portable, upright chest radiograph is compared to study dated 12/06/2019. A single lead cardiac AICD is unchanged in position and largely obscures the left mid chest. A coronary artery stent is noted. The cardiomediastinal silhouette is unremarkable. The lungs and pleural spaces are clear. No pneumothorax is seen. The skeletal structures are osteopenic. The bony thorax is grossly intact. IMPRESSION: No active disease in the chest. ACT 112: Negative or not required by law. Electronically signed by: Tommie Olson M.D. 12/05/2021 11:48 AM ECG Additional Comments: ECG on 12/05/2021 at 1211 shows sinus rhythm with first-degree AV block, SC 250, diffuse T wave inversions in all leads, very subtle ST depression in anterior leads, fairly unchanged from previous Code Status & VTE Plan Code Status DNR/DNI VTE Prophylaxis Plan VTE Prophylaxis will be ordered: Yes PG Care Time/CCT Total # of Minutes Spent Total Time Spent with Patient: Total time spent is greater than 50% in coordination of care (as documented) at patient's floor/unit and/or counseling patient: Coding Level of Care Code 80392 Initial Inpt Care Lvl 3 Diagnoses Hx-sudden cardiac arrest Z86.74 Status post implantation of automatic cardioverter/defibrillator (AICD) Z95.810 Diabetes type 2, controlled E11.9 Acid reflux disease K21.9 CAD (coronary artery disease) I25.10 Dyslipidemia E78.5 Hypertension I10 PAD (peripheral artery disease) I73.9 Pituitary hypothyroidism E03.8 Secondary adrenal insufficiency E27.49 Tobacco use Z72.0 Acute pyelonephritis N10 Elevated LFTs R79.89 Fatty liver K76.0 CATA (acute kidney injury) N17.9
[2021-12-05] MEDS ORDERED: HYDROCORTISONE SOD SUCCINATE 100 MG/2 ML VIAL IV STA (16:01)
[2021-12-05] MEDS: LACTATED RINGER'S 1,000 ML IV SCH (16:58)
--- NOTE | 2021-12-05 17:29 | Emergency Department Note ---
History of Present Illness General Chief complaint: Urinary Symptoms Stated complaint: WENT TO DR 12/03/21 FOR UTI - WORSENING Time Seen by Provider: 12/05/21 10:43 History of Present Illness Maximum Pain Intensity: 2 61-year-old female who presents to the emergency department with complaint of not feeling well, chills, back pain and "hurting all over". The patient reports that her symptoms started with bilateral lower back pain 5 days ago. She was seen by her PCP 2 days ago, with a urine dip suggesting UTI. The patient was provided a prescription for Bactrim DS. The patient reports that her symptoms have not improved, and in fact have significantly worsened. The patient has not checked her temperature at home. She denies prior history of pyelonephritis. She does report a prior history of kidney failure. The patient is diabetic. The patient rates her overall discomfort a 5 out of 10 on my initial exam. Home Medications Medication Instructions Recorded Confirmed Type blood sugar diagnostic (OneTouch #10 ea 03/26/19 05/17/21 History Ultra Blue Test Strip) lancets 33 gauge (OneTouch Delica #100 ea 03/26/19 05/17/21 History Lancets) Accu-Chek Fastclix Lancet Drum #102 ea NS 08/19/19 05/17/21 Rx (lancets) Accu-Chek Guide test strips (blood #100 ea NS 08/19/19 05/17/21 Rx sugar diagnostic) hydrocortisone 10 mg tablet 10 mg PO QAM #90 tab 10/18/21 12/05/21 Rx hydrocortisone 5 mg tablet 5 mg PO BID #180 tab 10/18/21 12/05/21 Rx atorvastatin 40 mg tablet 40 mg PO HS 12/05/21 12/05/21 History isosorbide mononitrate 30 mg 60 mg PO QAM 12/05/21 12/05/21 History tablet,extended release 24 hr levothyroxine 88 mcg tablet 88 mcg PO DAILYBB 12/05/21 12/05/21 History lisinopril 5 mg tablet 5 mg PO QAM 12/05/21 12/05/21 History metoprolol succinate 25 mg 25 mg PO QAM 12/05/21 12/05/21 History tablet,extended release 24 hr omeprazole 20 mg capsule,delayed 20 mg PO Q2D 12/05/21 12/05/21 History release sulfamethoxazole 800 1 tab PO BID 12/05/21 12/05/21 History mg-trimethoprim 160 mg tablet (Bactrim DS) triamterene 37.5 1 cap PO Q2D 12/05/21 12/05/21 History mg-hydrochlorothiazide 25 mg capsule Allergies Allergy/AdvReac Type Severity Reaction Status Date / Time fenofibrate Allergy Unknown Verified 12/05/21 13:41 Yuhjnxg-WCH-ElA Reductase Allergy Verified 12/05/21 13:41 Inhibitor [Badpkrr-Tps-Byv Reductase Inhibitor] Past Med/Surg History Medical History Acid reflux disease CAD (coronary artery disease) Cardiac arrest (10/2019) Coma of unknown cause Diabetes type 2, controlled Dyslipidemia Fatty liver Growth hormone deficiency Hx-sudden cardiac arrest 10/2019 Hypertension Hypervolemia Hypotension (arterial) Influenza (10/2019) Myocardial infarction PAD (peripheral artery disease) Pituitary hypothyroidism Raynaud's disease Respiratory failure Secondary adrenal insufficiency Adrián syndrome Takotsubo cardiomyopathy Tobacco use Vitamin D deficiency Surgical History H/O heart artery stent S/P cardiac cath S/P cholecystectomy S/P tooth extraction S/P tubal ligation Status post implantation of automatic cardioverter/defibrillator (AICD) (10/2019) Family History Mother Cardiac disorder Congestive heart failure Myocardial infarction Ovarian cancer Father Kidney disease Diabetes Myocardial infarction Grandfather (Paternal) No problems noted. 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 [employer] How many Children do You have: 1 How many Children do You have Comment: 1 boy Feels Safe at Home: Yes Childhood Exposure to Second-Hand Smoke: Yes during the past year weight has: remained stable Dental Care, Regularly: No Physical Activity Frequency: Daily Seatbelt Use: always Sunscreen Use: No Assistive Devices: None Review of Systems 10 system review was performed and was negative except for pertinent positives and negatives as indicated in history of present illness Physical Exam Vital Signs Vital Signs - 24 hr 12/05/21 10:25 12/05/21 12:22 12/05/21 15:00 Temperature 36.3 C L 36.8 C Temperature Source Temporal Artery Scan Oral Pulse Rate 71 Pulse Rate [Left] 78 58 L Pulse Rhythm [Left] Regular Regular Pulse Strength [Left] Normal Normal Respiratory Rate 16 18 18 Respiratory Effort / Characteristics Spontaneous Spontaneous Respiratory Depth Normal Normal Respiratory Pattern Regular Blood Pressure 125/71 Blood Pressure [Left Arm] 127/65 109/66 Blood Pressure Mean 89 Blood Pressure Mean [Left Arm] 85 80 Blood Pressure Position [Left Arm] Lying Lying Pulse Oximetry 96 96 99 Oxygen Delivery Method Room Air Room Air Sepsis Recent Fever Within 48 Hours No Sepsis New/Unexplained Change in Mental Status No Sepsis Action Taken by Nursing No Action Required CONSTITUTIONAL: Healthy and well nourished. Alert and oriented X 3. GCS 15. Patient does not appear toxic. HEENT: Normocephalic, atraumatic. Pupils equal, round and reactive. Mucous membranes are dry. No scleral icterus or conjunctival injection/pallor. No tonsillar hypertrophy or posterior pharyngeal erythema. NECK: Full active range of motion without discomfort. No nuchal rigidity, JVD or carotid bruits. LYMPHATICS: No cervical chain adenopathy. RESPIRATORY: Clear to auscultation bilaterally with no wheezing, crackles, rh onchi or stridor. CARDIOVASCULAR: Regular rate and rhythm with no murmurs, rubs or gallops. GASTROINTESTINAL: Bowel sounds present in all quadrants. Patient has mild lower and central abdominal tenderness to palpation. Negative CVA tenderness. Negative McBurney's point tenderness. No rigidity, guarding or rebound. MUSCULOSKELETAL: Full range of motion of all joints without discomfort. INTEGUMENTARY: No rash or other significant dermatologic conditions noted. HEMATOLOGIC: No ecchymosis or petechiae. PSYCHIATRIC: Flat affect. NEUROLOGIC: No focal neurologic deficits noted. Course Course Patient history and physical exam were performed. Nurses notes were reviewed. Initial vital signs were reviewed and were normal. The patient's recent UTI, and reporting worsening symptoms, I did recommend additional extensive work-up, including blood cultures. IV access was established, and labs were drawn, including blood cultures x2, lactate and procalcitonin. Given the patient's prior cardiac history, an ECG was also performed and was normal. The patient was placed on cardiac exercise specialist while in the emergency department. Portable chest x-ray was performed and was normal. Review of labs shows a normal white count, however has left shift and bandemia with a pro calcitonin level of 65.21. Lactate was normal. The patient is mildly hyponatremic at 134 with an elevated BUN and creatinine of 34 and 1.86, respectively. Patient also has elevated LFTs and total bilirubin, with normal lipase. Urinalysis was consistent with infection. COVID-[address] with IV contrast of the abdomen and pelvis is concerning for pyelonephritis, with recently passed ureteral calculus not ruled out. Findings were discussed with Dr. Brody, ED attending physician, who recommended septic work-up and consultation with the hospitalist service. The patient's was also discussed with our ED pharmacist who has recommended IV Zosyn treatment. The patient was administered a normal saline 2 L bolus. Findings were discussed with the patient and , who were in agreement with admission. The case was then further discussed with Dr. Colunga, [facility] hospitalist. Please see their dictation for further treatment and final disposition. The patient refused any additional analgesics prior to transfer of care to the hospitalist service. Administered Medications Lactated Ringer's (Lr) 1,000 mls @ 80 mls/hr IV .[id number] RADHA Stop: 12/06/21 17:00 Last Admin: 12/05/21 16:58 Dose: 80 mls/hr Documented by: [id number] Discontinued Medications Hydrocortisone Sodium Succinate (Hydrocortisone Sod Succinate 100 Mg/2 Ml Vial) 50 mg IV NOW STA Stop: 12/05/21 16:02 Last Admin: 12/05/21 16:58 Dose: 50 mg Documented by: [id number] Sodium Chloride (Nss 1000ml) 1,000 mls @ 999 mls/hr IV .Q1H1M STA Stop: 12/05/21 11:56 Last Infusion: 12/05/21 13:00 Dose: 0 mls/hr Documented by: [id number] Admin: 12/05/21 11:41 Dose: 999 mls/hr Documented by: [id number] Piperacillin Sod/Tazobactam (Sod 4.5 gm/ Dextrose) 120 mls @ 200 mls/hr IV Q8H STA; Protocol Stop: 12/05/21 13:53 Last Infusion: 12/05/21 15:08 Dose: 0 mls/hr Documented by: [id number] Admin: 12/05/21 14:06 Dose: 200 mls/hr Documented by: [id number] Morphine Sulfate (Morphine Sulfate 4 Mg/Ml 1 Ml Carp\\Vial) 4 mg IV NOW STA Stop: 12/05/21 10:57 Last Admin: 12/05/21 12:01 Dose: 4 mg Documented by: [id number] Ondansetron HCl (Ondansetron Inj 2 Mg/Ml 2 Ml Vial) 4 mg IV NOW STA Stop: 12/05/21 10:57 Last Admin: 12/05/21 12:01 Dose: 4 mg Documented by: [id number] Medical Decision Making Medical Records Attestation: I reviewed the patient's medical records. Home Medications Current Medication List: was personally reviewed by me Laboratory Data Attestation: I reviewed the patient's lab results. Result diagrams: 12/05/21 11:26 12/05/21 11:26 Lab Results 12/05/21 12/05/21 12/05/21 Range/Units 11:26 11:26 11:26 WBC 9.49 (4.8-10.8) K/uL RBC 4.70 (4.2-5.4) M/uL Hgb 15.6 (12.0-16.0) g/dL Hct 43.9 (37-47) % MCV 93.4 (80-100) fL MCH 33.2 (25-34) pg MCHC 35.5 (32-36) g/dL RDW Std Deviation 44.0 (36.4-46.3) fL RDW Coeff of [place] 12.7 (11.5-14.5) % Plt Count 196 (130-400) K/uL MPV 11.7 H (7.4-10.4) fL Immature Gran % (Auto) 0.3 % Neut % (Auto) 90.4 % Lymph % (Auto) 5.9 % [place] % (Auto) 3.2 % Eos % (Auto) 0.1 % Baso % (Auto) 0.1 % Neut # (Auto) 8.58 H (1.4-6.5) K/uL Lymph # (Auto) 0.56 L (1.2-3.4) K/uL [place] # (Auto) 0.30 (0.11-0.59) K/uL Eos # (Auto) 0.01 (0-0.5) K/uL Baso # (Auto) 0.01 (0-0.2) K/uL Immature Gran # (Auto) 0.03 H (0.00-0.02) K/uL PT 12.0 (9.0-12.0) Seconds INR 1.1 (0.9-1.1) APTT 29.8 (21.0-31.0) Seconds PTT Ratio 1.1 Sodium 134 L (136-145) mmol/L Potassium 3.5 (3.5-5.1) mmol/L Chloride 98 (98-107) mmol/L Carbon Dioxide 24 (21-32) mmol/L Anion Gap 12 H (3-11) BUN 34 H (6-23) mg/dl Creatinine 1.86 H (0.6-1.2) mg/dl Est Cr Clr Drug Dosing 29.7 ml/min Est GFR ( Amer) 33.7 ml/min Est GFR (Non-Af Amer) 29.1 ml/min BUN/Creatinine Ratio 18.3 (10-20) Glucose 89 (70-99(Fasting)) mg/dl Lactate (0.4-2.0) mmol/L Calcium 9.1 (8.5-10.1) mg/dl Magnesium 2.4 (1.7-2.4) mg/dl Total Bilirubin 1.1 H (0.2-1.0) mg/dl AST 106 H (13-39) U/L ALT 71 H (7-52) U/L Alkaline Phosphatase 94 (34-104) U/L Troponin I < 0.03 (0-0.04) ng/ml Total Protein 8.2 (6.0-8.3) gm/dl Albumin 4.3 (3.4-5.0) gm/dl Globulin 3.9 (2.5-4.0) gm/dl Albumin/Globulin Ratio 1.1 (0.9-2) Lipase 22 (11-82) U/L Procalcitonin (0-0.5) ng/ml Urine Color Urine Appearance (Clear) Urine pH (4.5-7.5) Ur Specific [place] (1.000-1.030) Urine Protein (Negative) Urine Glucose (UA) (Negative) Urine Ketones (Negative) Urine Blood (Negative) Urine Nitrite (Negative) Urine Bilirubin (Negative) Urine Urobilinogen (Negative) Ur Leukocyte Esterase (Negative) Urine WBC (Auto) (0-5) /hpf Urine RBC (Auto) (0-4) /hpf U Hyaline Cast (Auto) (0-5) /lpf U Epithel Cells (Auto) (0-5) /lpf Urine Bacteria (Auto) (Negative) SARS-CoV-2, RNA, NAAT (NEGATIVE) 12/05/21 12/05/21 12/05/21 Range/Units 11:26 11:26 11:26 WBC (4.8-10.8) K/uL RBC (4.2-5.4) M/uL Hgb (12.0-16.0) g/dL Hct (37-47) % MCV (80-100) fL MCH (25-34) pg MCHC (32-36) g/dL RDW Std Deviation (36.4-46.3) fL RDW Coeff of [place] (11.5-14.5) % Plt Count (130-400) K/uL MPV (7.4-10.4) fL Immature Gran % (Auto) % Neut % (Auto) % Lymph % (Auto) % [place] % (Auto) % Eos % (Auto) % Baso % (Auto) % Neut # (Auto) (1.4-6.5) K/uL Lymph # (Auto) (1.2-3.4) K/uL [place] # (Auto) (0.11-0.59) K/uL Eos # (Auto) (0-0.5) K/uL Baso # (Auto) (0-0.2) K/uL Immature Gran # (Auto) (0.00-0.02) K/uL PT (9.0-12.0) Seconds INR (0.9-1.1) APTT (21.0-31.0) Seconds PTT Ratio Sodium (136-145) mmol/L Potassium (3.5-5.1) mmol/L Chloride (98-107) mmol/L Carbon Dioxide (21-32) mmol/L Anion Gap (3-11) BUN (6-23) mg/dl Creatinine (0.6-1.2) mg/dl Est Cr Clr Drug Dosing ml/min Est GFR ( Amer) ml/min Est GFR (Non-Af Amer) ml/min BUN/Creatinine Ratio (10-20) Glucose (70-99(Fasting)) mg/dl Lactate 1.6 (0.4-2.0) mmol/L Calcium (8.5-10.1) mg/dl Magnesium (1.7-2.4) mg/dl Total Bilirubin (0.2-1.0) mg/dl AST (13-39) U/L ALT (7-52) U/L Alkaline Phosphatase (34-104) U/L Troponin I (0-0.04) ng/ml Total Protein (6.0-8.3) gm/dl Albumin (3.4-5.0) gm/dl Globulin (2.5-4.0) gm/dl Albumin/Globulin Ratio (0.9-2) Lipase (11-82) U/L Procalcitonin 65.21 H (0-0.5) ng/ml Urine Color Yellow Urine Appearance Clear (Clear) Urine pH 5.0 (4.5-7.5) Ur Specific [place] 1.031 H (1.000-1.030) Urine Protein Trace H (Negative) Urine Glucose (UA) Negative (Negative) Urine Ketones Negative (Negative) Urine Blood 3+ H (Negative) Urine Nitrite Negative (Negative) Urine Bilirubin Negative (Negative) Urine Urobilinogen Negative (Negative) Ur Leukocyte Esterase 1+ H (Negative) Urine WBC (Auto) 10-30 H (0-5) /hpf Urine RBC (Auto) 10-30 H (0-4) /hpf U Hyaline Cast (Auto) 1-5 (0-5) /lpf U Epithel Cells (Auto) >30 H (0-5) /lpf Urine Bacteria (Auto) Negative (Negative) SARS-CoV-2, RNA, NAAT (NEGATIVE) 12/05/21 Range/Units 14:34 WBC (4.8-10.8) K/uL RBC (4.2-5.4) M/uL Hgb (12.0-16.0) g/dL Hct (37-47) % MCV (80-100) fL MCH (25-34) pg MCHC (32-36) g/dL RDW Std Deviation (36.4-46.3) fL RDW Coeff of [place] (11.5-14.5) % Plt Count (130-400) K/uL MPV (7.4-10.4) fL Immature Gran % (Auto) % Neut % (Auto) % Lymph % (Auto) % [place] % (Auto) % Eos % (Auto) % Baso % (Auto) % Neut # (Auto) (1.4-6.5) K/uL Lymph # (Auto) (1.2-3.4) K/uL [place] # (Auto) (0.11-0.59) K/uL Eos # (Auto) (0-0.5) K/uL Baso # (Auto) (0-0.2) K/uL Immature Gran # (Auto) (0.00-0.02) K/uL PT (9.0-12.0) Seconds INR (0.9-1.1) APTT (21.0-31.0) Seconds PTT Ratio Sodium (136-145) mmol/L Potassium (3.5-5.1) mmol/L Chloride (98-107) mmol/L Carbon Dioxide (21-32) mmol/L Anion Gap (3-11) BUN (6-23) mg/dl Creatinine (0.6-1.2) mg/dl Est Cr Clr Drug Dosing ml/min Est GFR ( Amer) ml/min Est GFR (Non-Af Amer) ml/min BUN/Creatinine Ratio (10-20) Glucose (70-99(Fasting)) mg/dl Lactate (0.4-2.0) mmol/L Calcium (8.5-10.1) mg/dl Magnesium (1.7-2.4) mg/dl Total Bilirubin (0.2-1.0) mg/dl AST (13-39) U/L ALT (7-52) U/L Alkaline Phosphatase (34-104) U/L Troponin I (0-0.04) ng/ml Total Protein (6.0-8.3) gm/dl Albumin (3.4-5.0) gm/dl Globulin (2.5-4.0) gm/dl Albumin/Globulin Ratio (0.9-2) Lipase (11-82) U/L Procalcitonin (0-0.5) ng/ml Urine Color Urine Appearance (Clear) Urine pH (4.5-7.5) Ur Specific [place] (1.000-1.030) Urine Protein (Negative) Urine Glucose (UA) (Negative) Urine Ketones (Negative) Urine Blood (Negative) Urine Nitrite (Negative) Urine Bilirubin (Negative) Urine Urobilinogen (Negative) Ur Leukocyte Esterase (Negative) Urine WBC (Auto) (0-5) /hpf Urine RBC (Auto) (0-4) /hpf U Hyaline Cast (Auto) (0-5) /lpf U Epithel Cells (Auto) (0-5) /lpf Urine Bacteria (Auto) (Negative) SARS-CoV-2, RNA, NAAT NEGATIVE (NEGATIVE) Imaging Data Attestation: I personally reviewed and interpreted this imaging study as follows: My Impression: My interpretation of the portable chest x-ray does not show any consolidations, pneumothorax or cardiac prominence. CT with IV contrast of the abdomen and pelvis was ordered, however and given the patient's acute kidney injury, noncontrast CT imaging was performed instead. CT did show urothelial thickening with perinephric and periureteral Tommie infiltration. No other acute intra-abdominal findings are noted. Radiologist reports were also reviewed. Radiologist's Impression: Abdomen/Pelvis CT 12/05/21 10:56 CT SCAN OF THE ABDOMEN AND PELVIS WITHOUT IV CONTRAST CLINICAL HISTORY: Generalized abdominal pain. COMPARISON STUDY: Abdominal CT dated 09/17/2016. TECHNIQUE: CT scan of the abdomen and pelvis is performed from the lung bases to the proximal femora. Images are reviewed in the axial, sagittal, and coronal planes. IV contrast was not administered for this examination due to poor renal function. Note that the examination is suboptimal without oral and IV contrast. A dose lowering technique was utilized adhering to the principles of ALARA. CT DOSE: 354.15 mGy.cm FINDINGS: Lung bases: The heart is top normal in size and without pericardial effusion. The pacemaker lead is noted. A left coronary artery stent is in place. The lung bases are clear. There is a small hiatal hernia. Liver: The unenhanced liver is enlarged, measuring over 18 cm in length. The liver demonstrates diffusely diminished attenuation consistent with hepatic steatosis. There is no intrahepatic biliary ductal dilatation. Gallbladder: Surgically absent noting clips in the gallbladder fossa. Spleen: Normal in size and attenuation. Pancreas: Unremarkable. Adrenal glands: Unremarkable. Kidneys: The unenhanced kidneys are normal in size and without hydronephrosis. There are no renal calculi identified. There is no evidence of contour deforming renal mass lesion. Urothelial thickening is noted in involving the left ureter and the left renal pelvis. There is associated left-sided perinephric and periureteric stranding infiltration. Abdominal vasculature: The abdominal aorta is normal in course and caliber noting advanced atherosclerotic calcification. There are bilateral iliac artery stents.. Bowel: There is no bowel obstruction. The appendix is well-visualized and normal. Peritoneum: There is no intraperitoneal free air or abdominal ascites. Lymphadenopathy: None. Pelvic viscera: The bladder, uterus, and adnexa are normal as visualized. Skeletal structures: The skeletal structures are osteopenic. There is a chronic superior endplate compression deformity of L4. Mild lumbosacral spondylosis is observed. No lytic or blastic lesions are seen. There are healed bilateral rib fractures. IMPRESSION: 1. There is urothelial thickening of the left renal pelvis and ureter with surrounding perinephric and periureteric infiltration. This could represent the sequelae of a recently passed kidney stone or could also be seen with urinary tract infection/pyelonephritis. Correlate with clinical findings and urinalysis. 2. No renal calculi are identified and there is no hydronephrosis. 3. Hepatomegaly and hepatic steatosis. 4. Additional findings as above. ACT 112: Negative or not required by law. Electronically signed by: Tommie Olson M.D. 12/05/2021 12:50 PM Chest X-Ray 12/05/21 10:56 SINGLE VIEW CHEST CLINICAL HISTORY: Sepsis. FINDINGS: An AP, portable, upright chest radiograph is compared to study dated 12/06/2019. A single lead cardiac AICD is unchanged in position and largely obscures the left mid chest. A coronary artery stent is noted. The cardiomediastinal silhouette is unremarkable. The lungs and pleural spaces are clear. No pneumothorax is seen. The skeletal structures are osteopenic. The bony thorax is grossly intact. IMPRESSION: No active disease in the chest. ACT 112: Negative or not required by law. Electronically signed by: Tommie Olson M.D. 12/05/2021 11:48 AM ECG Data Attestation: I personally reviewed and interpreted this ECG as follows: Indication: + abdominal pain, + back/shoulder pain, + nausea and + weakness Rate (beats per minute): 60 Rhythm: + normal sinus ECG Intervals/blocks: + First degree AV block, + Normal QRS and + Prolonged QT ECG ST segments: + ST depression (Inferior and anterolateral leads) Comparison ECG Date: from (12/05/2019) Change: the following changes noted (T wave inversions in inferior and anterolateral leads, along with prolonged QT that was not evident with prior ECG findings.) Blood Pressure Blood Pressure Findings: Normal blood pressure Blood Pressure Disposition: did not require urgent referral MDM Narrative Cardiac monitoring: An order was placed for continuous cardiac monitoring. The monitor shows a rate of 60 bpm with sinus rhythm with first-degree AV block. monitor worker history was reviewed throughout the evaluation, and no dysrhythmias were noted. Patient presents emergency department with preceding UTI of her outpatient testing, with progressively worsening symptoms. The patient reports chills, but has not checked her temperature at home. Given CT findings and urinalysis studies, I do suspect possible bacteremia. Sepsis protocol was followed. The patient was hydrated with normal saline. She also received IV Zosyn antibiotics. The patient does have an acute kidney injury. No obvious ureteral calculi are noted on CT imaging. Patient also has ECG changes that will require further cardiac monitoring. Impression & Plan Pyelonephritis of left kidney, Acute kidney injury, Cardiac ischemia, Takotsubo cardiomyopathy, Diabetes type 2, controlled Discharge Plan Visit Data Chief Complaint: Urinary Symptoms Stated Complaint: WENT TO DR 12/03/21 FOR UTI - WORSENING ED Provider: Emeka Brody ED Midlevel Provider: Charles Espinosa Discharge Problem: Pyelonephritis of left kidney, Acute kidney injury, Cardiac ischemia, Takotsubo cardiomyopathy, Diabetes type 2, controlled Patient Disposition: Admitted As Inpatient Discharge Instructions Interventions: ED Discharge Assessment Last Done: 12/05/21 17:13 Forms Stand Alone Forms: My [facility] [employer] Medical Prescriptions Prescriptions: No Action (DME) lancets [Accu-Chek Fastclix Lancet Drum] misc See Rx Instructions .ROUTE .MEDSUPPLY Qty: 102 RF: 3 (DME) Accu-Chek Guide test strips strip See Rx Instructions .ROUTE .MEDSUPPLY Qty: 100 RF: 3 hydrocortisone 5 mg tablet 5 mg PO BID Qty: 180 RF: 3 hydrocortisone 10 mg tablet 10 mg PO QAM Qty: 90 RF: 3 (DME) lancets [OneTouch Delica Lancets] 33 gauge misc See Dose Instructions .ROUTE .MEDSUPPLY Qty: 100 RF: 0 (DME) OneTouch Ultra Blue Test Strip strip See Dose Instructions .ROUTE .MEDSUPPLY Qty: 10 RF: 0 atorvastatin 40 mg tablet 40 mg PO HS RF: 0 sulfamethoxazole-trimethoprim [Bactrim DS] 800-160 mg tablet 1 tab PO BID RF: 0 isosorbide mononitrate 30 mg tablet extended release 24 hr 60 mg PO QAM RF: 0 triamterene-hydrochlorothiazid 37.5-25 mg capsule 1 cap PO Q2D RF: 0 levothyroxine 88 mcg tablet 88 mcg PO DAILYBB RF: 0 omeprazole 20 mg capsule,delayed release(DR/EC) 20 mg PO Q2D RF: 0 lisinopril 5 mg tablet 5 mg PO QAM RF: 0 metoprolol succinate 25 mg tablet extended release 24 hr 25 mg PO QAM RF: 0 Referrals Referrals: Adam Mcmahon MD [Primary Care Provider] -
[2021-12-05] MEDS ORDERED: HYDROmorphone INJ 0.5 MG/0.5 ML SYR IV PRN (17:45)
[2021-12-05] MEDS ORDERED: ACETAMINOPHEN 325 MG TAB PO PRN (17:45)
[2021-12-05] MEDS ORDERED: ONDANSETRON INJ 2 MG/ML 2 ML VIAL IV PRN (17:45)
[2021-12-05] MEDS ORDERED: PANTOprazole 40 MG TAB PO SCH (18:00)
[2021-12-05] MEDS ORDERED: NICOTINE 14 MG/24 HR PATCH TD PRN (20:18)
[2021-12-05] MEDS: HEPARIN SOD 5,000 UNIT/0.5 ML VIAL SQ SCH (21:07)
[2021-12-05] MEDS: PIPERACILLIN/TAZOBACTAM 3.375 GM in DEXTROSE 5% 100 ML IV SCH (22:03)
[2021-12-06] MEDS: HYDROCORTISONE SOD 50 MG in SYRINGE 0 ML IV SCH ×3 (00:43→16:44)
[2021-12-06] MEDS: PIPERACILLIN/TAZOBACTAM 3.375 GM in DEXTROSE 5% 100 ML IV SCH ×3 (04:48→20:10)
[2021-12-06] MEDS: LACTATED RINGER'S 1,000 ML IV SCH (06:13)
[2021-12-06] MEDS: LEVOTHYROXINE SODIUM 88 MCG TABLET PO SCH (06:14)
[2021-12-06 07:08] LABS: Basophils # (auto) 0.01 K/uL (0-0.2); Basophils % (auto) 0.2 %; Hematocrit (blood only) 40.4 % (37-47); Immature Granulocytes # (auto) 0.01 K/uL (0.00-0.02); Immature Granulocytes % (auto) 0.2 %; Lymphocytes # (auto) 0.51 K/uL (1.2-3.4); Lymphocytes % (auto) 8.8 %; Mean Corpuscular Hemoglobin 32.6 pg (25-34); Mean Corpuscular Hgb Conc 34.7 g/dL (32-36); Mean Corpuscular Volume 94.2 fL (80-100); Mean Platelet Volume 11.9 fL (7.4-10.4); Monocytes # (auto) 0.21 K/uL (0.11-0.59); Monocytes % (auto) 3.6 %; Neutrophils # (auto) 5.05 K/uL (1.4-6.5); Neutrophils % (auto) 87.2 %; Platelet Count 178 K/uL (130-400); RDW Coefficient of Variation 13.1 % (11.5-14.5); RDW Standard Deviation 45.2 fL (36.4-46.3); Red Blood Count 4.29 M/uL (4.2-5.4); White Blood Count 5.79 K/uL (4.8-10.8)
[2021-12-06 07:25] LABS: INR 1.3 (0.9-1.1); Prothrombin Time 13.3 Seconds (9.0-12.0)
[2021-12-06 07:32] LABS: BUN Creatinine Ratio 17.4 (10-20); Calcium 8.1 mg/dl (8.5-10.1); Creatinine Clr Calc Pharmacy 46.1 ml/min; Est GFR (African American) 56.7 ml/min; Est GFR (Non-African American) 48.9 ml/min; Potassium 3.8 mmol/L (3.5-5.1)
[2021-12-06 07:33] LABS: Albumin Level 3.5 gm/dl (3.4-5.0); Bilirubin Direct 0.2 mg/dl (0-0.2); Bilirubin,Total 0.7 mg/dl (0.2-1.0); Magnesium 2.1 mg/dl (1.7-2.4); Total Protein 6.7 gm/dl (6.0-8.3)
[2021-12-06 07:51] LABS: Thyroid Stimulating Hormone 0.03 uIu/ml (0.300-4.500)
[2021-12-06 07:53] LABS: T4 Free Thyroxine 1.13 ng/dl (0.61-1.60)
--- NOTE | 2021-12-06 07:56 | Hospitalist Progress Note ---
Date of Service December 06, 2021 Assessment & Plan (1) Acute pyelonephritis: Plan: Presents with left CVA tenderness, sweats and chills at home, in the setting of recent UTI diagnosed as an outpatient. Has ongoing urinary symptoms. With procalcitonin 65, lactate negative UA here is somewhat contaminated but she is also been on Bactrim x2 days so culture may end up being negative No leukocytosis or fever here so far, no tachycardia. Blood pressures are stable to low normal Suspect she may have bacteremia given significantly elevated procalcitonin With acute kidney injury as well as elevated LFTs-multisystem organ dysfunction - IV Zosyn, blood cultures, urine culture -Give stress dose steroids with IV hydrocortisone (2) CATA (acute kidney injury): Plan: Creatinine elevated on arrival at 1.86, BUN elevated at 34. Baseline creatinine 1.[address] abdomen/pelvis 12/05/21 There is urothelial thickening of the left renal pelvis and ureter with surrounding perinephric and periureteric infiltration. This could represent the sequelae of a recently passed kidney stone or could also be seen with urinary tract infection/pyelonephritis. Correlate with clinical findings and urinalysis. No renal calculi are identified and there is no hydronephrosis. Hepatomegaly and hepatic steatosis. 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 hydrocortisone -Start hydrocortisone 50 mg IV every 8 hours (5) Hypertension: Plan: Blood pressure is low normal Holding home lisinopril and HCTZ/triamterene as above -Giving stress dose steroids -Okay to give Toprol-XL 25 mg daily with hold parameters (6) Status post implantation of automatic cardioverter/defibrillator (AICD): Plan: Placed for history of cardiac arrest in [address] Martel of cardiology (7) Diabetes type 2, controlled: Plan: Has a history of such but resolved in the last 2 years, most recent hemoglobin A1c 6 months ago was normal at 5.7% No need for Accu-Cheks or insulin unless glucose rising on daily labs due to stress to steroids (8) Acid reflux disease: Plan: No acute issues Continue PPI (9) CAD (coronary artery disease): Plan: With a history of 5 stents in the heart in the past Holding atorvastatin for elevated LFTs as above -Continue aspirin, metoprolol with hold parameters, and isosorbide No acute issues ECG is abnormal but stable from previous, troponin here is negative (10) Dyslipidemia: Plan: Holding statin for elevated LFTs as above (11) PAD (peripheral artery disease): Plan: With a history of iliac stent Continue aspirin, holding statin (12) Pituitary hypothyroidism: Plan: Continue home levothyroxine 88 mcg daily Check free T3 and free T4 in the morning With central hypothyroidism, 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 She does have ICD in place and is okay with keeping that turned on but does not want CPR or intubation Admission and Anticipated Discharge Date Admission Date: December 05, 2021 Subjective Patient no complaints or problems right now she is encouraged that she is improved during the bedside visit we did discuss smoking cessation at this time Review of Systems Review of Systems: Mild distress and fatigue no headache, no visual changes no speech or swallowing issues no chest pain, pressure or palpitations no shortness of breath, cough or wheezes No real significant focal abdominal pain at this time no dysuria, she has frequent incontinence even prior to this hospital stay no focal joint pain or swelling no back pain, no specific CVA tenderness or radicular pain no bruising, bleeding or rashes no focal signs of weakness or numbness or altered sensation no complaints of anxiety or depression.. Physical Exam Physical Exam: The patient appeared well nourished and normally developed. Vital signs as documented. Head exam is normocephalic atraumatic Neck is without JVD, thyromegaly, or carotid bruits. Lungs are clear to auscultation, no focal loss of breath sounds Cardiac exam, Rhythm is regular.. No murmurs, rubs or gallops. Abdominal exam reveals normal bowel sounds, soft non tender, no masses CV tenderness is since resolved Extremities are nonedematous and both pedal pulses are present Neurologic exam is alert and oriented, no focal loss of strength or sensation Skin is without bruises or rashes Psychologically is without concerns for anxiety or depression.. Results & Data Results & Data ([facility]) Vital Signs (Past 12 Hours) Vital Signs Temp Pulse Pulse Resp BP Pulse Ox 12/06/21 07:30 57 L 12/06/21 06:31 98.2 F 52 L 18 153/81 H 93 12/06/21 04:16 98.4 F 63 16 131/69 93 12/05/21 23:35 97.7 F 65 18 114/69 92 12/05/21 22:17 66 12/05/21 19:59 60 PG Care Time/CCT Total # of Minutes Spent Total Time Spent with Patient: Total time spent is greater than 50% in coordination of care (as documented) at patient's floor/unit and/or counseling patient: Coding Level of Care Code 37788 Subseq Hosp Care Lvl 2 Diagnoses Acute pyelonephritis N10 CATA (acute kidney injury) N17.9 Elevated LFTs R79.89 Secondary adrenal insufficiency E27.49 Hypertension I10 Status post implantation of automatic cardioverter/defibrillator (AICD) Z95.810 Diabetes type 2, controlled E11.9 Acid reflux disease K21.9 CAD (coronary artery disease) I25.10 Dyslipidemia E78.5 PAD (peripheral artery disease) I73.9 Pituitary hypothyroidism E03.8 Hx-sudden cardiac arrest Z86.74 Tobacco use Z72.0 Fatty liver K76.0
[2021-12-06] MEDS: ASPIRIN 81 MG ECTAB PO SCH (08:17)
[2021-12-06] MEDS: METOPROLOL SUCC 25MG EXT REL TAB PO SCH (08:18)
[2021-12-06] MEDS: HEPARIN SOD 5,000 UNIT/0.5 ML VIAL SQ SCH ×2 (08:19→20:10)
[2021-12-06] MEDS: ISOSORBIDE MONO EXTENDED REL 60 MG TABCR PO SCH (08:19)
[2021-12-07] MEDS: HYDROCORTISONE SOD 50 MG in SYRINGE 0 ML IV SCH ×2 (00:02→07:44)
[2021-12-07] MEDS: PIPERACILLIN/TAZOBACTAM 3.375 GM in DEXTROSE 5% 100 ML IV SCH (03:43)
[2021-12-07] MEDS: LEVOTHYROXINE SODIUM 88 MCG TABLET PO SCH (05:37)
--- NOTE | 2021-12-07 05:46 | Electrocardiogram Report ---
Test Reason : Blood Pressure : / mmHG Vent. Rate : 060 BPM Atrial Rate : 060 BPM P-R Int : 250 ms QRS Dur : 078 ms QT Int : 496 ms P-R-T Axes : 057 045 251 degrees QTc Int : 496 ms Sinus rhythm with 1st degree A-V block Low voltage QRS Prolonged QT Abnormal ECG When compared with ECG of 05-DEC-2019 14:31, ST now depressed in Anterior leads T wave inversion more evident in Inferior leads QT has lengthened Confirmed by Patricio Grijalva ([id number]) on 12/07/2021 5:46:00 AM Referred By: REFERRED SELF Confirmed By:Patricio Grijalva
[2021-12-07] MEDS: METOPROLOL SUCC 25MG EXT REL TAB PO SCH (07:44)
[2021-12-07] MEDS: ASPIRIN 81 MG ECTAB PO SCH (07:44)
[2021-12-07] MEDS: HEPARIN SOD 5,000 UNIT/0.5 ML VIAL SQ SCH (07:45)
[2021-12-07] MEDS: ISOSORBIDE MONO EXTENDED REL 60 MG TABCR PO SCH (07:45)
[2021-12-07 12:07] LABS: Adenovirus F 40/41 PCR Not Detected (NotDetected); Astrovirus PCR Not Detected (NotDetected); Campylobacter PCR Not Detected (NotDetected); Clostridium diff Toxin A/B PCR Not Detected (NotDetected); Cryptosporidium PCR Not Detected (NotDetected); Cyclospora cayetanensis PCR Not Detected (NotDetected); Entamoeba histolytica PCR Not Detected (NotDetected); Enteroaggregative E.coli(EAEC) Not Detected (NotDetected); Enteropathogenic E.coli (EPEC) Not Detected (NotDetected); Enterotoxigenic E.coli (ETEC) Not Detected (NotDetected); Giardia lamblia PCR Not Detected (NotDetected); Norovirus GI/GII PCR Not Detected (NotDetected); Plesiomonas shigelloides PCR Not Detected (NotDetected); Rotavirus A PCR Not Detected (NotDetected); Salmonella PCR Not Detected (NotDetected); Sapovirus PCR Not Detected (NotDetected); Shiga-like Toxin E.coli (STEC) Not Detected (NotDetected); Shigella/Enteroinvasive E.coli Not Detected (NotDetected); Vibrio cholerae PCR Not Detected (NotDetected); Vibrio species PCR Not Detected (NotDetected); Yersinia enterocolitica PCR Not Detected (NotDetected)
--- NOTE | 2021-12-07 17:38 | Discharge Summary ---
Date of Service December 07, 2021 Admission HPI Per Admitting Provider This patient is a 61-year-old female with a history of CAD with multiple PCI's, Takotsubo cardiomyopathy, cardiac arrest now s/p ICD, hypertension, PAD status post iliac stenting, peripheral edema, resolved HFrEF, DM2, current smoker, hypopituitarism and adrenal insufficiency on chronic steroids, who presents to the ER with worsening lower back pain in the setting of UTI along with chills and a general sensation of feeling terrible. She started with a low back pain 5 days ago and was seen at urgent care 2 days ago and diagnosed with a UTI based on urinalysis. She was prescribed Bactrim and is taking it for the last 2 days but continues to feel terrible all over along with chills and sweats. She presented to the ER where she was noted to have normal vital signs and was afebrile, did not have a leukocytosis, but did have an acute kidney injury with a creatinine of 1.86, elevated LFTs, and evidence of left-sided pyelonephritis on CT abdomen/pelvis. Her procalcitonin was significantly elevated at 65. Her urinalysis showed possible infection versus contamination with epithelial cells. Her Covid test was negative. Chest x-ray was negative. She will be admitted for acute pyelonephritis and concern for early sepsis, with acute kidney injury and elevated LFTs as well as suspected bacteremia given significantly elevated procalcitonin. In the ER, she was given IV morphine, IV Zosyn, 1 L of normal saline, and Zofran. Principal Diagnosis pyelonephritis fatty liver diarrhea Discharge Exam Constitutional well developed and well nourished Eyes PERRL, conjunctivae normal, anicteric sclerae Neck trachea midline Thyroid: normal thyroid Respiratory normal respiratory effort, lungs clear to auscultation Cardiovascular RRR, no murmur, no edema Musculoskeletal no cyanosis or clubbing, extremities motor strength 5/5 Skin no rashes, warm and dry Neurologic PERRL, EOMI, accommodation nl, no face palsy, no dysarthria Psychiatric A+Ox3, euthymic affect Discharge Data Allergies Allergy/AdvReac Type Severity Reaction Status Date / Time fenofibrate Allergy Unknown Verified 12/05/21 13:41 Knjqyxx-LPO-XoI Reductase Allergy Verified 12/05/21 13:41 Inhibitor [Ngngzfv-Pwq-Pal Reductase Inhibitor] Consultations 12/05/21 16:02 Consult Health Information Management Routine Ordered Studies 12/05/21 10:56 CT abd pelvis wo con Stat Hospital Course (1) Acute pyelonephritis: Presents with left CVA tenderness, sweats and chills at home, in the setting of recent UTI diagnosed as an outpatient. Has ongoing urinary symptoms. With procalcitonin 65, lactate negative UA here is somewhat contaminated but she is also been on Bactrim x2 days so culture may end up being negative No leukocytosis or fever here so far, no tachycardia. Blood pressures are stable to low normal Suspect she may have bacteremia given significantly elevated procalcitonin With acute kidney injury as well as elevated LFTs-multisystem organ dysfunction and fatty liver - IV Zosyn, blood cultures, urine culture not conclusive, will have home on Cefdinir although non conclusive cultures -Give stress dose steroids with IV hydrocortisone resume home hydrocortisone (2) CATA (acute kidney injury): Creatinine elevated on arrival at 1.86, BUN elevated at 34. Baseline creatinine 1.[address] abdomen/pelvis 12/05/21 There is urothelial thickening of the left renal pelvis and ureter with surrounding perinephric and periureteric infiltration. This could represent the sequelae of a recently passed kidney stone or could also be seen with urinary tract infection/pyelonephritis. Correlate with clinical findings and urinalysis. No renal calculi are identified and there is no hydronephrosis. Hepatomegaly and hepatic steatosis. 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 hydrocortisone (5) Hypertension: Blood pressure is low normal restart home medicines (6) Status post implantation of automatic cardioverter/defibrillator (AICD): Placed for history of cardiac arrest in [address] Martel of cardiology (7) Diabetes type 2, controlled: Has a history of such but resolved in the last 2 years, most recent hemoglobin A1c 6 months ago was normal at 5.7% No need for Accu-Cheks or insulin unless glucose rising on daily labs due to stress to steroids (8) Acid reflux disease: No acute issues Continue PPI (9) CAD (coronary artery disease): With a history of 5 stents in the heart in the past resume atorvastatin given heart history and rely on primary care to follow LFT's -Continue aspirin, metoprolol and isosorbide No acute issues ECG is abnormal but stable from previous, troponin here is negative (10) Dyslipidemia: home lifestyle changes for improvement (11) PAD (peripheral artery disease): With a history of iliac stent Continue aspirin, statin (12) Pituitary hypothyroidism: Continue home levothyroxine 88 mcg daily Check free T3 and free T4 in the morning With central hypothyroidism, 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 She does have ICD in place and is okay with keeping that turned on but does not want CPR or intubation Total Time Total Time Spent Total Time Spent (In Minutes): It required greater than 30 minutes to prepare this patient for discharge Discharge Plan Discharge Items Patient Disposition: Home - Self-Care Reason For Visit: ACUTE PYELONEPHRITIS Discharge Diagnosis: pyelonephritis fatty liver Activity: Resume your previous activity Non-emergency contact: Primary Care Provider Call non-emergency contact if: your symptoms worsen and you have a fever Follow-up/Referrals: Adam Mcmahon MD [Primary Care Provider] - 12/24/21 10:30 am Diet: Low Fat Ambulatory Orders: Basic Metabolic Panel (Routine) Timeframe: 2 Days Location: Determined by Patient Ordered By: Emeka Staples Addtl Attending Provider Instructions: please finish your antibiotics and have your primary care check your urine after you are done Non-Alcoholic Fatty Liver Disease (NAFLD) results when liver cells become filled with fat. This fat can cause injury to the liver which can lead to cirrhosis, a severe condition where the liver is permanently scarred and damaged. Cirrhosis can lead to liver cancer or liver failure. You can control the progression of NAFLD by making the choice to change your diet and engage in daily activity A 510% weight loss is ideal to reverse the effects of NAFLD. However, making changes to your diet alone can have a positive effect on the liver. It is important to refrain from drinking alcohol, which can do more harm to your liver Please talk to your family doctor about a referral to a bilingual case manager for more education do not restart your lisinopril until 12/08/21 have labs checked on 12/09/21 Pending Studies at Discharge: Yes (final urine cultures ) Stand-Alone Forms: My [facility], Smoking Cessation Medications and DC Order Prescriptions: New cefdinir 300 mg capsule 300 mg PO BID 10 Days Qty: 20 RF: 0 Continued (DME) lancets [Accu-Chek Fastclix Lancet Drum] misc See Rx Instructions .ROUTE .MEDSUPPLY Qty: 102 RF: 3 (DME) Accu-Chek Guide test strips strip See Rx Instructions .ROUTE .MEDSUPPLY Qty: 100 RF: 3 hydrocortisone 5 mg tablet 5 mg PO BID Qty: 180 RF: 3 hydrocortisone 10 mg tablet 10 mg PO QAM Qty: 90 RF: 3 (DME) lancets [OneTouch Delica Lancets] [facility] See Dose Instructions .ROUTE .MEDSUPPLY Qty: 100 RF: 0 (DME) OneTouch Ultra Blue Test Strip strip See Dose Instructions .ROUTE .MEDSUPPLY Qty: 10 RF: 0 atorvastatin 40 mg tablet 40 mg PO HS RF: 0 isosorbide mononitrate 30 mg tablet extended release 24 hr 60 mg PO QAM RF: 0 levothyroxine 88 mcg tablet 88 mcg PO DAILYBB RF: 0 omeprazole 20 mg capsule,delayed release(DR/EC) 20 mg PO Q2D RF: 0 lisinopril 5 mg tablet 5 mg PO QAM RF: 0 metoprolol succinate 25 mg tablet extended release 24 hr 25 mg PO QAM RF: 0 aspirin 81 mg Tablet 81 mg PO DAILY RF: 0 Discontinued sulfamethoxazole-trimethoprim [Bactrim DS] 800-160 mg tablet 1 tab PO BID RF: 0 triamterene-hydrochlorothiazid 37.5-25 mg capsule 1 cap PO Q2D RF: 0 Discharge Orders: Discharge Order (Routine); Ordered 12/07/21 Ordered By: Emeka Staples Admission Data Admit Date/Time: 12/05/21 16:01 Attending Provider: Emeka Staples Admit Provider: Leila Colunga Primary Care Provider: Adam Mcmahon V. Other Interventions: Discharge Summary Assessment (RN) Last Done: 12/07/21 10:29 Coding Level of Care Code D/C DAY MANAGEMENT >30 MINS Diagnoses Acute pyelonephritis N10 CATA (acute kidney injury) N17.9 Elevated LFTs R79.89 Secondary adrenal insufficiency E27.49 Hypertension I10 Status post implantation of automatic cardioverter/defibrillator (AICD) Z95.810 Diabetes type 2, controlled E11.9 Acid reflux disease K21.9 CAD (coronary artery disease) I25.10 Dyslipidemia E78.5 PAD (peripheral artery disease) I73.9 Pituitary hypothyroidism E03.8 Hx-sudden cardiac arrest Z86.74 Tobacco use Z72.0 Fatty liver K76.0
== END 2021-12-07 13:39 | disposition home or self-care (01) | DRG 690 ==
LOC: ED 10:21 → SUATTDRO 16:01 → INTOOBSV 16:01 → 2N 16:01

== ENCOUNTER 2022-05-08 08:43 | Inpatient (IN) ==
[2022-05-08] MEDS ORDERED: ACETAMINOPHEN 1000 MG/100 ML IV IV STA (09:02)
[2022-05-08] MEDS ORDERED: ONDANSETRON INJ 2 MG/ML 2 ML VIAL IV STA ×2 (09:02→22:56)
[2022-05-08] MEDS ORDERED: ALBUTEROL HFA 8 GM INHALER INH ONE (09:02)
[2022-05-08] MEDS ORDERED: KETOROLAC TROMETHAMINE 15 MG/ML VIAL IV STA (09:02)
--- NOTE | 2022-05-08 09:08 | Emergency Department Note ---
Impression & Plan Precordial chest pain, Flu-like symptoms, Elevated troponin, COVID-19 ED Provider Note NAME: JOAN BHAT AGE: 61 SEX: F : 1960 ARRIVES VIA: Walk-In INFORMANT: [Patient] ED PROVIDER(S): [Tommie Dutton MD] CHIEF COMPLAINT: Illness HISTORY OF PRESENT ILLNESS: The patient is a 61-year-old female with a history of Takotsubo as well as sudden cardiac arrest. She has an AICD in place. The patient states that she has had 3 days of symptoms. She has had vomiting with nausea and dry heaves. She has been fatigued. She feels weak. Her whole body hurts. She has had a fever. She had a cough and feels short of breath. She has had some diarrhea. In addition, for 24 hours, she has had 8/10 chest discomfort across the anterior portion of both sides of her chest. The patient has used some Tylenol for symptoms, The patient's grandson has a cold, otherwise no sick contacts. REVIEW OF SYSTEMS: See HPI for pertinent positives and negatives. A total of ten systems were reviewed and were otherwise negative. PMHx/PSHx: See Below SOCIAL HISTORY: See Below. PHYSICAL EXAM: GENERAL: Patient is in mild distress from her symptoms. HEENT: No acute trauma, normocephalic atraumatic, mucous membranes moist, no nasal congestion, no scleral icterus. NECK: No stridor, no adenopathy, no meningismus, trachea is midline. LUNGS: Clear to auscultation bilaterally, no wheeze, no rhonchi, breath sounds equal. Chest: Tender to the anterior chest wall HEART: Without murmurs gallops or rubs, regular rate and rhythm. ABDOMEN: Soft, nontender, bowel sounds positive, no peritonitis. EXTREMITIES: No cyanosis or edema, full range of motion of all the joints without pain or difficulty, no signs for acute trauma. NEUROLOGIC: Oriented x 3, no acute motor or sensory deficits, no focal weakness. SKIN: No rash, no jaundice, no diaphoresis. DIFFERENTIAL DIAGNOSIS: Cardiac ischemia, aortic dissection, pulmonary embolism, pneumothorax, pneumonia, pericarditis, myocarditis, esophageal rupture, GERD, cholecystitis, pancreatitis, generalized viral illness, COVID 19, dehydration, electrolyte imbalance, bronchitis, among others. EMERGENCY DEPARTMENT COURSE/PROCEDURES: ECG: Indication was chest pain. The ECG shows a normal sinus rhythm with a rate of 83. There are inverted T waves in the inferior and anterior/lateral leads. There is no ST elevation. No PVCs. The QTc is 493. Compared to an ECG from 05 December 2021, the T wave changes are more pronounced. Continuous Cardiac Monitoring: An order was placed for continuous cardiac monitoring. The monitor shows a rate of 87 with normal sinus rhythm. Observation Note: The patient has a family history of coronary disease. Patient was first seen at 0900 and observation began at 0900 and was necessary in order to rule out cardiac ischemia. Upon reevaluation, over 6 hours of observation revealed that the patient should be admitted for further work-up. MEDICAL DECISION MAKING: There is no leukocytosis or worrisome anemia. Platelet count is somewhat low at 92. Sodium and potassium both slightly low. Creatinine is mildly elevated at 1.21. Lactic acid level is not elevated making severe sepsis less likely. No worrisome liver enzyme elevation. ECG shows sinus rhythm with some inverted T waves across almost all leads. The ECG looks very similar to previous ECGs. Cardiac troponin testing x2 does show a slight elevation, this is concerning for cardiac injury versus mismatch. Urinalysis shows contamination, no obvious infection. Respiratory bio fire did show findings of COVID-19. Chest film did not show pneumonia or CHF. On exam, patient appeared somewhat washed out and tired. She did have tenderness across the anterior chest wall by palpation. Patient received IV saline, 1.5 L. She was given IV potassium, IV Zofran. She was given oral aspirin, IV Tylenol, albuterol via MDI. She received IV Toradol, IV morphine and eventually was given some nitroglycerin paste. Given her cardiac history, given her COVID findings, given the ECG and troponin elevation and her complaints of chest pain, I do think further work-up/care in the hospital would be warranted. I did speak with the patient and case management, the on-call hospitalist was consulted. Past Med/Surg History Medical History Acid reflux disease CAD (coronary artery disease) Cardiac arrest (10/2019) Coma of unknown cause Diabetes type 2, controlled Dyslipidemia Fatty liver Growth hormone deficiency Hx-sudden cardiac arrest 10/2019 Hypertension Hypervolemia Hypotension (arterial) Influenza (10/2019) Myocardial infarction PAD (peripheral artery disease) Pituitary hypothyroidism Raynaud's disease Respiratory failure Secondary adrenal insufficiency Adrián syndrome Takotsubo cardiomyopathy Tobacco use Vitamin D deficiency Surgical History H/O heart artery stent S/P cardiac cath S/P cholecystectomy S/P tooth extraction S/P tubal ligation Status post implantation of automatic cardioverter/defibrillator (AICD) (10/2019) Family History Mother Cardiac disorder Congestive heart failure Myocardial infarction Ovarian cancer Father Kidney disease Diabetes Myocardial infarction Grandfather (Paternal) No problems noted. 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 [employer] How many Children do You have: 1 How many Children do You have Comment: 1 boy Feels Safe at Home: Yes Childhood Exposure to Second-Hand Smoke: Yes during the past year weight has: remained stable Dental Care, Regularly: No Physical Activity Frequency: Daily Seatbelt Use: always Sunscreen Use: No Assistive Devices: Cane and Crutches Allergies Allergies Allergy/AdvReac Type Severity Reaction Status Date / Time fenofibrate Allergy Unknown Verified 12/24/21 10:24 Dllhlmx-ABO-LcH Reductase Allergy Verified 12/24/21 10:24 Inhibitor [Isdqeig-Krl-Bkw Reductase Inhibitor] Home Meds Home Medications Medication Instructions Recorded Confirmed blood sugar diagnostic (OneTouch #10 ea 03/26/19 12/24/21 Ultra Blue Test Strip) lancets 33 gauge (OneTouch Delica #100 ea 03/26/19 12/24/21 Lancets) aspirin 81 mg tablet 81 mg PO DAILY 12/05/21 12/24/21 atorvastatin 40 mg tablet 40 mg PO HS 12/05/21 12/24/21 isosorbide mononitrate 30 mg 60 mg PO QAM 12/05/21 12/24/21 tablet,extended release 24 hr levothyroxine 88 mcg tablet 88 mcg PO DAILYBB 12/05/21 12/24/21 lisinopril 5 mg tablet 5 mg PO QAM 12/05/21 12/24/21 metoprolol succinate 25 mg 25 mg PO QAM 12/05/21 12/24/21 tablet,extended release 24 hr omeprazole 20 mg capsule,delayed 20 mg PO Q2D 12/05/21 12/24/21 release Previous Rx's Medication Instructions Recorded Accu-Chek Fastclix Lancet Drum #102 ea 08/19/19 (lancets) Accu-Chek Guide test strips (blood #100 ea 08/19/19 sugar diagnostic) hydrocortisone 10 mg tablet 10 mg PO QAM #90 tabs 10/18/21 hydrocortisone 5 mg tablet 5 mg PO BID #180 tabs 10/18/21 triamterene 37.5 1 cap PO Q2D #90 caps 12/24/21 mg-hydrochlorothiazide 25 mg capsule Results & Data (ED) Vital Signs Vital Signs - 24 hr 05/08/22 08:47 05/08/22 09:41 05/08/22 10:43 Temperature 37.2 C Temperature Source Temporal Artery Scan Pulse Rate 87 72 Pulse Rate [Left Finger] 84 Pulse Rate from SpO2 Sensor Pulse Rhythm Regular Pulse Rhythm [Left Finger] Regular Pulse Strength [Left Finger] Normal Respiratory Rate 18 20 Respiratory Effort / Characteristics Short of Breath Non-Labored Spontaneous Respiratory Depth Normal Respiratory Pattern Regular Blood Pressure 109/78 Blood Pressure [Right Arm] 148/71 H Blood Pressure Mean 88 Blood Pressure Mean [Right Arm] 96 Blood Pressure Position Sitting Blood Pressure Position [Right Arm] Sitting Pulse Oximetry 98 99 98 Oxygen Delivery Method Room Air Room Air Room Air Sepsis Recent Fever Within 48 Hours No Sepsis New/Unexplained Change in Mental Status N/A Sepsis Action Taken by Nursing No Action Required 05/08/22 11:39 05/08/22 11:39 05/08/22 12:00 Temperature Temperature Source Pulse Rate 68 Pulse Rate [Left Finger] Pulse Rate from SpO2 Sensor 65 Pulse Rhythm Pulse Rhythm [Left Finger] Pulse Strength [Left Finger] Respiratory Rate 19 Respiratory Effort / Characteristics Respiratory Depth Respiratory Pattern Blood Pressure 129/69 123/78 Blood Pressure [Right Arm] Blood Pressure Mean 89 93 Blood Pressure Mean [Right Arm] Blood Pressure Position Blood Pressure Position [Right Arm] Pulse Oximetry 99 Oxygen Delivery Method Sepsis Recent Fever Within 48 Hours Sepsis New/Unexplained Change in Mental Status Sepsis Action Taken by Nursing 05/08/22 12:00 05/08/22 12:30 05/08/22 12:30 Temperature Temperature Source Pulse Rate 80 73 Pulse Rate [Left Finger] Pulse Rate from SpO2 Sensor 78 74 Pulse Rhythm Pulse Rhythm [Left Finger] Pulse Strength [Left Finger] Respiratory Rate 21 15 Respiratory Effort / Characteristics Respiratory Depth Respiratory Pattern Blood Pressure 119/70 Blood Pressure [Right Arm] Blood Pressure Mean 86 Blood Pressure Mean [Right Arm] Blood Pressure Position Blood Pressure Position [Right Arm] Pulse Oximetry 98 98 Oxygen Delivery Method Sepsis Recent Fever Within 48 Hours Sepsis New/Unexplained Change in Mental Status Sepsis Action Taken by Nursing 05/08/22 13:00 05/08/22 13:00 05/08/22 13:30 Temperature Temperature Source Pulse Rate 64 Pulse Rate [Left Finger] Pulse Rate from SpO2 Sensor 64 Pulse Rhythm Pulse Rhythm [Left Finger] Pulse Strength [Left Finger] Respiratory Rate 21 Respiratory Effort / Characteristics Respiratory Depth Respiratory Pattern Blood Pressure 133/74 127/76 Blood Pressure [Right Arm] Blood Pressure Mean 93 93 Blood Pressure Mean [Right Arm] Blood Pressure Position Blood Pressure Position [Right Arm] Pulse Oximetry 96 Oxygen Delivery Method Sepsis Recent Fever Within 48 Hours Sepsis New/Unexplained Change in Mental Status Sepsis Action Taken by Nursing 05/08/22 13:30 05/08/22 14:00 05/08/22 14:00 Temperature Temperature Source Pulse Rate 66 62 Pulse Rate [Left Finger] Pulse Rate from SpO2 Sensor 66 63 Pulse Rhythm Pulse Rhythm [Left Finger] Pulse Strength [Left Finger] Respiratory Rate 15 10 L Respiratory Effort / Characteristics Respiratory Depth Respiratory Pattern Blood Pressure 137/69 Blood Pressure [Right Arm] Blood Pressure Mean 91 Blood Pressure Mean [Right Arm] Blood Pressure Position Blood Pressure Position [Right Arm] Pulse Oximetry 96 97 Oxygen Delivery Method Sepsis Recent Fever Within 48 Hours Sepsis New/Unexplained Change in Mental Status Sepsis Action Taken by [facility] Medications Current Medication List: was personally reviewed by me Laboratory Data Attestation: I reviewed the patient's lab results. Result diagrams: 05/08/22 10:57 05/08/22 10:57 Lab Results 05/08/22 05/08/2205/08/22 Range/Units 09:45 10:57 10:57 WBC 10.50 (4.8-10.8) K/ul RBC 5.15 (3.93-5.22) M/uL Hgb 16.3 H (12.0-16.0) g/dl Hct 48.2 H (34.1-44.9) % MCV 93.6 (80.0-100.0) fL MCH 31.7 (25.0-34.0) pg MCHC 33.8 (32.0-36.0) g/dL RDW Std Deviation 43.7 (36.4-46.3) fL RDW Coeff of [place] 12.6 (11.5-14.5) % Plt Count 92 L (130-400) K/uL MPV 11.0 (9.4-12.3) fL Immature Gran % (Auto) 0.5 % Neut % (Auto) 78.7 % Lymph % (Auto) 9.8 % [place] % (Auto) 10.8 % Eos % (Auto) 0.0 % Baso % (Auto) 0.2 % Neut # (Auto) 8.27 H (1.4-6.5) K/uL Lymph # (Auto) 1.03 L (1.2-3.4) K/uL [place] # (Auto) 1.13 H (0.24-0.82) K/uL Eos # (Auto) 0.00 (0-0.50) K/uL Baso # (Auto) 0.02 (0-0.2) K/uL Immature Gran # (Auto) 0.05 H (0.00-0.02) K/uL Absolute Nucleated RBC 0.04 H (0-0) K/uL Nucleated RBC % (auto) 0.4 % Toxic Vacuolation 1+ Platelet Estimate Decreased L (Normal) Echinocytes 1+ Sodium 132 L (136-145) mmol/L Potassium 3.3 L (3.5-5.1) mmol/L Chloride 100 (98-107) mmol/L Carbon Dioxide 20 L (21-32) mmol/L Anion Gap 12 H (3-11) BUN 22 (6-23) mg/dl Creatinine 1.21 H (0.6-1.2) mg/dl Est Cr Clr Drug Dosing 44.1 ml/min Est GFR ( Amer) 56.7 ml/min Est GFR (Non-Af Amer) 48.9 ml/min BUN/Creatinine Ratio 18.2 (10-20) Glucose 97 (70-99(Fasting)) mg/dl Lactate (0.4-2.0) mmol/L Calcium 8.3 L (8.5-10.1) mg/dl Magnesium 2.0 (1.7-2.4) mg/dl Total Bilirubin 1.0 (0.2-1.0) mg/dl AST 55 H (13-39) U/L ALT 25 (7-52) U/L Alkaline Phosphatase 69 (34-104) U/L Troponin I High Sens 14.8 H (0-14) pg/ml Total Protein 6.8 (6.0-8.3) gm/dl Albumin 3.9 (3.4-5.0) gm/dl Globulin 2.9 (2.5-4.0) gm/dl Albumin/Globulin Ratio 1.3 (0.9-2) Urine Color Urine Appearance (Clear) Urine pH (4.5-7.5) Ur Specific [place] (1.000-1.030) Urine Protein (Negative) Urine Glucose (UA) (Negative) Urine Ketones (Negative) Urine Blood (Negative) Urine Nitrite (Negative) Urine Bilirubin (Negative) Urine Urobilinogen (Negative) Ur Leukocyte Esterase (Negative) Urine WBC (Auto) (0-5) /hpf Urine RBC (Auto) (0-4) /hpf U Hyaline Cast (Auto) (0-5) /lpf U Epithel Cells (Auto) (0-5) /lpf Urine Bacteria (Auto) (Negative) Adenovirus (PCR) Not Detected (NotDetected) B. pertussis DNA (PCR) Not Detected (NotDetected) B.parapertussis DNA PCR Not Detected (NotDetected) C. pneumoniae DNA (PCR) Not Detected (NotDetected) Coronavirus OC43 (PCR) Not Detected (NotDetected) Coronavirus HKU1 (PCR) Not Detected (NotDetected) Coronavirus 229E (PCR) Not Detected (NotDetected) SARS-CoV-2 (PCR) DETECTED A* (NotDetected) Coronavirus NL63 (PCR) Not Detected (NotDetected) Human Metapneumovir PCR Not Detected (NotDetected) Influenza Type A (PCR) Not Detected (NotDetected) Influenza Type B (PCR) Not Detected (NotDetected) M. pneumoniae (PCR) Not Detected (NotDetected) Parainfluenza 1 (PCR) Not Detected (NotDetected) Parainfluenza 2 (PCR) Not Detected (NotDetected) Parainfluenza 3 (PCR) Not Detected (NotDetected) Parainfluenza 4 (PCR) Not Detected (NotDetected) RSV (PCR) Not Detected (NotDetected) Entero/Rhino (PCR) Not Detected (NotDetected) 05/08/22 05/08/22 05/08/22 Range/Units 10:57 11:35 13:18 WBC (4.8-10.8) K/ul RBC (3.93-5.22) M/uL Hgb (12.0-16.0) g/dl Hct (34.1-44.9) % MCV (80.0-100.0) fL MCH (25.0-34.0) pg MCHC (32.0-36.0) g/dL RDW Std Deviation (36.4-46.3) fL RDW Coeff of Clayton (11.5-14.5) % Plt Count (130-400) K/uL MPV (9.4-12.3) fL Immature Gran % (Auto) % Neut % (Auto) % Lymph % (Auto) % [place] % (Auto) % Eos % (Auto) % Baso % (Auto) % Neut # (Auto) (1.4-6.5) K/uL Lymph # (Auto) (1.2-3.4) K/uL [place] # (Auto) (0.24-0.82) K/uL Eos # (Auto) (0-0.50) K/uL Baso # (Auto) (0-0.2) K/uL Immature Gran # (Auto) (0.00-0.02) K/uL Absolute Nucleated RBC (0-0) K/uL Nucleated RBC % (auto) % Toxic Vacuolation Platelet Estimate (Normal) Echinocytes Sodium (136-145) mmol/L Potassium (3.5-5.1) mmol/L Chloride (98-107) mmol/L Carbon Dioxide (21-32) mmol/L Anion Gap (3-11) BUN (6-23) mg/dl Creatinine (0.6-1.2) mg/dl Est Cr Clr Drug Dosing ml/min Est GFR ( Amer) ml/min Est GFR (Non-Af Amer) ml/min BUN/Creatinine Ratio (10-20) Glucose (70-99(Fasting)) mg/dl Lactate 1.1 (0.4-2.0) mmol/L Calcium (8.5-10.1) mg/dl Magnesium (1.7-2.4) mg/dl Total Bilirubin (0.2-1.0) mg/dl AST (13-39) U/L ALT (7-52) U/L Alkaline Phosphatase (34-104) U/L Troponin I High Sens 17.5 H (0-14) pg/ml Total Protein (6.0-8.3) gm/dl Albumin (3.4-5.0) gm/dl Globulin (2.5-4.0) gm/dl Albumin/Globulin Ratio (0.9-2) Urine Color Dark Yellow Urine Appearance Clear (Clear) Urine pH 5.0 (4.5-7.5) Ur Specific [place] 1.028 (1.000-1.030) Urine Protein 1+ H (Negative) Urine Glucose (UA) Negative (Negative) Urine Ketones 1+ H (Negative) Urine Blood 2+ H (Negative) Urine Nitrite Negative (Negative) Urine Bilirubin Negative (Negative) Urine Urobilinogen Negative (Negative) Ur Leukocyte Esterase Negative (Negative) Urine WBC (Auto) 10-30 H (0-5) /hpf Urine RBC (Auto) 5-10 H (0-4) /hpf U Hyaline Cast (Auto) 5-10 H (0-5) /lpf U Epithel Cells (Auto) >30 H (0-5) /lpf Urine Bacteria (Auto) Negative (Negative) Adenovirus (PCR) (NotDetected) B. pertussis DNA (PCR) (NotDetected) B.parapertussis DNA PCR (NotDetected) C. pneumoniae DNA (PCR) (NotDetected) Coronavirus OC43 (PCR) (NotDetected) Coronavirus HKU1 (PCR) (NotDetected) Coronavirus 229E (PCR) (NotDetected) SARS-CoV-2 (PCR) (NotDetected) Coronavirus NL63 (PCR) (NotDetected) Human Metapneumovir PCR (NotDetected) Influenza Type A (PCR) (NotDetected) Influenza Type B (PCR) (NotDetected) M. pneumoniae (PCR) (NotDetected) Parainfluenza 1 (PCR) (NotDetected) Parainfluenza 2 (PCR) (NotDetected) Parainfluenza 3 (PCR) (NotDetected) Parainfluenza 4 (PCR) (NotDetected) RSV (PCR) (NotDetected) Entero/Rhino (PCR) (NotDetected) Administered Medications Discontinued Medications Acetaminophen (Acetaminophen 1000 Mg/100 Ml Iv) 1,000 mg IV NOW STA Stop: 05/08/22 09:03 Last Admin: 05/08/22 09:55 Dose: 1,000 mg Documented By: FIFI Albuterol (Albuterol Hfa 8 Gm Inhaler) 2 puffs INH NOW ONE Stop: 05/08/22 09:03 Last Admin: 05/08/22 09:55 Dose: 2 puffs Documented By: FIFI Aspirin (Aspirin Chew 324 Mg) 324 mg PO NOW STA Stop: 05/08/22 14:27 Last Admin: 05/08/22 14:41 Dose: 324 mg Documented By: FIFI Sodium Chloride (Nss 1000ml) 1,000 mls @ 999 mls/hr IV .Q1H1M RADHA Stop: 05/08/22 10:15 Last Infusion: 05/08/22 10:56 Dose: 0 mls/hr Documented By: Admin: 05/08/22 09:55 Dose: 999 mls/hr Documented By: FIFI Potassium Chloride (K Oziel / Wtr) 10 meq in 100 mls @ 100 mls/hr IV ONE ONE; Protocol Stop: 05/08/22 13:00 Last Infusion: 05/08/22 13:33 Dose: 0 mls/hr Documented By: Admin: 05/08/22 12:33 Dose: 100 mls/hr Documented By: FIFI Sodium Chloride (Nss 1000ml) 500 mls @ 999 mls/hr IV .Q31M ONE Stop: 05/08/22 14:16 Last Infusion: 05/08/22 14:46 Dose: 0 mls/hr Documented By: Admin: 05/08/22 14:15 Dose: 999 mls/hr Documented By: FIFI Ketorolac Tromethamine (Ketorolac Tromethamine 15 Mg/Ml Vial) 15 mg IV NOW STA Stop: 05/08/22 09:03 Last Admin: 05/08/22 09:55 Dose: 15 mg Documented By: FIFI Morphine Sulfate (Morphine Sulfate 2 Mg/Ml Carp) 2 mg IV NOW STA Stop: 05/08/22 14:25 Last Admin: 05/08/22 14:41 Dose: 2 mg Documented By: FIFI Nitroglycerin (Nitroglycerin 2% Ointment 30gm Tube) 1 inch EXT NOW STA Stop: 05/08/22 14:25 Last Admin: 05/08/22 14:41 Dose: 1 inch Documented By: FIFI Ondansetron HCl (Ondansetron Inj 2 Mg/Ml 2 Ml Vial) 4 mg IV NOW STA Stop: 05/08/22 09:03 Last Admin: 05/08/22 09:55 Dose: 4 mg Documented By: FIFI Imaging Data Radiologist's Impression: Chest X-Ray 05/08/22 09:02 XR chest 1V portable HISTORY: 61 years-old Female weakness acute weakness COMPARISON: Chest radiograph 12/05/2021 TECHNIQUE: Portable AP view of the chest FINDINGS: Cardiomediastinal and hilar silhouettes are within normal limits. Left subclavian pacer/AICD. Coronary arterial stent. No pneumothorax, pleural effusion, airspace consolidation or overt pulmonary edema. Degenerative changes of the shoulders and spine. IMPRESSION: No acute process. ACT 112: Negative or not required by law. The above report was generated using voice recognition software. It may contain grammatical, syntax or spelling errors. Electronically signed by: Efren Colin M.D. 05/08/2022 11:16 AM Discharge Plan Visit Data Chief Complaint: Illness Stated Complaint: FEVER, BODY ACHES, CHEST PAIN ED Provider: Tommie Dutton Discharge Problem: Precordial chest pain, Flu-like symptoms, Elevated troponin, COVID-19 Patient Disposition: Admitted As Inpatient Condition: Fair Forms Stand Alone Forms: My [facility]u Buru Prescriptions Prescriptions: No Action (DME) lancets [Accu-Chek Fastclix Lancet Drum] misc See Rx Instructions .ROUTE .MEDSUPPLY Qty: 102 3RF Rx Instructions: use to test blood sugar once daily (DME) Accu-Chek Guide test strips strip See Rx Instructions .ROUTE .MEDSUPPLY Qty: 100 3RF Rx Instructions: use 1 daily to test blood sugars hydrocortisone 5 mg tablet 5 mg PO BID Qty: 180 3RF Rx Instructions: Take with 10mg in the morning hydrocortisone 10 mg tablet 10 mg PO QAM Qty: 90 3RF Rx Instructions: Take every morning with 5mg triamterene-hydrochlorothiazid 37.5-25 mg capsule 1 cap PO Q2D Qty: 90 1RF Rx Instructions: 1 cap PO every other day (DME) lancets [[facility]Touch Delica Lancets] [address] [facility] [facility] See Dose Instructions .ROUTE .MEDSUPPLY Qty: 100 Rx Instructions: Test 4 times daily (DME) OneTouch Ultra Blue Test Strip strip See Dose Instructions .ROUTE .MEDSUPPLY Qty: 10 Rx Instructions: test 4 times daily atorvastatin 40 mg tablet 40 mg PO HS isosorbide mononitrate 30 mg tablet extended release 24 hr 60 mg PO QAM levothyroxine 88 mcg tablet 88 mcg PO DAILYBB omeprazole 20 mg capsule,delayed release(DR/EC) 20 mg PO Q2D lisinopril 5 mg tablet 5 mg PO QAM metoprolol succinate 25 mg tablet extended release 24 hr 25 mg PO QAM aspirin 81 mg Tablet 81 mg PO DAILY Referrals Referrals: Adam Mcmahon MD [Primary Care Provider] -
[2022-05-08] MEDS ORDERED: SODIUM CHLORIDE 0.9% 1000ML 1,000 ML IV SCH ×2 (09:15→20:45)
[2022-05-08 10:49] LABS: Adenovirus PCR Not Detected (NotDetected); Bordetella parapertussis PCR Not Detected (NotDetected); Bordetella pertussis PCR Not Detected (NotDetected); Chlamydia pneumoniae PCR Not Detected (NotDetected); Coronavirus 229E PCR Not Detected (NotDetected); Coronavirus HKU1 PCR Not Detected (NotDetected); Coronavirus NL63 PCR Not Detected (NotDetected); Coronavirus OC43PCR Not Detected (NotDetected); Human Metapneumovirus PCR Not Detected (NotDetected); Influenza A PCR Not Detected (NotDetected); Influenza B PCR Not Detected (NotDetected); Mycoplasma pneumoniae PCR Not Detected (NotDetected); Parainfluenza Virus 1 PCR Not Detected (NotDetected); Parainfluenza Virus 2 PCR Not Detected (NotDetected); Parainfluenza Virus 3 PCR Not Detected (NotDetected); Parainfluenza Virus 4 PCR Not Detected (NotDetected); Respiratory Syncytial VirusPCR Not Detected (NotDetected); Rhinovirus/Enterovirus PCR Not Detected (NotDetected)
[2022-05-08 10:52] LABS: Coronavirus CoV-2 (COVID19)PCR DETECTED (NotDetected)
--- NOTE | 2022-05-08 11:18 | XRay Report ---
XR chest 1V portable HISTORY: 61 years-old Female weakness acute weakness COMPARISON: Chest radiograph 12/05/2021 TECHNIQUE: Portable AP view of the chest FINDINGS: Cardiomediastinal and hilar silhouettes are within normal limits. Left subclavian pacer/AICD. Coronar y arterial stent. No pneumothorax, pleural effusion, airspace consolidation or overt pulmonary edema. Degenerative changes of the shoulders and spine. IMPRESSION: No acute process. ACT 112: Negative or not required by law. The above report was generated using voice recognition software. It may contain grammatical, syntax o r spelling errors. Electronically signed by: Efren oClin M.D. 05/08/2022 11:16 AM
[2022-05-08 11:43] LABS: Albumin Globulin Ratio 1.3 (0.9-2); Albumin Level 3.9 gm/dl (3.4-5.0); BUN Creatinine Ratio 18.2 (10-20); Calcium 8.3 mg/dl (8.5-10.1); Creatinine Clr Calc Pharmacy 44.1 ml/min; Est GFR (African American) 56.7 ml/min; Est GFR (Non-African American) 48.9 ml/min; Globulin 2.9 gm/dl (2.5-4.0); Potassium 3.3 mmol/L (3.5-5.1); Total Protein 6.8 gm/dl (6.0-8.3)
[2022-05-08 11:44] LABS: Troponin I High Sensitivity 14.8 pg/ml (0-14)
[2022-05-08 11:47] LABS: Basophils # (auto) 0.02 K/uL (0-0.2); Basophils % (auto) 0.2 %; Echinocytes 1+; Immature Granulocytes # (auto) 0.05 K/uL (0.00-0.02); Immature Granulocytes % (auto) 0.5 %; Lymphocytes # (auto) 1.03 K/uL (1.2-3.4); Lymphocytes % (auto) 9.8 %; Monocytes # (auto) 1.13 K/uL (0.24-0.82); Monocytes % (auto) 10.8 %; Neutrophils # (auto) 8.27 K/uL (1.4-6.5); Neutrophils % (auto) 78.7 %; Platelet Estimate Decreased (Normal); Toxic Vacuolation 1+
[2022-05-08 11:48] LABS: Hematocrit (blood only) 48.2 % (34.1-44.9); Hemoglobin 16.3 g/dl (12.0-16.0); Mean Corpuscular Hemoglobin 31.7 pg (25.0-34.0); Mean Corpuscular Hgb Conc 33.8 g/dL (32.0-36.0); Mean Corpuscular Volume 93.6 fL (80.0-100.0); Nucleated RBC # (auto) 0.04 K/uL (0-0); Nucleated RBC % (auto) 0.4 %; Platelet Count 92 K/uL (130-400); RDW Coefficient of Variation 12.6 % (11.5-14.5); RDW Standard Deviation 43.7 fL (36.4-46.3); Red Blood Count 5.15 M/uL (3.93-5.22)
[2022-05-08] MEDS ORDERED: POTASSIUM CHLORIDE / WTR 10 MEQ/100 ML PLCT IV ONE (12:01)
[2022-05-08 12:55] LABS: Appearance Urine Clear (Clear); Bacteria Urine Automated Negative (Negative); Bilirubin Urine Negative (Negative); Blood Urine 2+ (Negative); Color Urine Dark Yellow; Epithelial Cell Urine Auto >30 /lpf (0-5); Glucose Urine UA Negative (Negative); Ketones Urine 1+ (Negative); Leukocyte Esterase Urine Negative (Negative); Nitrite Urine Negative (Negative); Protein Urine 1+ (Negative); Specific Gravity Urine 1.028 (1.000-1.030); Urobilinogen Urine Negative (Negative)
[2022-05-08] MEDS ORDERED: SODIUM CHLORIDE 0.9% 1000ML 500 ML IV ONE (13:46)
[2022-05-08] MEDS ORDERED: MoRPHine SULFATE 2 MG/ML CARP IV STA (14:24)
[2022-05-08] MEDS ORDERED: NITROGLYCERIN 2% OINTMENT 30GM TUBE EXT STA (14:24)
[2022-05-08] MEDS ORDERED: ASPIRIN CHEW 324 MG PO STA (14:26)
--- NOTE | 2022-05-08 14:50 | History & Physical Report ---
Date of Service May 08, 2022 Assessment & Plan (1) COVID-19: Plan: - 3 days of chest/body aches, fevers, general weakness, vomiting/dry heaves. - Not vaccinated against COVID-19. - Afebrile and SpO2 > 92% on RA in ED, not a candidate for remdesivir or steroids at this point. - Continue supportive care with maintenance IVF/encourage PO intake, Tylenol, DuoNebs, incentive spirometry. (2) Elevated troponin: Plan: - Troponin initially elevated 14.8, repeat 2 hours later 17.5. Patient has had general chest aches/tightness for 3 days now in the setting of known COVID. - EKG does have some more prominent T wave inversions, therefore we will trend troponin every 6 hours with echo in AM. - She not hypoxic or tachycardic, no shortness of breath, or unilateral leg swelling/pain to suggest PE. - Given the duration of chest pain and troponin very mildly elevated, high suspicion that this is more so related to her COVID 19 infection then cardiac in nature. (3) CATA (acute kidney injury): Plan: - Baseline creatinine < 1.0, 1.21 today. In the setting of emesis/dry heaves/poor p.o. intake over the past 3 days given COVID-19 infection. - Received 1.5L NSS in ED, will continue maintenance fluids, hold nephrotoxins. - Renally dose medications as able. - BMP daily. - Replete potassium as needed. Received 10 mEq in ED, will order 2 additional K riders with fluids. 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 - Continue hydrocortisone 15 mg in a.m., 5 mg p.m. - Patient currently normotensive, without tachycardia, do not feel stress to steroids are indicated at this point, however if she becomes hypotensi ve/tachycardiac or more acutely ill will double dose. (5) CAD (coronary artery disease): Plan: - Continue metoprolol, isosorbide, aspirin daily, statin. - Holding lisinopril and hydrochlorothiazide due to mild CATA. - Trend trop as above. (6) Acid reflux disease: Plan: - Continue PPI. (7) Diabetes type 2, controlled: Plan: - History of, however has not been on medications for 2 years. A1c 5.7% in April 2021. - No need for Accucheks/SSI, can monitor glucose on daily BMPs. (8) Status post implantation of automatic cardioverter/defibrillator (AICD): Plan: - s/p cardiac arrest in 2019. (9) Hypothyroidism: Plan: - Continue levothyroxine. Plan - ADmit to med/tele. - SCDs and Lovenox for VTE ppx. -DNR/DNI. 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 3 days ago, she suddenly developed body aches and chills throughout the day and became quite nauseous, vomiting once that time. That night, she went home and slept for 16 hours but woke up still feeling very fatigued. She continues to feel achy all over, noting it is in her chest and joints all over her body. The chest pain is not worse with respirations, activity, or coughing. It remains a dull pressure/ache it has been persistent for 3 days now. Does not radiate into her neck or jaw. She has not vomited anymore but has been dry heaving. She does not have much of an appetite and has ongoing chills and hot flashes. She feels weak and "not good at all". She has some family members with cold symptoms, otherwise denies known exposure to COVID or other sick contacts. Upon presentation, vital signs within with normal limits stable, afebrile and SPO2 maintained 95% on room air. Labs are significant for decreased platelet count of 92, sodium 132, potassium 3.3, Cr 1.21, calcium 8.3. AST mildly elevated 55, liver function WNL. Initial troponin mildly elevated 14.8, repeat 2 hours later 17.5. UA likely contaminated with >30 epi cells, is positive for WBCs, protein, ketones, and microscopic blood. Respiratory bio fire panel positive for COVID-19, otherwise negative. CXR without evidence of pneumonia. Allergies Allergy/AdvReac Type Severity Reaction Status Date / Time fenofibrate Allergy Unknown Verified 12/24/21 10:24 Senfezv-KKW-QfP Reductase Allergy Unknown Verified 05/08/22 15:59 Inhibitor [Dhpqptq-Dtw-Owo Reductase Inhibitor] Home Medications Medication Instructions Recorded Confirmed Type hydrocortisone 10 mg tablet 10 mg PO QAM #90 tabs 10/18/21 05/08/22 Rx hydrocortisone 5 mg tablet 5 mg PO BID #180 tabs 10/18/21 05/08/22 Rx atorvastatin 40 mg tablet 40 mg PO HS 12/05/21 05/08/22 History isosorbide mononitrate 30 mg 60 mg PO QAM 12/05/21 05/08/22 History tablet,extended release 24 hr levothyroxine 88 mcg tablet 88 mcg PO DAILYBB 12/05/21 05/08/22 History lisinopril 5 mg tablet 5 mg PO QAM 12/05/21 05/08/22 History metoprolol succinate 25 mg 25 mg PO QAM 12/05/21 05/08/22 History tablet,extended release 24 hr omeprazole 20 mg capsule,delayed 20 mg PO Q2D 12/05/21 05/08/22 History release triamterene 37.5 1 cap PO Q2D #90 caps 12/24/21 05/08/22 Rx mg-hydrochlorothiazide 25 mg capsule aspirin 81 mg tablet,delayed 81 mg PO DAILY 05/08/22 05/08/22 History release Past Med/Surg History Medical History Acid reflux disease CAD (coronary artery disease) Cardiac arrest (10/2019) Coma of unknown cause Diabetes type 2, controlled Dyslipidemia Fatty liver Growth hormone deficiency Hx-sudden cardiac arrest 10/2019 Hypertension Hypervolemia Hypotension (arterial) Influenza (10/2019) Myocardial infarction PAD (peripheral artery disease) Pituitary hypothyroidism Raynaud's disease Respiratory failure Secondary adrenal insufficiency Adrián syndrome Takotsubo cardiomyopathy Tobacco use Vitamin D deficiency Surgical History H/O heart artery stent S/P cardiac cath S/P cholecystectomy S/P tooth extraction S/P tubal ligation Status post implantation of automatic cardioverter/defibrillator (AICD) (10/2019) Family History Mother Cardiac disorder Congestive heart failure Myocardial infarction Ovarian cancer Father Kidney disease Diabetes Myocardial infarction Grandfather (Paternal) No problems noted. 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 [employer] How many Children do You have: 1 How many Children do You have Comment: 1 boy Feels Safe at Home: Yes Childhood Exposure to Second-Hand Smoke: Yes during the past year weight has: remained stable Dental Care, Regularly: No Physical Activity Frequency: Daily Seatbelt Use: always Sunscreen Use: No Assistive Devices: Cane and Crutches Review of Systems Review of Systems: All systems reviewed & are unremarkable except as noted in HPI & below Review of systems: Physical Exam Physical Exam: General: awake, alert, appears weak and fatigued, but no apparent distress Head: Normocephalic, atraumatic ENT: PERRL, EOMI, no pharyngeal exudate, mucous membranes moist Chest: Clear to auscultation, on room air, no adventitious breath sounds Cardiac: Regular rate and rhythm, no murmur, no JVD, normal peripheral pulses, good capillary refill Abdominal: NABS x 4 quadrants, soft, nontender to palpation, no rebound, guarding or tenderness Extremities: Normal inspection, no peripheral edema or erythema, calfs nontender to palpation Psych: Normal mood and affect Neuro: AAO x 3, strength intact bilaterally and rated 5/5, no motor deficits, speech is clear, no peripheral sensory deficits Skin: no rash or erythema Results & Data Results & Data ([facility]) Vital Signs (Past 12 Hours) Vital Signs Temp Pulse Pulse Resp BP BP Pulse Ox 05/08/22 14:00 62 10 L 97 05/08/22 14:00 137/69 05/08/22 13:30 66 15 96 05/08/22 13:30 127/76 05/08/22 13:00 64 21 96 05/08/22 13:00 133/74 05/08/22 12:30 73 15 98 05/08/22 12:30 119/70 05/08/22 12:00 80 21 98 05/08/22 12:00 123/78 05/08/22 11:39 68 19 99 05/08/22 11:39 129/69 05/08/22 10:43 84 20 148/71 H 98 05/08/22 09:41 72 99 05/08/22 08:47 37.2 C 87 18 109/78 98 O2 Del Method 05/08/22 14:00 05/08/22 14:00 05/08/22 13:30 05/08/22 13:30 05/08/22 13:00 05/08/22 13:00 05/08/22 12:30 05/08/22 12:30 05/08/22 12:00 05/08/22 12:00 05/08/22 11:39 05/08/22 11:39 05/08/22 10:43 Room Air 05/08/22 09:41 Room Air 05/08/22 08:47 Room Air Laboratory Results Abnormal lab results 05/08/22 05/08/22 05/08/22 Range/Units 09:45 10:57 10:57 Hgb 16.3 H (12.0-16.0) g/dl Hct 48.2 H (34.1-44.9) % Plt Count 92 L (130-400) K/uL Neut # (Auto) 8.27 H (1.4-6.5) K/uL Lymph # (Auto) 1.03 L (1.2-3.4) K/uL [place] # (Auto) 1.13 H (0.24-0.82) K/uL Immature Gran # (Auto) 0.05 H (0.00-0.02) K/uL Absolute Nucleated RBC 0.04 H (0-0) K/uL Platelet Estimate Decreased L (Normal) Sodium 132 L (136-145) mmol/L Potassium 3.3 L (3.5-5.1) mmol/L Carbon Dioxide 20 L (21-32) mmol/L Anion Gap 12 H (3-11) Creatinine 1.21 H (0.6-1.2) mg/dl Calcium 8.3 L (8.5-10.1) mg/dl AST 55 H (13-39) U/L Troponin I High Sens 14.8 H (0-14) pg/ml Urine Protein (Negative) Urine Ketones (Negative) Urine Blood (Negative) Urine WBC (Auto) (0-5) /hpf Urine RBC (Auto) (0-4) /hpf U Hyaline Cast (Auto) (0-5) /lpf U Epithel Cells (Auto) (0-5) /lpf SARS-CoV-2 (PCR) DETECTED A* (NotDetected) 05/08/22 05/08/22 Range/Units 11:35 13:18 Hgb (12.0-16.0) g/dl Hct (34.1-44.9) % Plt Count (130-400) K/uL Neut # (Auto) (1.4-6.5) K/uL Lymph # (Auto) (1.2-3.4) K/uL [place] # (Auto) (0.24-0.82) K/uL Immature Gran # (Auto) (0.00-0.02) K/uL Absolute Nucleated RBC (0-0) K/uL Platelet Estimate (Normal) Sodium (136-145) mmol/L Potassium (3.5-5.1) mmol/L Carbon Dioxide (21-32) mmol/L Anion Gap (3-11) Creatinine (0.6-1.2) mg/dl Calcium (8.5-10.1) mg/dl AST (13-39) U/L Troponin I High Sens 17.5 H (0-14) pg/ml Urine Protein 1+ H (Negative) Urine Ketones 1+ H (Negative) Urine Blood 2+ H (Negative) Urine WBC (Auto) 10-30 H (0-5) /hpf Urine RBC (Auto) 5-10 H (0-4) /hpf U Hyaline Cast (Auto) 5-10 H (0-5) /lpf U Epithel Cells (Auto) >30 H (0-5) /lpf SARS-CoV-2 (PCR) (NotDetected) Diagnostic Findings Chest X-Ray 05/08/22 09:02 XR chest 1V portable HISTORY: 61 years-old Female weakness acute weakness COMPARISON: Chest radiograph 12/05/2021 TECHNIQUE: Portable AP view of the chest FINDINGS: Cardiomediastinal and hilar silhouettes are within normal limits. Left subclavian pacer/AICD. Coronary arterial stent. No pneumothorax, pleural effusion, airspace consolidation or overt pulmonary edema. Degenerative changes of the shoulders and spine. IMPRESSION: No acute process. ACT 112: Negative or not required by law. The above report was generated using voice recognition software. It may contain grammatical, syntax or spelling errors. Electronically signed by: Efren Colin M.D. 05/08/2022 11:16 AM ECG Additional Comments: Normal sinus rhythm Low voltage QRS T wave abnormality, consider inferior ischemia T wave abnormality, consider anterolateral ischemia Prolonged QT Abnormal ECG When compared with ECG of 05-DEC-2021 12:11, [place] interval has decreased. Code Status & VTE Plan Code Status DNR/DNI per discussion with patient. Supervising Physician Co-Signing Physician Notes Patient seen and examined, chart reviewed, case discussed with Shakila Turcios PA-C and I agree with the assessment and plan as above except as otherwise noted Labs and images reviewed Ceci is a 61-year-old female with past medical history of CAD with history of cardiac arrest and AICD placement, she Conn syndrome with secondary AI, hypertension, hypothyroid, DM2, GERD, and tobacco use who presents with 3 days of nausea/vomiting/dry heaves/chest pain and who is COVID-positive Chest pain With strong cardiac history/history of arrest in the setting of COVID-19 and received aspirin, Toradol, morphine, nitro on admission. Pain improved but not resolved High-sensitivity troponin 14.8, repeat 17.5. Trended every 6 hours EKG: Inferior and anterior/lateral T wave inversions without ST segment changes. COVID-positive, CR panel otherwise negative COVID Oxygen saturation greater than 94% on room air Dexamethasone not indicated, remdesivir not indicated Normotensive CXR: No acute findings Hypertension: Continue home medications CAD with history of arrest: Cardiac evaluation as above, continue metoprolol, lisinopril, isosorbide Adrián syndrome with secondary AI: Continue hydrocortisone home dosing. Blood pressure normal, no tachycardia. If hypotensive or worsening double/stress dose. Hypothyroidism: Continue Synthroid, TSH unreliable free T4 pending Prerenal azotemia versus CATA: Creatinine baseline less than 1, acutely elevated to 1.21. BUN/creatinine ratio is not greater than 20. Received 1.5 L fluid in ER. Encouraged orals, trend daily. PG Care Time/CCT Total # of Minutes Spent Total Time Spent with Patient: Total time spent is greater than 50% in coordination of care (as documented) at patient's floor/unit and/or counseling patient: Coding Level of Care Code 67608 Initial Inpt Care Lvl 3 Diagnoses COVID-19 U07.1 Elevated troponin R77.8 CATA (acute kidney injury) N17.9 Secondary adrenal insufficiency E27.49 CAD (coronary artery disease) I25.10 Acid reflux disease K21.9 Diabetes type 2, controlled E11.9 Status post implantation of automatic cardioverter/defibrillator (AICD) Z95.810 Hypothyroidism E03.9
--- NOTE | 2022-05-08 15:17 | Electrocardiogram Report ---
Test Reason : Blood Pressure : / mmHG Vent. Rate : 083 BPM Atrial Rate : 083 BPM P-R Int : 182 ms QRS Dur : 074 ms QT Int : 420 ms P-R-T Axes : 073 049 -64 degrees QTc Int : 493 ms Normal sinus rhythm Low voltage QRS st AND T wave abnormality, consider inferior ischemia ST and T wave abnormality, consider anterolateral ischemia Prolonged QT Abnormal ECG When compared with ECG of 05-DEC-2021 12:11, [place] interval has decreased Confirmed by Jey Licona ([id number]) on 05/08/2022 3:17:22 PM Referred By: REFERRED SELF Confirmed By:Jey Licona
[2022-05-08] MEDS ORDERED: POLYETHYLENE (MIRALAX) 17 GM PACK PO PRN (20:23)
[2022-05-08] MEDS ORDERED: ALBUT/IPRATROP 3MG/0.5MG NEB 3 ML VIAL INH PRN (20:39)
[2022-05-08] MEDS: POTASSIUM CHLORIDE / WTR 10 MEQ/100 ML PLCT IV SCH (21:40)
[2022-05-08] MEDS: ACETAMINOPHEN 325 MG TAB PO PRN (23:09)
[2022-05-08] MEDS: ENOXAPARIN INJ 40 MG/0.4 ML SYR SQ SCH (23:25)
[2022-05-08] MEDS: ATORVASTATIN 40 MG TAB PO SCH (23:26)
[2022-05-08] MEDS: HYDROCORTISONE 10 MG TAB PO SCH (23:26)
[2022-05-09] MEDS: POTASSIUM CHLORIDE / WTR 10 MEQ/100 ML PLCT IV SCH (00:30)
[2022-05-09] MEDS ORDERED: HYDROmorphone INJ 0.5 MG/0.5 ML SYR IV STA (00:44)
[2022-05-09 02:46] LABS: BUN Creatinine Ratio 17.9 (10-20); Calcium 7.9 mg/dl (8.5-10.1); Creatinine Clr Calc Pharmacy 57.6 ml/min; Est GFR (Non-African American) 65.6 ml/min; Potassium 3.8 mmol/L (3.5-5.1)
[2022-05-09 03:02] LABS: Hematocrit (blood only) 41.1 % (34.1-44.9); Mean Corpuscular Hgb Conc 34.1 g/dL (32.0-36.0); Mean Corpuscular Volume 93.8 fL (80.0-100.0); Mean Platelet Volume 11.5 fL (9.4-12.3); Platelet Count 92 K/uL (130-400); RDW Coefficient of Variation 12.8 % (11.5-14.5); RDW Standard Deviation 44.5 fL (36.4-46.3); Red Blood Count 4.38 M/uL (3.93-5.22); White Blood Count 8.68 K/ul (4.8-10.8)
[2022-05-09 03:03] LABS: Basophils # (auto) 0.02 K/uL (0-0.2); Basophils % (auto) 0.2 %; Echinocytes 2+; Eosinophils # (auto) 0.02 K/uL (0-0.50); Eosinophils % (auto) 0.2 %; Immature Granulocytes # (auto) 0.03 K/uL (0.00-0.02); Immature Granulocytes % (auto) 0.3 %; Lymphocytes # (auto) 0.97 K/uL (1.2-3.4); Lymphocytes % (auto) 11.2 %; Monocytes # (auto) 0.44 K/uL (0.24-0.82); Monocytes % (auto) 5.1 %
[2022-05-09] MEDS: LEVOTHYROXINE SODIUM 88 MCG TABLET PO SCH (05:35)
--- NOTE | 2022-05-09 07:13 | Hospitalist Progress Note ---
Date of Service May 09, 2022 Assessment & Plan (1) COVID-19: Plan: - 3 days of chest/body aches, fevers, general weakness, vomiting/dry heaves. - Not vaccinated against COVID-19. - Afebrile and SpO2 > 92% on RA in ED, - currently without covid pneumonia or oxygen need, (2) Elevated troponin: Plan: - Troponin initially elevated 14.8, repeat 2 hours later 17.5. Patient has had general chest aches/tightness for 3 days now in the setting of known COVID. - EKG does have some more prominent T wave inversions, - She not hypoxic or tachycardic, no shortness of breath, or unilateral leg swe lling/pain to suggest PE. - Given the duration of chest pain and troponin very mildly elevated, high suspicion that this is more so related to her COVID 19 infection then cardiac in nature. possible to be demand ischemia from illness but not nstemi (3) CATA (acute kidney injury): Plan: - Baseline creatinine < 1.0, 1.21 today. In the setting of emesis/dry heaves/poor p.o. intake over the past 3 days given COVID-19 infection. - Received 1.5L NSS in ED, will continue maintenance fluids, hold nephrotoxins. - Renally dose medications as able. 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 - Continue hydrocortisone 15 mg in a.m., 5 mg p.m. no need for stress dose steroids at this time - (5) CAD (coronary artery disease): Plan: - Continue metoprolol, isosorbide, aspirin daily, statin. - Holding lisinopril and hydrochlorothiazide due to mild CATA. - (6) Acid reflux disease: Plan: - Continue PPI. (7) Diabetes type 2, controlled: Plan: - History of, however has not been on medications for 2 years. A1c 5.7% in April 2021. - No need for Accucheks/SSI, can monitor glucose on daily BMPs. (8) Status post implantation of automatic cardioverter/defibrillator (AICD): Plan: - s/p cardiac arrest in 2019. (9) Hypothyroidism: Plan: - Continue levothyroxine. Plan - ADmit to med/tele. - SCDs and Lovenox for VTE ppx. -DNR/DNI. Admission and Anticipated Discharge Date Admission Date: May 08, 2022 Subjective pt has had no further chest pain and not with any uptrend of troponin, echo without RWMA, covid infection without pneumonia, or oxygen need Review of Systems Review of Systems: Mild distress and fatigue no headache, no visual changes no speech or swallowing issues no chest pain, pressure or palpitations no shortness of breath, cough or wheezes no abdominal pain, nausea or vomiting, diarrhea or constipation no dysuria, hematuria or frequency no focal joint pain or swelling no back pain, CVA tenderness or radicular pain no bruising, bleeding or rashes no focal signs of weakness or numbness or altered sensation no complaints of anxiety or depression.. Physical Exam Physical Exam: The patient appeared well nourished and normally developed. Vital signs as documented. Head exam is normocephalic atraumatic Neck is without JVD, thyromegaly, or carotid bruits. Lungs are clear to auscultation, no focal loss of breath sounds Cardiac exam, Rhythm is regular.. No murmurs, rubs or gallops. Abdominal exam reveals normal bowel sounds, soft non tender, no masses Extremities are nonedematous and both pedal pulses are present Neurologic exam is alert and oriented, no focal loss of strength or sensation Skin is without bruises or rashes Psychologically is without concerns for anxiety or depression.. Results & Data Results & Data ([facility]) Vital Signs (Past 12 Hours) Vital Signs Temp Pulse Pulse Resp BP BP Pulse Ox 05/09/22 02:56 97.7 F 63 17 112/61 100 05/08/22 23:20 65 05/08/22 23:12 97.9 F 80 17 119/77 97 05/08/22 21:42 97.9 F 66 16 107/65 95 05/08/22 21:00 66 19 135/78 96 O2 Del Method 05/09/22 02:56 Room Air 05/08/22 23:20 05/08/22 23:12 Room Air 05/08/22 21:42 Room Air 05/08/22 21:00 Room Air PG Care Time/CCT Total # of Minutes Spent Total Time Spent with Patient: Total time spent is greater than 50% in coordination of care (as documented) at patient's floor/unit and/or counseling patient: Coding Level of Care Code 89917 Subseq Hosp Care Lvl 3 Diagnoses COVID-19 U07.1 Elevated troponin R77.8 CATA (acute kidney injury) N17.9 Secondary adrenal insufficiency E27.49 CAD (coronary artery disease) I25.10 Acid reflux disease K21.9 Diabetes type 2, controlled E11.9 Status post implantation of automatic cardioverter/defibrillator (AICD) Z95.810 Hypothyroidism E03.9
[2022-05-09] MEDS: ASPIRIN 81 MG ECTAB PO SCH (08:46)
[2022-05-09] MEDS: HYDROCORTISONE 10 MG TAB PO SCH ×2 (08:46→21:13)
[2022-05-09] MEDS: ISOSORBIDE MONO EXTENDED REL 60 MG TABCR PO SCH (08:46)
[2022-05-09] MEDS: METOPROLOL SUCC 25MG EXT REL TAB PO SCH (08:46)
[2022-05-09] MEDS ORDERED: PANTOprazole 40 MG TAB PO SCH (09:00)
[2022-05-09] MEDS ORDERED: CALCIUM CARBONATE 500 MG CHEWABLE TAB PO PRN (11:33)
--- NOTE | 2022-05-09 14:24 | XCELERA ---
[id number]
[2022-05-09] MEDS: SUCRALFATE 1 GM/10 ML UDC PO SCH ×2 (18:13→21:13)
[2022-05-09] MEDS: ENOXAPARIN INJ 40 MG/0.4 ML SYR SQ SCH (21:15)
[2022-05-09] MEDS: PANTOprazole 40 MG TAB PO SCH (21:15)
[2022-05-09] MEDS: ATORVASTATIN 40 MG TAB PO SCH (21:15)
[2022-05-10] MEDS: LEVOTHYROXINE SODIUM 88 MCG TABLET PO SCH (05:30)
[2022-05-10] MEDS: ACETAMINOPHEN 325 MG TAB PO PRN (07:39)
[2022-05-10] MEDS: SUCRALFATE 1 GM/10 ML UDC PO SCH (07:40)
[2022-05-10] MEDS: ASPIRIN 81 MG ECTAB PO SCH ×2 (07:41→09:40)
[2022-05-10] MEDS: HYDROCORTISONE 10 MG TAB PO SCH ×2 (07:46→09:41)
[2022-05-10] MEDS: METOPROLOL SUCC 25MG EXT REL TAB PO SCH (07:46)
[2022-05-10] MEDS: ISOSORBIDE MONO EXTENDED REL 60 MG TABCR PO SCH ×2 (07:47→09:40)
[2022-05-10] MEDS: PANTOprazole 40 MG TAB PO SCH (09:40)
--- NOTE | 2022-05-10 18:18 | Discharge Summary ---
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 3 days ago, she suddenly developed body aches and chills throughout the day and became quite nauseous, vomiting once that time. That night, she went home and slept for 16 hours but woke up still feeling very fatigued. She continues to feel achy all over, noting it is in her chest and joints all over her body. The chest pain is not worse with respirations, activity, or coughing. It remains a dull pressure/ache it has been persistent for 3 days now. Does not radiate into her neck or jaw. She has not vomited anymore but has been dry heaving. She does not have much of an appetite and has ongoing chills and hot flashes. She feels weak and "not good at all". She has some family members with cold symptoms, otherwise denies known exposure to COVID or other sick contacts. Upon presentation, vital signs within with normal limits stable, afebrile and SPO2 maintained 95% on room air. Labs are significant for decreased platelet count of 92, sodium 132, potassium 3.3, Cr 1.21, calcium 8.3. AST mildly elevated 55, liver function WNL. Initial troponin mildly elevated 14.8, repeat 2 hours later 17.5. UA likely contaminated with >30 epi cells, is positive for WBCs, protein, ketones, and microscopic blood. Respiratory bio fire panel positive for COVID-19, otherwise negative. CXR without evidence of pneumonia. Principal Diagnosis covid infection chest pain Discharge Exam The patient appeared stable Vital signs as documented. Lungs are clear to auscultation and appear unlabored Cardiac exam, Rhythm is regular.. No murmurs, rubs or gallops. Abdominal exam reveals normal bowel sounds, soft non tender, no masses Extremities are nonedematous and both pedal pulses are normal. Neurologic exam is alert and oriented, no focal loss of strength or sensation Skin is without bruises or rashes Psychologically is without concerns for anxiety or depression. Discharge Data Allergies Allergy/AdvReac Type Severity Reaction Status Date / Time fenofibrate Allergy Unknown Verified 12/24/21 10:24 Xtnpios-[id number] Reductase Allergy Unknown Verified 05/08/22 15:59 Inhibitor [Rervkfg-Xnu-Jjm Reductase Inhibitor] Consultations 05/08/22 14:28 ED Decision to Admit Stat Hospital Course (1) COVID-19: - 3 days of chest/body aches, fevers, general weakness, vomiting/dry heaves. - Not vaccinated against COVID-19. - Afebrile and SpO2 > 92% on RA in ED, - currently without covid pneumonia or oxygen need, (2) Elevated troponin: - Troponin initially elevated 14.8, repeat 2 hours later 17.5. Patient has had general chest aches/tightness for 3 days now in the setting of known COVID. - EKG does have some more prominent T wave inversions, - She not hypoxic or tachycardic, no shortness of breath, or unilateral leg swelling/pain to suggest PE. - Given the duration of chest pain and troponin very mildly elevated, high suspicion that this is more so related to her COVID 19 infection then cardiac in nature. possible to be demand ischemia from illness but not nstemi (3) CATA (acute kidney injury): - Baseline creatinine < 1.0, 1.21 today. In the setting of emesis/dry heaves/poor p.o. intake over the past 3 days given COVID-19 infection. - Received 1.5L NSS in ED, will continue maintenance fluids, hold nephrotoxins. - Renally dose medications as able. - Replete potassium (4) Secondary adrenal insufficiency: - Secondary to Adrián syndrome . - Continue hydrocortisone 15 mg in a.m., 5 mg p.m. no need for stress dose steroids at this time - (5) CAD (coronary artery disease): - Continue metoprolol, isosorbide, aspirin daily, statin. - Holding lisinopril and hydrochlorothiazide due to mild CATA. - (6) Acid reflux disease: - Continue PPI. (7) Diabetes type 2, controlled: - History of, however has not been on medications for 2 years. A1c 5.7% in April 2021. - No need for Accucheks/SSI, can monitor glucose on daily BMPs. (8) Status post implantation of automatic cardioverter/defibrillator (AICD): - s/p cardiac arrest in 2020. (9) Hypothyroidism: - Continue levothyroxine. Total Time Total Time Spent Total Time Spent (In Minutes): It required greater than 30 minutes to prepare this patient for discharge Discharge Plan Discharge Items Patient Disposition: Home - Self-Care Reason For Visit: CHEST PAIN Discharge Diagnosis: covid infection non cardiac chest pain bronchitis Condition on Discharge: Fair Activity: Resume your previous activity Non-emergency contact: Primary Care Provider Call non-emergency contact if: your symptoms worsen Follow-up/Referrals: dAam Mcmahon MD [Primary Care Provider] - 05/18/22 2:00 pm (THIS WILL BE A VIRTUAL DRSanty APPT ) Diet: Regular Addtl Attending Provider Instructions: please be on home isolation for 10 days from the start of your symptoms. Rest and relax at home complete your antibiotics Pending Studies at Discharge: No Stand-Alone Forms: My [email or web address], Smoking Cessation Medications and DC Order Prescriptions: New azithromycin 250 mg tablet See Rx Instructions .ROUTE .COMPLEX Qty: 6 0RF Rx Instructions: For 250 mg dose pack: take 500 mg today (day 1), then 250 mg for 4 days (days 2-5) Continued hydrocortisone 5 mg tablet 5 mg PO BID Qty: 180 3RF Rx Instructions: Take with 10mg in the morning hydrocortisone 10 mg tablet 10 mg PO QAM Qty: 90 3RF Rx Instructions: Take every morning with 5mg atorvastatin 40 mg tablet 40 mg PO HS isosorbide mononitrate 30 mg tablet extended release 24 hr 60 mg PO QAM levothyroxine 88 mcg tablet 88 mcg PO DAILYBB omeprazole 20 mg capsule,delayed release(DR/EC) 20 mg PO Q2D metoprolol succinate 25 mg tablet extended release 24 hr 25 mg PO QAM aspirin 81 mg Tablet,Delayed Release (Dr/Ec) 81 mg PO DAILY Discontinued triamterene-hydrochlorothiazid 37.5-25 mg capsule 1 cap PO Q2D Qty: 90 1RF Rx Instructions: 1 cap PO every other day lisinopril 5 mg tablet 5 mg PO QAM Discharge Orders: Discharge Order (Routine); Ordered 05/10/22 Ordered By: Emeka Staples Admission Data Admit Date/Time: 05/08/22 15:09 Attending Provider: Emeka Staplesit Provider: Jerod Hernández Primary Care Provider: Adam Mcmahon V. Other Providers: Jerod Hernández Other Interventions: Discharge Summary Assessment (RN) Last Done: 05/10/22 10:11 Coding Level of Care Code D/C DAY MANAGEMENT >30 MINS Diagnoses COVID-19 U07.1 Elevated troponin R77.8 CATA (acute kidney injury) N17.9 Secondary adrenal insufficiency E27.49 CAD (coronary artery disease) I25.10 Acid reflux disease K21.9 Diabetes type 2, controlled E11.9 Status post implantation of automatic cardioverter/defibrillator (AICD) Z95.810 Hypothyroidism E03.9
== END 2022-05-10 11:49 | disposition home or self-care (01) | DRG 178 ==
LOC: ED 08:43 → SUATTDRO 15:09 → EDINP 15:09 → 2S 21:00
DX: Z86.74 Personal history of sudden cardiac arrest; K21.9 Gastro-esophageal reflux disease without esophagitis; N17.9 Acute kidney failure, unspecified; F17.210 Nicotine dependence, cigarettes, uncomplicated; R11.2 Nausea with vomiting, unspecified; R79.89 Other specified abnormal findings of blood chemistry; E23.0 Hypopituitarism; Z79.890 Hormone replacement therapy; E03.9 Hypothyroidism, unspecified; Z95.810 Presence of automatic (implantable) cardiac defibrillator; E27.40 Unspecified adrenocortical insufficiency; I25.10 Atherosclerotic heart disease of native coronary artery without angina pectoris; Z28.310 Unvaccinated for COVID-19; E11.9 Type 2 diabetes mellitus without complications; K76.0 Fatty (change of) liver, not elsewhere classified; Z66 Do not resuscitate; I24.8 Other forms of acute ischemic heart disease; U07.1 COVID-19